=== PATIENT | male | born 1960 | race Caucasian/White ===

== ENCOUNTER 2021-12-28 12:35 | Day surgery (SDC) | payer OTHER ==
[2021-12-26 16:19] VITALS: BMI 25.0
[~2021-12-28 12:35] MED LIST: ALBUTEROL NEB (CONC) 2.5 MG/0.5 ML INHALATION ONE; LACTATED RINGERS 1,000 ML IV SCH; LIDOCAINE 2% (PF) 20 MG/ML 5 ML VIAL INHALATION ONE; LIDOCAINE VISCOUS 300 MG/15 ML CUP MUCOUS MEM ONE; SODIUM CHLORIDE 0.9% 1,000 ML IV SCH
[2021-12-28 13:14] LABS: Glucose,Whole Blood 103 mg/dL (75-99)
[2021-12-28] MEDS ORDERED: NEOSTIGMINE 1 MG/ML 10 ML VIAL ONE (13:36)
[2021-12-28] MEDS ORDERED: ROCURONIUM 10 MG/ML (5 ML VIAL) IV ONE (13:36)
[2021-12-28] MEDS ORDERED: LIDOCAINE 1% INJ 10MG/ML (20 ML MDV) ONE (13:36)
[2021-12-28] MEDS ORDERED: GLYCOPYRROLATE 0.2 MG/ML 2 ML VIAL ONE (13:36)
[2021-12-28] MEDS ORDERED: SUCCINYLCHOLINE CHLORIDE VIAL 200 MG/10 ML VIAL IV ONE (13:36)
[2021-12-28] MEDS ORDERED: fentaNYL (PF) 50 MCG/ML 2 ML AMP ONE (13:36)
[2021-12-28] MEDS ORDERED: PROPOFOL 10 MG/ML 20 ML VIAL IV ONE (13:36)
[2021-12-28] MEDS ORDERED: MIDAZOLAM 2 MG/2 ML VIAL ONE (13:36)
--- NOTE | 2021-12-28 14:04 | CT ---
EXAMINATION TYPE: CT Chest jennifer Domínguez Protocol DATE OF EXAM: 12/28/2021 COMPARISON: X-ray dated 12/14/2021 HISTORY: pre bronchial navigation, lung mass CT DLP: 569 mGycm Automated exposure control for dose reduction was used. TECHNIQUE: Multiplanar CT scan of the chest in the inspiration and expiration phases without IV contr ast administration. FINDINGS: Large right hilar mass extending along the posterior aspect of the right upper lobe to the costal ple ura and along the oblique fissure with suspected extension into the right lower lobe superior segment . This is likely representing a lung cancer. Multiple variable sized nodules are seen in the right up per lobe, right lower lobe and middle lobe measuring up to 8mm. Filling defect is seen within the lateral superior aspect of the trachea measuring 12 mm, underlying polyp or other lesion cannot be excluded. Minimal left basal linear pulmonary atelectasis. No definit e left lung lesion identified. Minimal right-sided pleural fluid. No gross cardiomegaly. Minimal lay nary arterial calcifications. No pericardial effusion. 17 mm subcarinal lymph node with 17 mm precarinal lymph node and 15 mm right paratracheal retrocaval lymph node. Other multiple enlarged mediastinal and right hilar lymph nodes. No pathologically enlarg ed left hilar or axillary lymph nodes. Tiny hypodensities are seen in the liver, too small to characterize, for further enhanced CT or ultra sound assessment. The left adrenal gland is not completely included in the scan. Previous left basilia l fixation. Multiple lucencies are seen within the thoracic spine and the ribs as well as the sternum and right scapula, suspicious for metastasis, please correlate with bone scan results. IMPRESSION: Peribronchial navigation CT scan. Large right lung mass likely representing a lung cancer with multip le suspicious lymph nodes in the chest as detailed above. Multiple bone lesions likely metastatic, for further correlation with bone scan results. Indeterminat e hepatic hypodensities, for further CT or ultrasound assessment. PET/CT scan assessment can be also considered. Other findings as described above.
[2021-12-28] MEDS ORDERED: LACTATED RINGERS 1,000 ML IV ONE (14:42)
--- NOTE | 2021-12-28 14:44 | P.PCN ---
Date of Procedure: 12/28/21 Operative Findings: Operative Findings: 1 right upper lobe mass 2 Right hilar subcarinal lymphadenopathy Postoperative Diagnosis: 1 right upper lobe mass 2 Right hilar subcarinal lymphadenopathy Procedure(s) Performed: 1 flexible bronchoscopy, airway inspection 2 navigation bronchoscopy, transbronchial biopsy of a right upper lobe mass, bronchial alveolar lavage of the right upper lobe 2 endoscopic ultrasound (EBUS) 3 transbronchial needle aspirate of station station 7, station 4R, 11 R (S) lymph nodes Surgeon: Tang Topete Offset Press Operator Helper #1: Zoe Mendoza Estimated Blood Loss (ml): 10-15 cc Pathology: TBBX of the right upper lobe, transbronchial needle aspirate of station 7, forearm, and 11 R (S) Condition: stable Disposition: same day Operative Findings: The patient had a preoperative computed tomography scan of the chest using the Veran protocol. The CAT scan images were reviewed. The right upper lobe opacity was identified it was mapped appropriately. The CAT scan images are uploaded into a USB and then into the [employer] Navigation tower. After obtaining the consent the patient was taken to the OR suite he was intubated and put on mechanical ventilation by anesthesia then the scope was advanced to the ET tube until the Trachea was seen and it was normal and then the malissa appears normal then the scope advanced to the left main and REGLA LB1- LB3 were seen and no endobronchial lesions were seen then the scope advanced to the lingula and the LB4 and LB5 were seen and no endobronchial lesions were seen the scope retracted and advanced to the left lower lobes LB6 to LB12 were seen one by one and no endobronchial lesions, then the scope was retracted back to the malissa and advanced to the Right main and RUL RB1 and RB2 and RB3 were seen one by one and no endobronchial lesions were seen the scope, however, the segment of the posterior right upper lobe bronchus were atelectatic and narrowed and extrinsically compressed. The bronchoscope was then retracted and advanced to the BI and RML RB4 and RB5 were seen and no endobronchial lesions were seen then it was retracted and advanced to the RLL RB6 to RB12 were seen one by one and no endobronchial lesions. Navigation bronchoscopy was performed. The main malissa and the secondary malissa on the left were used as the reference points and appropriate calibration was done. Following that, using a navigation guidance , the bronchoscope was advanced to the right upper lobe posterior segment and various transbronchial biopsies of the right upper lobe opacity was done without any complications. Minimal endobronchial bleeding was encountered. A bronchial lavage (BAL) of the right upper lobe O2 sat was done. A total of 80 mL of fluid was infused and 20 mL was suctioned back and this will be sent for cytology and microbial cultures. Then EBUS was used and the lymph nodes were examined. Direct measurement of the mediastinal lymph nodes revealed station 4R lymph node measuring 21 x 18 mm in size, station 10 R lymph node measuring 16 x 17 mm in size, station 11 R superior measuring 19 x 19 mm in size, station 11 R inferior measuring 15 x 15 mm in size, and a subcarinal lymph node station 7 measuring 17 x 19 mm in size. On the EBUS guidance, transbronchial needle aspirate of the subcarinal lymph node station 7 was done with a total of 4 passes, station 4R lymph node was done with a total of 3 passes and station 11 R superior was done with a total of 3 passes. No major bleeding and the scope was removed and taken out in total the patient was send to the floor in stable condition. The adequacy of the temporal confirmed by pathology at the bedside and the rest of the samples were sent and the cell block. The bronchoscope was removed, the patient will be extubated and then transferred to recovery. A follow-up chest x-ray will be done in recovery.
[2021-12-28 14:53] VITALS: TEMP 98
[2021-12-28 15:45] VITALS: BP 121/68; PULSE 91; RESP 20
--- NOTE | 2021-12-28 15:46 | XR ---
EXAMINATION TYPE: XR chest 1V DATE OF EXAM: 12/28/2021 COMPARISON: X-ray dated 12/14/[address] performed earlier same day HISTORY: Postbiopsy TECHNIQUE: Single frontal view of the chest is obtained. FINDINGS: Known large right lung mass with right lung nodules, osseous lesions and mediastinal/right hilar lymp hadenopathy. No sizable pleural effusion or definite pneumothorax. No cardiomegaly. IMPRESSION: No postbiopsy pneumothorax or pleural effusion.
[2021-12-29 01:42] LABS: Appearance,BF Bloody
== END 2021-12-28 16:00 | disposition home or self-care (01) ==
LOC: ORWHC2ENDO 12:35
PROVIDERS: ATTEND Internal Medicine Critical Care Medicine
DX: R91.8 Other nonspecific abnormal finding of lung field (principal); R59.0 Localized enlarged lymph nodes; J44.9 Chronic obstructive pulmonary disease, unspecified; R05.3 Chronic cough; M10.9 Gout, unspecified; F41.9 Anxiety disorder, unspecified; Z87.891 Personal history of nicotine dependence; Z79.899 Other long term (current) drug therapy; Z80.1 Family history of malignant neoplasm of trachea, bronchus and lung; Z82.0 Family history of epilepsy and other diseases of the nervous system; N50.89 Other specified disorders of the male genital organs; Z97.2 Presence of dental prosthetic device (complete) (partial)
CPT/HCPCS: 87798 ×3; 87496; 87498; 87529; 88108; 88305; 88173; 89050; 88342; 87252; 87502; 87634; 88341; 87070; 87205; 87116; 87102; 87206; 71045; 71250; 31628; 31629; 31624; 31627; 31653; J2250; J0330; J2710; J2001; J3010; J2704; 31625

== ENCOUNTER → 2022-01-12 | Outpatient (CLI) | payer OTHER ==
--- NOTE | 2022-01-16 06:43 | PE ---
EXAMINATION TYPE: PET CT fusion skull to thigh DATE OF EXAM: 01/12/2022 COMPARISON: Chest CT December 28, 2021 HISTORY: Newly diagnosed non-small cell lung cancer on bronchoscopy December 28. TECHNIQUE: Following the intravenous administration of 11.75 mCi of F-18 FDG, whole body images are performed from the skull base to the midthigh. Images are reviewed on the computer in the coronal, a xial, and sagittal planes. Reconstructed rotating images are created on independent workstation and reviewed on the computer. A localization and attenuation correction CT is performed in conjunction with the PET scan. Blood glucose level equals 90. SCAN: Initial Scan FINDINGS: SKULL BASE AND NECK: Abnormal hypermetabolic mass or adenopathy posterior lateral to right submandib ular gland measuring 1.7 x 1.5 cm axial image 43 above the hyoid bone, max SUV is 8.14. There is vianca tional borderline enlarged hypermetabolic lymph node at this level in the posterior cervical triangle on the right. CHEST, MEDIASTINUM, AND HILAR REGION: Corresponding to most recent CT there is mild underlying emphys ematous change with large mass in the posterior right upper lobe measuring 7.6 x 5.7 cm axial image 9 1, max SUV is 10.76 on axial image 86. Abnormal right hilar adenopathy versus continuation of mass to hilar level is felt present. There are abnormal thoracic lymph nodes for reference approximately 2.3 x 1.6 cm subcarinal lymph node axial i mage 100, max SUV is 7.27. There are abnormal hypermetabolic paratracheal and AP window lymph nodes n ear axial image 91. Additional abnormal paratracheal lymph nodes extend superiorly. There are abnorma l hypermetabolic supraclavicular lymph nodes bilaterally on axial image 70. 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 Normal excretion o f right kidney and bladder. No hypermetabolic adrenal masses. Left adrenal gland shows small ametabol ic 1.4 cm mass axial image 158 favor benign adenoma. OSSEOUS STRUCTURES: Innumerable hypermetabolic osseous metastatic lesions correspond to lytic lesions on CT. There is involvement of the bilateral ribs along with sternal and entire spine. There is invo lvement of the pelvic sacrum and bilateral iliac bones. There is involvement in the bilateral shoulde rs. Growth into the anterior aspect of the spinal canal involving T11 vertebra axial image [address]: Enlarged prostate consistent with BPH. IMPRESSION: Known right lung neoplasm with abnormal thoracic adenopathy along with diffuse osseous me tastatic disease and metastatic lesions to the right neck. Early spinal canal invasion lower thoracic spine level is noted. TNM STAGING T4, N3, M1c STAGE IVb 232
== END | disposition home or self-care (01) ==
LOC: RADXRMAIN 14:36
PROVIDERS: ATTEND Internal Medicine Critical Care Medicine
DX: C34.90 Malignant neoplasm of unspecified part of unspecified bronchus or lung (principal); C79.51 Secondary malignant neoplasm of bone
CPT/HCPCS: 78815; A9552

== ENCOUNTER 2022-01-24 17:58 | Inpatient (IN) | payer OTHER ==
[2022-01-24] MEDS ORDERED: ACETAMINOPHEN TAB 500 MG TAB PO STA (18:23)
[2022-01-24] MEDS ORDERED: SODIUM CHLORIDE 0.9% 2,500 ML IV STA (18:26)
[2022-01-24 19:03] LABS: HCT 42.1 % (39.0-53.0); HGB 13.2 gm/dL (13.0-17.5); Hypochromasia Slight; MCH 26.6 pg (25.0-35.0); MCHC 31.3 g/dL (31.0-37.0); MCV 85.1 fL (80.0-100.0); Mean Platelet Volume 8.1; Platelet Count 390 k/uL (150-450); RBC 4.95 m/uL (4.30-5.90); RDW 13.9 % (11.5-15.5)
[2022-01-24 19:08] LABS: ALT 9 U/L (4-49); AST 18 U/L (17-59); African American GFR (CKD) >90 (>60 ml/min/1.73 sqM); Albumin 3.2 g/dL (3.5-5.0); Alkaline Phosphatase 88 U/L (38-126); Anion Gap 10 mmol/L; Blood Urea Nitrogen 14 mg/dL (9-20); Calcium 9.4 mg/dL (8.4-10.2); Carbon Dioxide 30 mmol/L (22-30); Chloride 91 mmol/L (98-107); Glucose 115 mg/dL (74-99); Non-African American GFR(CKD) >90 (>60 ml/min/1.73 sqM); Potassium 3.8 mmol/L (3.5-5.1); Sodium 131 mmol/L (137-145); Total Bilirubin 0.9 mg/dL (0.2-1.3); Total Protein 5.9 g/dL (6.3-8.2)
--- NOTE | 2022-01-24 19:11 | XR ---
EXAMINATION TYPE: XR chest 1V portable DATE OF EXAM: 01/24/2022 COMPARISON: 12/28/2021 HISTORY: Bronchoscopy TECHNIQUE: Single view FINDINGS: There is 11 cm masslike area of consolidation in the right upper lung field. Left lung is f airly clear. No heart failure. Heart size is normal. IMPRESSION: Right upper lobe consolidation significantly increased compared to last exam. No pneumoth orax. No heart failure.
[2022-01-24 19:14] LABS: INR 1.2 (<1.2); Prothrombin Time 12.7 sec (9.0-12.0)
[2022-01-24 19:16] LABS: WBC 56.8 k/uL (3.8-10.6)
--- NOTE | 2022-01-24 19:19 | ED ---
General Adult HPI - General Chief complaint: Weakness Stated complaint: Weakness Time Seen by Provider: 01/24/22 18:12 Source: patient, EMS, RN notes reviewed Mode of arrival: EMS Limitations: no limitations - History of Present Illness Initial comments: 61-year-old male presents to the emergency department via EMS for evaluation of profound weakness, onset two days prior to arrival. Patient states he is so tired that he has been unable to get out of bed today. He was recently diagnosed with lung cancer and has had multiple tests and scans done in the past 2 months. He was unaware that he had a fever. Complains of lateral chest pain with deep breathing. Also complains decreased urine output, onset yesterday. Also has had diminished appetite. Denies confusion, speech changes, facial drooping, extremity weakness, abdominal pain, nausea, vomiting, diarrhea, and constipation. - Related Data Home Medications Medication Instructions Recorded Confirmed hydrOXYzine HCL 25 mg PO TID PRN 12/26/21 01/24/22 HYDROcodone/APAP 7.5-325MG [[place] 2 tab PO Q4H PRN 01/24/22 01/24/22 7.5-325] Allergies Allergy/AdvReac Type Severity Reaction Status Date / Time No Known Allergies Allergy Verified 01/24/22 20:42 Review of Systems ROS Statement: Those systems with pertinent positive or pertinent negative responses have been documented in the HPI. ROS Other: All systems not noted in ROS Statement are negative. Past Medical History Past Medical History: Cancer, COPD Additional Past Medical History / Comment(s): recent gout in knee with steroids in the last week., SOB, states productive cough. Stage 4 lung and bone cancer History of Any Multi-Drug Resistant Organisms: None Reported Past Surgical History: Back Surgery, Hernia Repair Additional Past Surgical History / Comment(s): 2015 fx arm with hardware. Past Anesthesia/Blood Transfusion Reactions: No Reported Reaction Past Psychological History: Anxiety Smoking Status: Former smoker Past Alcohol Use History: Daily Past Drug Use History: Marijuana - Past Family History Father Family Medical History: Cancer Additional Family Medical History / Comment(s): lung cancer General Exam Limitations: no limitations General appearance: alert, in no apparent distress, other (This is a pleasant, well-developed, well-nourished male in no acute distress. Initial temperature 100.3, pulse 120, respirations 20, blood pressure 135/83, pulse ox 88% on room air, 98% on 4 L.) Head exam: Present: atraumatic, normocephalic, normal inspection Eye exam: Present: normal appearance. Absent: scleral icterus, conjunctival injection, periorbital swelling, periorbital tenderness ENT exam: Present: normal oropharynx, mucous membranes moist Neck exam: Present: normal inspection, full ROM. Absent: tenderness, lymphadenopathy Respiratory exam: Present: normal lung sounds bilaterally. Absent: respiratory distress, wheezes, rales, rhonchi, stridor, chest wall tenderness Cardiovascular Exam: Present: normal rhythm, tachycardia, normal heart sounds GI/Abdominal exam: Present: soft, tenderness (mild suprapubic tenderness upon palpation; reports improvement with placement of lr catheter), normal bowel sounds. Absent: distended, guarding, rebound, rigid Extremities exam: Present: normal inspection, normal capillary refill, other (+2 pedal and posttibial pulses; unable to raise legs off bed). Absent: pedal edema Back exam: Absent: CVA tenderness (R), CVA tenderness (L) Neurological exam: Present: alert, oriented X3 Expanded Patient oriented to: Present: person, place, time Speech: Present: fluid speech Cranial nerves: EOM's Intact: Normal, Tongue Deviation: Normal, Nystagmus: Normal Cerebellar function: Finger to Nose: Normal Sensory exam: Upper Extremity Light Touch: Normal, Lower Extremity Light Touch: Normal Motor strength exam: RUE: 5, LUE: 5, RLE: 2/1, LLE: 2/1 Eye Response: (4) open spontaneously Motor Response: (6) obeys commands Verbal Response: (5) oriented Marlon Total: 15 Psychiatric exam: Present: flat affect Skin exam: Present: warm, dry, intact, normal color. Absent: rash Course Vital Signs 01/24/22 01/24/22 01/24/22 18:02 18:12 20:26 Temperature 100.3 F H 101.8 F H Pulse Rate 120 H 115 H Respiratory 20 18 Rate Blood Pressure 135/83 115/74 O2 Sat by Pulse 88 L 98 97 Oximetry 01/24/22 22:26 Temperature 98.7 F Pulse Rate 99 Respiratory 18 Rate Blood Pressure 103/66 O2 Sat by Pulse 97 Oximetry - Reevaluation(s) Reevaluation #1: 01/24/22 19:30 This patient's care was discussed at length with my attending, Dr. Love. CT spine will be ordered. Significant urine output in lr catheter. Updated patient and spouse on findings and discussed plan of care. Upon reassessment, patient remains awake, alert, and oriented 4. He is on 3 L oxygen with an SpO2 95%. He continues to be mildly tachycardic, though this is improved with IV fluids. He denies shortness of breath or difficulty breathing at rest. States lower abdominal discomfort is improved with urine output via Lr catheter. Patient does remain febrile. Fluids and antibiotics per sepsis protocol. Will continue to monitor. 01/24/22 21:[address] Sanders regarding this patient's care. He is agreeable to accept this admission. Orders will be placed accordingly. Patient and spouse updated on plan of care and they are agreeable. Medical Decision Making - Medical Decision Making 61-year-old male with recent diagnosis of 1 OR with metastatic disease presents to the emergency department via EMS for evaluation of lower extremity weakness and urinary retention. Upon exam, patient's initial room air sat was 88% therefore was placed on oxygen via nasal cannula at 4 L significant improvement. He was febrile and tachycardic. Chest x-ray shows right upper lobe consolidati on significantly increased compared to last exam. CT of the spine shows extensive osteolytic lesions. Lr catheter was placed with substantial urine output. Physical exam findings are significant for the inability to elevate lower extremities off the bed. Antipyretics given for fever control. IV fluids administered according to sepsis protocol. Patient was given IV antibiotics though source of fever is unknown at this time. Patient has marked leukocytosis. Covid his influenza are negative. Patient will be admitted to the hospital for further evaluation and treatment. Plan of care discussed with patient and spouse. Dr. Sanders is agreeable to accept this admission. Pulmonology, oncology, and radiation/oncology were consulted as well. Attending: Ivan. - Lab Data Result diagrams: 01/24/22 18:57 01/24/22 18:57 Lab Results 01/24/22 01/24/22 01/24/22 Range/Units 18:57 18:57 18:57 WBC 56.8 H* (3.8-10.6) k/uL RBC 4.95 (4.30-5.90) m/uL Hgb 13.2 (13.0-17.5) gm/dL Hct 42.1 (39.0-53.0) % MCV 85.1 (80.0-100.0) fL MCH 26.6 (25.0-35.0) pg MCHC 31.3 (31.0-37.0) g/dL RDW 13.9 (11.5-15.5) % Plt Count 390 (150-450) k/uL MPV 8.1 Neutrophils % [employer] Neutrophils % (Manual) 66 % Band Neuts % (Manual) 3 % Lymphocytes % [employer] Lymphocytes % (Manual) 3 % Monocytes % [employer] Monocytes % (Manual) 4 % Eosinophils % [employer] Eosinophils % (Manual) 24 % Basophils % [employer] Neutrophils # [employer] Neutrophils # (Manual) 39.10 H (1.3-7.7) k/uL Lymphocytes # [employer] Lymphocytes # (Manual) 1.70 (1.0-4.8) k/uL Monocytes # [employer] Monocytes # (Manual) 2.27 H (0-1.0) k/uL Eosinophils # [employer] Eosinophils # (Manual) 13.63 H (0-0.7) k/uL Basophils # [employer] Nucleated RBCs 0 (0-0) /100 WBC Manual Slide Review Performed Hypochromasia Slight PT (9.0-12.0) sec INR (<1.2) APTT (22.0-30.0) sec Sodium 131 L (137-145) mmol/L Potassium 3.8 (3.5-5.1) mmol/L Chloride 91 L (98-107) mmol/L Carbon Dioxide 30 (22-30) mmol/L Anion Gap 10 mmol/L BUN 14 (9-20) mg/dL Creatinine 0.84 (0.66-1.25) mg/dL Est GFR (CKD-EPI)AfAm >90 (>60 ml/min/1.73 sqM) Est GFR (CKD-EPI)NonAf >90 (>60 ml/min/1.73 sqM) Glucose 115 H (74-99) mg/dL Plasma Lactic Acid Elmer 1.4 (0.7-2.0) mmol/L Calcium 9.4 (8.4-10.2) mg/dL Total Bilirubin 0.9 (0.2-1.3) mg/dL AST 18 (17-59) U/L ALT 9 (4-49) U/L Alkaline Phosphatase 88 (38-126) U/L Troponin I (0.000-0.034) ng/mL Total Protein 5.9 L (6.3-8.2) g/dL Albumin 3.2 L (3.5-5.0) g/dL Urine Color Urine Appearance (Clear) Urine pH (5.0-8.0) Ur Specific [place] (1.001-1.035) Urine Protein (Negative) Urine Glucose (UA) (Negative) Urine Ketones (Negative) Urine Blood (Negative) Urine Nitrite (Negative) Urine Bilirubin (Negative) Urine Urobilinogen (<2.0) mg/dL Ur Leukocyte Esterase (Negative) Urine RBC (0-5) /hpf Urine WBC (0-5) /hpf Urine Mucus (None) /hpf Coronavirus (PCR) (Not Detectd) Influenza Type A RNA (Not Detectd) Influenza Type B (PCR) (Not Detectd) 01/24/22 01/24/22 01/24/22 Range/Units 18:57 18:57 18:57 WBC (3.8-10.6) k/uL RBC (4.30-5.90) m/uL Hgb (13.0-17.5) gm/dL Hct (39.0-53.0) % MCV (80.0-100.0) fL MCH (25.0-35.0) pg MCHC (31.0-37.0) g/dL RDW (11.5-15.5) % Plt Count (150-450) k/uL MPV Neutrophils % Neutrophils % (Manual) % Band Neuts % (Manual) % Lymphocytes % Lymphocytes % (Manual) % Monocytes % Monocytes % (Manual) % Eosinophils % Eosinophils % (Manual) % Basophils % Neutrophils # Neutrophils # (Manual) (1.3-7.7) k/uL Lymphocytes # Lymphocytes # (Manual) (1.0-4.8) k/uL Monocytes # Monocytes # (Manual) (0-1.0) k/uL Eosinophils # Eosinophils # (Manual) (0-0.7) k/uL Basophils # Nucleated RBCs (0-0) /100 WBC Manual Slide Review Hypochromasia PT 12.7 H (9.0-12.0) sec INR 1.2 H (<1.2) APTT 27.0 (22.0-30.0) sec Sodium (137-145) mmol/L Potassium (3.5-5.1) mmol/L Chloride (98-107) mmol/L Carbon Dioxide (22-30) mmol/L Anion Gap mmol/L BUN (9-20) mg/dL Creatinine (0.66-1.25) mg/dL Est GFR (CKD-EPI)AfAm (>60 ml/min/1.73 sqM) Est GFR (CKD-EPI)NonAf (>60 ml/min/1.73 sqM) Glucose (74-99) mg/dL Plasma Lactic Acid Elmer (0.7-2.0) mmol/L Calcium (8.4-10.2) mg/dL Total Bilirubin (0.2-1.3) mg/dL AST (17-59) U/L ALT (4-49) U/L Alkaline Phosphatase (38-126) U/L Troponin I <0.012 (0.000-0.034) ng/mL Total Protein (6.3-8.2) g/dL Albumin (3.5-5.0) g/dL Urine Color Yellow Urine Appearance Clear (Clear) Urine pH 5.0 (5.0-8.0) Ur Specific [place] 1.025 (1.001-1.035) Urine Protein Negative (Negative) Urine Glucose (UA) Negative (Negative) Urine Ketones Negative (Negative) Urine Blood Small H (Negative) Urine Nitrite Negative (Negative) Urine Bilirubin Negative (Negative) Urine Urobilinogen <2.0 (<2.0) mg/dL Ur Leukocyte Esterase Negative (Negative) Urine RBC 13 H (0-5) /hpf Urine WBC 1 (0-5) /hpf Urine Mucus Rare H (None) /hpf Coronavirus (PCR) (Not Detectd) Influenza Type A RNA (Not Detectd) Influenza Type B (PCR) (Not Detectd) 01/24/22 01/24/22 Range/Units 19:05 19:05 WBC (3.8-10.6) k/uL RBC (4.30-5.90) m/uL Hgb (13.0-17.5) gm/dL Hct (39.0-53.0) % MCV (80.0-100.0) fL MCH (25.0-35.0) pg MCHC (31.0-37.0) g/dL RDW (11.5-15.5) % Plt Count (150-450) k/uL MPV Neutrophils % Neutrophils % (Manual) % Band Neuts % (Manual) % Lymphocytes % Lymphocytes % (Manual) % Monocytes % Monocytes % (Manual) % Eosinophils % Eosinophils % (Manual) % Basophils % Neutrophils # Neutrophils # (Manual) (1.3-7.7) k/uL Lymphocytes # Lymphocytes # (Manual) (1.0-4.8) k/uL Monocytes # Monocytes # (Manual) (0-1.0) k/uL Eosinophils # Eosinophils # (Manual) (0-0.7) k/uL Basophils # Nucleated RBCs (0-0) /100 WBC Manual Slide Review Hypochromasia PT (9.0-12.0) sec INR (<1.2) APTT (22.0-30.0) sec Sodium (137-145) mmol/L Potassium (3.5-5.1) mmol/L Chloride (98-107) mmol/L Carbon Dioxide (22-30) mmol/L Anion Gap mmol/L BUN (9-20) mg/dL Creatinine (0.66-1.25) mg/dL Est GFR (CKD-EPI)AfAm (>60 ml/min/1.73 sqM) Est GFR (CKD-EPI)NonAf (>60 ml/min/1.73 sqM) Glucose (74-99) mg/dL Plasma Lactic Acid Elmer (0.7-2.0) mmol/L Calcium (8.4-10.2) mg/dL Total Bilirubin (0.2-1.3) mg/dL AST (17-59) U/L ALT (4-49) U/L Alkaline Phosphatase (38-126) U/L Troponin I (0.000-0.034) ng/mL Total Protein (6.3-8.2) g/dL Albumin (3.5-5.0) g/dL Urine Color Urine Appearance (Clear) Urine pH (5.0-8.0) Ur Specific [place] (1.001-1.035) Urine Protein (Negative) Urine Glucose (UA) (Negative) Urine Ketones (Negative) Urine Blood (Negative) Urine Nitrite (Negative) Urine Bilirubin (Negative) Urine Urobilinogen (<2.0) mg/dL Ur Leukocyte Esterase (Negative) Urine RBC (0-5) /hpf Urine WBC (0-5) /hpf Urine Mucus (None) /hpf Coronavirus (PCR) Not Detected (Not Detectd) Influenza Type A RNA Not Detected (Not Detectd) Influenza Type B (PCR) Not Detected (Not Detectd) - EKG Data EKG shows normal: sinus rhythm Rate: tachycardia EKG Comments: EKG was obtained at 1823 showing sinus tachycardia with occasional supraventricular premature complexes and nonspecific T-wave abnormality. Ventricular rate 117, IN interval 136, QRS duration 86, QT/QTC 394/463. Interpretation abnormal rhythm ECG. - Radiology Data Radiology results: report reviewed, image reviewed Chest x-ray is obtained. Report was reviewed in its entirety. Impression per Dr. Mccrary is right upper lobe consolidation significantly increased compared to last exam. No pneumothorax. No heart failure. CT of the spine with contrast was obtained. Report was reviewed in its entirety. Impression per Dr. Mccrary is extensive osteolytic changes in the cervical, thoracic, and lumbar spine consistent with extensive metastatic disease. If there is indication to detect a spinal block, then MR scan is recommended. Disposition Clinical Impression: Urinary retention, Fever, Bilateral leg weakness, Spine metastasis, Lung mass, Leukocytosis Disposition: ADMITTED IP TO THIS HOSP Condition: Serious Decision Date: 01/24/22 Decision Time: 22:01
[2022-01-24 19:22] LABS: Appearance,Urine Clear (Clear); Bilirubin,Urine Negative (Negative); Blood,Urine Small (Negative); Color,Urine Yellow; Glucose,Urine (UA) Negative (Negative); Ketones,Urine Negative (Negative); Leukocyte Esterase,Urine Negative (Negative); Mucus,Urine Rare /hpf; Nitrite,Urine Negative (Negative); Protein,Urine Negative (Negative); RBC,Urine 13 /hpf (0-5); Specific Gravity,Urine 1.025 (1.001-1.035); Urobilinogen,Urine <2.0 mg/dL (<2.0); WBC,Urine 1 /hpf (0-5)
[2022-01-24 19:27] LABS: Band Neutrophils % 3 %; Eosinophils # (M) 13.63 k/uL (0-0.7); Monocytes # (M) 2.27 k/uL (0-1.0); Neutrophils % (M) 66 %; Nucleated Red Blood Cells 0 /100 WBC (0-0); Total Cells Counted 100
[2022-01-24] MEDS ORDERED: cefTRIAXone IN SWFI 1,000 MG/10 ML SYRINGE IVP STA (19:37)
[2022-01-24] MEDS: SODIUM CHLORIDE 0.9% 1,000 ML IV SCH ×2 (20:28→22:19)
--- NOTE | 2022-01-24 20:42 | CT ---
EXAMINATION TYPE: CT CervThorLumbar spine w con DATE OF EXAM: 01/24/2022 COMPARISON: None HISTORY: lower back pain and leg weakness CT DLP: 2234.3 mGycm Automated exposure control for dose reduction was used. CONTRAST: Performed with IV Contrast, patient injected with 100 mL of Isovue 300. Images obtained from the level of the temporal bones to the S2 level without contrast. Thoracic and lumbar vertebra have normal alignment. There are numerous osteolytic foci throughout the thoracic and lumbar spine. There is 20% pathologic compression fracture of T3 vertebra. There is 20% loss of height. T1 also shows 10% compression with extensive destructive changes in the vertebral evans dy. There is destructive changes in virtually all of the thoracic and lumbar vertebra. Images through the cervical spine show large destructive lesion of the C2 vertebral body. No significant compressio n fracture. The skull base appears intact. IMPRESSION: Extensive osteolytic changes in the cervical thoracic and lumbar spine consistent with extensive meta static disease. If there is indication to detect spinal block then MR scan is recommended.
[2022-01-24] MEDS ORDERED: ONDANSETRON 4 MG/2 ML VIAL IVP PRN (21:32)
[2022-01-24] MEDS ORDERED: NALOXONE 0.4 MG/ML 1 ML VIAL IV PRN (21:32)
[2022-01-24] MEDS ORDERED: IBUPROFEN 400 MG TAB PO PRN (21:32)
[2022-01-24] MEDS ORDERED: HYDROmorphone 1 MG/ML 1 ML SYRINGE IVP STA (21:57)
[2022-01-24] MEDS: HYDROmorphone 0.5 MG/0.5 ML SYRINGE IVP PRN (22:27)
[2022-01-25] MEDS: SODIUM CHLORIDE 0.9% 1,000 ML IV SCH ×7 (02:09→22:58)
[2022-01-25] MEDS: HYDROmorphone 0.5 MG/0.5 ML SYRINGE IVP PRN (08:14)
[2022-01-25 09:11] LABS: African American GFR (CKD) >90 (>60 ml/min/1.73 sqM); Anion Gap 7 mmol/L; Blood Urea Nitrogen 11 mg/dL (9-20); Calcium 8.6 mg/dL (8.4-10.2); Carbon Dioxide 30 mmol/L (22-30); Chloride 98 mmol/L (98-107); Glucose 115 mg/dL (74-99); Non-African American GFR(CKD) >90 (>60 ml/min/1.73 sqM); Potassium 3.7 mmol/L (3.5-5.1); Sodium 135 mmol/L (137-145)
[2022-01-25 09:23] LABS: Basophils # (A) 0.3 k/uL (0-0.2); Basophils % (A) 1 %; Eosinophils # (A) 13.8 k/uL (0-0.7); Eosinophils % (A) 27 %; HCT 38.5 % (39.0-53.0); HGB 12.1 gm/dL (13.0-17.5); Hypochromasia Moderate; Lymphocytes # (A) 1.4 k/uL (1.0-4.8); Lymphocytes % (A) 3 %; MCH 26.7 pg (25.0-35.0); MCHC 31.4 g/dL (31.0-37.0); Mean Platelet Volume 7.9; Monocytes # (A) 2.2 k/uL (0-1.0); Monocytes % (A) 4 %; Neutrophils # (A) 32.6 k/uL (1.3-7.7); Neutrophils % (A) 64 %; Platelet Count 376 k/uL (150-450); RBC 4.52 m/uL (4.30-5.90); RDW 13.8 % (11.5-15.5)
[2022-01-25] MEDS ORDERED: HYDROcodone/APAP 7.5-325MG 1 EACH TAB PO PRN (10:00)
[2022-01-25] MEDS ORDERED: MAGNESIUM HYDROXIDE 2,400 MG/10 ML CUP PO PRN (10:53)
[2022-01-25] MEDS: HYDROcodone/APAP 10-325MG 1 EACH TAB PO PRN ×3 (11:21→22:02)
[2022-01-25] MEDS: hydrOXYzine HCL 25 MG TAB PO PRN ×2 (11:22→22:11)
[2022-01-25] MEDS: DEXAMETHASONE SOD PHOSPHATE 10 MG/ML 1 ML VIAL IVP SCH ×5 (11:22→22:26)
[2022-01-25] MEDS: PANTOPRAZOLE 40 MG/10 ML VIAL IVP SCH ×2 (11:22→22:02)
[2022-01-25] MEDS: ENOXAPARIN 40 MG/0.4 ML SYRINGE SQ SCH (11:23)
--- NOTE | 2022-01-25 12:12 | P.CNPUL ---
History of Present Illness Consult date: 01/25/22 Requesting physician: Archie Sanders Reason for consult: lung mass, abnormal CXR/CT, other Chief complaint: Spinal cord compression. History of present illness: Pulmonary consult dated 01/25/2022. 61-year-old male with a history of recent diagnosis of lung cancer, adenocarcinoma, with multiple skeletal metastasis, the cervical, thoracic, and lumbar spine. The patient presents to the emergency department on January 24, complaining of inability to urinate, and not able to move his lower extremities. This all started yesterday. It's clear the patient has acute spinal cord compression, and for that reason, he was admitted to the hospital. The patient recently had a procedure done last month, by my partner, whereby lymph nodes were sampled in the hilum and mediastinum. The diagnosis was that of adenocarcinoma, stage IV, with multiple skeletal metastasis. The lung was the primary. Currently, she is on 4 L nasal cannula. He is getting saline at 20 mL an hour. The patient was given Rocephin for suspected urinary tract infection. I did call the radiation oncologist, and recommended that he get to see the patient as soon as possible, for radiation therapy. In addition, I started the patient on Decadron, 6 mg, IV push, every 6 hours. Sodium was 135, potassium 3.7, chlorides 98, CO2 30, BUN 11, and creatinine 0.77. White count 51,000, hemoglobin 12.1, hematocrit 38.5, and platelet count 376,000. Chest x-ray showed a large mass in the right chest. Review of Systems REVIEW OF SYSTEMS: CONSTITUTIONAL: Weakness and fatigue. NEUROLOGIC: Unable to move his lower extremities. HEENT: [ Negative.] CARDIAC: [Negative.] PULMONARY: Chronic shortness of breath. GI: Decreased appetite and weight loss. : Urinary retention. RHEUMATOLOGIC: [ Negative.] IMMUNOLOGIC: [ Negative.] ENDOCRINE: [Negative. ] DERMATOLOGIC: [Negative.] Past Medical History Past Medical History: Cancer, COPD Additional Past Medical History / Comment(s): recent gout in knee with steroids in the last week., SOB, states productive cough. Stage 4 lung and bone cancer History of Any Multi-Drug Resistant Organisms: None Reported Past Surgical History: Back Surgery, Hernia Repair Additional Past Surgical History / Comment(s): 2015 fx arm with hardware. Past Anesthesia/Blood Transfusion Reactions: No Reported Reaction Past Psychological History: Anxiety Smoking Status: Former smoker Past Alcohol Use History: Daily Past Drug Use History: Marijuana - Past Family History Father Family Medical History: Cancer Additional Family Medical History / Comment(s): lung cancer Medications and Allergies Home Medications Medication Instructions Recorded Confirmed Type hydrOXYzine HCL 25 mg PO TID PRN 12/26/21 01/24/22 History HYDROcodone/APAP 7.5-325MG [[place] 2 tab PO Q4H PRN 01/24/22 01/24/22 History 7.5-325] Allergies Allergy/AdvReac Type Severity Reaction Status Date / Time No Known Allergies Allergy Verified 01/24/22 20:42 Physical Exam Osteopathic Statement: *. No significant issues noted on an osteopathic structural exam other than those noted in the History and Physical/Consult. Vitals: Vital Signs Temp Pulse Pulse Resp BP BP Pulse Ox 01/25/22 08:00 99.1 F 103 H 18 114/70 91 L 01/25/22 04:00 98.8 F 100 18 118/57 94 L 01/25/22 02:00 94 18 01/25/22 00:00 98.2 F 94 18 102/60 96 01/24/22 23:50 18 01/24/22 22:26 98.7 F 99 18 103/66 97 01/24/22 20:26 101.8 F H 115 H 18 115/74 97 01/24/22 18:12 98 01/24/22 18:02 100.3 F H 120 H 20 135/83 88 L Intake and Output 01/24/22 01/25/22 01/25/22 22:59 06:59 14:59 Intake Total 420 Output Total 1600 625 Balance -1600 -625 420 Intake: Oral 420 Output: Urine 1600 625 Other: Weight 81.647 kg 85.7 kg No acute distress, oriented 3. Currently on 4 L nasal cannula. HEENT examination is grossly unremarkable. Neck supple. Full range of motion. No adenopathy thyromegaly or neck vein distention. Cardiovascular examination reveals regular rhythm rate. S1-S2 normal. No S3 or S4. No discernible murmur noted. Heart rate 103 bpm. Lungs reveal mostly clear breath sounds. Scattered rhonchi are noted. No wheezes. Breath sounds equal bilaterally. Saturations 94%. Abdomen soft bowel sounds are heard. No masses or tenderness. Extremities revealed paralysis of lower extremities. No cyanosis clubbing or ed rey. Skin is without rash or lesion. Neurologic examination reveals paralysis of lower extremities. Results - Laboratory Findings CBC and BMP: 01/25/22 08:24 01/25/22 08:24 PT/INR, D-dimer PT 12.7 sec (9.0-12.0) H 01/24/22 18:57 INR 1.2 (<1.2) H 01/24/22 18:57 Abnormal lab findings: Abnormal Labs 01/24/22 01/24/22 01/24/22 18:57 18:57 18:57 WBC 56.8 H* Hgb Hct Neutrophils # (Manual) 39.10 H Monocytes # (Manual) 2.27 H Eosinophils # (Manual) 13.63 H PT 12.7 H INR 1.2 H Sodium 131 L Chloride 91 L Glucose 115 H Total Protein 5.9 L Albumin 3.2 L Urine Blood Urine RBC Urine Mucus 01/24/22 01/25/22 01/25/22 18:57 08:24 08:24 WBC 51.0 H* Hgb 12.1 L Hct 38.5 L Neutrophils # (Manual) Monocytes # (Manual) Eosinophils # (Manual) PT INR Sodium 135 L Chloride Glucose 115 H Total Protein Albumin Urine Blood Small H Urine RBC 13 H Urine Mucus Rare H - Diagnostic Findings Chest x-ray: image reviewed Assessment and Plan Assessment: Stage IV adenocarcinoma of the lung, with multiple skeletal metastasis, including cervical, thoracic, and lumbar spine, with acute spinal cord compression. Recent lung biopsy, December 2021, showing adenocarcinoma the lung. Bilateral lower extremity paralysis, secondary to spinal cord compression. Acute urinary retention, secondary to spinal cord compression. COPD. Previous history of tobacco use. History of anxiety. Plan: Plan dated 01/25/2022. I called the radiation oncologist on the phone. I gave him a heads up about this patient. The patient will need to be started on radiation therapy as soon as possible for acute spinal cord compression. A Salmon catheter has been placed. The patient's on Rocephin for possible urinary tract infection. Overall prognosis remains extremely guarded. Medical oncology has also been consulted. Labs, x-ray, medications are all reviewed. I explained this to the patient, the patient's , and the nurse. Time with Patient: Greater than 30
[2022-01-25 13:34] LABS: T4, Free (Free Thyroxine) 0.95 ng/dL (0.78-2.19)
[2022-01-25 14:35] LABS: Toxic Granulation Present
--- NOTE | 2022-01-25 14:48 | P.HPIM ---
History of Present Illness H&P Date: 01/25/22 Chief Complaint: Leg weakness This is a 61-year-old patient who follows with Dr. Elias Huizar. Patient 2 weeks ago was diagnosed with metastatic lung cancer with metastatic disease to the bones. Under care of Dr. Mercedes. Patient was supposed to follow for radiation treatment and further workup. For 6 weeks patient is having some trouble getting up because of back pain. Also prescription pain in the chest and back. Appetite is okay. Has lost about 35 pounds the last few weeks. Yesterday patient not able to walk at all not make urine. Presented to the ER. Salmon catheter was placed. In addition oncologist was consulted. On January 15 patient underwent a PET scan that showed abnormal thoracic adenopathy with diffuse osseous metastatic disease and spinal canal invasion lower thoracic spine level noted. Also involvement of bilateral ribs. Started him and entire spine. Lung biopsy has previously shown malignant non-small cell carcinoma cells having features of metastatic pulmonary adenocarcinoma. Per bronchoscopy by Dr. Topete on December 28. Patient denies any fever and chills. A bit tired and rundown. Review of systems: GEN.: Weight loss, tired EYES: None HEENT: None NECK: None RESPIRATORY: Some shortness of breath CARDIOVASCULAR: None GASTROINTESTINAL: None GENITOURINARY: Urinary retention, has a Salmon catheter MUSCULOSKELETAL: Multiple joint pains. LYMPHATICS: None HEMATOLOGICAL: None PSYCHIATRY: Slightly anxious NEUROLOGICAL: Weak in the lower extremity Past medical history to include: Recently diagnosed metastatic lung cancer with metastases to several bones. Possibly adenocarcinoma non-small cell type. COPD. Recent guarded and uses steroid injections. Anxiety. Social history: Patient smoked for about 16 years stopped about 23 years ago. 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 . Was drinking about 6-10 beers a night for many years up to 4 months ago. Family history: Lung cancer Physical examination: VITAL SIGNS: 99.1, 103, 18, 140/70, 91% on 3 L GENERAL: BMI 24.3, sitting up in bed, awake a bit tired. EYES: Pupils equal. Conjunctiva normal. HEENT: External appearance of nose and ears normal, oral cavity grossly normal. NECK: JVD not raised; masses not palpable. HEART: First and second heart sounds are normal; no edema. LUNGS:[ Respiratory rate increased; decreased breath sounds. ABDOMEN: Soft, nontender, liver spleen not palpable, no masses palpable. Salmon catheter PSYCH: Alert and oriented x3; mood and affect anxiousl. MUSCULOSKELETAL:No Clubbing/cyanosis;muscles-grossly intact NEUROLOGICAL: [Cranial nerves grossly intact; no facial asymmetry, power 1/5 in both lower extremity. Decreased reflexes. Sensation preserved LYMPHATICS: No lymph nodes palpable in the axilla and neck INVESTIGATIONS, reviewed in the clinical context: White count 51 hemoglobin 12.1 platelets 376 potassium 3.7 creatinine 0.77 TSH 3.2 Admission labs: White count [age]-year-old woman 13.2 platelets 390 sodium 131 potassium 3.8 creatinine 0.8 Albumin 3.2 UA negative for nitrite and leukoesterase COVID 19/influenza type A/influenza type B: Not detected UA noted Computed tomography scan; thoracic lumbar spine with contrast: Extensive osteomyelitis changes in the spine. EKG tracing personally reviewed by me-no sinus rhythm. Nonspecific T-wave changes Chest x-ray film personally reviewed by me-large tumor involvement of the lung space especially in the right Assessment and plan: -Acute paraparesis from metastatic disease to the thoracolumbar spine. Radiation oncology consulted for radiation treatment. PTOT. -Acute urinary retention from metastatic disease to the spine. Radiation treatment might benefit. PTOT. -Recently diagnosis metastatic adenocarcinoma of the lung/non-small cell. Oncologist: Dr. Mercedes. -COPD in a previous smoker DuoNeb 3 times a day -Hyponatremia, likely hypoosmolar Increase water intake -Bone pain. From metastatic disease Steroids. Naproxen. -Severe leukocytosis likely leukemoid reaction from underlying malignancy Salmon catheter. Fall precautions. Consultation to oncology and radiation oncology. Pain management. IV fluids. Add naproxen for bone pain control. Steroids. No evidence of UTI or pneumonia. DC ceftriaxone. Past Medical History Past Medical History: Cancer, COPD Additional Past Medical History / Comment(s): recent gout in knee with steroids in the last week., SOB, states productive cough. Stage 4 lung and bone cancer History of Any Multi-Drug Resistant Organisms: None Reported Past Surgical History: Back Surgery, Hernia Repair Additional Past Surgical History / Comment(s): 2015 fx arm with hardware. Past Anesthesia/Blood Transfusion Reactions: No Reported Reaction Past Psychological History: Anxiety Smoking Status: Former smoker Past Alcohol Use History: Daily Past Drug Use History: Marijuana - Past Family History Father Family Medical History: Cancer Additional Family Medical History / Comment(s): lung cancer Medications and Allergies Home Medications Medication Instructions Recorded Confirmed Type hydrOXYzine HCL 25 mg PO TID PRN 12/26/21 01/24/22 History HYDROcodone/APAP 7.5-325MG [[place] 2 tab PO Q4H PRN 01/24/22 01/24/22 History 7.5-325] Allergies Allergy/AdvReac Type Severity Reaction Status Date / Time No Known Allergies Allergy Verified 01/24/22 20:42 Physical Exam Vitals: Vital Signs Temp Pulse Pulse Resp BP BP Pulse Ox 01/25/22 08:00 99.1 F 103 H 18 114/70 91 L 01/25/22 04:00 98.8 F 100 18 118/57 94 L 01/25/22 02:00 94 18 01/25/22 00:00 98.2 F 94 18 102/60 96 01/24/22 23:50 18 01/24/22 22:26 98.7 F 99 18 103/66 97 01/24/22 20:26 101.8 F H 115 H 18 115/74 97 01/24/22 18:12 98 01/24/22 18:02 100.3 F H 120 H 20 135/83 88 L Intake and Output 01/24/22 01/25/22 01/25/22 22:59 06:59 14:59 Intake Total 420 Output Total 1600 625 Balance -1600 -625 420 Intake: Oral 420 Output: Urine 1600 625 Other: Weight 81.647 kg 85.7 kg Results CBC & Chem 7: 01/25/22 08:24 01/25/22 08:24 Labs: Abnormal Lab Results - Last 24 Hours (Table) 01/24/22 01/24/22 01/24/22 Range/Units 18:57 18:57 18:57 WBC 56.8 H* (3.8-10.6) k/uL Hgb (13.0-17.5) gm/dL Hct (39.0-53.0) % Neutrophils # (Manual) 39.10 H (1.3-7.7) k/uL Monocytes # (Manual) 2.27 H (0-1.0) k/uL Eosinophils # (Manual) 13.63 H (0-0.7) k/uL PT 12.7 H (9.0-12.0) sec INR 1.2 H (<1.2) Sodium 131 L (137-145) mmol/L Chloride 91 L (98-107) mmol/L Glucose 115 H (74-99) mg/dL Total Protein 5.9 L (6.3-8.2) g/dL Albumin 3.2 L (3.5-5.0) g/dL Urine Blood (Negative) Urine RBC (0-5) /hpf Urine Mucus (None) /hpf 01/24/22 01/25/22 01/25/22 Range/Units 18:57 08:24 08:24 WBC 51.0 H* (3.8-10.6) k/uL Hgb 12.1 L (13.0-17.5) gm/dL Hct 38.5 L (39.0-53.0) % Neutrophils # (Manual) (1.3-7.7) k/uL Monocytes # (Manual) (0-1.0) k/uL Eosinophils # (Manual) (0-0.7) k/uL PT (9.0-12.0) sec INR (<1.2) Sodium 135 L (137-145) mmol/L Chloride (98-107) mmol/L Glucose 115 H (74-99) mg/dL Total Protein (6.3-8.2) g/dL Albumin (3.5-5.0) g/dL Urine Blood Small H (Negative) Urine RBC 13 H (0-5) /hpf Urine Mucus Rare H (None) /hpf Thrombosis Risk Factor Assmnt - Choose All That Apply Each Factor Represents 1 point: Abnormal pulmonary function (COPD) Other Risk Factors: Yes Each Risk Factor Represents 2 Points: Age 61-74 years, Malignancy Other congenital or acquired thrombophilia - If yes, enter type in comment: No Thrombosis Risk Factor Assessment Total Risk Factor Score: 5 Thrombosis Risk Factor Assessment Level: High Risk
[2022-01-25] MEDS: IPRATROPIUM-ALBUTEROL 3 ML NEB INHALATION SCH ×2 (16:44→21:47)
[2022-01-25] MEDS: NAPROXEN 250 MG TAB PO SCH ×2 (16:47→22:04)
--- NOTE | 2022-01-25 16:51 | P.CONS ---
History of Present Illness - Reason for Consult Consult date: 01/25/22 spinal cord compression Requesting physician: Jose Cole - Chief Complaint legs weak, can't walk - History of Present Illness The patient is a 61-year-old male with a history of stage IV metastatic adenocarcinoma of the right upper lung, diagnosed in December 2021. He was found to have widespread bony metastasis at the time of diagnosis. He now presents to the hospital with acute onset lower extremity weakness and inability to ambulate. He also is having urinary retention. As noted above, the patient underwent bronchoscopy and biopsy on December 28, 2021 secondary to findings of a new right upper lung mass with suspicious adenopathy. These biopsies were consistent with adenocarcinoma of lung primary. He underwent an outpatient PET CT on January 12, 2022. This revealed a 7 cm mass in the right upper lobe with an SUV of 11. There was also abnormal uptake invol ving several lymph nodes in the mediastinum. However, there was significant uptake throughout the bony ribs and vertebral bodies. In particular, there was soft tissue extension into the spinal canal noted at T11. The patient reports that he became acutely very weak over the past 2 days. He states that in the days prior to this, he was having more difficulty with standing and ambulating. However, in the past couple of days, he has not been able to get out of bed. He had not been urinating much at home. He underwent placement of a Salmon catheter and had significant urinary output. He presented to the ER with these symptoms on January 24. A CT scan of the cervical, thoracic and lumbar spine revealed numerous foci of lytic disease. An MRI was recommended to rule out spinal cord compression. At this time, the patient is awaiting the MRI. Surprisingly, he is not having any significant back pain. He was evaluated earlier today and initiated on dexamethasone as his symptoms were highly suspicious for spinal cord compression. Review of Systems Constitutional: Reports fever, Reports sweats Eyes: denies blurred vision Ears: deny: decreased hearing Ears, nose, mouth and throat: Denies headache Cardiovascular: Denies chest pain Respiratory: Reports cough, Reports dyspnea Gastrointestinal: Denies abdominal pain Genitourinary: Reports urinary retention Integumentary: Denies acne, Denies rash Neurological: Denies aphasia, Denies ataxia, Denies confusion, Denies convulsions Psychiatric: Reports anxiety Past Medical History Past Medical History: Cancer, COPD Additional Past Medical History / Comment(s): recent gout in knee with steroids in the last week., SOB, states productive cough. Stage 4 lung and bone cancer History of Any Multi-Drug Resistant Organisms: None Reported Past Surgical History: Back Surgery, Hernia Repair Additional Past Surgical History / Comment(s): 2015 fx arm with hardware. Past Anesthesia/Blood Transfusion Reactions: No Reported Reaction Past Psychological History: Anxiety Smoking Status: Former smoker Past Alcohol Use History: Daily Past Drug Use History: Marijuana - Past Family History Father Family Medical History: Cancer Additional Family Medical History / Comment(s): lung cancer Medications and Allergies Home Medications Medication Instructions Recorded Confirmed Type hydrOXYzine HCL 25 mg PO TID PRN 12/26/21 01/24/22 History HYDROcodone/APAP 7.5-325MG [[place] 2 tab PO Q4H PRN 01/24/22 01/24/22 History 7.5-325] Allergies Allergy/AdvReac Type Severity Reaction Status Date / Time No Known Allergies Allergy Verified 01/24/22 20:42 Physical Exam Vitals: Vital Signs Temp Pulse Pulse Resp BP BP Pulse Ox 01/25/22 12:00 98.2 F 71 20 116/66 95 01/25/22 08:00 99.1 F 71 20 114/70 91 L 01/25/22 04:00 98.8 F 100 18 118/57 94 L 01/25/22 02:00 94 18 01/25/22 00:00 98.2 F 94 18 102/60 96 01/24/22 23:50 18 01/24/22 22:26 98.7 F 99 18 103/66 97 01/24/22 20:26 101.8 F H 115 H 18 115/74 97 01/24/22 18:12 98 01/24/22 18:02 100.3 F H 120 H 20 135/83 88 L Intake and Output 01/25/22 01/25/22 01/25/22 06:59 14:59 22:59 Intake Total 420 Output Total 625 Balance -625 420 Intake: Oral 420 Output: Urine 625 Other: Voiding Method Indwelling Catheter Weight 85.7 kg - Constitutional General appearance: no acute distress - EENT Eyes: EOMI, PERRLA ENT: hard of hearing - Neck Neck: no lymphadenopathy - Respiratory Respiratory: bilateral: diminished - Cardiovascular Rhythm: regular - Gastrointestinal General gastrointestinal: no distended, no tenderness - Integumentary Integumentary: no cellulitis - Neurologic Neurologic: CNII-XII intact - Musculoskeletal Musculoskeletal: right sided weakness, left sided weakness (Bilateral LE - 0/5 strength, UE - 5/5) - Psychiatric Psychiatric: A&O x's 3, appropriate affect Results CBC & Chem 7: 01/25/22 08:24 01/25/22 08:24 Labs: Abnormal Lab Results - Last 24 Hours (Table) 01/24/22 01/24/22 01/24/22 Range/Units 18:57 18:57 18:57 WBC 56.8 H* (3.8-10.6) k/uL Hgb (13.0-17.5) gm/dL Hct (39.0-53.0) % Neutrophils # (1.3-7.7) k/uL Neutrophils # (Manual) 39.10 H (1.3-7.7) k/uL Monocytes # (0-1.0) k/uL Monocytes # (Manual) 2.27 H (0-1.0) k/uL Eosinophils # (0-0.7) k/uL Eosinophils # (Manual) 13.63 H (0-0.7) k/uL Basophils # (0-0.2) k/uL PT 12.7 H (9.0-12.0) sec INR 1.2 H (<1.2) Sodium 131 L (137-145) mmol/L Chloride 91 L (98-107) mmol/L Glucose 115 H (74-99) mg/dL Total Protein 5.9 L (6.3-8.2) g/dL Albumin 3.2 L (3.5-5.0) g/dL Urine Blood (Negative) Urine RBC (0-5) /hpf Urine Mucus (None) /hpf 01/24/22 01/25/22 01/25/22 Range/Units 18:57 08:24 08:24 WBC 51.0 H* (3.8-10.6) k/uL Hgb 12.1 L (13.0-17.5) gm/dL Hct 38.5 L (39.0-53.0) % Neutrophils # 32.6 H (1.3-7.7) k/uL Neutrophils # (Manual) (1.3-7.7) k/uL Monocytes # 2.2 H (0-1.0) k/uL Monocytes # (Manual) (0-1.0) k/uL Eosinophils # 13.8 H (0-0.7) k/uL Eosinophils # (Manual) (0-0.7) k/uL Basophils # 0.3 H (0-0.2) k/uL PT (9.0-12.0) sec INR (<1.2) Sodium 135 L (137-145) mmol/L Chloride (98-107) mmol/L Glucose 115 H (74-99) mg/dL Total Protein (6.3-8.2) g/dL Albumin (3.5-5.0) g/dL Urine Blood Small H (Negative) Urine RBC 13 H (0-5) /hpf Urine Mucus Rare H (None) /hpf Assessment and Plan Assessment: The patient is a 61-year-old male with a history of stage IV metastatic adenocarcinoma of the right upper lung, diagnosed in December 2021. He was found to have widespread bony metastasis at the time of diagnosis. He now presents to the hospital with acute onset lower extremity weakness and inability to ambulate. He also is having urinary retention. Based on his imaging, I am concerned that he has developed a spinal cord compression at T11. Plan: 1. Spinal cord compression: Agree with decadron; Full MRI pending, however recent PET and CT are most concerning at the level of T11 for spinal canal invasion. This is the most likely site of cord compression. The patient is quite symptomatic with inability to move either lower extremity and urinary retention requiring catheterization. Surprisingly, he is not in that much pain. I have recommended the patient have evaluation with orthopedic spine surgery. I am unsure if the patient will be a good candidate however as he has a fairly large burden of disease within the bones. If the patient is able to undergo surgery, I explained this has the best chance of functional recovery. However, considering the urgency of the situation, I discussed with the patient undergoing palliative radiotherapy. If the patient is able to do surgery, we would certainly hold our treatments. I recommended the patient initiate treatments today. He is agreeable to undergo CT simulation for treatment planning. I discussed that I would recommend 6 radiation treatments. I explained the potential toxicity includes, but is not limited to; fatigue, skin irritation, alteration of bowel habits, nausea, dyspepsia and low risk of long-term toxicity considering palliative dosing. The patient was agreeable, and he was given his first radiation treatment this afternoon. 2. Metastatic adenocarcinoma of lung: As noted above, the patient has been seen as an outpatient with medical oncology, but has not started any therapy to this point. NGS testing is likely being performed. Time with Patient: Greater than 30
--- NOTE | 2022-01-25 17:28 | P.PN ---
Progress Note - Text Progress Note Date: 01/25/22 Reviewed chart and images. Widespread metastatic disease to the cervical thoracic and lumbar spine. There are multiple lytic lesions within the vertebral bodies of the cervical thoracic and lumbar spines as well. There may be compressive lesion at T11 although difficult to tell with the computed tomography scan MRI is a better visualization of this. No acute fractures noted no acute malalignments noted. Went to evaluate the patient however he was down in radiation receiving radiation dosages at this time. He also has MRI pending of the brain cervical thoracic and lumbar spine with and without contrast. We will evaluate once MRIs are completed.
--- NOTE | 2022-01-25 18:26 | P.CONS ---
History of Present Illness - Reason for Consult Consult date: 01/25/22 recently diagnosed lung cancer Requesting physician: Yoselyn Paredes - Chief Complaint weakness - History of Present Illness Mr. Villafuerte is a very pleasant 61-year-old male patient of Dr. Sharath Magallon who presented with progressive skeletal pain initially noted in the left shoulder area times about 6 months. Breast to involve the ribs bilaterally as well as the lower back. Patient had about a 30 pound weight loss in 4 months, there was also a right cervical mass that was enlarging. CT chest revealed a right upper lobe mass, mediastinal lymphadenopathy, metastatic disease to the right cervical mass and diffuse bony involvement. Patient had a staging PET scan confirming above. Patient had a navigational bronchoscopy and biopsy of R7 lymph node 12/31/21, pathology positive for non-small cell lung adenocarcinoma. Patient met with Dr. Sharath Magallon about 6 days ago, reviewed the pathology, diagnosis, prognosis. MRI of the brain for staging was ordered. Also liquid biopsy was obtained. NGS and PDL 1 studies were requested on the tissue biopsy. He was started on Norman for pain control. Appt next week scheduled to discuss biomarker testing, MRI and review options for treatment. Unfortunately, pt presents to ER with c/o persistent weakness in the lower extremities x 2 days, this has persisted and progressed to the point that he is unable to stand. He also notes that he has not been able to urinate, his last bowel movement was [address] CTL-spine highly suspicious area around T11. Review of Systems 10 point ROS is as stated in HPI Past Medical History Past Medical History: Cancer, COPD Additional Past Medical History / Comment(s): recent gout in knee with steroids in the last week., SOB, states productive cough. Stage 4 lung and bone cancer History of Any Multi-Drug Resistant Organisms: None Reported Past Surgical History: Back Surgery, Hernia Repair Additional Past Surgical History / Comment(s): 2015 fx arm with hardware. Past Anesthesia/Blood Transfusion Reactions: No Reported Reaction Past Psychological History: Anxiety Smoking Status: Former smoker Past Alcohol Use History: Daily Past Drug Use History: Marijuana - Past Family History Father Family Medical History: Cancer Additional Family Medical History / Comment(s): lung cancer Medications and Allergies Home Medications Medication Instructions Recorded Confirmed Type hydrOXYzine HCL 25 mg PO TID PRN 12/26/21 01/24/22 History HYDROcodone/APAP 7.5-325MG [[place] 2 tab PO Q4H PRN 01/24/22 01/24/22 History 7.5-325] Allergies Allergy/AdvReac Type Severity Reaction Status Date / Time No Known Allergies Allergy Verified 01/24/22 20:42 Physical Exam Vitals: Vital Signs Temp Pulse Pulse Resp BP BP Pulse Ox 01/25/22 04:00 98.8 F 100 18 118/57 94 L 01/25/22 02:00 94 18 01/25/22 00:00 98.2 F 94 18 102/60 96 01/24/22 23:50 18 01/24/22 22:26 98.7 F 99 18 103/66 97 01/24/22 20:26 101.8 F H 115 H 18 115/74 97 01/24/22 18:12 98 01/24/22 18:02 100.3 F H 120 H 20 135/83 88 L Intake and Output 01/24/22 01/25/22 01/25/22 22:59 06:59 14:59 Output Total 1600 625 Balance -1600 -625 Output: Urine 1600 625 Other: Weight 81.647 kg 85.7 kg - Constitutional General appearance: cooperative, mild distress, thin - EENT Eyes: anicteric sclerae, EOMI ENT: hearing grossly normal, normal oropharynx - Neck Neck: lymphadenopathy (rt neck 2.5cm hard, fixed anterior cervical LN, surrounding edema) - Respiratory Respiratory: bilateral: CTA, diminished - Cardiovascular Rhythm: regular Heart sounds: normal: S1, S2 Abnormal Heart Sounds: no systolic murmur, no diastolic murmur, no rub, no S3 Gallop, no S4 Gallop, no click, no other leg Peripheral Edema: bilateral: None - Gastrointestinal General gastrointestinal: no absent bowel sounds, no decreased bowel sounds, no distended, no hepatomegaly, no hyperactive bowel sounds, normal bowel sounds, no organomegaly, no rigid, no scaphoid, soft, no splenomegaly, no tenderness, no umbilical hernia, no ventral hernia - Genitourinary lr draining clear yellow urine - Integumentary Integumentary: normal - Neurologic BLE no motor movement. Great toe proprioception intact, pt able to discriminate soft touch of the skin. Neurologic: CNII-XII intact (grossly) - Musculoskeletal Gen. musculoskeletal aches. Patient needed 2 person assist to lean forward to listen to his lungs - Psychiatric Psychiatric: A&O x's 3, appropriate affect, intact judgment & insight Results CBC & Chem 7: 01/25/22 08:24 01/25/22 08:24 Labs: Abnormal Lab Results - Last 24 Hours (Table) 01/24/22 01/24/22 01/24/22 Range/Units 18:57 18:57 18:57 WBC 56.8 H* (3.8-10.6) k/uL Neutrophils # (Manual) 39.10 H (1.3-7.7) k/uL Monocytes # (Manual) 2.27 H (0-1.0) k/uL Eosinophils # (Manual) 13.63 H (0-0.7) k/uL PT 12.7 H (9.0-12.0) sec INR 1.2 H (<1.2) Sodium 131 L (137-145) mmol/L Chloride 91 L (98-107) mmol/L Glucose 115 H (74-99) mg/dL Total Protein 5.9 L (6.3-8.2) g/dL Albumin 3.2 L (3.5-5.0) g/dL Urine Blood (Negative) Urine RBC (0-5) /hpf Urine Mucus (None) /hpf 01/24/22 Range/Units 18:57 WBC (3.8-10.6) k/uL Neutrophils # (Manual) (1.3-7.7) k/uL Monocytes # (Manual) (0-1.0) k/uL Eosinophils # (Manual) (0-0.7) k/uL PT (9.0-12.0) sec INR (<1.2) Sodium (137-145) mmol/L Chloride (98-107) mmol/L Glucose (74-99) mg/dL Total Protein (6.3-8.2) g/dL Albumin (3.5-5.0) g/dL Urine Blood Small H (Negative) Urine RBC 13 H (0-5) /hpf Urine Mucus Rare H (None) /hpf Comments: CT CTL spine report reviewed Chest x-ray: report reviewed Assessment and Plan (1) Bilateral leg weakness Current Visit: Yes Status: Acute Priority: High Code(s): R29.898 - [facility] SYMPTOMS AND SIGNS INVOLVING THE MUSCULOSKELETAL SYSTEM SNOMED Code(s): 1709100 (2) NSCLC metastatic to bone Current Visit: Yes Status: Acute Priority: High Code(s): C34.90 - MALIGNANT NEOPLASM OF UNSP PART OF UNSP BRONCHUS OR LUNG; C79.51 - SECONDARY MALIGNANT NEOPLASM OF BONE SNOMED Code(s): 002205191 (3) Leukocytosis Current Visit: Yes Status: Acute Priority: Medium Code(s): D72.829 - E LEVATED WHITE BLOOD CELL COUNT, UNSPECIFIED SNOMED Code(s): 407741693 Plan: Mr. Hdez is a very pleasant 61-year-old man recently diagnosed with metastatic non-small cell lung adenocarcinoma. He had met with Dr. Caba last week, NGS results pending. Plan was for an MRI of the brain to complete staging and an office visit was scheduled for 02/01 to review the results and biomarker testing and detail the treatment recommendations. Unfortunately, patient is presenting with inability to control bladder and no bilateral lower extremity motor function. CT of the [facility]-spine report reviewed. MRI has been ordered of the [facility] spine-attention to T11. Discussed with the patient and his depending on the results of the MRI and the urgency of the findings, referral to Orthopedic Spine Surgeon (impending cord compression) versus Radiation Oncology. Dexamethasone 6 mg every 6 hours IV has been ordered for neurological symptoms. PPI prophylaxis of steroid-induced gastritis ordered. Ordered the MRI of the brain. Patient's pain medications were just recently adjusted in the office. Patient is still experiencing pretty significant pain, likely related to bone metastases. Increased Norman to a 10/325 mg dose. Pt is opioid naive, just starting narcotics last week so, will not consider long acting opioids at this time. Have added a PRN muscle relaxer for patient reports of muscle spasms across the chest and ribs. Patient has NSAID ordered for inflammation. Also, hoping the dexamethasone may help with some pain as well. Medications for prevention of narcotic-induced constipation have been ordered. Leukocytosis with elevation noted in neutrophils and eosinophils-unclear underlying cause at this time. Pancultures have been ordered. Patient is on empiric antibiotics at this time. Some additional labs ordered. Continue to monitor CBC daily. Case discussed with Radiation Oncologist. Did contact Orthopedic Spine Surgeon for evaluation and recommendations.
[2022-01-25] MEDS ORDERED: DEXAMETHASONE SOD PHOSPHATE 10 MG/ML 1 ML VIAL IM STA (21:39)
--- NOTE | 2022-01-25 21:52 | P.CNOR ---
History of Present Illness - [facility] Consult date: 01/25/22 Consult reason: other (LE weakness) History of present illness: 61 yo male presented to the ED with c/o dizziness and weakness in his LE. He was diagnosed 2 weeks prior with metastatic lung adenocarcinoma. He states that over the last 2 days his lower extremities had been getting weaker however night before last and yesterday he was unable to get out of bed due to weakness in his lower extremities and unable to ambulate. He also was not making urine at home and was found to have significant retention in the emergency department and a Salmon catheter was placed. The patient does not complain of any low back mid back or neck pain at this time. She states no falls or traumatic injuries at this time. He denies any fevers chills shortness of breath or chest pain at this time although he is on 4 L nasal cannula in the room. He denies numbness or tingling in his genitals or perineal region but he does state some decreased sensation. He states decreased sensation in lower extremities although he is still able to feel but states significant weakness in the lower extremities. He states he has been able to move his toes today but this is been on and off. He is unable to ambulate at this time. He denies any headache nausea vomiting change in vision blurred vision. Review of Systems 16 points review of systems completed and as stated in HPI, all other systems reviewed are negative. Constitutional: Reports as per HPI Past Medical History Past Medical History: Cancer, COPD Additional Past Medical History / Comment(s): recent gout in knee with steroids in the last week., SOB, states productive cough. Stage 4 lung and bone cancer History of Any Multi-Drug Resistant Organisms: None Reported Past Surgical History: Back Surgery, Hernia Repair Additional Past Surgical History / Comment(s): 2015 fx arm with hardware. Past Anesthesia/Blood Transfusion Reactions: No Reported Reaction Past Psychological History: Anxiety Smoking Status: Former smoker Past Alcohol Use History: Daily Past Drug Use History: Marijuana - Past Family History Father Family Medical History: Cancer Additional Family Medical History / Comment(s): lung cancer Medications and Allergies Home Medications Medication Instructions Recorded Confirmed Type hydrOXYzine HCL 25 mg PO TID PRN 12/26/21 01/24/22 History HYDROcodone/APAP 7.5-325MG [[place] 2 tab PO Q4H PRN 01/24/22 01/24/22 History 7.5325] Allergies Allergy/AdvReac Type Severity Reaction Status Date / Time No Known Allergies Allergy Verified 01/24/22 20:42 Physical Examination Osteopathic Statement: *. No significant issues noted on an osteopathic structural exam other than those noted in the History and Physical/Consult. PHYSICAL EXAMINATION: Vitals: Stable at this time on 4 L nasal cannula General: Awake, alert, appropriate for age, in no acute distress. HEENT: No unusual neck masses around region of lateral neck triangle, thyroid, supraclavicular groove. Extremities: Skin warm and dry without no acute lesions, coloration, temperature, skin intact, no tenderness or erythema. Integument: Hairy patches: Absent Dorsal skin dimples: Absent Cafe au lait spots: Absent Surgical incisions: None Palpation: Please see Pain drawing on Intake sheet for further detail. (Tenderness = T, Nontender = NT, Swelling = S, Ecchymosis = E) Findings on Midline and paraspinal palpation and percussion: Cervical: NT Thoracic: NT Lumbar: NT Sacral: NT Special findings: No pain with range of motion POSTURAL and MUSCULO-SKELETAL EVALUATION: Neck ROM: Unrestricted in six directions Lumbar ROM: Unrestricted in six directions Shoulder ROM: Symmetric in abduction, ER/IR Hip ROM: Symmetric in abduction, adduction, ER/IR Knee ROM: Symmetric and intact in Flexion / extension Hands: Normal appearing structure L and R Feet: Normal appearing structure L and R VASCULAR STATUS : Wrist Pulses: 2/4 bilateral radial and ulnar Pedal Pulses: 2/4 bilateral DP and PT Color: Normal Edema: None NEUROLOGIC EXAMINATION: Mental Status: Awake and alert, fully oriented, with normal attention, concentration and memory, and fluent, appropriate speech. Cranial Nerves: I: Olfactory not tested. II: Visual acuity normal, no visual field deficit noted with confrontation. III,IV: Normal pupillary reflexes & intact extraocular movements without nystagmus. V,: Intact symmetrical facial sensation. VII: Intact symmetrical facial motor movement VIII: Hearing intact. IX,X: Intact gag, swallow, & normal voice. XI: Sternocleidomastoid, trapezius function intact. XII: Tongue midline with normal movements. Special Tests: L'hermitte's Sign: Absent Spurling'Sign: Absent Bilateral Cubital percussion test: Absent Bilateral Luba-Tinel sign - Carpal region: Absent Bilateral Straight Leg Raising: Absent Bilateral Motor Exam (0-5/5, N/T) STRENGTH UPPER EXTREMITY Shoulder Abd (Not part of KVNG Motor score): RIGHT 5 LEFT 5 Elbow Flexors: RIGHT 5 LEFT 5 Elbow Extensor: RIGHT 5 LEFT 5 Wrrist Dorsiflexors: RIGHT 5 LEFT 5 Finger Abductor: RIGHT 5 LEFT 5 Senior Manufacturing Technician: RIGHT 5 LEFT 5 He is essentially full strength in bilateral upper extremities however he does have some deconditioning LOWER EXTREMITY Hip Flexor (Not part of KVNG Motor Score): RIGHT 1 LEFT 1 Knee Flexor: RIGHT 2 LEFT 2 Knee Extensor: RIGHT 2 LEFT 2 Ankle Dorsiflexion: RIGHT 1 LEFT 1 Ankle Plantarflexion: RIGHT 1 LEFT 1 EHL: RIGHT 3 LEFT 3 FHL: RIGHT 3 LEFT 3 Significant 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 paraparesis he however in the room was able to wiggle his toes although inconsistently REFLEXES Biecp: RIGHT 2 LEFT 2 Tricep: RIGHT 2 LEFT 2 Brachioradialis: RIGHT 2 LEFT 2 Patellar: RIGHT 1 LEFT 1 Achilles: RIGHT 1 LEFT 1 Pathological Reflexes [place]'s: RIGHT Absent LEFT Absent Babinski: RIGHT Absent LEFT Absent Clonus: RIGHT None LEFT None Surprisingly he has no clonus bilaterally his Babinskis is downgoing and he does retract to the sensation SENSORY Joint Position: Intact bilaterally Vibration Intact bilaterally Pain and LT sense Intact C5-T1 and L2-S1 Dermatomal deficit: Decreased sensation in the lower extremities however still present vibration pain and touch all present in the lower extremities bilaterally but somewhat dulled Gait and Functional Evaluation: Ambulatory aids: Unable to ambulate Hand and finger dexterity intact bilaterally. Disdiadochokinesis examination negative bilaterally. Results CT exam of the cervical thoracic and lumbar spine is reviewed this demonstrates multiple lytic lesions within the cervical thoracic and lumbar vertebrae. Significantly at C2 body and there is a large lytic lesion or no fractures noted and no instability noted at this time there are large lytic lesions in the subaxial cervical spine as well. In the thoracic spine there are multiple different lytic lesions. At T11 there is a large lytic lesion posteriorly within the body and this is somewhat subject and suspected of causing some st enosis in this area although is difficult to quantify on CT exam and MRI is warranted. In the lumbar spine there are multiple lytic lesions noted within the vertebral bodies all spinous processes. Again no fractures are noted throughout the thoracic or lumbar spine overall alignment is fairly well maintained in the sagittal and coronal planes still no instability noted or listhesis. Facet arthropathy noted posteriorly in the lumbar spine. - Labs Labs: Abnormal Lab Results - Last 24 Hours (Table) 01/25/22 01/25/22 01/25/22 Range/Units 08:24 08:24 08:24 WBC 51.0 H* (3.8-10.6) k/uL Hgb 12.1 L (13.0-17.5) gm/dL Hct 38.5 L (39.0-53.0) % Neutrophils # 32.6 H (1.3-7.7) k/uL Monocytes # 2.2 H (0-1.0) k/uL Eosinophils # 13.8 H (0-0.7) k/uL Basophils # 0.3 H (0-0.2) k/uL Sodium 135 L (137-145) mmol/L Glucose 115 H (74-99) mg/dL Creatine Kinase 16 L (35-257) U/L H & H 01/24/22 01/25/22 Range/Units 18:57 08:24 Hgb 13.2 12.1 L (13.0-17.5) gm/dL Hct 42.1 38.5 L (39.0-53.0) % Coagulation 01/24/22 Range/Units 18:57 INR 1.2 H (<1.2) Result Diagrams: 01/25/22 08:24 01/25/22 08:24 Assessment and Plan Assessment: 61-year-old male with stage IV metastatic lung adenocarcinoma Acute lower extremity weakness with urinary retention, likely thoracic myelopathy Complex medical patient Plan: -Stat MRI brain cervical thoracic and lumbar spine recommended these are pending currently -Recommend Decadron 20 mg IV push 1 followed by 6 mg every 4 hours Decadron IV -Serial neuro exams -Cardiology, pulmonology, oncology, read radiation oncology recommendations -I discussed with the patient at length his signs and symptoms as well as his likely diagnosis and treatment options. Due to the patient's acute weakness and changes in bowel and bladder habits he would likely need a surgical decompression of the areas that are compressed within the spinal cord. At this time I suspect around T11 however MRI is still pending. The patient did receive radiation doses today and our planned for the next few days. I discussed surgical options with the patient and pending the MRI he would likely need a decompression at least in this area to remove pressure off of his nerves to allow them to potentially recover. The patient however needs to be safe for surgical intervention and needs to be advantageous to his current situation. This will depend on things like life expectancy recovery and the surgical intervention needed. I discussed with this with the patient and he understood. I told him in order to give him the best potential for recovery of his neurologic function that we would need to do surgery sooner than later. He understood this and would like to talk with his family. Once MRIs are available we will make surgical recommendations. Thank you very much for this consultation we will continue to follow the patient during his stay
[2022-01-25] MEDS ORDERED: DEXAMETHASONE SOD PHOSPHATE 10 MG/ML 1 ML VIAL IVP SCH (22:00)
[2022-01-25] MEDS: SENNOSIDES-DOCUSATE SODIUM 1 EACH TAB PO SCH (22:05)
[2022-01-26] MEDS: DEXAMETHASONE SOD PHOSPHATE 10 MG/ML 1 ML VIAL IVP SCH ×5 (05:00→20:55)
[2022-01-26] MEDS: HYDROcodone/APAP 10-325MG 1 EACH TAB PO PRN ×3 (06:10→20:55)
[2022-01-26] MEDS: SODIUM CHLORIDE 0.9% 1,000 ML IV SCH ×5 (07:05→20:56)
[2022-01-26] MEDS: IPRATROPIUM-ALBUTEROL 3 ML NEB INHALATION SCH ×3 (08:52→19:43)
[2022-01-26] MEDS: PANTOPRAZOLE 40 MG/10 ML VIAL IVP SCH ×2 (08:52→20:55)
[2022-01-26] MEDS: ENOXAPARIN 40 MG/0.4 ML SYRINGE SQ SCH (08:53)
[2022-01-26] MEDS: NAPROXEN 250 MG TAB PO SCH ×3 (08:53→20:54)
[2022-01-26] MEDS: SENNOSIDES-DOCUSATE SODIUM 1 EACH TAB PO SCH ×2 (08:53→20:54)
[2022-01-26] MEDS: hydrOXYzine HCL 25 MG TAB PO PRN ×2 (08:59→12:41)
[2022-01-26 09:26] LABS: HCT 39.1 % (39.0-53.0); HGB 11.7 gm/dL (13.0-17.5); Hypochromasia Marked; MCH 26.1 pg (25.0-35.0); MCHC 29.8 g/dL (31.0-37.0); MCV 87.4 fL (80.0-100.0); Mean Platelet Volume 8.4; Platelet Count 367 k/uL (150-450); RBC 4.48 m/uL (4.30-5.90); RDW 13.8 % (11.5-15.5); WBC 35.1 k/uL (3.8-10.6)
--- NOTE | 2022-01-26 10:38 | P.PN ---
Progress Note - Text Progress Note Date: 01/26/22 Went to see pt this AM. Was not in room. Hopefully down for MRIs. Will reeval.
[2022-01-26 11:02] LABS: Band Neutrophils % 1 %; Eosinophils # (M) 1.05 k/uL (0-0.7); Lymphocytes # (M) 1.05 k/uL (1.0-4.8); Metamyelocytes # (M) 0.35 k/uL (0); Metamyelocytes % 1 %; Monocytes # (M) 2.11 k/uL (0-1.0); Neutrophils % (M) 88 %; Nucleated Red Blood Cells 0 /100 WBC (0-0); Total Cells Counted 200; Toxic Granulation Present
[2022-01-26] MEDS: HYDROmorphone 0.5 MG/0.5 ML SYRINGE IVP PRN ×3 (11:29→23:39)
--- NOTE | 2022-01-26 11:51 | P.PN ---
Subjective Progress Note Date: 01/26/22 Principal diagnosis: Spinal cord compression. Pulmonary consult dated 01/25/2022. 61-year-old male with a history of recent diagnosis of lung cancer, adenocarcinoma, with multiple skeletal metastasis, the cervical, thoracic, and lumbar spine. The patient presents to the emergency department on January 24, complaining of inability to urinate, and not able to move his lower extremities. This all started yesterday. It's clear the patient has acute spinal cord compression, and for that reason, he was admitted to the hospital. The patient recently had a procedure done last month, by my partner, whereby lymph nodes were sampled in the hilum and mediastinum. The diagnosis was that of adenocarcinoma, stage IV, with multiple skeletal metastasis. The lung was the primary. Currently, she is on 4 L nasal cannula. He is getting saline at 20 mL an hour. The patient was given Rocephin for suspected urinary tract infection. I did call the radiation oncologist, and recommended that he get to see the patient as soon as possible, for radiation therapy. In addition, I started the patient on Decadron, 6 mg, IV push, every 6 hours. Sodium was 135, potassium 3.7, chlorides 98, CO2 30, BUN 11, and creatinine 0.77. White count 51,000, hemoglobin 12.1, hematocrit 38.5, and platelet count 376,000. Chest x-ray showed a large mass in the right chest. Progress note dated 01/26/2022. This is a patient with a recent diagnosis of adenocarcinoma of the lung. He has multiple skeletal metastasis to the cervical spine, resting spine, and lumbar spine. He presented to the emergency department on January 24, with inability to urinate, and paralysis of the lower extremities. It was clear when I saw him yesterday, that he had acute spinal cord compression. I called Dr. Fisher for radiation oncology, to start the patient on radiation treatments as soon as possible. I also started the patient on Decadron yesterday. He's had 2 radiation treatment. He can now move his left leg. He has more difficult time with his right leg. Currently, he's on 3 L nasal cannula. He is getting saline at 100 mL an hour. White count is 35.1, hemoglobin 11.7, hematocrit 39.1, and platelet count 367,000. He has been seen by the spine surgeon. Objective - Vital Signs Vital signs: Vital Signs Temp 97.1 F L 01/26/22 08:43 Pulse 78 01/26/22 10:29 Resp 18 01/26/22 10:29 BP 121/73 01/26/22 08:43 Pulse Ox 96 01/26/22 08:55 Intake & Output 01/25/22 01/26/22 01/26/22 18:59 06:59 18:59 Intake Total 900 Output Total 600 300 Balance 900 -600 -300 Weight 85.3 kg Intake: Oral 900 Output: Urine 600 300 Other: Voiding Method Indwelling Catheter Indwelling Catheter Indwelling Catheter - Exam No acute distress, oriented 3. Currently on 3 L nasal cannula. HEENT examination is grossly unremarkable. Neck supple. Full range of motion. No adenopathy thyromegaly or neck vein distention. Cardiovascular examination reveals regular rhythm rate. S1-S2 normal. No S3 or S4. No discernible murmur noted. Heart rate 78 bpm. Lungs reveal mostly clear breath sounds. Scattered rhonchi are noted. No wheezes. Breath sounds equal bilaterally. Saturations 96 %. Abdomen soft bowel sounds are heard. No masses or tenderness. Extremities reveal some movement in the left lower extremity, better than the right lower extremity. Skin is without rash or lesion. Neurologic examination improved movement of the lower extremities, left greater than right. - Labs CBC & Chem 7: 01/26/22 08:18 01/25/22 08:24 Labs: Abnormal Lab Results - Last 24 Hours (Table) 01/25/22 01/25/22 01/25/22 Range/Units 08:24 08:24 08:24 WBC (3.8-10.6) k/uL Hgb (13.0-17.5) gm/dL MCHC (31.0-37.0) g/dL Neutrophils # 32.6 H (1.3-7.7) k/uL Neutrophils # (Manual) (1.3-7.7) k/uL Monocytes # 2.2 H (0-1.0) k/uL Monocytes # (Manual) (0-1.0) k/uL Eosinophils # 13.8 H (0-0.7) k/uL Eosinophils # (Manual) (0-0.7) k/uL Basophils # 0.3 H (0-0.2) k/uL Metamyelocytes # (Man) (0) k/uL Creatine Kinase 16 L (35-257) U/L Aldolase 23.9 H (1.2-7.6) U/L Procalcitonin (0.02-0.09) ng/mL 01/26/22 01/26/22 Range/Units 08:18 08:18 WBC 35.1 H (3.8-10.6) k/uL Hgb 11.7 L (13.0-17.5) gm/dL MCHC 29.8 L (31.0-37.0) g/dL Neutrophils # (1.3-7.7) k/uL Neutrophils # (Manual) 31.20 H (1.3-7.7) k/uL Monocytes # (0-1.0) k/uL Monocytes # (Manual) 2.11 H (0-1.0) k/uL Eosinophils # (0-0.7) k/uL Eosinophils # (Manual) 1.05 H (0-0.7) k/uL Basophils # (0-0.2) k/uL Metamyelocytes # (Man) 0.35 H (0) k/uL Creatine Kinase (35-257) U/L Aldolase (1.2-7.6) U/L Procalcitonin 0.29 H (0.02-0.09) ng/mL Microbiology - Last 24 Hours (Table) 01/24/22 20:10 Blood Culture - Preliminary Blood No Growth after 24 hours 01/24/22 20:25 Blood Culture - Preliminary Blood No Growth after 24 hours Assessment and Plan Assessment: Stage IV adenocarcinoma of the lung, with multiple skeletal metastasis, including cervical, thoracic, and lumbar spine, with acute spinal cord compression. Recent lung biopsy, December 2021, showing adenocarcinoma the lung. Bilateral lower extremity paralysis, secondary to spinal cord compression. Acute urinary retention, secondary to spinal cord compression. COPD. Previous history of tobacco use. History of anxiety. Plan: Plan dated 01/25/2022. I called the radiation oncologist on the phone. I gave him a heads up about this patient. The patient will need to be started on radiation therapy as soon as possible for acute spinal cord compression. A Salmon catheter has been placed. The patient's on Rocephin for possible urinary tract infection. Overall prognosis remains extremely guarded. Medical oncology has also been consulted. Labs, x-ray, medications are all reviewed. I explained this to the patient, the patient's , and the nurse. Plan dated 01/26/2022. The patient was seen by the spine surgeon. In addition, he's had 2 radiation treatments as far. The movement in his lower extremities is much improved, more so on the left side than on his right side. He continues on Decadron. He is also getting Rocephin for possible urinary tract infection. He has been seen by medical oncology as well. Additional recommendations and suggestions are forthcoming. Clinically, he is improved. Time with Patient: Less than 30
--- NOTE | 2022-01-26 15:28 | P.PN ---
Subjective Progress Note Date: 01/26/22 Principal diagnosis: Cord compression Returning from MRI of spine, still await MRI of brain. Dr. Courtney to further evaluate after MRI Spine. at bedside, patient is feeling better on dexamethasone, pain improved. No BM in a few days but states he has feeling and urgency when he has to go. can move left lower extremity a bit Objective - Vital Signs Vital signs: Vital Signs Temp 97.1 F L 01/26/22 08:43 Pulse 84 01/26/22 14:01 Resp 18 01/26/22 14:01 BP 132/73 01/26/22 12:52 Pulse Ox 95 01/26/22 12:52 Intake & Output 01/25/22 01/26/22 01/26/22 18:59 06:59 18:59 Intake Total 900 Output Total 600 300 Balance 900 -600 -300 Weight 85.3 kg Intake: Oral 900 Output: Urine 600 300 Other: Voiding Method Indwelling Catheter Indwelling Catheter Indwelling Catheter - Exam - Constitutional General appearance: cooperative, mild distress, thin - EENT Eyes: anicteric sclerae, EOMI ENT: hearing grossly normal, normal oropharynx - Neck Neck: lymphadenopathy (rt neck 2.5cm hard, fixed anterior cervical LN, surrounding edema) - Respiratory Respiratory: bilateral: CTA, diminished - Cardiovascular Rhythm: regular Heart sounds: normal: S1, S2 Abnormal Heart Sounds: no systolic murmur, no diastolic murmur, no rub, no S3 Gallop, no S4 Gallop, no click, no other leg Peripheral Edema: bilateral: None - Gastrointestinal General gastrointestinal: bowel sounds, - Genitourinary lr draining clear yellow urine - Integumentary Integumentary: normal - Neurologic BLE no motor movement. Great toe proprioception intact, pt able to discriminate soft touch of the skin. Neurologic: CNII-XII intact (grossly) - Musculoskeletal Gen. musculoskeletal aches. Patient needed 2 person assist to lean forward to listen to his lungs - Psychiatric Psychiatric: A&O x's 3, appropriate affect, intact judgment & insight - Labs CBC & Chem 7: 01/26/22 08:18 01/25/22 08:24 Labs: Abnormal Lab Results - Last 24 Hours (Table) 01/25/22 01/25/22 01/26/22 Range/Units 08:24 08:24 08:18 WBC (3.8-10.6) k/uL Hgb (13.0-17.5) gm/dL MCHC (31.0-37.0) g/dL Neutrophils # (Manual) (1.3-7.7) k/uL Monocytes # (Manual) (0-1.0) k/uL Eosinophils # (Manual) (0-0.7) k/uL Metamyelocytes # (Man) (0) k/uL Creatine Kinase 16 L (35-257) U/L Aldolase 23.9 H (1.2-7.6) U/L Procalcitonin 0.29 H (0.02-0.09) ng/mL 01/26/22 Range/Units 08:18 WBC 35.1 H (3.8-10.6) k/uL Hgb 11.7 L (13.0-17.5) gm/dL MCHC 29.8 L (31.0-37.0) g/dL Neutrophils # (Manual) 31.20 H (1.3-7.7) k/uL Monocytes # (Manual) 2.11 H (0-1.0) k/uL Eosinophils # (Manual) 1.05 H (0-0.7) k/uL Metamyelocytes # (Man) 0.35 H (0) k/uL Creatine Kinase (35-257) U/L Aldolase (1.2-7.6) U/L Procalcitonin (0.02-0.09) ng/mL Microbiology - Last 24 Hours (Table) 01/24/22 20:10 Blood Culture - Preliminary Blood No Growth after 24 hours 01/24/22 20:25 Blood Culture - Preliminary Blood No Growth after 24 hours Assessment and Plan Plan: Comments: CT CTL spine report reviewed Chest x-ray: report reviewed Assessment and Plan (1) Bilateral leg weakness Current Visit: Yes Status: Acute Priority: High Code(s): R29.898 - OTH SYMPTOMS AND SIGNS INVOLVING THE MUSCULOSKELETAL SYSTEM SNOMED Code(s): 7491330 (2) NSCLC metastatic to bone Current Visit: Yes Status: Acute Priority: High Code(s): C34.90 - MALIGNANT NEOPLASM OF UNSP PART OF UNSP BRONCHUS OR LUNG; C79.51 - SECONDARY MALIGNANT NEOPLASM OF BONE SNOMED Code(s): 237192496 (3) Leukocytosis Current Visit: Yes Status: Acute Priority: Medium Code(s): D72.829 - ELEVATED WHITE BLOOD CELL COUNT, UNSPECIFIED SNOMED Code(s): 003417284 Plan: Mr. Hdez is a very pleasant 61-year-old man recently diagnosed with metastatic non-small cell lung adenocarcinoma. He had met with Dr. Caba last week, NGS results pending. Plan was for an MRI of the brain to complete staging and an office visit was scheduled for 02/01 to review the results and biomarker testing and detail the treatment recommendations. He complained in crease pain in back without relief from norco and advised to emergently be brought to ER when called on Saturday. Await read on MRI and recommendations from Ortho spine and radiation oncology has been kept up to date Dexamethasone 6 mg every 6 hours IV has been ordered for neurological symptoms. PPI prophylaxis of steroid-induced gastritis ordered. MRI of the brain. Continue Dexamethasone, PPI, Pain control, bowel regimen Daily CBC Case discussed with Radiation Oncologist. Await Orthopedic Spine Surgeon for evaluation and recommendations. Discussed details and results of improvement due to dexamethasone with patient Dr. Barrett: I have completed the full history and physical and developed the above impression and plan, agree with dictation, dictated as a scribe
--- NOTE | 2022-01-26 16:56 | P.PN ---
Progress Note - Text Progress Note Date: 01/26/22 Spoke with patient and who was at bedside at length about surgical procedure as well as MRI results. MRI is reviewed of the thoracic and lumbar spine with and without contrast which demonstrates severe spinal cord compression from the T2 through T6 region due to multiple different metastatic processes which are epidural as well as bony. There is a lesion and T11 as well however this only causes moderate stenosis and does not cause any spinal cord compression at this time. We discussed different surgical options including nonsurgical options with the patient and his . At this point I offered him a T2 through T6 laminectomy with possible stabilization. This decompression would give the nerves the best chance for recovery as this is the most stenotic portion of his spine. He does have more global stenosis related to his disease in this area there is not necessarily one focal point of stenosis and so that makes the procedure slightly larger in the form of decompression. We would try and not place screws however if we needed to decompress the bony elements more and potentially risk destabilizing the spine we would have to stabilize it with rods and screws and they understood this. We discussed that there is no guarantee that the nerves recover fully however taking mechanical pressure off the nerves gives him the best chance to recover. I do feel that the T2 through T6 area is the most compressed. The MRI of the cervical spine is pending however the patient has no upper extremity symptoms at this time and so likely all of his symptoms are coming from the thoracic area as he is presenting more as a thoracic myelopathic than cervical. We discussed risks and benefits of the procedure including risk of bleeding infection damage to the surrounding tissue and risk of reoperation risk of anesthesia up to and including he understood these risks he asked good questions about the procedure recovery time and postoperative period. We answered all of his questions and he was comfortable. He would like to discuss with his what their wishes are. We informed him that we did place him on the schedule for tomorrow in order to hold a spot and so we will proceed forward as if we are having surgery as a disease or to cancel surgery than it is to added on and we do not want him to lose this spot and he was comfortable with this. We will make him nothing by mouth at midnight and order the appropriate antibiotics intrinsics Jennifer acid. He is on the schedule for 8 AM tomorrow. He understands this and is comfortable with it. He and his will discuss at this time and give us their final answer as soon as they make their decision.
[2022-01-26 17:00] LABS: Glucose,Whole Blood 268 mg/dL (75-99)
--- NOTE | 2022-01-26 17:22 | P.PN ---
Progress Note - Text Progress Note Date: 01/26/22 Chief Complaint: Leg weakness This is a 61-year-old patient who follows with Dr. Elias Huizar. Patient 2 weeks ago was diagnosed with metastatic lung cancer with metastatic disease to the bones. Under care of Dr. Mercedes. Patient was supposed to follow for radiation treatment and further workup. For 6 weeks patient is having some trouble getting up because of back pain. Also prescription pain in the chest and back. Appetite is okay. Has lost about 35 pounds the last few weeks. Yesterday patient not able to walk at all not make urine. Presented to the ER. Salmon catheter was placed. In addition oncologist was consulted. On January 15 patient underwent a PET scan that showed abnormal thoracic adenopathy with diffuse osseous metastatic disease and spinal canal invasion lower thoracic spine level noted. Also involvement of bilateral ribs. Started him and entire spine. Lung biopsy has previously shown malignant non-small cell carcinoma cells having features of metastatic pulmonary adenocarcinoma. Per bronchoscopy by Dr. Topete on December 28. Patient denies any fever and chills. A bit tired and rundown. January 26: Patient received radiation treatment. Getting breathing treatments. Stated this afternoon she was seen by Dr. Courtney. MRI head showed spinal cord compression. He discussed with the family and will proceed for surgery. Compression between T2-T6. On the spinal cord Active Medications Acetaminophen (Acetaminophen Tab 325 Mg Tab) 650 mg PO Q6HR PRN PRN Reason: Mild Pain or Fever > 100.5 Hydrocodone Bitart/Acetaminophen (Hydrocodone/Apap 10-325mg 1 Each Tab) 1 each PO Q4HR PRN PRN Reason: pain Last Admin: 01/26/22 12:41 Dose: 1 each Documented by: Albuterol/Ipratropium (Ipratropium-Albuterol 3 Ml Neb) 3 ml INHALATION RT-TID [facility] Last Admin: 01/26/22 12:51 Dose: 3 ml Documented by: Cyclobenzaprine HCl (Cyclobenzaprine 5 Mg Tab) 5 mg PO TID PRN PRN Reason: Muscle Spasm Dexamethasone Sodium Phosphate (Dexamethasone Sod Phosphate 10 Mg/Ml 1 Ml Vial) 6 mg IVP Q4H [facility] Last Admin: 01/26/22 16:17 Dose: 6 mg Documented by: Enoxaparin Sodium (Enoxaparin 40 Mg/0.4 Ml Syringe) 40 mg SQ DAILY [facility] Last Admin: 01/26/22 08:53 Dose: 40 mg Documented by: Hydromorphone HCl (Hydromorphone 0.5 Mg/0.5 Ml Syringe) 0.5 mg IVP Q3HR PRN PRN Reason: Moderate Pain Last Admin: 01/26/22 15:48 Dose: 0.5 mg Documented by: Hydroxyzine HCl (Hydroxyzine Hcl 25 Mg Tab) 25 mg PO TID PRN PRN Reason: Anxiety Last Admin: 01/26/22 12:41 Dose: 25 mg Documented by: Sodium Chloride (Saline 0.9%) 1,000 mls @ 130 mls/hr IV .Q7H42M [facility] Last Admin: 01/26/22 09:06 Dose: Not Given Documented by: Sodium Chloride (Saline 0.9%) 1,000 mls @ 130 mls/hr IV .Q7H42M [facility] Last Admin: 01/26/22 12:43 Dose: Not Given Documented by: Magnesium Hydroxide (Magnesium Hydroxide 2,400 Mg/10 Ml Cup) 2,400 mg PO DAILY PRN PRN Reason: Constipation Naloxone HCl (Naloxone 0.4 Mg/Ml 1 Ml Vial) 0.2 mg IV Q2M PRN PRN Reason: Opioid Reversal Naproxen (Naproxen 250 Mg Tab) 250 mg PO TID [facility] Last Admin: 01/26/22 16:17 Dose: 250 mg Documented by: Ondansetron HCl (Ondansetron 4 Mg/2 Ml Vial) 4 mg IVP Q8HR PRN PRN Reason: Nausea And Vomiting Pantoprazole Sodium (Pantoprazole 40 Mg/10 Ml Vial) 40 mg IVP BID [facility] Last Admin: 01/26/22 08:52 Dose: 40 mg Documented by: Senna/Docusate Sodium (Sennosides-Docusate Sodium 1 Each Tab) 2 each PO BID [facility] Last Admin: 01/26/22 08:53 Dose: 2 each Documented by: Past medical history to include: Recently diagnosed metastatic lung cancer with metastases to several bones. Possibly adenocarcinoma non-small cell type. COPD. Recent guarded and uses steroid injections. Anxiety. Social history: Patient smoked for about 16 years stopped about 23 years ago. 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 . Was drinking about 6-10 beers a night for many years up to 4 months ago. Family history: Lung cancer Physical examination: VITAL SIGNS: Febrile, 99, 18, 132 with 73, 95% on 3 L GENERAL:, T planning in bed, awake EYES: Pupils equal. Conjunctiva normal. HEENT: External appearance of nose and ears normal, oral cavity grossly normal. NECK: JVD not raised; masses not palpable. HEART: First and second heart sounds are normal; no edema. LUNGS:[ Respiratory rate normal; decreased breath sounds. ABDOMEN: Soft, nontender, liver spleen not palpable, no masses palpable. Salmon catheter PSYCH: Alert and oriented x3; mood and affect anxiousl. MUSCULOSKELETAL:No Clubbing/cyanosis;muscles-grossly intact NEUROLOGICAL: [Cranial nerves grossly intact; no facial asymmetry, power 1/5 in both lower extremity. Decreased reflexes. Sensation preserved INVESTIGATIONS, reviewed in the clinical context: January 26: White count 35.1 hemoglobin 11.7 pro-calcitonin 0.29 White count 51 hemoglobin 12.1 platelets 376 potassium 3.7 creatinine 0.77 TSH 3.2 Admission labs: White count [age]-year-old woman 13.2 platelets 390 sodium 131 potassium 3.8 creatinine 0.8 Albumin 3.2 UA negative for nitrite and leukoesterase COVID 19/influenza type A/influenza type B: Not detected UA noted Computed tomography scan; thoracic lumbar spine with contrast: Extensive osteomyelitis changes in the spine. EKG tracing personally reviewed by me-no sinus rhythm. Nonspecific T-wave changes Chest x-ray film personally reviewed by me-large tumor involvement of the lung space especially in the right Assessment and plan: -Acute paraparesis from metastatic disease to the thoracolumbar spine with compression of spinal cord.: Slow to respond Radiation treatment started. For decompression surgery by Dr. Courtney. -Acute urinary retention from metastatic disease to the spine. Radiation treatment might benefit. PTOT. Salmon catheter -Recently diagnosis metastatic adenocarcinoma of the lung/non-small cell. Oncologist: Dr. Mercedes. -COPD in a previous smoker DuoNeb 3 times a day -Hyponatremia, likely hypoosmolar Increase fluid intake -Bone pain. From metastatic disease Steroids. Naproxen. -Severe leukocytosis likely leukemoid reaction from underlying malignancy Patient medically stable to proceed with surgery. Given his metastatic disease patient is a moderate risk for any complications. No absolute contraindications. We'll order 2-D echocardiogram and consult cardiology for their input. Patient has limited exercise tolerance because underlying metastatic disease..
--- NOTE | 2022-01-26 17:29 | MR ---
EXAMINATION TYPE: MR tspine/lspine wo/w con DATE OF EXAM: 01/26/2022 COMPARISON: CT scan 01/24/2022 HISTORY: Weakness CONTRAST: Standard multiplanar, multisequence MRI departmental protocol images were obtained without contrast a nd with mL intravenous gadolinium contrast. FINDINGS: On the T2 images there are multiple areas of abnormal increased signal in the thoracic and lumbar abena tebral bodies with extension into the pedicles. There is T3 lesion with some expansion into the spina l canal. There is adequate spinal canal and no significant stenosis. There is involvement of the pedi jesica of T3 on the left side. There is compression of T6 vertebra 0.5% with right-sided pedicle involve ment. There are numerous other lesions in the thoracic spine also with pedicle involvement. There is T11 lesion with slight expansion into the spinal canal. No significant cord compression. The re is mild increased signal in the thoracic spinal cord at T7 level on the T2 images. No correspondin g spinal stenosis. There is some thickening along the posterior longitudinal ligament at the T5-T6 le jared with impingement on the thoracic spinal cord. This also shows enhancement. There is also mild thi ckening and enhancement posterior to T11 vertebral body. There is meningeal enhancement at T3 level. There is a 1.5 cm lesion involving the spinous process of T9. In the lumbar spine there are numerous areas of abnormal increased signal in the vertebral bodies als o with pedicle variable involvement. There is some mild thickening posterior to the L1 vertebral body without significant impingement on the spinal canal. No significant lumbar compression deformity. IMPRESSION: Extensive metastatic disease in the thoracic and lumbar spine. Multiple areas of meningeal thickening involving T3 and T11 and T6 levels with mild impingement on the spinal canal. There is a mild relati ve spinal stenosis at T11 level related to the meningeal involvement. There is mild stenosis also at T6 level due to meningeal thickening anteriorly. Multiple mild thoracic compression fractures consist ent with metastatic disease.
[2022-01-26 20:15] LABS: Glucose,Whole Blood 238 mg/dL (75-99)
[2022-01-26] MEDS: CYCLOBENZAPRINE 5 MG TAB PO PRN (20:55)
[2022-01-26] MEDS: INSULIN ASPART (NovoLOG) 100 UNIT/ML VIAL SQ SCH (20:56)
--- NOTE | 2022-01-26 22:04 | P.PN ---
Subjective Cardiology consulted for preoperative evaluation for surgery at 8am tomorrow morning. Patient presented with inability to urinate and not able to urinate consistent with spinal cord compression and was found to have lytic metastatic disease throughout the spine. He was started on Decadron, radiation and is being evaluated for surgery. Patient will be seen tomorrow morning however on chart review appears to be in sinus rhythm, normal troponins, no significant unstable angina symptoms. If patient not in acute heart failure patient is moderate to high risk given multiple medical comorbidities and advanced metastatic disease however there are no absolute contraindications to surgery and benefits would appear to outweigh the risks given significant morbidity from continued spinal compression. Further recommendations to follow however if patient is not in acute heart failure, may proceed with surgery. Vinicius Santillan, Objective - Vital Signs Vital signs: Vital Signs Temp 97.9 F 01/26/22 20:00 Pulse 103 H 01/26/22 20:00 Resp 18 01/26/22 20:00 BP 125/73 01/26/22 20:00 Pulse Ox 93 L 01/26/22 20:00 Intake & Output 01/26/22 01/26/22 01/27/22 06:59 18:59 06:59 Intake Total 1040 Output Total 600 300 Balance -600 740 Weight 85.3 kg Intake: Intake, IV Titration 800 Amount Sodium Chloride 0.9% 1, 800 000 ml @ 130 mls/hr IV . Q7H42M [facility] Rx#:[id number] Oral 240 Output: Urine 600 300 Other: Voiding Method Indwelling Catheter Indwelling Catheter Indwelling Catheter - Labs CBC & Chem 7: 01/26/22 08:18 01/25/22 08:24 Labs: Abnormal Lab Results - Last 24 Hours (Table) 01/25/22 01/26/22 01/26/22 Range/Units 08:24 08:18 08:18 WBC 35.1 H (3.8-10.6) k/uL Hgb 11.7 L (13.0-17.5) gm/dL MCHC 29.8 L (31.0-37.0) g/dL Neutrophils # (Manual) 31.20 H (1.3-7.7) k/uL Monocytes # (Manual) 2.11 H (0-1.0) k/uL Eosinophils # (Manual) 1.05 H (0-0.7) k/uL Metamyelocytes # (Man) 0.35 H (0) k/uL POC Glucose (mg/dL) (75-99) mg/dL Aldolase 23.9 H (1.2-7.6) U/L Procalcitonin 0.29 H (0.02-0.09) ng/mL 01/26/22 01/26/22 Range/Units 16:42 19:54 WBC (3.8-10.6) k/uL Hgb (13.0-17.5) gm/dL MCHC (31.0-37.0) g/dL Neutrophils # (Manual) (1.3-7.7) k/uL Monocytes # (Manual) (0-1.0) k/uL Eosinophils # (Manual) (0-0.7) k/uL Metamyelocytes # (Man) (0) k/uL POC Glucose (mg/dL) 268 H 238 H (75-99) mg/dL Aldolase (1.2-7.6) U/L Procalcitonin (0.02-0.09) ng/mL Microbiology - Last 24 Hours (Table) 01/24/22 20:10 Blood Culture - Preliminary Blood No Growth after 24 hours 01/24/22 20:25 Blood Culture - Preliminary Blood No Growth after 24 hours
[2022-01-27] MEDS: HYDROcodone/APAP 10-325MG 1 EACH TAB PO PRN (04:27)
[2022-01-27] MEDS: SODIUM CHLORIDE 0.9% 1,000 ML IV SCH ×7 (04:28→23:05)
[2022-01-27] MEDS: DEXAMETHASONE SOD PHOSPHATE 10 MG/ML 1 ML VIAL IVP SCH ×6 (04:28→23:03)
[2022-01-27] MEDS: INSULIN ASPART (NovoLOG) 100 UNIT/ML VIAL SQ SCH ×4 (06:36→23:04)
[2022-01-27] MEDS: HYDROmorphone 0.5 MG/0.5 ML SYRINGE IVP PRN ×2 (06:36→23:15)
[2022-01-27 06:54] LABS: Glucose,Whole Blood 232 mg/dL (75-99)
[2022-01-27] MEDS: IPRATROPIUM-ALBUTEROL 3 ML NEB INHALATION SCH ×3 (07:36→20:55)
--- NOTE | 2022-01-27 07:42 | P.PN ---
Progress Note - Text Progress Note Date: 01/27/22 Spine Surgery Risk Review Camilo Hdez is a 61 yo male presenting for evaluation of LE weakness and paresis, acute UR, new dx metestatic lung CA. It was my pleasure to have seen and examined Camilo. In our visit today we have had a chance to go over subjective complaints, physical examination findings and treatments including the natural course history without intervention and various interventional options. 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 On physical exam, Camilo demonstrates Profound LE weakness b/l with initial paresis minimally improved with steroids and radiation, urinary retention requiring catheter, decreased LE sensation, no perineal numbness/tin gling, good rectal tone. I have explained to the patient that as their condition progresses it will cause further neurological deficits and eventual paralysis. Based on the patients imaging, physical exam, and the rapid progression and disabling nature of their symptoms, at this time I recommend surgery in the form or a: T2 to T6 laminectomy with possible stabilization. I discussed the risk and benefits of this procedure at length with Camilo. The patient and his agreed to considered pursuing the procedure abovementioned. Prior to surgery, he will be cleared by Medicine Cardio, pulm for procedure. Questions were invited and answered, and the patient wishes to proceed as outlined below. Currently, I am recommendin. Thoracic 2 to Thoracic 6 decompressive laminectomy with possible stabilization 2. Follow up with PCP for surgical clearance 3. Review of surgical risks and benefits as well as an educational packet on the proposed surgical procedure. Risks: All surgical procedures come with inherent risks, including those related to positioning, anesthesia, intraoperative findings, and postoperative complications. It is important to understand that surgery does not come with any guarantee of a successful outcome as complications and adverse events are always possible. The patient was given a handout in office today discussing the surgical procedure and risks associated with the intervention, both of which were discussed with the patient. These risks include but are not limited to the following: * Experiencing same, different or even worse symptoms in back, neck, arms, or legs compared to before surgery. * Requiring further surgery or other forms of treatment presently or at some time in the future at same or other levels of the intended spine surgery. * On an extreme but fortunately relatively rare basis severe complication such as blindness, stroke, heart attack, temporary and/or permanent nerve injury, paralysis, coma, or may occur, sometimes without known explanation. * Surgical complications may include but are not limited to risk of infection, fluid accumulation in the surgical dissection site, including a seroma or hematoma, that requires additional surgery, wound drainage, bleeding, new numbness or weakness, vision changes/loss, spinal fluid leakage, non-healing and/or infected incision, headaches, difficulty or inability to swallow, hoarseness, hemopneumothorax, pneumothorax, impotence, retrograde ejaculation, vaginal dryness; injury to nerves, spinal cord, blood vessels, lymphatics or other vital organs (i.e., bowel injury, injury to the great vessels); heterotopic bone formation; complications related to the hardware such as screws, rods, cages including misplaced hardware, device failure, instrumentation at the wrong spine level, hardware fracture/breakage, or hardware loosening; vertebral failure of the spinal column above or below the newly placed hardware; retained surgical instrumentations or devices and the need for further surgery. * Medical risks of the planned spine surgery include but are not limited to generalized Infections to the whole body or local areas outside of the surgical site (sepsis), heart attack, bleeding, anaphylaxis, meningitis, seizure, epilepsy, hearing loss, burn [place], laceration of the head or other areas of the body, bruising, hypersensitivity of the skin, bladder over distension; allergic reaction; shoulder injury related to positioning; fat, blood and air clots to other areas of the body like heart, lungs, brain; failure of internal organs such as lungs, kidneys, liver and excessive bleeding. If blood transfusions are necessary, note that transfusions may cause intolerance reactions such as anaphylaxis or other complex reactions. * Despite best efforts, the results of spine surgery might not heal in terms of bone, soft tissues such as skin, fascia, ligaments, and joints. Additionally, in order to achieve best possible results, spine surgery may be carried out beyond the initially planned levels and involve decompression, fusion including insertion of hardware at levels other than the original intended area of surgical interest change some portions of the procedure in order to ensure the best possible outcomes. * With spine surgery and spinal fusion, there are different off label uses of instrumentation (devices, implants and hardware) as well as biological substances (bone morphogenic proteins, demineralized bone matrix) as well as using extra bone from allograft sources (i.e. cadaver bone) or autograft (iliac crest bone, ribs, or the spine itself). The patient has been given information about these practices and their inherent risks and benefits. The patient has had a chance to review all the listed information, has been given print outs detailing this information, and has had all his/her questions answered to their satisfaction. It was my pleasure to have seen and examined Camilo Hdez. In our visit today we have had a chance to go over my understanding of our patient's current condition, the natural course history without intervention and various interventional options. Questions were invited and answered, and the patient wishes to proceed as outlined above. I have seen and examined the patient for 25 minutes and we have spent more than 50% of the time in repeat and detailed counseling about the patient's condition, its natural course history with out and as much as can be predicted with surgery and re-review of various surgical treatment options. In conclusion, Camilo Hdez and his requested we proceed with the above suggested surgery and are willing to accept risks and limitations of the suggested surgery as nature of the disease process and our best attempts at treatment for the condition. Thank you again for allowing us to be part of your patient's care. Please don't hesitate to contact me if you have any further questions. Signed and authenticated by: [facility] [address] [place] [address] [address]
[2022-01-27] MEDS ORDERED: TRANEXAMIC ACID IN NACL,ISO-OS 1,000 MG in SALINE 1 100ML.BAG IVPB PRN ×2 (08:00→11:00)
[2022-01-27] MEDS: ENOXAPARIN 40 MG/0.4 ML SYRINGE SQ SCH (08:09)
[2022-01-27] MEDS: SENNOSIDES-DOCUSATE SODIUM 1 EACH TAB PO SCH ×2 (08:10→19:49)
[2022-01-27] MEDS: NAPROXEN 250 MG TAB PO SCH ×3 (08:10→23:05)
[2022-01-27] MEDS: PANTOPRAZOLE 40 MG/10 ML VIAL IVP SCH ×2 (08:10→19:50)
[2022-01-27 08:26] LABS: HCT 38.9 % (39.0-53.0); HGB 11.7 gm/dL (13.0-17.5); Hypochromasia Marked; MCH 26.3 pg (25.0-35.0); MCHC 30.2 g/dL (31.0-37.0); MCV 87.2 fL (80.0-100.0); Mean Platelet Volume 8.4; Platelet Count 406 k/uL (150-450); RBC 4.46 m/uL (4.30-5.90); RDW 14.1 % (11.5-15.5); WBC 41.1 k/uL (3.8-10.6)
[2022-01-27 08:30] LABS: INR 1.1 (<1.2); Prothrombin Time 12.1 sec (9.0-12.0)
[2022-01-27 08:33] LABS: African American GFR (CKD) >90 (>60 ml/min/1.73 sqM); Anion Gap 6 mmol/L; Blood Urea Nitrogen 23 mg/dL (9-20); Calcium 8.8 mg/dL (8.4-10.2); Carbon Dioxide 29 mmol/L (22-30); Chloride 103 mmol/L (98-107); Glucose 203 mg/dL (74-99); Non-African American GFR(CKD) >90 (>60 ml/min/1.73 sqM); Potassium 3.8 mmol/L (3.5-5.1); Sodium 138 mmol/L (137-145)
[2022-01-27] MEDS ORDERED: BUPIVACAINE (PF) 0.25% 30 ML VIAL SQ ONE (08:59)
[2022-01-27] MEDS ORDERED: THROMBIN (BOVINE) 5,000 UNIT VIAL TOPICAL ONE ×2 (09:00)
[2022-01-27] MEDS ORDERED: GELATIN SPONGE,ABSORB (SMALL) 1 EACH SPONGE TOPICAL ONE ×2 (09:00)
[2022-01-27 09:10] LABS: Band Neutrophils % 3 %; Lymphocytes # (M) 0.82 k/uL (1.0-4.8); Metamyelocytes # (M) 0.41 k/uL (0); Metamyelocytes % 1 %; Monocytes # (M) 2.88 k/uL (0-1.0); Myelocytes # (M) 0.41 k/uL (0); Myelocytes % 1 %; Neutrophils % (M) 88 %; Nucleated Red Blood Cells 0 /100 WBC (0-0); Total Cells Counted 200; Toxic Granulation Present
[2022-01-27] MEDS ORDERED: ONDANSETRON 4 MG/2 ML VIAL ONE (09:24)
[2022-01-27] MEDS ORDERED: fentaNYL (PF) 50 MCG/ML 2 ML AMP ONE (09:24)
[2022-01-27] MEDS ORDERED: KETAMINE 10 MG/ML 20 ML VIAL ONE (09:24)
[2022-01-27] MEDS ORDERED: MIDAZOLAM 2 MG/2 ML VIAL ONE (09:24)
[2022-01-27] MEDS ORDERED: SUCCINYLCHOLINE CHLORIDE 100 MG/5 ML SYR IV ONE (09:24)
[2022-01-27] MEDS ORDERED: PHENYLEPHRINE-0.9% NACL SYG 1,000 MCG/10 ML SYRINGE ONE (09:24)
[2022-01-27] MEDS ORDERED: PROPOFOL 10 MG/ML 20 ML VIAL IV ONE (09:24)
[2022-01-27] MEDS ORDERED: TRANEXAMIC ACID IN NACL,ISO-OS 1,000 MG/100 ML BAG ONE (09:24)
[2022-01-27] MEDS ORDERED: HYDROCORTISONE SUCCINATE 100 MG/2 ML VIAL IV ONE (09:34)
[2022-01-27] MEDS ORDERED: LACTATED RINGERS 1,000 ML IV ONE ×3 (09:39→13:28)
[2022-01-27] MEDS ORDERED: SODIUM CHLORIDE 0.9% 1,000 ML IV ONE (09:39)
[2022-01-27] MEDS ORDERED: SODIUM CHLORIDE 0.9% 100 ML with ceFAZolin 2,000 MG IV ONE ×2 (10:30)
--- NOTE | 2022-01-27 11:00 | P.PN ---
Subjective Progress Note Date: 01/27/22 Principal diagnosis: Spinal cord compression. Pulmonary consult dated 01/25/2022. 61-year-old male with a history of recent diagnosis of lung cancer, adenocarcinoma, with multiple skeletal metastasis, the cervical, thoracic, and lumbar spine. The patient presents to the emergency department on January 24, complaining of inability to urinate, and not able to move his lower extremities. This all started yesterday. It's clear the patient has acute spinal cord compression, and for that reason, he was admitted to the hospital. The patient recently had a procedure done last month, by my partner, whereby lymph nodes were sampled in the hilum and mediastinum. The diagnosis was that of adenocarcinoma, stage IV, with multiple skeletal metastasis. The lung was the primary. Currently, she is on 4 L nasal cannula. He is getting saline at 20 mL an hour. The patient was given Rocephin for suspected urinary tract infection. I did call the radiation oncologist, and recommended that he get to see the patient as soon as possible, for radiation therapy. In addition, I started the patient on Decadron, 6 mg, IV push, every 6 hours. Sodium was 135, potassium 3.7, chlorides 98, CO2 30, BUN 11, and creatinine 0.77. White count 51,000, hemoglobin 12.1, hematocrit 38.5, and platelet count 376,000. Chest x-ray showed a large mass in the right chest. Progress note dated 01/26/2022. This is a patient with a recent diagnosis of adenocarcinoma of the lung. He has multiple skeletal metastasis to the cervical spine, resting spine, and lumbar spine. He presented to the emergency department on January 24, with inability to urinate, and paralysis of the lower extremities. It was clear when I saw him yesterday, that he had acute spinal cord compression. I called Dr. Fisher for radiation oncology, to start the patient on radiation treatments as soon as possible. I also started the patient on Decadron yesterday. He's had 2 radiation treatment. He can now move his left leg. He has more difficult time with his right leg. Currently, he's on 3 L nasal cannula. He is getting saline at 100 mL an hour. White count is 35.1, hemoglobin 11.7, hematocrit 39.1, and platelet count 367,000. He has been seen by the spine surgeon. Progress note dated 01/27/2022. The patient has a recent diagnosis of lung cancer, adenocarcinoma type. The patient also had multiple skeletal metastasis to the cervical, thoracic, and lumbar spine. The patient presented to the emergency department on the , with lower extremity paralysis, and urinary retention. In fact, the patient had spinal cord compression. MRI of the spine was done, and the patient is scheduled to have a T2 through T6 laminectomy, and possible stabilization. The patient did receive radiation treatments as well. In addition, the patient was started on IV Decadron. White count 41.1, hemoglobin 11.7, hematocrit 38.9, platelet count 406,000. Sodium potassium chloride CO2 all normal. Anion gap is normal. BUN 23 with a creatinine 0.65. Objective - Vital Signs Vital signs: Vital Signs Temp 97.9 F 01/27/22 08:00 Pulse 83 01/27/22 08:00 Resp 18 01/27/22 08:00 BP 104/71 01/27/22 08:00 Pulse Ox 95 01/27/22 08:00 Intake & Output 01/26/22 01/27/22 01/27/22 18:59 06:59 18:59 Intake Total 1040 520 200 Output Total 300 800 Balance 740 -280 200 Weight 85.3 kg Intake: IV 100 Intake, IV Titration 800 520 100 Amount Sodium Chloride 0.9% 1, 100 000 ml @ 0 mls/hr IV .[facility] Rx#:[id number] Sodium Chloride 0.9% 1, 800 520 000 ml @ 130 mls/hr IV . Q7H42M [facility] Rx#:[id number] Oral 240 Output: Urine 300 800 Other: Voiding Method Indwelling Catheter Indwelling Catheter Indwelling Catheter - Exam No acute distress, oriented 3. Currently on 3 L nasal cannula. HEENT examination is grossly unremarkable. Neck supple. Full range of motion. No adenopathy thyromegaly or neck vein distention. Cardiovascular examination reveals regular rhythm rate. S1-S2 normal. No S3 or S4. No discernible murmur noted. Heart rate 83 bpm. Lungs reveal mostly clear breath sounds. Scattered rhonchi are noted. No wheezes. Breath sounds equal bilaterally. Saturations 95 %. Abdomen soft bowel sounds are heard. No masses or tenderness. Extremities reveal some movement in the left lower extremity, better than the right lower extremity. Skin is without rash or lesion. Neurologic examination improved movement of the lower extremities, left greater than right. - Labs CBC & Chem 7: 01/27/22 07:58 01/27/22 07:58 Labs: Abnormal Lab Results - Last 24 Hours (Table) 01/26/22 01/26/22 01/26/22 Range/Units 08:18 08:18 16:42 WBC (3.8-10.6) k/uL Hgb (13.0-17.5) gm/dL Hct (39.0-53.0) % MCHC (31.0-37.0) g/dL Neutrophils # (Manual) 31.20 H (1.3-7.7) k/uL Lymphocytes # (Manual) (1.0-4.8) k/uL Monocytes # (Manual) 2.11 H (0-1.0) k/uL Eosinophils # (Manual) 1.05 H (0-0.7) k/uL Metamyelocytes # (Man) 0.35 H (0) k/uL Myelocytes # (Manual) (0) k/uL PT (9.0-12.0) sec BUN (9-20) mg/dL Creatinine (0.66-1.25) mg/dL Glucose (74-99) mg/dL POC Glucose (mg/dL) 268 H (75-99) mg/dL Procalcitonin 0.29 H (0.02-0.09) ng/mL 01/26/22 01/27/22 01/27/22 Range/Units 19:54 06:26 07:58 WBC 41.1 H (3.8-10.6) k/uL Hgb 11.7 L (13.0-17.5) gm/dL Hct 38.9 L (39.0-53.0) % MCHC 30.2 L (31.0-37.0) g/dL Neutrophils # (Manual) 37.40 H (1.3-7.7) k/uL Lymphocytes # (Manual) 0.82 L (1.0-4.8) k/uL Monocytes # (Manual) 2.88 H (0-1.0) k/uL Eosinophils # (Manual) (0-0.7) k/uL Metamyelocytes # (Man) 0.41 H (0) k/uL Myelocytes # (Manual) 0.41 H (0) k/uL PT (9.0-12.0) sec BUN (9-20) mg/dL Creatinine (0.66-1.25) mg/dL Glucose (74-99) mg/dL POC Glucose (mg/dL) 238 H 232 H (75-99) mg/dL Procalcitonin (0.02-0.09) ng/mL 01/27/22 01/27/22 Range/Units 07:58 07:58 WBC (3.8-10.6) k/uL Hgb (13.0-17.5) gm/dL Hct (39.0-53.0) % MCHC (31.0-37.0) g/dL Neutrophils # (Manual) (1.3-7.7) k/uL Lymphocytes # (Manual) (1.0-4.8) k/uL Monocytes # (Manual) (0-1.0) k/uL Eosinophils # (Manual) (0-0.7) k/uL Metamyelocytes # (Man) (0) k/uL Myelocytes # (Manual) (0) k/uL PT 12.1 H (9.0-12.0) sec BUN 23 H (9-20) mg/dL Creatinine 0.65 L (0.66-1.25) mg/dL Glucose 203 H (74-99) mg/dL POC Glucose (mg/dL) (75-99) mg/dL Procalcitonin (0.02-0.09) ng/mL Microbiology - Last 24 Hours (Table) 01/24/22 20:10 Blood Culture - Preliminary Blood No Growth after 48 hours 01/24/22 20:25 Blood Culture - Preliminary Blood No Growth after 48 hours Assessment and Plan Assessment: Stage IV adenocarcinoma of the lung, with multiple skeletal metastasis, including cervical, thoracic, and lumbar spine, with acute spinal cord compression. T2 through T6 laminectomy with stabilization, anticipated, on 01/27/2022. Recent lung biopsy, December 2021, showing adenocarcinoma the lung. Bilateral lower extremity paralysis, secondary to spinal cord compression. Acute urinary retention, secondary to spinal cord compression. COPD. Previous history of tobacco use. History of anxiety. Plan: Plan dated 01/25/2022. I called the radiation oncologist on the phone. I gave him a heads up about this patient. The patient will need to be started on radiation therapy as soon as possible for acute spinal cord compression. A Salmon catheter has been placed. The patient's on Rocephin for possible urinary tract infection. Overall prognosis remains extremely guarded. Medical oncology has also been consulted. Labs, x-ray, medications are all reviewed. I explained this to the patient, the patient's , and the nurse. Plan dated 01/26/2022. The patient was seen by the spine surgeon. In addition, he's had 2 radiation treatments as far. The movement in his lower extremities is much improved, more so on the left side than on his right side. He continues on Decadron. He is also getting Rocephin for possible urinary tract infection. He has been seen by medical oncology as well. Additional recommendations and suggestions are forthcoming. Clinically, he is improved. Plan dated 01/27/2022. The patient is to have T2 through T6 laminectomy, with stabilization procedure today. The patient remains on 3 L. The patient's getting Decadron and radiation treatments to the spine. Continue to follow the patient make recommendations were appropriate. Prognosis is certainly guarded given his recent diagnosis of advanced stage IV lung cancer, multiple skeletal metastasis. He remains on 3 L. Labs, x-rays and medications are all reviewed. Time with Patient: Less than 30
[2022-01-27] MEDS ORDERED: ceFAZolin 3,000 MG in SODIUM CHLORIDE 0.9% IRRIGATIO 3,000 ML IRRIGATION ONE ×2 (11:37→11:38)
[2022-01-27] MEDS ORDERED: VANCOMYCIN 1,000 MG VIAL MISCELLANE ONE (12:43)
--- NOTE | 2022-01-27 13:22 | XR ---
EXAMINATION TYPE: XR thoracic spine 2V, FL guidance operating room DATE OF EXAM: 01/27/2022 COMPARISON: NONE HISTORY: 61-year-old male thoracic kyphoplasty and laminectomy FINDINGS: 10 intraoperative fluoroscopic images during thoracic surgery. FLUOROSCOPY Fluoroscopy time of 1 minute 25 seconds was used during thoracic surgery. 10 image/s document/s the procedure. IMPRESSION: Intraoperative fluoroscopy as above.
--- NOTE | 2022-01-27 14:15 | P.PN ---
Progress Note - Text Progress Note Date: 01/27/22 Brief Post Op: Pt s/e in PACU. VSS at this time. Art line 126/65, HR 70. Breathing with oral airway and NRB at 2 L. Doing well O2 sats 99%. No issues. Still sleepy, was on ketamine drip in OR for pain. Maintaining pressures well. Dressing CDI. Drain with nominal output so far, no hematoma. Not following commands yet. Nursing staff at bedside. Anesthesia staff available. Pt will transfer to his room when he is awake and stable per PACU staff and anesthesia services.
--- NOTE | 2022-01-27 16:32 | P.PN ---
Progress Note - Text Progress Note Date: 01/27/22 Chief Complaint: Leg weakness This is a 61-year-old patient who follows with Dr. Elias Huizar. Patient 2 weeks ago was diagnosed with metastatic lung cancer with metastatic disease to the bones. Under care of Dr. Mercedes. Patient was supposed to follow for radiation treatment and further workup. For 6 weeks patient is having some trouble getting up because of back pain. Also prescription pain in the chest and back. Appetite is okay. Has lost about 35 pounds the last few weeks. Yesterday patient not able to walk at all not make urine. Presented to the ER. Salmon catheter was placed. In addition oncologist was consulted. On January 15 patient underwent a PET scan that showed abnormal thoracic adenopathy with diffuse osseous metastatic disease and spinal canal invasion lower thoracic spine level noted. Also involvement of bilateral ribs. Started him and entire spine. Lung biopsy has previously shown malignant non-small cell carcinoma cells having features of metastatic pulmonary adenocarcinoma. Per bronchoscopy by Dr. Topete on December 28. Patient denies any fever and chills. A bit tired and rundown. January 26: Patient received radiation treatment. Getting breathing treatments. Stated this afternoon she was seen by Dr. Courtney. MRI head showed spinal cord compression. He discussed with the family and will proceed for surgery. Compression between T2-T6. On the spinal cord January 27: Patient underwent surgery today. Formal report not available. Has a C- spine collar. Hemovac. at the bedside. Tired. Active Medications Acetaminophen (Acetaminophen Tab 325 Mg Tab) 650 mg PO Q6HR PRN PRN Reason: Mild Pain or Fever > 100.5 Hydrocodone Bitart/Acetaminophen (Hydrocodone/Apap 10-325mg 1 Each Tab) 1 each PO Q4HR PRN PRN Reason: pain Last Admin: 01/27/22 04:27 Dose: 1 each Documented by: Albuterol/Ipratropium (Ipratropium-Albuterol 3 Ml Neb) 3 ml INHALATION RT-TID SHAWNA Last Admin: 01/27/22 12:26 Dose: Not Given Documented by: Cyclobenzaprine HCl (Cyclobenzaprine 5 Mg Tab) 5 mg PO TID PRN PRN Reason: Muscle Spasm Last Admin: 01/26/22 20:55 Dose: 5 mg Documented by: Dexamethasone Sodium Phosphate (Dexamethasone Sod Phosphate 10 Mg/Ml 1 Ml Vial) 6 mg IVP Q4H [facility] Last Admin: 01/27/22 08:07 Dose: 6 mg Documented by: Enoxaparin Sodium (Enoxaparin 40 Mg/0.4 Ml Syringe) 40 mg SQ DAILY [facility] Last Admin: 01/27/22 08:09 Dose: Not Given Documented by: Hydromorphone HCl (Hydromorphone 0.5 Mg/0.5 Ml Syringe) 0.5 mg IVP Q3HR PRN PRN Reason: Moderate Pain Last Admin: 01/27/22 06:36 Dose: 0.5 mg Documented by: Hydroxyzine HCl (Hydroxyzine Hcl 25 Mg Tab) 25 mg PO TID PRN PRN Reason: Anxiety Last Admin: 01/26/22 12:41 Dose: 25 mg Documented by: Sodium Chloride (Saline 0.9%) 1,000 mls @ 130 mls/hr IV .Q7H42M [facility] Last Admin: 01/27/22 04:29 Dose: 130 mls/hr Documented by: Sodium Chloride (Saline 0.9%) 1,000 mls @ 130 mls/hr IV .Q7H42M [facility] Last Admin: 01/27/22 06:27 Dose: Not Given Documented by: Cefazolin Sodium 2 gm/ Sodium (Chloride) 50 mls @ 100 mls/hr IVPB Q8HR [facility]; Protocol Tranexamic Acid/Sodium (Chloride 1,000 mg/ IV Solution) 100 mls @ 200 mls/hr IVPB Q2HR PRN PRN Reason: Bleeding Stop: 01/28/22 08:01 Tranexamic Acid/Sodium (Chloride 1,000 mg/ IV Solution) 100 mls @ 200 mls/hr IVPB ONCE PRN PRN Reason: Pre-Op Stop: 01/27/22 23:00 Insulin Aspart (Insulin Aspart (Novolog) 100 Unit/Ml Vial) 0 unit SQ ACHS [facility]; Protocol Last Admin: 01/27/22 06:36 Dose: 8 unit Documented by: Magnesium Hydroxide (Magnesium Hydroxide 2,400 Mg/10 Ml Cup) 2,400 mg PO DAILY PRN PRN Reason: Constipation Naloxone HCl (Naloxone 0.4 Mg/Ml 1 Ml Vial) 0.2 mg IV Q2M PRN PRN Reason: Opioid Reversal Naproxen (Naproxen 250 Mg Tab) 250 mg PO TID [facility] Last Admin: 01/27/22 08:10 Dose: Not Given Documented by: Ondansetron HCl (Ondansetron 4 Mg/2 Ml Vial) 4 mg IVP Q8HR PRN PRN Reason: Nausea And Vomiting Oxycodone HCl (Oxycodone Hcl 5 Mg Tab) 5 mg PO Q6HR PRN PRN Reason: Pain Scale 6 To 8 Oxycodone HCl (Oxycodone Hcl 5 Mg Tab) 10 mg PO Q6HR PRN PRN Reason: Pain Scale 8 to 10 Pantoprazole Sodium (Pantoprazole 40 Mg/10 Ml Vial) 40 mg IVP BID [facility] Last Admin: 01/27/22 08:10 Dose: Not Given Documented by: Senna/Docusate Sodium (Sennosides-Docusate Sodium 1 Each Tab) 2 each PO BID [facility] Last Admin: 01/27/22 08:10 Dose: Not Given Documented by: Past medical history to include: Recently diagnosed metastatic lung cancer with metastases to several bones. Possibly adenocarcinoma non-small cell type. COPD. Recent guarded and uses steroid injections. Anxiety. Social history: Patient smoked for about 16 years stopped about 23 years ago. 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 . Was drinking about 6-10 beers a night for many years up to 4 months ago. Family history: Lung cancer Physical examination: VITAL SIGNS: 117/76, 96% on 3 L GENERAL:, Laying in bed, awake, EYES: Pupils equal. Conjunctiva normal. HEENT: C-collar with Hemovac NECK: JVD not raised; masses not palpable. HEART: First and second heart sounds are normal; no edema. LUNGS:[ Respiratory rate normal; decreased breath sounds. ABDOMEN: Soft, nontender, liver spleen not palpable, no masses palpable. Salmon catheter PSYCH: Alert and oriented x3; mood and affect normal MUSCULOSKELETAL:No Clubbing/cyanosis;muscles-grossly intact NEUROLOGICAL: [Cranial nerves grossly intact; no facial asymmetry, INVESTIGATIONS, reviewed in the clinical context: January 27: White count 41.1 hemoglobin 11.7 potassium 3.8 creatinine 0.65 January 26: White count 35.1 hemoglobin 11.7 pro-calcitonin 0.29 White count 51 hemoglobin 12.1 platelets 376 potassium 3.7 creatinine 0.77 TSH 3.2 Admission labs: White count [age]-year-old woman 13.2 platelets 390 sodium 131 potassium 3.8 creatinine 0.8 Albumin 3.2 UA negative for nitrite and leukoesterase COVID 19/influenza type A/influenza type B: Not detected UA noted Computed tomography scan; thoracic lumbar spine with contrast: Extensive osteomyelitis changes in the spine. EKG tracing personally reviewed by me-no sinus rhythm. Nonspecific T-wave changes Chest x-ray film personally reviewed by me-large tumor involvement of the lung space especially in the right Assessment and plan: -Acute paraparesis from metastatic disease to the thoracolumbar spine with compression of spinal cord.: Slow to respond Radiation treatment started. Patient underwent decompression surgery by Dr. Courtney today on January 27. -Acute urinary retention from metastatic disease to the spine. Radiation treatment might benefit. PTOT. Salmon catheter -Recently diagnosis metastatic adenocarcinoma of the lung/non-small cell. Oncologist: Dr. Mercedes. -COPD in a previous smoker DuoNeb 3 times a day -Hyponatremia, likely hypoosmolar Increase fluid intake -Bone pain. From metastatic disease Steroids. Naproxen. -Severe leukocytosis likely leukemoid reaction from underlying malignancy and steroids Status post surgery. C-collar. Hemovac. Other medications to continue. Follow postoperative orders. Discussed with patient and .
[2022-01-27 17:31] LABS: Glucose,Whole Blood 221 mg/dL (75-99)
--- NOTE | 2022-01-27 17:49 | P.CRDCN ---
History of Present Illness History of present illness: HISTORY OF PRESENTING ILLNESS Patient is pleasant 61-year-old male with history of recent diagnosis of and no lung cancer with metastasis to the spine, COPD, tobacco abuse who presented with inability to urinate and inability to move his lower extremities. He was diagnosed with acute spinal cord compression and seen by orthopedic surgeons with recommendation for surgery. Patient has not been having any chest pain or pressure. His shortness breath appears stable. He was given steroids as well as radiation without any improvement and therefore recommendations for surgery. He denies any history of stenting, coronary artery disease. Denies any lightheadedness or dizziness. No history of congestive heart failure. EKG shows sinus tachycardia with normal axis and nonspecific minimal 0.[address] depressions. REVIEW OF SYSTEMS At the time of my exam: CONSTITUTIONAL: Denies fever or chills. CARDIOVASCULAR: Denies chest pain, +chronic shortness of breath, no orthopnea, PND or palpitations. RESPIRATORY: Denies cough. GASTROINTESTINAL: Denies abdominal pain, diarrhea, constipation, nausea or vomiting. MUSCULOSKELETAL: Denies myalgias. NEUROLOGIC:+numbness, tingling and LE weakness. ENDOCRINE: Denies fatigue, weight change, polydipsia or polyurina. GENITOURINARY: Denies burning, hematuria or urgency with micturation. HEMATOLOGIC: Denies history of anemia or bleeding. PHYSICAL EXAMINATION Vital signs reviewed. CONSTITUTIONAL: No apparent distress ill appearing HEENT: Head is normocephalic. Pupils are equal, round. Sclerae anicteric. Mucous membranes of the mouth are moist. No JVD. No carotid bruit. CHEST EXAMINATION: Lungs are clear to auscultation. Decreased breath sounds. HEART EXAMINATION: Regular rate and rhythm. S1, S2 heard. No murmurs, gallops or rub. ABDOMEN: Soft, nontender. Positive bowel sounds. EXTREMITIES: 2+ peripheral pulses, no lower extremity edema and no calf tenderness. NEUROLOGIC EXAMINATION: Patient is awake, alert and oriented x3. +lower extremity paralysis ASSESSMENT 1. Acute spinal cord compression 2. Preoperative cardiovascular exam 3. Sinus tachycardia, reactive 4. Lung adenocarcinoma with metastasis 5. Tobacco abuse 6. Chronic respiratory failure related to lung cancer/COPD PLAN Patient moderate risk for proposed surgery. No significant murmur on exam and no significant angina or heart failure symptoms. Patient elevated risk for surgery however given morbidity of continued spinal cord compression, cleared from a cardiology standpoint to proceed with surgery. Please call with any questions. Past Medical History Past Medical History: Cancer, COPD Additional Past Medical History / Comment(s): recent gout in knee with steroids in the last week., SOB, states productive cough. Stage 4 lung and bone cancer History of Any Multi-Drug Resistant Organisms: None Reported Past Surgical History: Back Surgery, Hernia Repair Additional Past Surgical History / Comment(s): 2015 fx arm with hardware. Past Anesthesia/Blood Transfusion Reactions: No Reported Reaction Past Psychological History: Anxiety Smoking Status: Former smoker Past Alcohol Use History: Daily Past Drug Use History: Marijuana - Past Family History Father Family Medical History: Cancer Additional Family Medical History / Comment(s): lung cancer Medications and Allergies Home Medications Medication Instructions Recorded Confirmed Type hydrOXYzine HCL 25 mg PO TID PRN 12/26/21 01/24/22 History HYDROcodone/APAP 7.5-325MG [[place] 2 tab PO Q4H PRN 01/24/22 01/24/22 History 7.5-325] Allergies Allergy/AdvReac Type Severity Reaction Status Date / Time No Known Allergies Allergy Verified 01/24/22 20:42 Physical Exam Vitals: Vital Signs Temp Pulse Pulse Resp BP BP BP 01/27/22 17:27 81 18 115/76 01/27/22 15:00 76 16 122/80 01/27/22 14:45 66 16 117/76 01/27/22 14:30 62 16 118/71 01/27/22 14:15 70 16 113/75 127/59 01/27/22 14:00 71 16 111/70 125/61 01/27/22 13:48 96.9 F L 70 14 114/69 01/27/22 08:00 97.9 F 83 18 104/71 01/27/22 07:47 94 01/27/22 07:37 94 01/27/22 04:00 97.9 F 88 18 127/78 01/27/22 02:00 99 17 01/27/22 00:00 98.0 F 99 17 124/69 01/26/22 20:00 97.9 F 102 H 18 125/73 01/26/22 19:55 92 01/26/22 19:45 90 Pulse Ox 01/27/22 17:27 96 01/27/22 15:00 94 L 01/27/22 14:45 96 01/27/22 14:30 96 01/27/22 14:15 99 01/27/22 14:00 99 01/27/22 13:48 99 01/27/22 08:00 95 01/27/22 07:47 01/27/22 07:37 01/27/22 04:00 93 L 01/27/22 02:00 01/27/22 00:00 94 L 01/26/22 20:00 93 L 01/26/22 19:55 01/26/22 19:45 Intake and Output 01/27/22 01/27/22 01/27/22 06:59 14:59 22:59 Intake Total 520 3302 Output Total 800 775 Balance -280 2527 Intake: IV 3202 Intake, IV Titration 520 100 Amount Sodium Chloride 0.9% 1, 100 000 ml @ 0 mls/hr IV .[facility] Rx#:[id number] Sodium Chloride 0.9% 1, 520 000 ml @ 130 mls/hr IV . Q7H42M [facility] Rx#:[id number] Output: Urine 800 125 Estimated Blood Loss 650 Other: Voiding Method Indwelling Catheter Indwelling Catheter Results 01/27/22 07:58 01/27/22 07:58 Coagulation 01/27/22 Range/Units 07:58 PT 12.1 H (9.0-12.0) sec CBC 01/27/22 Range/Units 07:58 WBC 41.1 H (3.8-10.6) k/uL RBC 4.46 (4.30-5.90) m/uL Hgb 11.7 L (13.0-17.5) gm/dL Hct 38.9 L (39.0-53.0) % Plt Count 406 (150-450) k/uL Comprehensive Metabolic Panel 01/27/22 Range/Units 07:58 Sodium 138 (137-145) mmol/L Potassium 3.8 (3.5-5.1) mmol/L Chloride 103 (98-107) mmol/L Carbon Dioxide 29 (22-30) mmol/L BUN 23 H (9-20) mg/dL Creatinine 0.65 L (0.66-1.25) mg/dL Glucose 203 H (74-99) mg/dL Calcium 8.8 (8.4-10.2) mg/dL Current Medications Generic Name Dose Route Start Last Admin Trade Name Freq PRN Reason Stop Dose Admin Acetaminophen 650 mg 01/24/22 21:32 Acetaminophen Tab 325 Mg Tab PO Q6HR PRN Mild Pain or Fever > 100.5 Hydrocodone Bitart/Acetaminophen 1 each 01/25/22 10:51 01/27/22 04:27 Hydrocodone/Apap 10-325mg 1 Each Tab PO 1 each Q4HR PRN Administration pain Albuterol/Ipratropium 3 ml 01/25/22 14:41 01/27/22 12:26 Ipratropium-Albuterol 3 Ml Neb INHALATION Not Given RT-TID SHAWNA Cyclobenzaprine HCl 5 mg 01/25/22 11:11 01/26/22 20:55 Cyclobenzaprine 5 Mg Tab PO 5 mg TID PRN Administration Muscle Spasm Dexamethasone Sodium Phosphate 6 mg 01/25/22 00:00 01/27/22 17:15 Dexamethasone Sod Phosphate 10 Mg/Ml 1 Ml Vial IVP 6 mg Q4H SHAWNA Administration Enoxaparin Sodium 40 mg 01/25/22 10:15 01/27/22 08:09 Enoxaparin 40 Mg/0.4 Ml Syringe SQ Not Given DAILY SHAWNA Hydromorphone HCl 0.5 mg 01/24/22 21:32 01/27/22 06:36 Hydromorphone 0.5 Mg/0.5 Ml Syringe IVP 0.5 mg Q3HR PRN Administration Moderate Pain Hydroxyzine HCl 25 mg 01/25/22 10:21 01/26/22 12:41 Hydroxyzine Hcl 25 Mg Tab PO 25 mg TID PRN Administration Anxiety Sodium Chloride 1,000 mls @ 130 mls/hr 01/24/22 18:30 01/27/22 17:14 Saline 0.9% IV 130 mls/hr .Q7H42M SHAWNA Administration Sodium Chloride 1,000 mls @ 130 mls/hr 01/24/22 21:45 01/27/22 17:15 Saline 0.9% IV Not Given .Q7H42M SH[facility]NA Cefazolin Sodium 2 gm/ Sodium 50 mls @ 100 mls/hr 01/27/22 08:00 01/27/22 17:15 Chloride IVPB 100 mls/hr Q8HR SHAWNA Administration Protocol Tranexamic Acid/Sodium 100 mls @ 200 mls/hr 01/27/22 08:00 Chloride 1,000 mg/ IV Solution IVPB 01/28/22 08:01 Q2HR PRN Bleeding Tranexamic Acid/Sodium 100 mls @ 200 mls/hr 01/27/22 11:00 Chloride 1,000 mg/ IV Solution IVPB 01/27/22 23:00 ONCE PRN Pre-Op Insulin Aspart 0 unit 01/26/22 21:00 01/27/22 16:53 Insulin Aspart (Novolog) 100 Unit/Ml Vial SQ Not Given ACHS [facility] Protocol Magnesium Hydroxide 2,400 mg 01/25/22 10:53 Magnesium Hydroxide 2,400 Mg/10 Ml Cup PO DAILY PRN Constipation Naloxone HCl 0.2 mg 01/24/22 21:32 Naloxone 0.4 Mg/Ml 1 Ml Vial IV Q2M PRN Opioid Reversal Naproxen 250 mg 01/25/22 16:00 01/27/22 17:16 Naproxen 250 Mg Tab PO 250 mg TID SHAWNA Administration Ondansetron HCl 4 mg 01/24/22 21:32 Ondansetron 4 Mg/2 Ml Vial IVP Q8HR PRN Nausea And Vomiting Oxycodone HCl 5 mg 01/27/22 13:41 Oxycodone Hcl 5 Mg Tab PO Q6HR PRN Pain Scale 6 To 8 Oxycodone HCl 10 mg 01/27/22 13:41 Oxycodone Hcl 5 Mg Tab PO Q6HR PRN Pain Scale 8 to 10 Pantoprazole Sodium 40 mg 01/25/22 11:15 01/27/22 08:10 Pantoprazole 40 Mg/10 Ml Vial IVP Not Given BID SHAWNA Senna/Docusate Sodium 2 each 01/25/22 21:00 01/27/22 08:10 Sennosides-Docusate Sodium 1 Each Tab PO Not Given BID SHAWNA Intake and Output 01/27/22 01/27/22 01/27/22 06:59 14:59 22:59 Intake Total 520 3302 Output Total 800 775 Balance -280 2527 Intake: IV 3202 Intake, IV Titration 520 100 Amount Sodium Chloride 0.9% 1, 100 000 ml @ 0 mls/hr IV [facility] Rx#:[id number] Sodium Chloride 0.9% 1, 520 000 ml @ 130 mls/hr IV . Q7H42M [facility] Rx#:[id number] Output: Urine 800 125 Estimated Blood Loss 650 Other: Voiding Method Indwelling Catheter Indwelling Catheter 01/27/22 07:58 01/27/22 07:58
[2022-01-27] MEDS: CYCLOBENZAPRINE 5 MG TAB PO PRN (19:50)
[2022-01-27 20:47] LABS: Glucose,Whole Blood 154 mg/dL (75-99)
[2022-01-27 21:34] LABS: Basophils # (A) 0.2 k/uL (0-0.2); Basophils % (A) 0 %; Eosinophils # (A) 0.2 k/uL (0-0.7); Eosinophils % (A) 0 %; HCT 36.3 % (39.0-53.0); HGB 10.7 gm/dL (13.0-17.5); Hypochromasia Marked; Lymphocytes # (A) 0.8 k/uL (1.0-4.8); Lymphocytes % (A) 2 %; MCH 25.2 pg (25.0-35.0); MCHC 29.4 g/dL (31.0-37.0); MCV 85.9 fL (80.0-100.0); Mean Platelet Volume 9.1; Monocytes # (A) 2.2 k/uL (0-1.0); Monocytes % (A) 5 %; Neutrophils # (A) 36.5 k/uL (1.3-7.7); Neutrophils % (A) 91 %; Platelet Count 366 k/uL (150-450); RBC 4.23 m/uL (4.30-5.90); RDW 14.2 % (11.5-15.5); WBC 40.2 k/uL (3.8-10.6)
[2022-01-27 23:02] LABS: Large Platelets Present; Toxic Granulation Present
[2022-01-27 23:03] LABS: Anisocytosis (M) Present
[2022-01-28] MEDS: hydrOXYzine HCL 25 MG TAB PO PRN ×3 (02:37→22:52)
[2022-01-28] MEDS: DEXAMETHASONE SOD PHOSPHATE 10 MG/ML 1 ML VIAL IVP SCH ×6 (02:55→22:51)
[2022-01-28] MEDS: SODIUM CHLORIDE 0.9% 1,000 ML IV SCH ×4 (04:48→22:52)
[2022-01-28 06:37] LABS: Glucose,Whole Blood 172 mg/dL (75-99)
[2022-01-28] MEDS: INSULIN ASPART (NovoLOG) 100 UNIT/ML VIAL SQ SCH ×4 (07:45→22:51)
[2022-01-28] MEDS: IPRATROPIUM-ALBUTEROL 3 ML NEB INHALATION SCH ×3 (08:39→20:17)
[2022-01-28] MEDS: NAPROXEN 250 MG TAB PO SCH ×3 (08:45→22:50)
[2022-01-28] MEDS: ENOXAPARIN 40 MG/0.4 ML SYRINGE SQ SCH (08:46)
[2022-01-28] MEDS: PANTOPRAZOLE 40 MG/10 ML VIAL IVP SCH ×2 (08:46→20:19)
[2022-01-28] MEDS: SENNOSIDES-DOCUSATE SODIUM 1 EACH TAB PO SCH ×2 (08:47→20:13)
--- NOTE | 2022-01-28 11:39 | P.PN ---
Subjective Progress Note Date: 01/28/22 Principal diagnosis: Spinal cord compression. Pulmonary consult dated 01/25/2022. 61-year-old male with a history of recent diagnosis of lung cancer, adenocarcinoma, with multiple skeletal metastasis, the cervical, thoracic, and lumbar spine. The patient presents to the emergency department on January 24, complaining of inability to urinate, and not able to move his lower extremities. This all started yesterday. It's clear the patient has acute spinal cord compression, and for that reason, he was admitted to the hospital. The patient recently had a procedure done last month, by my partner, whereby lymph nodes were sampled in the hilum and mediastinum. The diagnosis was that of adenocarcinoma, stage IV, with multiple skeletal metastasis. The lung was the primary. Currently, she is on 4 L nasal cannula. He is getting saline at 20 mL an hour. The patient was given Rocephin for suspected urinary tract infection. I did call the radiation oncologist, and recommended that he get to see the patient as soon as possible, for radiation therapy. In addition, I started the patient on Decadron, 6 mg, IV push, every 6 hours. Sodium was 135, potassium 3.7, chlorides 98, CO2 30, BUN 11, and creatinine 0.77. White count 51,000, hemoglobin 12.1, hematocrit 38.5, and platelet count 376,000. Chest x-ray showed a large mass in the right chest. Progress note dated 01/26/2022. This is a patient with a recent diagnosis of adenocarcinoma of the lung. He has multiple skeletal metastasis to the cervical spine, resting spine, and lumbar spine. He presented to the emergency department on January 24, with inability to urinate, and paralysis of the lower extremities. It was clear when I saw him yesterday, that he had acute spinal cord compression. I called Dr. Fisher for radiation oncology, to start the patient on radiation treatments as soon as possible. I also started the patient on Decadron yesterday. He's had 2 radiation treatment. He can now move his left leg. He has more difficult time with his right leg. Currently, he's on 3 L nasal cannula. He is getting saline at 100 mL an hour. White count is 35.1, hemoglobin 11.7, hematocrit 39.1, and platelet count 367,000. He has been seen by the spine surgeon. Progress note dated 01/27/2022. The patient has a recent diagnosis of lung cancer, adenocarcinoma type. The patient also had multiple skeletal metastasis to the cervical, thoracic, and lumbar spine. The patient presented to the emergency department on the , with lower extremity paralysis, and urinary retention. In fact, the patient had spinal cord compression. MRI of the spine was done, and the patient is scheduled to have a T2 through T6 laminectomy, and possible stabilization. The patient did receive radiation treatments as well. In addition, the patient was started on IV Decadron. White count 41.1, hemoglobin 11.7, hematocrit 38.9, platelet count 406,000. Sodium potassium chloride CO2 all normal. Anion gap is normal. BUN 23 with a creatinine 0.65. Progress note dated 01/28/2022. This is a 61-year-old male was seen in room 359. He's postop day #1, status post T2 through T6 laminectomy, for spinal cord compression. The patient has a history of recent diagnosis of adenocarcinoma of the lung, with skeletal m etastasis to the cervical, thoracic, and lumbar spine. He presented with paralysis of the lower extremities, urinary retention. He did receive corticosteroids, and radiation treatments. No new laboratory data today glucose of 172. The patient is able to move his lower extremities now. Objective - Vital Signs Vital signs: Vital Signs Temp 98.1 F 01/28/22 08:37 Pulse 85 01/28/22 10:35 Resp 18 01/28/22 10:35 BP 125/72 01/28/22 08:37 Pulse Ox 93 L 01/28/22 08:37 Intake & Output 01/27/22 01/28/22 01/28/22 18:59 06:59 18:59 Intake Total 3302 1040 Output Total 1075 575 Balance 2227 465 Intake: IV 3202 Intake, IV Titration 100 1040 Amount Sodium Chloride 0.9% 1, 100 000 ml @ 0 mls/hr IV .[facility] Rx#:[id number] Sodium Chloride 0.9% 1, 1040 000 ml @ 130 mls/hr IV . Q7H42M [facility] Rx#:[id number] Output: Drainage 300 Back 300 Urine 425 275 Estimated Blood Loss 650 Other: Voiding Method Indwelling Catheter Indwelling Catheter Indwelling Catheter # Bowel Movements 1 1 - Exam No acute distress, oriented 3. Currently on 3 L nasal cannula. Saturations are 93%. HEENT examination is grossly unremarkable. Neck supple. Full range of motion. No adenopathy thyromegaly or neck vein distention. Cervical collar in place. Cardiovascular examination reveals regular rhythm rate. S1-S2 normal. No S3 or S4. No discernible murmur noted. Heart rate 85 bpm. Lungs reveal mostly clear breath sounds. Scattered rhonchi are noted. No wheezes. Breath sounds equal bilaterally. Abdomen soft bowel sounds are heard. No masses or tenderness. Extremities reveal some movement in the left lower extremity, better than the right lower extremity. Skin is without rash or lesion. Neurologic examination is much improved, with significant movement improvement in the lower extremities. - Labs CBC & Chem 7: 01/27/22 19:55 01/27/22 07:58 Labs: Abnormal Lab Results - Last 24 Hours (Table) 01/27/22 01/27/22 01/27/22 Range/Units 17:29 19:55 20:16 WBC 40.2 H (3.8-10.6) k/uL RBC 4.23 L (4.30-5.90) m/uL Hgb 10.7 L (13.0-17.5) gm/dL Hct 36.3 L (39.0-53.0) % MCHC 29.4 L (31.0-37.0) g/dL Neutrophils # 36.5 H (1.3-7.7) k/uL Lymphocytes # 0.8 L (1.0-4.8) k/uL Monocytes # 2.2 H (0-1.0) k/uL POC Glucose (mg/dL) 221 H 154 H (75-99) mg/dL 01/28/22 Range/Units 06:22 WBC (3.8-10.6) k/uL RBC (4.30-5.90) m/uL Hgb (13.0-17.5) gm/dL Hct (39.0-53.0) % MCHC (31.0-37.0) g/dL Neutrophils # (1.3-7.7) k/uL Lymphocytes # (1.0-4.8) k/uL Monocytes # (0-1.0) k/uL POC Glucose (mg/dL) 172 H (75-99) mg/dL Microbiology - Last 24 Hours (Table) 01/24/22 20:10 Blood Culture - Preliminary Blood No Growth after 72 hours 01/24/22 20:25 Blood Culture - Preliminary Blood No Growth after 72 hours Assessment and Plan Assessment: Stage IV adenocarcinoma of the lung, with multiple skeletal metastasis, including cervical, thoracic, and lumbar spine, with acute spinal cord compression. T2 through T6 laminectomy, 01/27/2022. Recent lung biopsy, December 2021, showing adenocarcinoma the lung. Bilateral lower extremity paralysis, secondary to spinal cord compression. Acute urinary retention, secondary to spinal cord compression. COPD. Previous history of tobacco use. History of anxiety. Plan: Plan dated 01/25/2022. I called the radiation oncologist on the phone. I gave him a heads up about this patient. The patient will need to be started on radiation therapy as soon as possible for acute spinal cord compression. A Salmon catheter has been placed. The patient's on Rocephin for possible urinary tract infection. Overall prognosis remains extremely guarded. Medical oncology has also been consulted. Labs, x-ray, medications are all reviewed. I explained this to the patient, the patient's , and the nurse. Plan dated 01/26/2022. The patient was seen by the spine surgeon. In addition, he's had 2 radiation treatments as far. The movement in his lower extremities is much improved, more so on the left side than on his right side. He continues on Decadron. He is also getting Rocephin for possible urinary tract infection. He has been seen by medical oncology as well. Additional recommendations and suggestions are forthcoming. Clinically, he is improved. Plan dated 01/27/2022. The patient is to have T2 through T6 laminectomy, with stabilization procedure today. The patient remains on 3 L. The patient's getting Decadron and radiation treatments to the spine. Continue to follow the patient make recommendations were appropriate. Prognosis is certainly guarded given his recent diagnosis of advanced stage IV lung cancer, multiple skeletal metastasis. He remains on 3 L. Labs, x-rays and medications are all reviewed. Plan dated 01/28/2022. The patient underwent a laminectomy yesterday at levels T2 through T6. The patient appears reasonably well. He is much improved movement of the lower extremities. The patient's on 3 L nasal cannula. Labs, x-rays, and medications are reviewed. Prognosis is certainly guarded. Radiation oncology has seen the patient. The patient is currently on Decadron, and has received at least 2 radiation treatments. We will continue to follow and make recommendations where appropriate. Time with Patient: Less than 30
[2022-01-28 12:11] LABS: Glucose,Whole Blood 121 mg/dL (75-99)
[2022-01-28] MEDS ORDERED: ACETAMINOPHEN IV (For NPO) 1,000 MG in EMPTY BAG 1 BAG IVPB PRN (12:11)
--- NOTE | 2022-01-28 12:11 | P.PN ---
Subjective Progress Note Date: 01/28/22 Pt s/e this AM. He is doing well. He is lying in bed with C collar on. He asked to sit up more so we did and he did well with this. He states his LE are moving better and he was able to flex both knees today for me. He states he had 3 inadvertent BM however this AM, but this is the first time he has had a BM in over a week. He knew they were coming but could not get up, obviously, to go to bathroom and they came fast and he was unable to stop them. He states some decreased LE sensation compared to abdomen at this time as well as genitals but no tingling or overt numbness. He states he is able to flex his buttox better today than he has been able to. He denies any f/c/sob/cp today or since surgery. He is comfortable and pain is controlled. No change in vision, double vision, AWAD, N, V. Objective - Vital Signs Vital signs: Vital Signs Temp 98.1 F 01/28/22 08:37 Pulse 85 01/28/22 10:35 Resp 18 01/28/22 10:35 BP 125/72 01/28/22 08:37 Pulse Ox 93 L 01/28/22 08:37 Intake & Output 01/27/22 01/28/22 01/28/22 18:59 06:59 18:59 Intake Total 3302 1040 Output Total 1075 575 Balance 2227 465 Intake: IV 3202 Intake, IV Titration 100 1040 Amount Sodium Chloride 0.9% 1, 100 000 ml @ 0 mls/hr IV .[facility] Rx#:[id number] Sodium Chloride 0.9% 1, 1040 000 ml @ 130 mls/hr IV . Q7H42M [facility] Rx#:[id number] Output: Drainage 300 Back 300 Urine 425 275 Estimated Blood Loss 650 Other: Voiding Method Indwelling Catheter Indwelling Catheter Indwelling Catheter # Bowel Movements 1 1 - Exam Incision and dressing are CDI. Drain in place with about 50 cc out at this time and 200 overnight. Changes in exam noted below PHYSICAL EXAMINATION: Vitals: Stable at this time on 4 L nasal cannula General: Awake, alert, appropriate for age, in no acute distress. HEENT: No unusual neck masses around region of lateral neck triangle, thyroid, supraclavicular groove. Extremities: Skin warm and dry without no acute lesions, coloration, temperature, skin intact, no tenderness or erythema. Integument: Hairy patches: Absent Dorsal skin dimples: Absent Cafe au lait spots: Absent Surgical incisions: None Palpation: Please see Pain drawing on Intake sheet for further detail. (Tenderness = T, Nontender = NT, Swelling = S, Ecchymosis = E) Findings on Midline and paraspinal palpation and percussion: Cervical: Mild TTP due to incision Thoracic: Mild TTP due to incision Lumbar: NT Sacral: NT Special findings: No pain with range of motion POSTURAL and MUSCULO-SKELETAL EVALUATION: Neck ROM: Unrestricted in six directions Lumbar ROM: Unrestricted in six directions Shoulder ROM: Symmetric in abduction, ER/IR Hip ROM: Symmetric in abduction, adduction, ER/IR Knee ROM: Symmetric and intact in Flexion / extension Hands: Normal appearing structure L and R Feet: Normal appearing structure L and R VASCULAR STATUS : Wrist Pulses: 2/4 bilateral radial and ulnar Pedal Pulses: 2/4 bilateral DP and PT Color: Normal Edema: None NEUROLOGIC EXAMINATION: Mental Status: Awake and alert, fully oriented, with normal attention, concentration and memory, and fluent, appropriate speech. Cranial Nerves: I: Olfactory not tested. II: Visual acuity normal, no visual field deficit noted with confrontation. III,IV: Normal pupillary reflexes & intact extraocular movements without nystagmus. V,: Intact symmetrical facial sensation. VII: Intact symmetrical facial motor movement VIII: Hearing intact. IX,X: Intact gag, swallow, & normal voice. XI: Sternocleidomastoid, trapezius function intact. XII: Tongue midline with normal movements. Special Tests: L'hermitte's Sign: Absent Spurling'Sign: Absent Bilateral Cubital percussion test: Absent Bilateral Luba-Tinel sign - Carpal region: Absent Bilateral Straight Leg Raising: Absent Bilateral Motor Exam (0-5/5, N/T) STRENGTH UPPER EXTREMITY Shoulder Abd (Not part of KVNG Motor score): RIGHT 5 LEFT 5 Elbow Flexors: RIGHT 5 LEFT 5 Elbow Extensor: RIGHT 5 LEFT 5 Wrrist Dorsiflexors: RIGHT 5 LEFT 5 Finger Abductor: RIGHT 5 LEFT 5 Landscaping Crew Leader: RIGHT 5 LEFT 5 He is essentially full strength in bilateral upper extremities however he does have some deconditioning LOWER EXTREMITY Hip Flexor (Not part of KVNG Motor Score): RIGHT 3 LEFT 3 Knee Flexor: RIGHT 3 LEFT 3 Knee Extensor: RIGHT 3 LEFT 3 Ankle Dorsiflexion: RIGHT 3 LEFT 3 Ankle Plantarflexion: RIGHT 3 LEFT 3 EHL: RIGHT 3 LEFT 3 FHL: RIGHT 3 LEFT 3 Weakness in b/l LE has improved to near full antigravity but still lacking is between 2/3 at this time. REFLEXES Biecp: RIGHT 2 LEFT 2 Tricep: RIGHT 2 LEFT 2 Brachioradialis: RIGHT 2 LEFT 2 Patellar: RIGHT 3 LEFT 3 Achilles: RIGHT 3 LEFT 3 Pathological Reflexes Boston's: RIGHT Absent LEFT Absent Babinski: RIGHT Absent LEFT Absent Clonus: RIGHT 10 beats LEFT 12 beats He has gone from no reflexes to hyperreflexia with clonus in the LE at this time. No ongoing dennervation noted. Babinski is still downgoing. HX: (Surprisingly he has no clonus bilaterally his Babinskis is downgoing and he does retract to the sensation) SENSORY Joint Position: Intact bilaterally Vibration Intact bilaterally Pain and LT sense Intact C5-T1 and L2-S1 Dermatomal deficit: Decreased sensation in the lower extremities however still present vibration pain and touch all present in the lower extremities bilater ally but somewhat dulled, dulled sensation in perineal region as well still with gential dullness. no absolute changes. - Labs CBC & Chem 7: 01/27/22 19:55 01/27/22 07:58 Labs: Abnormal Lab Results - Last 24 Hours (Table) 01/27/22 01/27/22 01/27/22 Range/Units 17:29 19:55 20:16 WBC 40.2 H (3.8-10.6) k/uL RBC 4.23 L (4.30-5.90) m/uL Hgb 10.7 L (13.0-17.5) gm/dL Hct 36.3 L (39.0-53.0) % MCHC 29.4 L (31.0-37.0) g/dL Neutrophils # 36.5 H (1.3-7.7) k/uL Lymphocytes # 0.8 L (1.0-4.8) k/uL Monocytes # 2.2 H (0-1.0) k/uL POC Glucose (mg/dL) 221 H 154 H (75-99) mg/dL 01/28/22 Range/Units 06:22 WBC (3.8-10.6) k/uL RBC (4.30-5.90) m/uL Hgb (13.0-17.5) gm/dL Hct (39.0-53.0) % MCHC (31.0-37.0) g/dL Neutrophils # (1.3-7.7) k/uL Lymphocytes # (1.0-4.8) k/uL Monocytes # (0-1.0) k/uL POC Glucose (mg/dL) 172 H (75-99) mg/dL Microbiology - Last 24 Hours (Table) 01/24/22 20:10 Blood Culture - Preliminary Blood No Growth after 72 hours 01/24/22 20:25 Blood Culture - Preliminary Blood No Growth after 72 hours Assessment and Plan Assessment: 61-year-old male with stage IV metastatic lung adenocarcinoma Acute lower extremity weakness with urinary retention, likely thoracic myelopathy POD1 T1-6 decompressive laminectomy with T3 stabilizing kyphoplasty Complex medical patient Plan: -Appreciate Team and consulting services -Cont decadron -Pain control PRN -GI ppx cont with lr -DVT ppx, OK for Heparin tonight 5 pm SQ -Cont with ABX post op -TEds, SCDs -Await INTEGRATED CAMPAIGN MANAGER brace. -OK to sit up in bed with c collar in place. No out of bed until INTEGRATED CAMPAIGN MANAGER is present. -Diet REGULAR as tolerated -PT/OT when able -Hold Radiation tx for 2 weeks -Will continue to follow
--- NOTE | 2022-01-28 12:32 | P.PN ---
Progress Note - Text Progress Note Date: 01/28/22 Chief Complaint: Leg weakness This is a 61-year-old patient who follows with Dr. Elias Huizar. Patient 2 weeks ago was diagnosed with metastatic lung cancer with metastatic disease to the bones. Under care of Dr. Mercedes. Patient was supposed to follow for radiation treatment and further workup. For 6 weeks patient is having some trouble getting up because of back pain. Also prescription pain in the chest and back. Appetite is okay. Has lost about 35 pounds the last few weeks. Yesterday patient not able to walk at all not make urine. Presented to the ER. Salmon catheter was placed. In addition oncologist was consulted. On January 15 patient underwent a PET scan that showed abnormal thoracic adenopathy with diffuse osseous metastatic disease and spinal canal invasion lower thoracic spine level noted. Also involvement of bilateral ribs. Started him and entire spine. Lung biopsy has previously shown malignant non-small cell carcinoma cells having features of metastatic pulmonary adenocarcinoma. Per bronchoscopy by Dr. Topete on December 28. Patient denies any fever and chills. A bit tired and rundown. January 26: Patient received radiation treatment. Getting breathing treatments. Stated this afternoon she was seen by Dr. Courtney. MRI head showed spinal cord compression. He discussed with the family and will proceed for surgery. Compression between T2-T6. On the spinal cord January 27: Patient underwent surgery today. Formal report not available. Has a C- spine collar. Hemovac. at the bedside. Tired. January 28: Laying in bed. Cervical collar. Hemovac. Some movement of her lower extremity. Salmon catheter. Unable to control his bowel movement today. Active Medications Acetaminophen (Acetaminophen Tab 325 Mg Tab) 650 mg PO Q6HR PRN PRN Reason: Mild Pain or Fever > 100.5 Hydrocodone Bitart/Acetaminophen (Hydrocodone/Apap 10-325mg 1 Each Tab) 1 each PO Q4HR PRN PRN Reason: pain Last Admin: 01/27/22 04:27 Dose: 1 each Documented by: Albuterol/Ipratropium (Ipratropium-Albuterol 3 Ml Neb) 3 ml INHALATION RT-TID SHAWNA Last Admin: 01/28/22 12:23 Dose: 3 ml Documented by: Cyclobenzaprine HCl (Cyclobenzaprine 5 Mg Tab) 5 mg PO TID PRN PRN Reason: Muscle Spasm Last Admin: 01/27/22 19:50 Dose: 5 mg Documented by: Dexamethasone Sodium Phosphate (Dexamethasone Sod Phosphate 10 Mg/Ml 1 Ml Vial) 6 mg IVP Q4H [facility] Last Admin: 01/28/22 12:28 Dose: 6 mg Documented by: Enoxaparin Sodium (Enoxaparin 40 Mg/0.4 Ml Syringe) 40 mg SQ DAILY [facility] Last Admin: 01/28/22 08:46 Dose: 40 mg Documented by: Hydromorphone HCl (Hydromorphone 0.5 Mg/0.5 Ml Syringe) 0.5 mg IVP Q3HR PRN PRN Reason: Moderate Pain Last Admin: 01/27/22 06:36 Dose: 0.5 mg Documented by: Hydroxyzine HCl (Hydroxyzine Hcl 25 Mg Tab) 25 mg PO TID PRN PRN Reason: Anxiety Last Admin: 01/28/22 08:45 Dose: 25 mg Documented by: Sodium Chloride (Saline 0.9%) 1,000 mls @ 130 mls/hr IV .Q7H42M [facility] Last Admin: 01/28/22 08:43 Dose: 130 mls/hr Documented by: Cefazolin Sodium 2 gm/ Sodium (Chloride) 50 mls @ 100 mls/hr IVPB Q8HR [facility]; Protocol Last Admin: 01/28/22 09:02 Dose: 100 mls/hr Documented by: Acetaminophen 1,000 mg/ IV (Solution) 100 mls @ 400 mls/hr IVPB Q6H PRN PRN Reason: Pain Insulin Aspart (Insulin Aspart (Novolog) 100 Unit/Ml Vial) 0 unit SQ ACHS [facility]; Protocol Last Admin: 01/28/22 12:09 Dose: Not Given Documented by: Magnesium Hydroxide (Magnesium Hydroxide 2,400 Mg/10 Ml Cup) 2,400 mg PO DAILY PRN PRN Reason: Constipation Naloxone HCl (Naloxone 0.4 Mg/Ml 1 Ml Vial) 0.2 mg IV Q2M PRN PRN Reason: Opioid Reversal Naproxen (Naproxen 250 Mg Tab) 250 mg PO TID [facility] Last Admin: 01/28/22 08:45 Dose: 250 mg Documented by: Ondansetron HCl (Ondansetron 4 Mg/2 Ml Vial) 4 mg IVP Q8HR PRN PRN Reason: Nausea And Vomiting Oxycodone HCl (Oxycodone Hcl 5 Mg Tab) 5 mg PO Q6HR PRN PRN Reason: Pain Scale 6 To 8 Last Admin: 01/28/22 08:46 Dose: 5 mg Documented by: Oxycodone HCl (Oxycodone Hcl 5 Mg Tab) 10 mg PO Q6HR PRN PRN Reason: Pain Scale 8 to 10 Last Admin: 01/28/22 02:36 Dose: 10 mg Documented by: Pantoprazole Sodium (Pantoprazole 40 Mg/10 Ml Vial) 40 mg IVP BID [facility] Last Admin: 01/28/22 08:46 Dose: 40 mg Documented by: Senna/Docusate Sodium (Sennosides-Docusate Sodium 1 Each Tab) 2 each PO BID [facility] Last Admin: 01/28/22 08:47 Dose: Not Given Documented by: Past medical history to include: Recently diagnosed metastatic lung cancer with metastases to several bones. Possibly adenocarcinoma non-small cell type. COPD. Recent guarded and uses steroid injections. Anxiety. Social history: Patient smoked for about 16 years stopped about 23 years ago. 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 . Was drinking about 6-10 beers a night for many years up to 4 months ago. Family history: Lung cancer Physical examination: VITAL SIGNS: 98.1, 85, 18, 125/72, 93% on 3 L GENERAL:, Laying in bed, awake, EYES: Pupils equal. Conjunctiva normal. HEENT: C-collar with Hemovac NECK: JVD not raised; masses not palpable. HEART: First and second heart sounds are normal; no edema. LUNGS:[ Respiratory rate normal; decreased breath sounds. ABDOMEN: Soft, nontender, liver spleen not palpable, no masses palpable. Salmon catheter PSYCH: Alert and oriented x3; mood and affect normal MUSCULOSKELETAL:No Clubbing/cyanosis;muscles-grossly intact NEUROLOGICAL: [Cranial nerves grossly intact; no facial asymmetry, able to move some both lower extremity. 2-3/5 power INVESTIGATIONS, reviewed in the clinical context: January 27: White count 41.1 hemoglobin 11.7 potassium 3.8 creatinine 0.65 January 26: White count 35.1 hemoglobin 11.7 pro-calcitonin 0.29 White count 51 hemoglobin 12.1 platelets 376 potassium 3.7 creatinine 0.77 TSH 3.2 Admission labs: White count [age]-year-old woman 13.2 platelets 390 sodium 131 potassium 3.8 creatinine 0.8 Albumin 3.2 UA negative for nitrite and leukoesterase COVID 19/influenza type A/influenza type B: Not detected UA noted Computed tomography scan; thoracic lumbar spine with contrast: Extensive osteomyelitis changes in the spine. EKG tracing personally reviewed by me-no sinus rhythm. Nonspecific T-wave changes Chest x-ray film personally reviewed by me-large tumor involvement of the lung space especially in the right Assessment and plan: -Acute paraparesis from metastatic disease to the thoracolumbar spine with compression of spinal cord.: Slow to respond Radiation treatment started. Patient underwent decompression surgery by Dr. Courtney today on January 27. -Acute urinary retention from metastatic disease to the spine. Radiation treatment might benefit. PTOT. Salmon catheter -Recently diagnosis metastatic adenocarcinoma of the lung/non-small cell. Oncologist: Dr. Mercedes. -COPD in a previous smoker DuoNeb 3 times a day -Hyponatremia, likely hypoosmolar Increase fluid intake -Bone pain. From metastatic disease Steroids. Naproxen. -Severe leukocytosis likely leukemoid reaction from underlying malignancy and steroids Status post surgery. C-collar. Hemovac. medications to continue. Salmon catheter. Discussed with the patient.
[2022-01-28 16:45] LABS: Glucose,Whole Blood 217 mg/dL (75-99)
[2022-01-28 20:18] LABS: Glucose,Whole Blood 180 mg/dL (75-99)
[2022-01-28] MEDS: HYDROcodone/APAP 10-325MG 1 EACH TAB PO PRN (20:18)
[2022-01-29] MEDS: DEXAMETHASONE SOD PHOSPHATE 10 MG/ML 1 ML VIAL IVP SCH ×6 (03:05→22:57)
[2022-01-29 05:21] LABS: Glucose,Whole Blood 168 mg/dL (75-99)
[2022-01-29] MEDS: INSULIN ASPART (NovoLOG) 100 UNIT/ML VIAL SQ SCH ×4 (06:29→20:25)
[2022-01-29] MEDS: IPRATROPIUM-ALBUTEROL 3 ML NEB INHALATION SCH ×3 (07:22→21:22)
[2022-01-29 07:55] LABS: HGB 10.1 gm/dL (13.0-17.5); Hypochromasia Moderate; MCH 26.5 pg (25.0-35.0); MCHC 30.7 g/dL (31.0-37.0); MCV 86.3 fL (80.0-100.0); Mean Platelet Volume 8.5; Platelet Count 342 k/uL (150-450); RBC 3.82 m/uL (4.30-5.90); RDW 13.8 % (11.5-15.5); WBC 35.3 k/uL (3.8-10.6)
[2022-01-29 07:56] LABS: African American GFR (CKD) >90 (>60 ml/min/1.73 sqM); Anion Gap 3 mmol/L; Blood Urea Nitrogen 22 mg/dL (9-20); Calcium 7.9 mg/dL (8.4-10.2); Carbon Dioxide 27 mmol/L (22-30); Chloride 107 mmol/L (98-107); Glucose 170 mg/dL (74-99); Non-African American GFR(CKD) >90 (>60 ml/min/1.73 sqM); Potassium 4.6 mmol/L (3.5-5.1); Sodium 137 mmol/L (137-145)
[2022-01-29] MEDS: PANTOPRAZOLE 40 MG/10 ML VIAL IVP SCH ×2 (08:13→20:32)
[2022-01-29] MEDS: SENNOSIDES-DOCUSATE SODIUM 1 EACH TAB PO SCH ×2 (08:14→20:33)
[2022-01-29] MEDS: NAPROXEN 250 MG TAB PO SCH ×3 (08:14→20:33)
[2022-01-29] MEDS: ENOXAPARIN 40 MG/0.4 ML SYRINGE SQ SCH (08:15)
[2022-01-29 08:20] LABS: Band Neutrophils % 2 %; Eosinophils # (M) 0.35 k/uL (0-0.7); Lymphocytes # (M) 0.71 k/uL (1.0-4.8); Metamyelocytes # (M) 0.35 k/uL (0); Metamyelocytes % 1 %; Monocytes # (M) 1.06 k/uL (0-1.0); Myelocytes # (M) 0.35 k/uL (0); Myelocytes % 1 %; Neutrophils % (M) 93 %; Nucleated Red Blood Cells 0 /100 WBC (0-0); Total Cells Counted 200
--- NOTE | 2022-01-29 08:50 | P.PN ---
Subjective Progress Note Date: 01/29/22 Pt s/e this AM. He is sitting up eating breakfast and feeling quite well. he states his legs continue to improve and he is moving them even more this AM. He states no issues overnight. States no change in his sensation. He states no BM issues overnight or this AM. He states no F/C/SOB/CP at this time. No AWAD/N/D/C. Lr in place. Has not been up. Pain is controlled at this time. C collar in place. Objective - Vital Signs Vital signs: Vital Signs Temp 97.8 F 01/29/22 08:00 Pulse 113 H 01/29/22 08:00 Resp 16 01/29/22 08:00 BP 124/82 01/29/22 08:00 Pulse Ox 91 L 01/29/22 08:00 Intake & Output 01/28/22 01/29/22 01/29/22 18:59 06:59 18:59 Intake Total 1270 Output Total 875 Balance 395 Weight 86.6 kg Intake: Intake, IV Titration 1270 Amount Sodium Chloride 0.9% 1, 1170 000 ml @ 130 mls/hr IV . Q7H42M COUNTS INCLUDE 234 BEDS AT THE [facility] Rx#:[id number] ceFAZolin 2 gm In Sodium 100 Chloride 0.9% 50 ml @ 100 mls/hr IVPB Q8HR COUNTS INCLUDE 234 BEDS AT THE [facility] Rx# :[id number] Output: Drainage 100 Back 100 Urine 775 Other: Voiding Method Indwelling Catheter Indwelling Catheter Indwelling Catheter # Bowel Movements 1 - Exam Exam repeated today. Clonus has resolved in LE as noted below. Incision and dressing are CDI. Drain in place with about 10 cc out at this time and 150 overnight. Changes in exam noted below PHYSICAL EXAMINATION: Vitals: Stable at this time on 4 L nasal cannula General: Awake, alert, appropriate for age, in no acute distress. HEENT: No unusual neck masses around region of lateral neck triangle, thyroid, supraclavicular groove. Extremities: Skin warm and dry without no acute lesions, coloration, temperature, skin intact, no tenderness or erythema. Integument: Hairy patches: Absent Dorsal skin dimples: Absent Cafe au lait spots: Absent Surgical incisions: None Palpation: Please see Pain drawing on Intake sheet for further detail. (Tenderness = T, Nontender = NT, Swelling = S, Ecchymosis = E) Findings on Midline and paraspinal palpation and percussion: Cervical: Mild TTP due to incision Thoracic: Mild TTP due to incision Lumbar: NT Sacral: NT Special findings: No pain with range of motion POSTURAL and MUSCULO-SKELETAL EVALUATION: Neck ROM: Unrestricted in six directions Lumbar ROM: Unrestricted in six directions Shoulder ROM: Symmetric in abduction, ER/IR Hip ROM: Symmetric in abduction, adduction, ER/IR Knee ROM: Symmetric and intact in Flexion / extension Hands: Normal appearing structure L and R Feet: Normal appearing structure L and R VASCULAR STATUS : Wrist Pulses: 2/4 bilateral radial and ulnar Pedal Pulses: 2/4 bilateral DP and PT Color: Normal Edema: None NEUROLOGIC EXAMINATION: Mental Status: Awake and alert, fully oriented, with normal attention, concentration and memory, and fluent, appropriate speech. Cranial Nerves: I: Olfactory not tested. II: Visual acuity normal, no visual field deficit noted with confrontation. III,IV: Normal pupillary reflexes & intact extraocular movements without nystagmus. V,: Intact symmetrical facial sensation. VII: Intact symmetrical facial motor movement VIII: Hearing intact. IX,X: Intact gag, swallow, & normal voice. XI: Sternocleidomastoid, trapezius function intact. XII: Tongue midline with normal movements. Special Tests: L'hermitte's Sign: Absent Spurling'Sign: Absent Bilateral Cubital percussion test: Absent Bilateral Luba-Tinel sign - Carpal region: Absent Bilateral Straight Leg Raising: Absent Bilateral Motor Exam (0-5/5, N/T) STRENGTH UPPER EXTREMITY Shoulder Abd (Not part of KVNG Motor score): RIGHT 5 LEFT 5 Elbow Flexors: RIGHT 5 LEFT 5 Elbow Extensor: RIGHT 5 LEFT 5 Wrrist Dorsiflexors: RIGHT 5 LEFT 5 Finger Abductor: RIGHT 5 LEFT 5 Crib Tender: RIGHT 5 LEFT 5 He is essentially full strength in bilateral upper extremities however he does have some deconditioning LOWER EXTREMITY Hip Flexor (Not part of KVNG Motor Score): RIGHT 3 LEFT 3 Knee Flexor: RIGHT 3 LEFT 3 Knee Extensor: RIGHT 3 LEFT 3 Ankle Dorsiflexion: RIGHT 3 LEFT 3 Ankle Plantarflexion: RIGHT 3 LEFT 3 EHL: RIGHT 3 LEFT 3 FHL: RIGHT 3 LEFT 3 Weakness in b/l LE has improved to near full antigravity but still lacking is between 2/3 at this time. REFLEXES Biecp: RIGHT 2 LEFT 2 Tricep: RIGHT 2 LEFT 2 Brachioradialis: RIGHT 2 LEFT 2 Patellar: RIGHT 3 LEFT 3 Achilles: RIGHT 3 LEFT 3 Pathological Reflexes Boston's: RIGHT Absent LEFT Absent Babinski: RIGHT Absent LEFT Absent Clonus: RIGHT ABSENT LEFT ABSENT Babinski is still downgoing. SENSORY Joint Position: Intact bilaterally Vibration Intact bilaterally Pain and LT sense Intact C5-T1 and L2-S1 Dermatomal deficit: Decreased sensation in the lower extremities however still present vibration pain and touch all present in the lower extremities bilaterall y but somewhat dulled, dulled sensation in perineal region as well still with gential dullness. no absolute changes. - Labs CBC & Chem 7: 01/29/22 07:15 01/29/22 07:15 Labs: Abnormal Lab Results - Last 24 Hours (Table) 01/28/22 01/28/22 01/28/22 Range/Units 12:01 16:30 20:16 WBC (3.8-10.6) k/uL RBC (4.30-5.90) m/uL Hgb (13.0-17.5) gm/dL Hct (39.0-53.0) % MCHC (31.0-37.0) g/dL Neutrophils # (Manual) (1.3-7.7) k/uL Lymphocytes # (Manual) (1.0-4.8) k/uL Monocytes # (Manual) (0-1.0) k/uL Metamyelocytes # (Man) (0) k/uL Myelocytes # (Manual) (0) k/uL BUN (9-20) mg/dL Creatinine (0.66-1.25) mg/dL Glucose (74-99) mg/dL POC Glucose (mg/dL) 121 H 217 H 180 H (75-99) mg/dL Calcium (8.4-10.2) mg/dL 01/29/22 01/29/22 01/29/22 Range/Units 05:17 07:15 07:15 WBC 35.3 H (3.8-10.6) k/uL RBC 3.82 L (4.30-5.90) m/uL Hgb 10.1 L (13.0-17.5) gm/dL Hct 33.0 L (39.0-53.0) % MCHC 30.7 L (31.0-37.0) g/dL Neutrophils # (Manual) 33.50 H (1.3-7.7) k/uL Lymphocytes # (Manual) 0.71 L (1.0-4.8) k/uL Monocytes # (Manual) 1.06 H (0-1.0) k/uL Metamyelocytes # (Man) 0.35 H (0) k/uL Myelocytes # (Manual) 0.35 H (0) k/uL BUN 22 H (9-20) mg/dL Creatinine 0.62 L (0.66-1.25) mg/dL Glucose 170 H (74-99) mg/dL POC Glucose (mg/dL) 168 H (75-99) mg/dL Calcium 7.9 L (8.4-10.2) mg/dL Microbiology - Last 24 Hours (Table) 01/24/22 20:10 Blood Culture - Preliminary Blood No Growth after 96 hours 01/24/22 20:25 Blood Culture - Preliminary Blood No Growth after 96 hours Assessment and Plan Assessment: 61-year-old male with stage IV metastatic lung adenocarcinoma Acute lower extremity weakness with urinary retention, likely thoracic myelopathy POD2 T1-6 decompressive laminectomy with T3 stabilizing kyphoplasty Complex medical patient Plan: -Appreciate Team and consulting services -Cont decadron -Pain control PRN -GI ppx cont with lr -DVT ppx, OK for Heparin tonight 5 pm SQ -Cont with ABX post op -TEds, SCDs -Await HAT BLOCKER brace. -OK to sit up in bed with c collar in place. No out of bed until HAT BLOCKER is p resent. -REGULAR DIET -PT/OT when able -Hold Radiation tx for 2 weeks -TURN q2 hr. see below for emergent signs and sx. -Will continue to follow SCI Signs and Symptoms and Plan Cardiovascular: orthostasis with progressive sitting, needs monitoring for orthostatic hypotension normal BP in spinal cord patient of this level is 90/[address] binder prior to sitting up, and remove when supine thigh high TEDs also helpful - place on in day and off at night Autonomic dysreflexia: patients with T6 and above spinal cord lesions are at risk for AD this is an EMERGENCY and can lead to heart attack or stroke if not treated it is ALWAYS due to something irritating the body below the neurologic level of injury presentation is normally sudden hypertension with bradycardia symptoms include the following: sweating, redness, flushing, headache, congestion, chills above the level of injury treatment follows 1. Sit patient fully upright 2. Loosen abdominal binders, TEDs, and clothing, remove shoes 3. Make sure Lr is not kinked and draining 4. Check bed for anything poking the skin 5. Perform bowel program if constipated 6. Check blood pressure every 5 minutes - once etiology is found, BP will quickly resume to normal 7. If BP remains elevated, would treat temporarily with nitro paste 1/2 -1 inch as this can be wiped off once AD resolves most common etiologies: bladder obstruction, pain, constipation Gastrointestinal: neurogenic bowel neurogenic bowel due to spinal cord injury with impaired bowel sensory awareness, coordination, and control after spinal cord injury, the bowels tend to be slow and uncoordinated, leading to poor regulation of evacuation, constipation, and multiple daily BMs needs regulation of bowels with daily bowel program recommend to continue Senna ii po QHS and MiraLAX daily continue Dulcolax RI qPM DO NOT hold meds with multiple stools, may take time to regulate goal is scheduled program and continence throughout the rest of the day Program ? Same time daily, preferably in am or pm after a meal ? Lie patient on left side ? Insert suppository ? Wait about 30 min ? Perform digital stimulation every 15 min X3 or until good results Genitourinary: neurogenic bladder - neurogenic bladder due to spinal cord injury with impaired bladder ascending sensory awareness and impaired cortical descending bladder control - after spinal cord injury, bladder tends to have tight urinary sphincter with impaired ability to void, decreased squeeze and and emptying, and tendency to overdistention - lr in place - unclear if patient will be able to void but would only attempt voiding trial when staff and patient agreeable to the following bladder retraining program - timed void q4h, check PVR and ICP if > 500cc - please document amount voided, PVR and cath volumes in flow sheets - goal voiding volumes of 400-500cc - goal voiding more than retaining and routine PVRs < 100cc - please do NOT place condom catheterpurewick in this patient - condom catheterpurewick is only a urinary collection device and does not cross the urinary sphincter, not treating urinary retention can lead to bladder distention and overflow incontinence - flomax - recommend starting this medication 0.4 mg po qhs, monitor for am orthostatic hypotension, noting this medication can take 2-4 weeks to reach full effect Skin: - high risk for skin breakdown due to impaired sensation - specialty bed - turn q2h, pad bony areas - check skin daily Prophylaxis: high risk for DVT, recommend lovenox for at least 12 weeks
--- NOTE | 2022-01-29 10:03 | P.OP ---
Date of Procedure: 01/27/22 Preoperative Diagnosis: 1. Metestatic Lung CA 2. T2-6 tumor burden causing severe spinal cord compression 3. b/l LE paresis 4. Complex medical patient Postoperative Diagnosis: 1. Metestatic Lung CA 2. T2-6 tumor burden causing severe spinal cord compression 3. b/l LE paresis 4. Complex medical patient Procedure(s) Performed: 1. Posterior midline approach to the Thoracic spine 2. T1-6 decompressive laminectomy (38057) 3. Laminectomy for Tumor removal T1-6 epidural space (76317) 4. T3 stabilizing kyphoplasty with biopsy (80958) 5. Use of intraoperative neuromonitoring 6. Interpretation of intraoperative flouroscopy <1 hr (32569) Implants: Delma cement Anesthesia: GETA Surgeon: Jason Courtney Agency Sales Representative #1: Yoan Alexander (Was present and assisted in the entire case from positioning, to exposure, decompression, closure, dressing. ) Estimated Blood Loss (ml): 650 IV fluids (ml): 2,800 Urine output (ml): 125 Pathology: other Condition: stable Disposition: PACU Indications for Procedure: Camilo Hdez is a 61 yo male presenting for evaluation of LE weakness and paresis, acute UR, new dx metestatic lung CA. It was my pleasure to have seen and examined Camilo. In our visit today we have had a chance to go over subjective complaints, physical examination findings and treatments including the natural course history without intervention and various interventional options. 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 On physical exam, Camilo demonstrates Profound LE weakness b/l with initial paresis minimally improved with steroids and radiation, urinary retention requiring catheter, decreased LE sensation, no perineal numbness/tingling, good rectal tone. I have explained to the patient that as their condition progresses it will cause further neurological deficits and eventual paralysis. Based on the patients imaging, physical exam, and the rapid progression and disabling nature of their symptoms, at this time I recommend surgery in the form or a: T2 to T6 laminectomy with possible stabilization. I discussed the risk and benefits of this procedure at length with Camilo. The patient and his agreed to considered pursuing the procedure abovementioned. Prior to surgery, he will be cleared by Medicine Cardio, pulm for procedure. Questions were invited and answered, and the patient wishes to proceed as outlined below. Currently, I am recommendin. Thoracic 2 to Thoracic 6 decompressive laminectomy with possible stabilization, possible kyphoplasty T3 2. Follow up with PCP for surgical clearance 3. Review of surgical risks and benefits as well as an educational packet on the proposed surgical procedure. Description of Procedure: The patient was seen and examined in the preoperative area. All preoperative protocols were followed. Informed consent was obtained risks and benefits of the procedure were discussed at length. Risks including bleeding infection damage to the surrounding tissue and risk of reoperation were discussed with the patient. Risk of anesthesia up to and including was a discussed with the patient. These are outlined in the risk review. They were willing to accept these risks and all of the risks of surgery. The patient was given a weight- based dose of antibiotics in the form of 2 g Ancef. The patient was seen and evaluated by the anesthesia team who deemed them fit for surgery. The site was marked, the patient was willing to proceed with the procedure. The patient was transferred to the operative suite by the Department of anesthesia. They were then drifted off to sleep by the department anesthesia and GETA was performed. The patient tolerated this well. Salmon catheter was present from the floor. Once confirmation of lines and ventilation the patient was transferred to a prone Steven Jonathan table very carefully. All bony prominences including wrists, elbows, axilla, chest, hips, and thighs, and feet were padded very well. Special attention was paid to the genitalia and these were padded accordingly. SCDs were placed on bilateral lower extremities and were connected. Arms were well padded and placed tucked at his side thumbs down and well-padded. Once in position, again we confirmed good ventilation capabilities and that lines were running appropriately. The patient's posterior cervical thoracic and lumbar spine was then exposed. 1010s were placed outlining the incision site. Standard alcohol was used to clean the incision site and allowed to dry. C-arm was used to biomark the patient and confirm level for incision which was marked with a skin marker. Operative briefing was performed with all teams and everyone in agreement to proceed. The patient was then prepped and draped in a normal sterile fashion. Timeout was then performed and all parties were in agreement with the procedure to be performed. Midline skin incision was made over the previously bowel arteriogram posterior midline dissection taken down to the spinous processes which were identified at C7 through T7. Midline fasciotomy was made using electrocautery dissection and bipolar dissection we carefully dissected down over the lamina subperiosteally. At T1 and T2 the lamina were essentially eroded and disconnected secondary to tumor burden and there were soft tissue tumor burden which was noted here and this was resected along with the laminas in this area we then subperiosteally dissected out over the transverse processes of T1 and T2 which were identified for this process of T2 on the left-hand side was eroded as well as T1 on the left-hand side was eroded. There is tumor burden within the costovertebral joints of T1 and T2 on the left-hand side as well as T3. We then subperiosteally dissected over T3 through T6 expose transverse processes for v isualization purposes. Meticulous hemostasis was observed with electrocautery and bipolar dissection however the patient exhibited large amounts of hypervascularity around the tumor areas which showed a lot of bleeding in this area. We were able to control this bleeding however and continue. We then performed bilateral laminectomy of T1 through T6 using high-speed bur laminotomy troughs were made bilaterally a 2 up-biting curette was then used to release the ligament at each level and the spinous processes and lamina were then carefully lifted off of the thoracic cord. As we lifted it off there is a large sublaminar plexus which had grown due to large tumor burden which was present in this area tumor burden was present from T1 through T6 which was visualized. We cauterized these vessels and remove the lamina which revealed large tumor burden epidurally from T1 through T6. This was then removed using Kerrison rongeurs pituitary and electrocautery bipolar. We then dissected and did partial medial facetectomies of T2 as there is a larger tumor burden at this level allowed for better visualization decompression at this level we did not destabilize the spine however due to at this point having a larger amount of blood loss and the patient needing support. The patient did have an antibiotic and his blood which made it difficult to get the blood needed at this time. He was transfused 1 unit intraoperatively. We continued with our decompression and tumor removal removing epidurally all tumor available and visible with Kerrison rongeurs carefully dissecting the tumor off of the dura with a [place] 4. Most of the tumor burden was centered around T1 through T3. However there is extension of tumor burden down to T6. After this burden was removed and the cord was decom pressed there was good cord pulsations noted. Neuro monitoring remained stable in motors and sensory throughout this process. After decompression we thoroughly irrigated we then turned to stabilization of T3 with kyphoplasty under lateral fluoroscopy a Jamshidi was inserted into the pedicle of T3 on the left-hand side and advanced into the vertebral body was then drilled and expanded and cement was then carefully placed into the T3 vertebral body to stabilize it under lateral fluoroscopy. There were no vital sign changes anesthesia monitor the patient and there were no changes throughout the cementation process. We then discussed at this point possibly placing screws and rods for stabilization due to the location of the lesions the extent of it and the possibility of instability however due to blood loss as well as the patient's antibody status and his blood and his current condition I decided it was in the patient's best interest to limit surgical time and anesthesia time at this time as well as blood loss. We thoroughly irrigated the wound with 6 L of saline solution 3 L of antibiotic solution and 3 L of normal sterile saline. We then placed a drain deep to the fascia we placed Surgicel over the dura 2 g of vancomycin powder replaced within the wound again meticulous hemostasis was performed. We then performed a layered closure first in the muscular layer with #1 PDS in a [id number] fashion followed by a fascial layer and [id number] fashion with #1 PDS which was then bolstered with 0 PDS. We then placed 0 PDS in the deep subcu tissue 2-0 PDS in the superficial subcu tissue and radha in the skin. The wound edges approximated very well. We then clean the wound and sterilely dressed it with up to foam dressing 4 x 4 and Tegaderm. The patient was transferred back to their hospital bed atraumatically. Drain continued to hold suction and were in good position. The patient was placed in a soft cervical collar for now. A GREASE AND TALLOW PUMPER will be ordered for them to maintain stability and they will be fitted with this on the floor Patient was then awakened and extubated by the department of anesthesia having tolerated the procedure very well with no complications. They were transferred to the postoperative care unit in stable condition.
--- NOTE | 2022-01-29 10:35 | CA ---
Transthoracic Echo Report Name: Camilo Hdez Age: 61 Gender: M : 1960 Exam Date: 01/29/2022 07:34 Exam Location: [facility] Ht (in): 74 Wt (lb): 190 Ordering Physician: Vinicius Santillan DO ([id number]) Attending/Referring Phys: Elderly Caregiver Enma Willingham, AUDRA Procedure CPT: Indications: re: SOB Cardiac Hx: Technical Quality: Poor Contrast 1: Total Dose (mL): Contrast 2: Total Dose (mL): MEASUREMENTS (Male / Female) Normal Values 2D ECHO LV Diastolic Diameter PLAX 5.1 cm 4.2 - 5.9 / 3.9 - 5.3 cm LV Systolic Diameter PLAX 4.1 cm IVS Diastolic Thickness 1.4 cm 0.6 - 1.0 / 0.6 - 0.9 cm LVPW Diastolic Thickness 1.3 cm 0.6 - 1.0 / 0.6 - 0.9 cm LV Relative Wall Thickness 0.5 RV Internal Dim ED PLAX 3.2 cm LA Systolic Diameter LX 3.3 cm 3.0 - 4.0 / 2.7 - 3.8 cm M-MODE Aortic Root Diameter MM 3.7 cm MV E Point Septal Separation 0.5 cm AV Cusp Separation MM 2.4 cm DOPPLER AV Peak Velocity 124.1 cm/s AV Peak Gradient 6.2 mmHg MV Area PHT 4.7 cm??? Mitral E Point Velocity 75.5 cm/s Mitral A Point Velocity 65.4 cm/s Mitral E to A Ratio 1.2 MV Deceleration Time 161.7 ms TR Peak Velocity 219.8 cm/s TR Peak Gradient 19.3 mmHg Right Ventricular Systolic Press 24.3 mmHg FINDINGS Left Ventricle Left ventricular ejection fraction is estimated at 60-65 %. Left ventricular cavity size normal. Moderate concentric left ventricular hypertrophy. Apical septym , apical anterior , apical inferior wall hypokinesis Right Ventricle Normal right ventricular size and function. Right ventricular systolic pressure within normal limits. Right Atrium Normal right atrial size. Left Atrium Normal left atrial size. Mitral Valve Mild mitral regurgitation. Aortic Valve Aortic valve not well visualized. Tricuspid Valve Mild tricuspid regurgitation. Pulmonic Valve Trace pulmonic regurgitation. Pericardium Normal pericardium. Aorta Normal size aortic root and proximal ascending aorta. CONCLUSIONS Technically difficult study for interpretation Normal left ventricular dimension and systolic function See above for details Previewed by: Dr. Bossman Guy MD (Electronically Signed) Final Date: 29 Jan 2022 10:33
[2022-01-29] MEDS: HYDROcodone/APAP 10-325MG 1 EACH TAB PO PRN ×2 (11:25→20:33)
[2022-01-29] MEDS: hydrOXYzine HCL 25 MG TAB PO PRN ×2 (11:25→14:57)
[2022-01-29 11:28] LABS: Glucose,Whole Blood 260 mg/dL (75-99)
--- NOTE | 2022-01-29 13:02 | P.PN ---
Progress Note - Text Progress Note Date: 01/29/22 Chief Complaint: Leg weakness This is a 61-year-old patient who follows with Dr. Elias Huizra. Patient 2 weeks ago was diagnosed with metastatic lung cancer with metastatic disease to the bones. Under care of Dr. Mercedes. Patient was supposed to follow for radiation treatment and further workup. For 6 weeks patient is having some trouble getting up because of back pain. Also prescription pain in the chest and back. Appetite is okay. Has lost about 35 pounds the last few weeks. Yesterday patient not able to walk at all not make urine. Presented to the ER. Salmon catheter was placed. In addition oncologist was consulted. On January 15 patient underwent a PET scan that showed abnormal thoracic adenopathy with diffuse osseous metastatic disease and spinal canal invasion lower thoracic spine level noted. Also involvement of bilateral ribs. Started him and entire spine. Lung biopsy has previously shown malignant non-small cell carcinoma cells having features of metastatic pulmonary adenocarcinoma. Per bronchoscopy by Dr. Topete on December 28. Patient denies any fever and chills. A bit tired and rundown. January 26: Patient received radiation treatment. Getting breathing treatments. Stated this afternoon she was seen by Dr. Courtney. MRI head showed spinal cord compression. He discussed with the family and will proceed for surgery. Compression between T2-T6. On the spinal cord January 27: Patient underwent surgery today. Formal report not available. Has a C- spine collar. Hemovac. at the bedside. Tired. January 28: Laying in bed. Cervical collar. Hemovac. Some movement of her lower extremity. Salmon catheter. Unable to control his bowel movement today. January 29: Awaiting MRI today. Survive to call her with Hemovac in place. Some pain in the neck. Able to move some his lower extremity. Active Medications Acetaminophen (Acetaminophen Tab 325 Mg Tab) 650 mg PO Q6HR PRN PRN Reason: Mild Pain or Fever > 100.5 Hydrocodone Bitart/Acetaminophen (Hydrocodone/Apap 10-325mg 1 Each Tab) 1 each PO Q4HR PRN PRN Reason: pain Last Admin: 01/29/22 11:25 Dose: 1 each Documented by: Albuterol/Ipratropium (Ipratropium-Albuterol 3 Ml Neb) 3 ml INHALATION RT-TID SHAWNA Last Admin: 01/29/22 12:33 Dose: Not Given Documented by: Cyclobenzaprine HCl (Cyclobenzaprine 5 Mg Tab) 5 mg PO TID PRN PRN Reason: Muscle Spasm Last Admin: 01/27/22 19:50 Dose: 5 mg Documented by: Dexamethasone Sodium Phosphate (Dexamethasone Sod Phosphate 10 Mg/Ml 1 Ml Vial) 6 mg IVP Q4H [facility] Last Admin: 01/29/22 11:25 Dose: 6 mg Documented by: Enoxaparin Sodium (Enoxaparin 40 Mg/0.4 Ml Syringe) 40 mg SQ DAILY [facility] Last Admin: 01/29/22 08:15 Dose: 40 mg Documented by: Hydromorphone HCl (Hydromorphone 0.5 Mg/0.5 Ml Syringe) 0.5 mg IVP Q3HR PRN PRN Reason: Moderate Pain Last Admin: 01/27/22 06:36 Dose: 0.5 mg Documented by: Hydroxyzine HCl (Hydroxyzine Hcl 25 Mg Tab) 25 mg PO TID PRN PRN Reason: Anxiety Last Admin: 01/29/22 11:25 Dose: 25 mg Documented by: Sodium Chloride (Saline 0.9%) 1,000 mls @ 130 mls/hr IV .Q7H42M [facility] Last Admin: 01/28/22 22:52 Dose: 130 mls/hr Documented by: Cefazolin Sodium 2 gm/ Sodium (Chloride) 50 mls @ 100 mls/hr IVPB Q8HR [facility]; Protocol Last Admin: 01/29/22 08:52 Dose: 100 mls/hr Documented by: Acetaminophen 1,000 mg/ IV (Solution) 100 mls @ 400 mls/hr IVPB Q6H PRN PRN Reason: Pain Insulin Aspart (Insulin Aspart (Novolog) 100 Unit/Ml Vial) 0 unit SQ ACHS [facility]; Protocol Last Admin: 01/29/22 11:33 Dose: 8 unit Documented by: Magnesium Hydroxide (Magnesium Hydroxide 2,400 Mg/10 Ml Cup) 2,400 mg PO DAILY PRN PRN Reason: Constipation Naloxone HCl (Naloxone 0.4 Mg/Ml 1 Ml Vial) 0.2 mg IV Q2M PRN PRN Reason: Opioid Reversal Naproxen (Naproxen 250 Mg Tab) 250 mg PO TID [facility] Last Admin: 01/29/22 08:14 Dose: 250 mg Documented by: Ondansetron HCl (Ondansetron 4 Mg/2 Ml Vial) 4 mg IVP Q8HR PRN PRN Reason: Nausea And Vomiting Oxycodone HCl (Oxycodone Hcl 5 Mg Tab) 5 mg PO Q6HR PRN PRN Reason: Pain Scale 6 To 8 Last Admin: 01/28/22 15:26 Dose: 5 mg Documented by: Oxycodone HCl (Oxycodone Hcl 5 Mg Tab) 10 mg PO Q6HR PRN PRN Reason: Pain Scale 8 to 10 Last Admin: 01/28/22 02:36 Dose: 10 mg Documented by: Pantoprazole Sodium (Pantoprazole 40 Mg/10 Ml Vial) 40 mg IVP BID [facility] Last Admin: 01/29/22 08:13 Dose: 40 mg Documented by: Senna/Docusate Sodium (Sennosides-Docusate Sodium 1 Each Tab) 2 each PO BID [facility] Last Admin: 01/29/22 08:14 Dose: Not Given Documented by: Past medical history to include: Recently diagnosed metastatic lung cancer with metastases to several bones. Possibly adenocarcinoma non-small cell type. COPD. Recent guarded and uses steroid injections. Anxiety. Social history: Patient smoked for about 16 years stopped about 23 years ago. 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 . Was drinking about 6-10 beers a night for many years up to 4 months ago. Family history: Lung cancer Physical examination: VITAL SIGNS: 98, 81, 20, 131/84, 93% on 4 L GENERAL:, Laying in bed, awake, EYES: Pupils equal. Conjunctiva normal. HEENT: C-collar with Hemovac NECK: JVD not raised; masses not palpable. HEART: First and second heart sounds are normal; no edema. LUNGS:[ Respiratory rate normal; decreased breath sounds. ABDOMEN: Soft, nontender, liver spleen not palpable, no masses palpable. Salmon catheter PSYCH: Alert and oriented x3; mood and affect normal MUSCULOSKELETAL:No Clubbing/cyanosis;muscles-grossly intact NEUROLOGICAL: [Cranial nerves grossly intact; no facial asymmetry, able to move some both lower extremity. 2-3/5 power INVESTIGATIONS, reviewed in the clinical context: January 28: White count 35.3 hemoglobin 10.1 platelets 342 potassium 4.6 BUN 22 creatinine 0.62 January 27: White count 41.1 hemoglobin 11.7 potassium 3.8 creatinine 0.65 January 13: White count 35.1 hemoglobin 11.7 pro-calcitonin 0.29 White count 51 hemoglobin 12.1 platelets 376 potassium 3.7 creatinine 0.77 TSH 3.2 Admission labs: White count [age]-year-old woman 13.2 platelets 390 sodium 131 potassium 3.8 creatinine 0.8 Albumin 3.2 UA negative for nitrite and leukoesterase COVID 19/influenza type A/influenza type B: Not detected UA noted Computed tomography scan; thoracic lumbar spine with contrast: Extensive osteomyelitis changes in the spine. EKG tracing personally reviewed by me-no sinus rhythm. Nonspecific T-wave changes Chest x-ray film personally reviewed by me-large tumor involvement of the lung space especially in the right Assessment and plan: -Acute paraparesis from metastatic disease to the thoracolumbar spine with compression of spinal cord.: Slow to respond Radiation treatment initially given.. decompression surgery by Dr. Courtney today on January 27. Currently bedrest. Awaiting the chest support. -Acute urinary retention from metastatic disease to the spine. . PTOT. Salmon catheter -Recently diagnosis metastatic adenocarcinoma of the lung/non-small cell. Oncologist: Dr. Mercedes. -COPD in a previous smoker DuoNeb 3 times a day -Hyponatremia, likely hypoosmolar Increase fluid intake -Bone pain. From metastatic disease Steroids. Naproxen. -Severe leukocytosis likely leukemoid reaction from underlying malignancy and steroids C-collar. Hemovac. medications to continue. Salmon catheter. Pending MRI. Bedrest. Currently holding off radiation treatment.
[2022-01-29] MEDS ORDERED: LORazepam 2 MG/ML INJ IV PRN (13:11)
--- NOTE | 2022-01-29 15:26 | P.PN ---
Subjective Progress Note Date: 01/29/22 Principal diagnosis: Acute cord compression secondary to bronchogenic carcinoma/adenocarcinoma 61-year-old male with a history of recent diagnosis of lung cancer, adenocarcinoma, with multiple skeletal metastasis, the cervical, thoracic, and lumbar spine. The patient presents to the emergency department on January 24, complaining of inability to urinate, and not able to move his lower extremities. This all started yesterday. It's clear the patient has acute spinal cord compression, and for that reason, he was admitted to the hospital. The patient recently had a procedure done last month, by my partner, whereby lymph nodes were sampled in the hilum and mediastinum. The diagnosis was that of adenocarcinoma, stage IV, with multiple skeletal metastasis. The lung was the p rimary. Currently, she is on 4 L nasal cannula. He is getting saline at 20 mL an hour. The patient was given Rocephin for suspected urinary tract infection. I did call the radiation oncologist, and recommended that he get to see the patient as soon as possible, for radiation therapy. In addition, I started the patient on Decadron, 6 mg, IV push, every 6 hours. Sodium was 135, potassium 3.7, chlorides 98, CO2 30, BUN 11, and creatinine 0.77. White count 51,000, hemoglobin 12.1, hematocrit 38.5, and platelet count 376,000. Chest x-ray showed a large mass in the right chest. Progress note dated 01/26/2022. This is a patient with a recent diagnosis of adenocarcinoma of the lung. He has multiple skeletal metastasis to the cervical spine, resting spine, and lumbar spine. He presented to the emergency department on January 24, with inability to urinate, and paralysis of the lower extremities. It was clear when I saw him yesterday, that he had acute spinal cord compression. I called Dr. Fisher for radiation oncology, to start the patient on radiation treatments as soon as possible. I also started the patient on Decadron yesterday. He's had 2 radiation treatment. He can now move his left leg. He has more difficult time with his right leg. Currently, he's on 3 L nasal cannula. He is getting saline at 100 mL an hour. White count is 35.1, hemoglobin 11.7, hematocrit 39.1, and platelet count 367,000. He has been seen by the spine surgeon. Progress note dated 01/27/2022. The patient has a recent diagnosis of lung cancer, adenocarcinoma type. The patient also had multiple skeletal metastasis to the cervical, thoracic, and lumbar spine. The patient presented to the emergency department on the , with lower extremity paralysis, and urinary retention. In fact, the patient had spinal cord compression. MRI of the spine was done, and the patient is scheduled to have a T2 through T6 laminectomy, and possible stabilization. The patient did receive radiation treatments as well. In addition, the patient was started on IV Decadron. White count 41.1, hemoglobin 11.7, hematocrit 38.9, platelet count 406,000. Sodium potassium chloride CO2 all normal. Anion gap is normal. BUN 23 with a creatinine 0.65. Progress note dated 01/28/2022. This is a 61-year-old male was seen in room 359. He's postop day #1, status post T2 through T6 laminectomy, for spinal cord compression. The patient has a history of recent diagnosis of adenocarcinoma of the lung, with skeletal metastasis to the cervical, thoracic, and lumbar spine. He presented with paralysis of the lower extremities, urinary retention. He did receive corticosteroids, and radiation treatments. No new laboratory data today glucose of 172. The patient is able to move his lower extremities now. Reevaluated today on 01/29/2022, patient is postoperative day #2, he is status post T2 through T6 laminectomy, this was done for acute compression of the spinal cord patient was diagnosed with adenocarcinoma of the lung. And he had skeletal metastasis. Patient is feeling better, his initial presentation was presentation of paralysis of the lower extremities and urinary retention. No active pulmonary symptoms at present, patient does have extensive disease involving the right lung. And obviously is a stage IV adenocarcinoma. No cough no wheezing, patient seems to be comfortable, on 4 L nasal cannula, O2 sats is 93% Objective - Vital Signs Vital signs: Vital Signs Temp 98 F 01/29/22 12:00 Pulse 81 01/29/22 12:00 Resp 20 01/29/22 12:00 BP 131/84 01/29/22 12:00 Pulse Ox 93 L 01/29/22 12:00 Intake & Output 01/28/22 01/29/22 01/29/22 18:59 06:59 18:59 Intake Total 1270 Output Total 875 800 Balance 395 -800 Weight 86.6 kg Intake: Intake, IV Titration 1270 Amount Sodium Chloride 0.9% 1, 1170 000 ml @ 130 mls/hr IV . Q7H42M [facility] Rx#:[id number] ceFAZolin 2 gm In Sodium 100 Chloride 0.9% 50 ml @ 100 mls/hr IVPB Q8HR [facility] Rx# :[id number] Output: Drainage 100 Back 100 Urine 775 400 Stool 400 Other: Voiding Method Indwelling Catheter Indwelling Catheter Indwelling Catheter # Bowel Movements 1 - Exam Physical Exam: Revealed a 61-year-old white male in no distress. HEENT:[Neck is supple.] [No neck masses.] [No thyromegaly.] [No JVD.] Chest: [Diminished breath sounds at the bases, scattered rhonchi noted. No wheezing.] Cardiac Exam: [Normal S1 and S2, no S3 gallop, no murmur.] Abdomen: [Soft, nontender, no megaly, no rebound, no guarding, normal bowel sounds.] Extremities: [No clubbing, no edema, no cyanosis.] Neurological Exam: [No focal neurologic deficit.] Alert oriented 3. Psychiatric: Normal mood, affect and normal mental status. Skin: No rashes - Labs CBC & Chem 7: 01/29/22 07:15 01/29/22 07:15 Labs: Abnormal Lab Results - Last 24 Hours (Table) 01/28/22 01/28/22 01/29/22 Range/Units 16:30 20:16 05:17 WBC (3.8-10.6) k/uL RBC (4.30-5.90) m/uL Hgb (13.0-17.5) gm/dL Hct (39.0-53.0) % MCHC (31.0-37.0) g/dL Neutrophils # (Manual) (1.3-7.7) k/uL Lymphocytes # (Manual) (1.0-4.8) k/uL Monocytes # (Manual) (0-1.0) k/uL Metamyelocytes # (Man) (0) k/uL Myelocytes # (Manual) (0) k/uL BUN (9-20) mg/dL Creatinine (0.66-1.25) mg/dL Glucose (74-99) mg/dL POC Glucose (mg/dL) 217 H 180 H 168 H (75-99) mg/dL Calcium (8.4-10.2) mg/dL 01/29/22 01/29/22 01/29/22 Range/Units 07:15 07:15 11:27 WBC 35.3 H (3.8-10.6) k/uL RBC 3.82 L (4.30-5.90) m/uL Hgb 10.1 L (13.0-17.5) gm/dL Hct 33.0 L (39.0-53.0) % MCHC 30.7 L (31.0-37.0) g/dL Neutrophils # (Manual) 33.50 H (1.3-7.7) k/uL Lymphocytes # (Manual) 0.71 L (1.0-4.8) k/uL Monocytes # (Manual) 1.06 H (0-1.0) k/uL Metamyelocytes # (Man) 0.35 H (0) k/uL Myelocytes # (Manual) 0.35 H (0) k/uL BUN 22 H (9-20) mg/dL Creatinine 0.62 L (0.66-1.25) mg/dL Glucose 170 H (74-99) mg/dL POC Glucose (mg/dL) 260 H (75-99) mg/dL Calcium 7.9 L (8.4-10.2) mg/dL Microbiology - Last 24 Hours (Table) 01/24/22 20:10 Blood Culture - Preliminary Blood No Growth after 96 hours 01/24/22 20:25 Blood Culture - Preliminary Blood No Growth after 96 hours Assessment and Plan Assessment: Impression: Acute cord compression from metastatic pulmonary adenocarcinoma Status post laminectomy at level TII through T6 postoperative day #2 Acute exacerbation of COPD Ex-smoker Generalized anxiety disorder. Recommendation: Continue present supportive care measures, Not much to be added from our perspective except continue bronchodilators. We will continue to follow as needed. Time with Patient: Less than 30
[2022-01-29] MEDS ORDERED: OXYMETAZOLINE 0.05% NASL SPRAY 1 SPRAY BOTTLE NASAL PRN (15:47)
[2022-01-29] MEDS ORDERED: OXYMETAZOLINE 0.05% NASL SPRAY 1 SPRAY BOTTLE NASAL STA (15:48)
[2022-01-29 16:11] LABS: Glucose,Whole Blood 239 mg/dL (75-99)
[2022-01-29] MEDS: SODIUM CHLORIDE 0.9% 1,000 ML IV SCH (18:26)
--- NOTE | 2022-01-29 19:16 | P.OP ---
Date of Procedure: 01/29/22 Preoperative Diagnosis: Hoarseness Postoperative Diagnosis: Same plus acute laryngitis Procedure(s) Performed: Flexible nasopharyngeal laryngoscopy Anesthesia: none Surgeon: Darron Luna Estimated Blood Loss (ml): 0 Pathology: none sent Condition: stable Disposition: no change Indications for Procedure: This patient has had progressive hoarseness for the last 24-48 hours. On the the patient underwent spinal surgery and was intubated. He has a history of smoking but quit 26 years ago. Denies any significant alcohol consumption. The patient does have metastatic adenocarcinoma with spinal involvement. He denies any hemoptysis. Denies any dysphagia. Denies any other otologic symptoms. Operative Findings: Patient has false cord and true vocal cord and arytenoid abrasions noted with a large amount of inflammation and laryngitis. No signs of any tumors or masses. No signs of any vocal cord paresis or paralysis. No evidence of any nasopharyngeal, oral pharyngeal or hypopharyngeal tumors or masses. Description of Procedure: Patient patient was in a supine position he has a cervical collar in place. An EF type GP nasopharyngoscope was inserted into the patient's right nares to the nasopharynx and we continued our examination into the oropharynx and then hypopharynx and endolarynx. There is no evidence of any tumors or masses of the nasopharynx oropharynx or hypopharynx. There is a tremendous amount of glottic and supraglottic inflammation with evidence of abrasions. A large amount of arytenoid inflammation noted. No signs of any tumors or masses. No signs of any laryngeal paralysis. No signs of any vocal cord paresis. Diagnosis is one of acute laryngitis.
--- NOTE | 2022-01-29 19:27 | P.GSCN ---
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 The patient was admitted and discovered to have metastatic adenocarcinoma with metastatic spread to his spine. He underwent a laminectomy and kyphoplasty in light of the patient's paresis paralysis of the lower extremity. This was performed on the of this month. Last 24-48 hours his hoarseness has progressed and I have asked to consult to for evaluation of his hoarseness. He denies any hemoptysis or dysphagia. Denies any other otologic symptomatology other than hoarseness. He does have a sore throat. He quit smoking 24-26 years ago. Social drinker. Review of Systems - Constitutional Reports as per HPI - EENT Ears, nose, mouth and throat: Reports as per HPI - Cardiovascular Reports as per HPI - Respiratory Reports as per HPI - Gastrointestinal Reports as per HPI - Genitourinary Reports as per HPI - Musculoskeletal Reports as per HPI - Integumentary Reports as per HPI - Neurological Reports as per HPI - Psychiatric Reports as per HPI - Endocrine Reports as per HPI - Hematologic/Lymphatic Reports as per HPI - Allergic/Immunologic Reports as per HPI Past Medical History Past Medical History: Cancer, COPD Additional Past Medical History / Comment(s): recent gout in knee with steroids in the last week., SOB, states productive cough. Stage 4 lung and bone cancer History of Any Multi-Drug Resistant Organisms: None Reported Past Surgical History: Back Surgery, Hernia Repair Additional Past Surgical History / Comment(s): 2015 fx arm with hardware. Past Anesthesia/Blood Transfusion Reactions: No Reported Reaction Past Psychological History: Anxiety Smoking Status: Former smoker Past Alcohol Use History: Daily Past Drug Use History: Marijuana - Past Family History Father Family Medical History: Cancer Additional Family Medical History / Comment(s): lung cancer Medications and Allergies Home Medications Medication Instructions Recorded Confirmed Type hydrOXYzine HCL 25 mg PO TID PRN 12/26/21 01/24/22 History HYDROcodone/APAP 7.5-325MG [[place] 2 tab PO Q4H PRN 01/24/22 01/24/22 History 7.5-325] Allergies Allergy/AdvReac Type Severity Reaction Status Date / Time No Known Allergies Allergy Verified 05/11/22 20:42 Surgical - Exam Osteopathic Statement: *. No significant issues noted on an osteopathic structural exam other than those noted in the History and Physical/Consult. Vital Signs Temp Pulse Resp BP Pulse Ox 100.3 F H 120 H 20 135/83 88 L 01/24/22 18:02 01/24/22 18:02 01/24/22 18:02 01/24/22 18:02 01/24/22 18:02 - General well developed, well nourished, no distress - Eyes PERRL, normal ocular movement - ENT Hoarseness noted unable to palpate neck because of his cervical collar normal pinna, normal nares, normal mucosa, no hearing loss, no congestion - Neck Patient is wearing a cervical collar unable to palpate neck - Neurologic Lower extremity paresis normal coordination, normal sensation, no combative - Psychiatric oriented to time, oriented to person, oriented to place Results - Labs 01/29/22 07:15 01/29/22 07:15 Abnormal Lab Results - Last 24 Hours (Table) 01/28/22 01/29/22 01/29/22 Range/Units 20:16 05:17 07:15 WBC 35.3 H (3.8-10.6) k/uL RBC 3.82 L (4.30-5.90) m/uL Hgb 10.1 L (13.0-17.5) gm/dL Hct 33.0 L (39.0-53.0) % MCHC 30.7 L (31.0-37.0) g/dL Neutrophils # (Manual) 33.50 H (1.3-7.7) k/uL Lymphocytes # (Manual) 0.71 L (1.0-4.8) k/uL Monocytes # (Manual) 1.06 H (0-1.0) k/uL Metamyelocytes # (Man) 0.35 H (0) k/uL Myelocytes # (Manual) 0.35 H (0) k/uL BUN (9-20) mg/dL Creatinine (0.66-1.25) mg/dL Glucose (74-99) mg/dL POC Glucose (mg/dL) 180 H 168 H (75-99) mg/dL Calcium (8.4-10.2) mg/dL 0501/29/22 01/29/22 Range/Units 07:15 11:27 16:10 WBC (3.8-10.6) k/uL RBC (4.30-5.90) m/uL Hgb (13.0-17.5) gm/dL Hct (39.0-53.0) % MCHC (31.0-37.0) g/dL Neutrophils # (Manual) (1.3-7.7) k/uL Lymphocytes # (Manual) (1.0-4.8) k/uL Monocytes # (Manual) (0-1.0) k/uL Metamyelocytes # (Man) (0) k/uL Myelocytes # (Manual) (0) k/uL BUN 22 H (9-20) mg/dL Creatinine 0.62 L (0.66-1.25) mg/dL Glucose 170 H (74-99) mg/dL POC Glucose (mg/dL) 260 H 239 H (75-99) mg/dL Calcium 7.9 L (8.4-10.2) mg/dL Microbiology - Last 24 Hours (Table) 01/24/22 20:10 Blood Culture - Preliminary Blood No Growth after 96 hours 01/24/22 20:25 Blood Culture - Preliminary Blood No Growth after 96 hours Diabetes panel 01/29/22 Range/Units 07:15 Sodium 137 (137-145) mmol/L Potassium 4.6 (3.5-5.1) mmol/L Chloride 107 (98-107) mmol/L Carbon Dioxide 27 (22-30) mmol/L BUN 22 H (9-20) mg/dL Creatinine 0.62 L (0.66-1.25) mg/dL Glucose 170 H (74-99) mg/dL Calcium 7.9 L (8.4-10.2) mg/dL Calcium panel 01/29/22 Range/Units 07:15 Calcium 7.9 L (8.4-10.2) mg/dL Pituitary panel 01/29/22 Range/Units 07:15 Sodium 137 (137-145) mmol/L Potassium 4.6 (3.5-5.1) mmol/L Chloride 107 (98-107) mmol/L Carbon Dioxide 27 (22-30) mmol/L BUN 22 H (9-20) mg/dL Creatinine 0.62 L (0.66-1.25) mg/dL Glucose 170 H (74-99) mg/dL Calcium 7.9 L (8.4-10.2) mg/dL Adrenal panel 01/29/22 Range/Units 07:15 Sodium 137 (137-145) mmol/L Potassium 4.6 (3.5-5.1) mmol/L Chloride 107 (98-107) mmol/L Carbon Dioxide 27 (22-30) mmol/L BUN 22 H (9-20) mg/dL Creatinine 0.62 L (0.66-1.25) mg/dL Glucose 170 H (74-99) mg/dL Calcium 7.9 L (8.4-10.2) mg/dL Assessment and Plan (1) Hoarseness of voice Current Visit: Yes Status: Acute Code(s): R49.0 - DYSPHONIA SNOMED Code(s): 72885300 (2) Acute laryngitis Current Visit: Yes Status: Acute Code(s): J04.0 - ACUTE LARYNGITIS SNOMED Code(s): 2119204 Plan: This patient's hoarseness appears to be secondary to his intubation and appears to be a self-limiting issue. He is already on a proton pump inhibitor and relative voice rest is recommended. Good hydration is important. 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 Radon gas needs to be checked in his home. There is no evidence of any vocal cord paresis. 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 I'm recommending that he follow up with me on an as-needed basis. Again, I think his acute laryngitis is self-limiting and should resolve spontaneously. Please do not hesitate to reconsult me if any changes occur. Time with Patient: Greater than 30
[2022-01-29 20:25] LABS: Glucose,Whole Blood 144 mg/dL (75-99)
[2022-01-30] MEDS: SODIUM CHLORIDE 0.9% 1,000 ML IV SCH ×2 (03:09→19:18)
[2022-01-30] MEDS: DEXAMETHASONE SOD PHOSPHATE 10 MG/ML 1 ML VIAL IVP SCH ×6 (03:17→23:46)
[2022-01-30 06:07] LABS: Glucose,Whole Blood 159 mg/dL (75-99)
[2022-01-30] MEDS: INSULIN ASPART (NovoLOG) 100 UNIT/ML VIAL SQ SCH ×4 (06:10→21:15)
[2022-01-30] MEDS ORDERED: LORazepam 2 MG/ML INJ ONE (06:14)
[2022-01-30] MEDS: IPRATROPIUM-ALBUTEROL 3 ML NEB INHALATION SCH ×3 (08:15→20:04)
[2022-01-30] MEDS: PANTOPRAZOLE 40 MG/10 ML VIAL IVP SCH ×2 (08:48→19:42)
[2022-01-30] MEDS: ENOXAPARIN 40 MG/0.4 ML SYRINGE SQ SCH (08:48)
[2022-01-30] MEDS: HYDROcodone/APAP 10-325MG 1 EACH TAB PO PRN ×3 (08:48→19:43)
[2022-01-30] MEDS: NAPROXEN 250 MG TAB PO SCH ×3 (08:48→19:42)
[2022-01-30] MEDS: SENNOSIDES-DOCUSATE SODIUM 1 EACH TAB PO SCH ×2 (08:50→19:45)
--- NOTE | 2022-01-30 09:04 | MR ---
EXAMINATION TYPE: MR brain/cspine wo/w DATE OF EXAM: 01/30/2022 COMPARISON: CT cervical spine 6 days ago HISTORY: Lung cancer, bone mets, unable to move legs TECHNIQUE: Multiplanar, multisequence images of the brain and brainstem and cervical spine are all performed wit hout and with IV contrast, utilizing 8.5 mL intravenous Gadavist . FINDINGS: Brain: Exam is suboptimal secondary to patient motion. Diffusion weighted images demonstrate no evidence of a recent infarct or other diffusion abnormality. Mild ventricular and sulcal prominence. Occasional focus of T2 hyperintensity seen throughout the wh ite matter bilaterally. Midline structures demonstrate normal morphology. The craniocervical junction appears within normal limits. Post contrast images demonstrate no abnormal enhancement or enhancing masses. The dural veno us sinuses appear patent. Mild mucosal thickening involving ethmoid sinuses bilaterally. Small mucous retention cysts and/or polyps in the bilateral maxillary sinuses. The globes are intact bilaterally. IMPRESSION: Suboptimal study with motion artifact degradation. No enhancing masses to suggest metasta tic disease to the brain. No MRI evidence for recent infarct. CERVICAL SPINE: Suboptimal due to motion artifact. FINDINGS: Sagittal images of the cervical spine show the craniocervical junction to appear within nor mal limits. The cervical and upper thoracic spinal cord is grossly normal in caliber and signal. Ve rtebral alignment is anatomic. The vertebral body heights are normal. Disc space heights are fairly well maintained. Abnormal lesion with enhancement involves a portion of the left C2 vertebra without extension into the spinal canal. Additional areas of involvement noted in the upper thoracic spine. A ll findings better seen on CT versus MRI due to motion. Axial images are significantly degraded by patient motion. There are multilevel tiny posterior disc h erniations mildly effacing the anterior thecal sac greatest at C4-C5 and C6-C7 level on sagittal imag es. Involvement posterior right T1 vertebra axial image [address] IMPRESSION: Known osseous metastatic disease appreciated better on CT versus MRI confirmed on MRI. Sp inal cord shows no abnormal signal or enhancement. There is suggestion of some anterior spinal canal effacement left paracentral region at T3 lesion axial image [address] correlating with lowermo st MRI images.
[2022-01-30] MEDS: CYCLOBENZAPRINE 5 MG TAB PO PRN (11:08)
[2022-01-30 11:10] LABS: HCT 35.5 % (39.0-53.0); HGB 10.9 gm/dL (13.0-17.5); Hypochromasia Moderate; MCHC 30.7 g/dL (31.0-37.0); MCV 84.7 fL (80.0-100.0); Mean Platelet Volume 8.5; Platelet Count 364 k/uL (150-450); RBC 4.19 m/uL (4.30-5.90); RDW 14.6 % (11.5-15.5); WBC 49.1 k/uL (3.8-10.6)
[2022-01-30 11:19] LABS: ALT 18 U/L (4-49); AST 24 U/L (17-59); African American GFR (CKD) >90 (>60 ml/min/1.73 sqM); Albumin 2.3 g/dL (3.5-5.0); Alkaline Phosphatase 71 U/L (38-126); Anion Gap 4 mmol/L; Blood Urea Nitrogen 21 mg/dL (9-20); Calcium 7.7 mg/dL (8.4-10.2); Carbon Dioxide 24 mmol/L (22-30); Chloride 108 mmol/L (98-107); Glucose 158 mg/dL (74-99); Non-African American GFR(CKD) >90 (>60 ml/min/1.73 sqM); Sodium 136 mmol/L (137-145); Total Bilirubin 0.6 mg/dL (0.2-1.3); Total Protein 4.6 g/dL (6.3-8.2)
[2022-01-30 11:48] LABS: Glucose,Whole Blood 163 mg/dL (75-99)
[2022-01-30 12:13] LABS: Band Neutrophils % 1 %; Eosinophils # (M) 3.44 k/uL (0-0.7); Lymphocytes # (M) 0.98 k/uL (1.0-4.8); Metamyelocytes # (M) 0.49 k/uL (0); Metamyelocytes % 1 %; Monocytes # (M) 0.98 k/uL (0-1.0); Myelocytes # (M) 0.49 k/uL (0); Myelocytes % 1 %; Neutrophils % (M) 87 %; Nucleated Red Blood Cells 0 /100 WBC (0-0); Total Cells Counted 200
[2022-01-30 12:15] LABS: Toxic Granulation Present
--- NOTE | 2022-01-30 13:53 | P.PN ---
Subjective Progress Note Date: 01/30/22 Principal diagnosis: Spinal cord compression from metastatic NSCLC In f/u pt is post op with Ortho spine and really well, he has function in both of his lower extremities! He can move them independently, against resistance. He denies unmanaged pain. No other acute c/o on a 10 point ROS Objective - Vital Signs Vital signs: Vital Signs Temp 98 F 01/30/22 12:00 Pulse 77 01/30/22 12:00 Resp 20 01/30/22 12:00 BP 130/77 01/30/22 12:00 Pulse Ox 92 L 01/30/22 12:00 Intake & Output 01/29/22 01/30/22 01/30/22 18:59 06:59 18:59 Intake Total 940 240 Output Total 1999 800 500 Balance -1999 140 -260 Intake: Intake, IV Titration 700 Amount Sodium Chloride 0.9% 1, 600 000 ml @ 130 mls/hr IV . Q7H42M [facility] Rx#:[id number] ceFAZolin 2 gm In Sodium 100 Chloride 0.9% 50 ml @ 100 mls/hr IVPB Q8HR [facility] Rx# :[id number] Oral 240 240 Output: Drainage 50 Back 50 Urine 1600 750 500 Uretheral (Salmon) 1000 300 Stool 400 Other: Voiding Method Indwelling Catheter Indwelling Catheter Indwelling Catheter - Constitutional General appearance: Present: cooperative, no acute distress, thin - EENT Eyes: Present: anicteric sclerae, EOMI ENT: Present: hearing grossly normal - Respiratory Details: resp even and unlabored at rest - Peripheral edema foot Peripheral Edema: bilateral: Trace - Integumentary Integumentary: Present: normal - Neurologic Neurologic Comment(s): LLE slightly weaker then RLE but, pt can flex at hip against resistance, plantar and dorsiflection against resistance - Psychiatric Psychiatric: Present: A&O x's 3, appropriate affect, intact judgment & insight - Labs CBC & Chem 7: 01/30/22 10:49 01/30/22 10:49 Labs: Abnormal Lab Results - Last 24 Hours (Table) 01/29/22 01/29/22 01/30/22 Range/Units 16:10 20:23 05:52 WBC (3.8-10.6) k/uL RBC (4.30-5.90) m/uL Hgb (13.0-17.5) gm/dL Hct (39.0-53.0) % MCHC (31.0-37.0) g/dL Neutrophils # (Manual) (1.3-7.7) k/uL Lymphocytes # (Manual) (1.0-4.8) k/uL Eosinophils # (Manual) (0-0.7) k/uL Metamyelocytes # (Man) (0) k/uL Myelocytes # (Manual) (0) k/uL Sodium (137-145) mmol/L Chloride (98-107) mmol/L BUN (9-20) mg/dL Creatinine (0.66-1.25) mg/dL Glucose (74-99) mg/dL POC Glucose (mg/dL) 239 H 144 H 159 H (75-99) mg/dL Calcium (8.4-10.2) mg/dL Total Protein (6.3-8.2) g/dL Albumin (3.5-5.0) g/dL 01/30/22 01/30/22 01/30/22 Range/Units 10:49 10:49 11:46 WBC 49.1 H (3.8-10.6) k/uL RBC 4.19 L (4.30-5.90) m/uL Hgb 10.9 L (13.0-17.5) gm/dL Hct 35.5 L (39.0-53.0) % MCHC 30.7 L (31.0-37.0) g/dL Neutrophils # (Manual) 43.20 H (1.3-7.7) k/uL Lymphocytes # (Manual) 0.98 L (1.0-4.8) k/uL Eosinophils # (Manual) 3.44 H (0-0.7) k/uL Metamyelocytes # (Man) 0.49 H (0) k/uL Myelocytes # (Manual) 0.49 H (0) k/uL Sodium 136 L (137-145) mmol/L Chloride 108 H (98-107) mmol/L BUN 21 H (9-20) mg/dL Creatinine 0.49 L (0.66-1.25) mg/dL Glucose 158 H (74-99) mg/dL POC Glucose (mg/dL) 163 H (75-99) mg/dL Calcium 7.7 L (8.4-10.2) mg/dL Total Protein 4.6 L (6.3-8.2) g/dL Albumin 2.3 L (3.5-5.0) g/dL Microbiology - Last 24 Hours (Table) 01/24/22 20:25 Blood Culture - Preliminary Blood No Growth after 120 hours 01/24/22 20:10 Blood Culture - Preliminary Blood No Growth after 120 hours - Imaging and Cardiology MRI - head: report reviewed (brain and c-spine no brain mets) Assessment and Plan (1) Bilateral leg weakness Current Visit: Yes Status: Acute Priority: High Code(s): R29.898 - OTH SYMPTOMS AND SIGNS INVOLVING THE MUSCULOSKELETAL SYSTEM SNOMED Code(s): 5804542 (2) NSCLC metastatic to bone Current Visit: Yes Status: Acute Priority: High Code(s): C34.90 - MAL IGNANT NEOPLASM OF UNSP PART OF UNSP BRONCHUS OR LUNG; C79.51 - SECONDARY MALIGNANT NEOPLASM OF BONE SNOMED Code(s): 292644717 (3) Leukocytosis Current Visit: Yes Status: Acute Priority: Medium Code(s): D72.829 - ELEVATED WHITE BLOOD CELL COUNT, UNSPECIFIED SNOMED Code(s): 748873829 Plan: Mr. Hdez is a very pleasant 61-year-old man recently diagnosed with metastatic non-small cell lung adenocarcinoma. He had met with Dr. Caba last week, NGS results pending. Orthopedic Spine Surgeon has performed T2-6 decompressive laminectomy with removal of tumor and T3 kyuphoplasty and biopsy, path pending. Pt had excellent results, he can move lower extremities! Discussed case with Radiation Oncology who has plans for radiation to the spine. Dexamethasone 6 mg every 4 hours IV is currently ordered from Ortho Spine. Pending their recommendation as to when to transition to oral and consider taper post op. Will also take into consideration plans for XRT. PPI prophylaxis of steroid-induced gastritis ordered. MRI of the brain and c-spine, no parenchymal brain mets. Pain managed at this time. Pt is opioid naive, just starting narcotics last week so, will not consider long acting opioids at this time. PRN muscle relaxer for patient reports of muscle spasms across the chest and ribs. Patient has NSAID ordered for inflammation. Medications for prevention of narcotic-induced constipation ordered. Leukocytosis with elevation noted in neutrophils and eosinophils-unclear un derlying cause at this time-has come down since admit. Pancultures negative. No fever for 6 days. Abx have been stopped. Cont to monitor CBC daily. Dr. Coleman discussed with pt and significant other plan for rehab, radiation and then systemic treatment. He needs about 3 weeks to heal from surgery so no treatment until he is out of rehab and been evaluated by Dr. Coleman that he is ready for treatment. Attests: I have performed H&P, seen and examined pt, developed impression and plan of care. Discussed with dictator. Agree with dictation, documented as a scribe.
[2022-01-30 14:31] VITALS: BMI 24.5
[2022-01-30 16:29] LABS: Glucose,Whole Blood 281 mg/dL (75-99)
[2022-01-30] MEDS: hydrOXYzine HCL 25 MG TAB PO PRN (16:33)
--- NOTE | 2022-01-30 16:45 | P.PN ---
Progress Note - Text Progress Note Date: 01/30/22 Chief Complaint: Leg weakness This is a 61-year-old patient who follows with Dr. Elias Huizar. Patient 2 weeks ago was diagnosed with metastatic lung cancer with metastatic disease to the bones. Under care of Dr. Mercedes. Patient was supposed to follow for radiation treatment and further workup. For 6 weeks patient is having some trouble getting up because of back pain. Also prescription pain in the chest and back. Appetite is okay. Has lost about 35 pounds the last few weeks. Yesterday patient not able to walk at all not make urine. Presented to the ER. Salmon catheter was placed. In addition oncologist was consulted. On January 15 patient underwent a PET scan that showed abnormal thoracic adenopathy with diffuse osseous metastatic disease and spinal canal invasion lower thoracic spine level noted. Also involvement of bilateral ribs. Started him and entire spine. Lung biopsy has previously shown malignant non-small cell carcinoma cells having features of metastatic pulmonary adenocarcinoma. Per bronchoscopy by Dr. Topete on December 28. Patient denies any fever and chills. A bit tired and rundown. January 26: Patient received radiation treatment. Getting breathing treatments. Stated this afternoon she was seen by Dr. Courtney. MRI head showed spinal cord compression. He discussed with the family and will proceed for surgery. Compression between T2-T6. On the spinal cord January 27: Patient underwent surgery today. Formal report not available. Has a C- spine collar. Hemovac. at the bedside. Tired. January 28: Laying in bed. Cervical collar. Hemovac. Some movement of her lower extremity. Salmon catheter. Unable to control his bowel movement today. January 29: Awaiting MRI today. Survive to call her with Hemovac in place. Some pain in the neck. Able to move some his lower extremity. January 30: Patient had brain MRI. No obvious metastatic disease reported. Cervical spine MRI noted. Patient is awaiting his chest brace. Able to move his legs a bit. Underwent nasopharyngeal laryngoscopy by Dr. Petit yesterday evening. No vocal cord paresis or paralysis. Large amount of inflammation and laryngitis including a false vocal cord. Discussed with the patient and at the bedside. Pain control. Hemovac in place. Does not like hospital food. Daughter will be bringing in some food. Active Medications Acetaminophen (Acetaminophen Tab 325 Mg Tab) 650 mg PO Q6HR PRN PRN Reason: Mild Pain or Fever > 100.5 Hydrocodone Bitart/Acetaminophen (Hydrocodone/Apap 10-325mg 1 Each Tab) 1 each PO Q4HR PRN PRN Reason: pain Last Admin: 01/30/22 16:31 Dose: 1 each Documented by: Albuterol/Ipratropium (Ipratropium-Albuterol 3 Ml Neb) 3 ml INHALATION RT-TID [facility] Last Admin: 01/30/22 11:57 Dose: Not Given Documented by: Cyclobenzaprine HCl (Cyclobenzaprine 5 Mg Tab) 5 mg PO TID PRN PRN Reason: Muscle Spasm Last Admin: 01/30/22 11:08 Dose: 5 mg Documented by: Dexamethasone Sodium Phosphate (Dexamethasone Sod Phosphate 10 Mg/Ml 1 Ml Vial) 6 mg IVP Q4H [facility] Last Admin: 01/30/22 16:32 Dose: 6 mg Documented by: Enoxaparin Sodium (Enoxaparin 40 Mg/0.4 Ml Syringe) 40 mg SQ DAILY [facility] Last Admin: 01/30/22 08:48 Dose: 40 mg Documented by: Hydromorphone HCl (Hydromorphone 0.5 Mg/0.5 Ml Syringe) 0.5 mg IVP Q3HR PRN PRN Reason: Moderate Pain Last Admin: 01/27/22 06:36 Dose: 0.5 mg Documented by: Hydroxyzine HCl (Hydroxyzine Hcl 25 Mg Tab) 25 mg PO TID PRN PRN Reason: Anxiety Last Admin: 01/30/22 16:33 Dose: 25 mg Documented by: Sodium Chloride (Saline 0.9%) 1,000 mls @ 130 mls/hr IV .Q7H42M [facility] Last Admin: 01/30/22 03:09 Dose: Not Given Documented by: Cefazolin Sodium 2 gm/ Sodium (Chloride) 50 mls @ 100 mls/hr IVPB Q8HR [facility]; Protocol Last Admin: 01/30/22 16:32 Dose: 100 mls/hr Documented by: Acetaminophen 1,000 mg/ IV (Solution) 100 mls @ 400 mls/hr IVPB Q6H PRN PRN Reason: Pain Insulin Aspart (Insulin Aspart (Novolog) 100 Unit/Ml Vial) 0 unit SQ ACHS [facility]; Protocol Last Admin: 01/30/22 11:53 Dose: 3 unit Documented by: Lorazepam (Lorazepam 2 Mg/Ml Inj) 1 mg IV ONCE PRN PRN Reason: for MRi Last Admin: 01/30/22 06:15 Dose: 1 mg Documented by: Magnesium Hydroxide (Magnesium Hydroxide 2,400 Mg/10 Ml Cup) 2,400 mg PO DAILY PRN PRN Reason: Constipation Naloxone HCl (Naloxone 0.4 Mg/Ml 1 Ml Vial) 0.2 mg IV Q2M PRN PRN Reason: Opioid Reversal Naproxen (Naproxen 250 Mg Tab) 250 mg PO TID [facility] Last Admin: 01/30/22 16:32 Dose: 250 mg Documented by: Ondansetron HCl (Ondansetron 4 Mg/2 Ml Vial) 4 mg IVP Q8HR PRN PRN Reason: Nausea And Vomiting Oxycodone HCl (Oxycodone Hcl 5 Mg Tab) 5 mg PO Q6HR PRN PRN Reason: Pain Scale 6 To 8 Last Admin: 01/28/22 15:26 Dose: 5 mg Documented by: Oxycodone HCl (Oxycodone Hcl 5 Mg Tab) 10 mg PO Q6HR PRN PRN Reason: Pain Scale 8 to 10 Last Admin: 01/30/22 11:08 Dose: 10 mg Documented by: Oxymetazoline HCl (Oxymetazoline 0.05% Nasl Warwick 1 Warwick Bottle) 2 spray NASAL BID PRN PRN Reason: Allergy Symptoms Last Admin: 01/29/22 17:22 Dose: 2 spray Documented by: Pantoprazole Sodium (Pantoprazole 40 Mg/10 Ml Vial) 40 mg IVP BID [facility] Last Admin: 01/30/22 08:48 Dose: 40 mg Documented by: Senna/Docusate Sodium (Sennosides-Docusate Sodium 1 Each Tab) 2 each PO BID [facility] Last Admin: 01/30/22 08:50 Dose: Not Given Documented by: Past medical history to include: Recently diagnosed metastatic lung cancer with metastases to several bones. P ossibly adenocarcinoma non-small cell type. COPD. Recent guarded and uses steroid injections. Anxiety. Social history: Patient smoked for about 16 years stopped about 23 years ago. 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 . Was drinking about 6-10 beers a night for many years up to 4 months ago. Family history: Lung cancer Physical examination: VITAL SIGNS: 98, 77, 20, 130/77, 92% on 4 L GENERAL:, Laying in bed, awake, EYES: Pupils equal. Conjunctiva normal. HEENT: C-collar with Hemovac NECK: JVD not raised; masses not palpable. HEART: First and second heart sounds are normal; no edema. LUNGS:[ Respiratory rate normal; decreased breath sounds. ABDOMEN: Soft, nontender, liver spleen not palpable, no masses palpable. Salmon catheter PSYCH: Alert and oriented x3; mood and affect normal MUSCULOSKELETAL:No Clubbing/cyanosis;muscles-grossly intact NEUROLOGICAL: [Cranial nerves grossly intact; no facial asymmetry, able to move some both lower extremity. 3/5 power INVESTIGATIONS, reviewed in the clinical context: January 30: White count 49.1 hemoglobin 10.9 potassium 5 BUN 21 creatinine 0.49 Brain MRi: No metastatic disease 2-D echocardiogram: EF 60-65%. Moderate concentric LVH. January 28: White count 35.3 hemoglobin 10.1 platelets 342 potassium 4.6 BUN 22 creatinine 0.62 January 27: White count 41.1 hemoglobin 11.7 potassium 3.8 creatinine 0.65 January 26: White count 35.1 hemoglobin 11.7 pro-calcitonin 0.29 White count 51 hemoglobin 12.1 platelets 376 potassium 3.7 creatinine 0.77 TSH 3.2 Admission labs: White count [age]-year-old woman 13.2 platelets 390 sodium 131 potassium 3.8 crea tinine 0.8 Albumin 3.2 UA negative for nitrite and leukoesterase COVID 19/influenza type A/influenza type B: Not detected UA noted Computed tomography scan; thoracic lumbar spine with contrast: Extensive osteomyelitis changes in the spine. EKG tracing personally reviewed by me-no sinus rhythm. Nonspecific T-wave changes Chest x-ray film personally reviewed by me-large tumor involvement of the lung space especially in the right Assessment and plan: -Acute paraparesis from metastatic disease to the thoracolumbar spine with compression of spinal cord.: Slow to respond Radiation treatment initially given.. decompression surgery to include T2-6 decompressive laminectomy and T3 kyphoplasty. by Dr. Courtney today on January 27. Currently bedrest. Awaiting the chest support. -Acute urinary retention from metastatic disease to the spine. . PTOT. Salmon catheter -Recently diagnosis metastatic adenocarcinoma of the lung/non-small cell. Oncologist: Dr. Mercedes. -Normocytic anemia secondary to malignancy Follow H&H -COPD in a previous smoker DuoNeb 3 times a day -Hyponatremia, likely hypoosmolar Increase forward intake -Bone pain. From metastatic disease Steroids. Naproxen. -Severe leukocytosis likely leukemoid reaction from underlying malignancy and steroids -Acute medical debility from metastatic disease PTOT. Currently full assist C-collar. Hemovac. medications to continue. Salmon catheter. Patient will get radiation treatment after getting PTOT and getting stronger. Awaiting chest brace.
[2022-01-30] MEDS: HYDROmorphone 0.5 MG/0.5 ML SYRINGE IVP PRN ×2 (18:08→23:46)
--- NOTE | 2022-01-30 18:34 | P.PN ---
Subjective Progress Note Date: 01/30/22 Pt s/e this AM. He is lying down currently, feeling quite well. He states his legs continue to improve and he is moving them even more this AM. He states no issues overnight. States some mildly improved sensation bilaterally, left greater than right. Patient does note that he has been doing exercises in his bed daily with improvements to his strength. He notes considerable improvement regarding the left lower extremity with range of motion and strength, but notes only some mild improvement in sensation of the right lower extremity. He states no BM issues overnight or this AM. He states no F/C/SOB/CP at this time. No AWAD/N/D/C. Lr in place. Has not been up. Pain is controlled at this time. C collar in place. Objective - Vital Signs Vital signs: Vital Signs Temp 97.7 F 01/30/22 08:00 Pulse 78 01/30/22 08:29 Resp 16 01/30/22 08:00 BP 121/71 01/30/22 08:00 Pulse Ox 92 L 01/30/22 08:00 Intake & Output 01/29/22 01/30/22 01/30/22 18:59 06:59 18:59 Intake Total 940 240 Output Total 2000 800 500 Balance -2000 140 -260 Intake: Intake, IV Titration 700 Amount Sodium Chloride 0.9% 1, 600 000 ml @ 130 mls/hr IV . Q7H42M [facility] Rx#:[id number] ceFAZolin 2 gm In Sodium 100 Chloride 0.9% 50 ml @ 100 mls/hr IVPB Q8HR [facility] Rx# :[id number] Oral 240 240 Output: Drainage 50 Back 50 Urine 1600 750 500 Uretheral (Lr) 1000 300 Stool 400 Other: Voiding Method Indwelling Catheter Indwelling Catheter Indwelling Catheter - Exam Exam repeated today. Clonus has resolved in LE as noted below. Incision and dressing are CDI. Drain in place with about 20 cc out at this time and 50 overnight we will DC tomorrow. Changes in exam noted below Patient is alert and oriented 3 appears well-nourished well-hydrated is in no acute distress. They do not appear septic. On exam the patient has no tenderness to palpation of her thoracic or lumbar spine. There is no edema or ballottement sign. Lower extremities with 3/5 strength in all major muscle groups. Weakness in bilateral lower services continue to improve to near full antigravity but is still lacking between 23 at this time. Left lower demonstrates moderate improvements to strength and range of motion. Some mild improvements with r egard to the right lower extremity strength testing. Upper extremities show [5]/5 strength in all major muscle groups. Patient still demonstrates essentially full strength in bilateral upper extremities however he does have some deconditioning still present [] [2]/4DTR all UE and LE b/l Patient shows a negative Homans, Boston's, negative Babinski's negative clonus bilaterally. negative straight leg raise bilaterally. No tensioning signs. Cranial nerves II through XII are grossly intact. There is FROM that is painless of the b/l UE and LE in all major joints [w/o pain]. They are intact to light touch sensation in L2 to S1 nerve distribution. Patient has palpable dorsalis pedis was posterior tibial pulses. Compartments are soft and compressible. Dermatomal deficit: Patient still demonstrates some decreased sensation regarding the lower extremities however still present vibration pain and touch all present in the lower extremities bilaterally but somewhat dull, dull sensation and perineal region as well as still with some mild congenital dullness, no absolute changes. - Labs CBC & Chem 7: 01/30/22 10:49 01/30/22 10:49 Labs: Abnormal Lab Results - Last 24 Hours (Table) 01/29/22 01/29/22 01/30/22 Range/Units 16:10 20:23 05:52 WBC (3.8-10.6) k/uL RBC (4.30-5.90) m/uL Hgb (13.0-17.5) gm/dL Hct (39.0-53.0) % MCHC (31.0-37.0) g/dL POC Glucose (mg/dL) 239 H 144 H 159 H (75-99) mg/dL 01/30/22 01/30/22 Range/Units 10:49 11:46 WBC 49.1 H (3.8-10.6) k/uL RBC 4.19 L (4.30-5.90) m/uL Hgb 10.9 L (13.0-17.5) gm/dL Hct 35.5 L (39.0-53.0) % MCHC 30.7 L (31.0-37.0) g/dL POC Glucose (mg/dL) 163 H (75-99) mg/dL Microbiology - Last 24 Hours (Table) 01/24/22 20:25 Blood Culture - Preliminary Blood No Growth after 120 hours 01/24/22 20:10 Blood Culture - Preliminary Blood No Growth after 120 hours Assessment and Plan Assessment: 61-year-old male with stage IV metastatic lung adenocarcinoma Acute lower extremity weakness with urinary retention, likely thoracic myelopathy POD3 T1-6 decompressive laminectomy with T3 stabilizing kyphoplasty Complex medical patient Plan: Plan: -Appreciate Team and consulting services -Cont decadron -Pain control PRN -GI ppx cont with lr -DVT ppx, OK for Heparin tonight 5 pm SQ -Cont with ABX post op -TEds, SCDs -Await RETORT OPERATOR brace. -OK to sit up in bed with c collar in place. No out of bed until RETORT OPERATOR is present. -Advised patient to continue with light bilateral lower extremity exercises daily -Diet REGULAR -PT/OT when able -Hold Radiation tx for 2 weeks -Will continue to follow
[2022-01-30 21:13] LABS: Glucose,Whole Blood 207 mg/dL (75-99)
[2022-01-31] MEDS: SODIUM CHLORIDE 0.9% 1,000 ML IV SCH ×3 (01:04→18:55)
[2022-01-31] MEDS: DEXAMETHASONE SOD PHOSPHATE 10 MG/ML 1 ML VIAL IVP SCH ×3 (04:13→11:56)
[2022-01-31 06:11] LABS: Glucose,Whole Blood 254 mg/dL (75-99)
[2022-01-31] MEDS: HYDROmorphone 0.5 MG/0.5 ML SYRINGE IVP PRN ×3 (06:30→19:35)
[2022-01-31] MEDS: INSULIN ASPART (NovoLOG) 100 UNIT/ML VIAL SQ SCH ×4 (06:30→21:07)
[2022-01-31] MEDS: IPRATROPIUM-ALBUTEROL 3 ML NEB INHALATION SCH ×3 (07:18→20:48)
--- NOTE | 2022-01-31 08:00 | P.PN ---
Subjective Progress Note Date: 01/31/22 Patient seen and examined this morning he continues to improve daily. FIELD SERVICE REP was finally delivered and he was able to sit up at bedside yesterday and dangle his legs. He states he felt good with the FIELD SERVICE REP on as it helped him to feel stable and upright. He states that the feeling is returning to his lower extremities in his peroneal region as well. He denies any fevers chills shortness of breath or chest pain at this time he denies any other symptoms currently. Lr is still in place. He has yet to stand up or get up but we will be doing more physical therapy now that he has the brace available. Objective - Vital Signs Vital signs: Vital Signs Temp 98.4 F 01/31/22 04:00 Pulse 99 01/31/22 07:31 Resp 18 01/31/22 04:00 BP 118/71 01/31/22 04:00 Pulse Ox 92 L 01/31/22 07:18 Intake & Output 01/30/22 01/31/22 01/31/22 18:59 06:59 18:59 Intake Total 240 700 Output Total 1160 320 Balance -920 380 Weight 86.6 kg Intake: Intake, IV Titration 460 Amount Sodium Chloride 0.9% 1, 360 000 ml @ 130 mls/hr IV . Q7H42M [facility] Rx#:[id number] ceFAZolin 2 gm In Sodium 100 Chloride 0.9% 50 ml @ 100 mls/hr IVPB Q8HR [facility] Rx# :[id number] Oral 240 240 Output: Drainage 60 20 Back 60 20 Urine 1100 300 Other: Voiding Method Indwelling Catheter Indwelling Catheter Indwelling Catheter - Exam Exam today his repeated shows no significant changes other than he has increased strength in his left lower extremity he has this up by his chest today knee bent and he did this under his own power and showed us that he could do it. His right lower extremity is still showing weakness but it continues to improve. His drain shows nominal output and we will likely discontinue this today. Other changes noted below Patient is alert and oriented 3 appears well-nourished well-hydrated is in no acute distress. They do not appear septic. On exam the patient has no tenderness to palpation of her thoracic or lumbar spine. There is no edema or ballottement sign. Lower extremities with 3-4-/5 strength in all major muscle groups. Weakness in bilateral lower services continue to improve to near full antigravity but is still lacking between 23 at this time. Left lower demonstrates moderate improvements to strength and range of motion. Some mild improvements with regard to the right lower extremity strength testing. Upper extremities show 5/5 strength in all major muscle groups. Patient still demonstrates essentially full strength in bilateral upper extremities however he does have some deconditioning still present 2/4DTR all UE and LE b/l Patient shows a negative Homans, Boston's, negative Babinski's negative clonus bilaterally. negative straight leg raise bilaterally. No tensioning signs. Cranial nerves II through XII are grossly intact. There is FROM that is painless of the b/l UE and LE in all major joints w/o pain. They are intact to light touch sensation in L2 to S1 nerve distribution. Patient has palpable dorsalis pedis was posterior tibial pulses. Compartments are soft and compressible. Dermatomal deficit: Patient still demonstrates some decreased sensation regarding the lower extremities however still present vibration pain and touch all present in the lower extremities bilaterally but somewhat dull, dull sensation and perineal region as well as still with some mild congenital dullness, no absolute changes. - Labs CBC & Chem 7: 01/30/22 10:49 01/30/22 10:49 Labs: Abnormal Lab Results - Last 24 Hours (Table) 01/30/22 01/30/22 01/30/22 Range/Units 10:49 10:49 11:46 WBC 49.1 H (3.8-10.6) k/uL RBC 4.19 L (4.30-5.90) m/uL Hgb 10.9 L (13.0-17.5) gm/dL Hct 35.5 L (39.0-53.0) % MCHC 30.7 L (31.0-37.0) g/dL Neutrophils # (Manual) 43.20 H (1.3-7.7) k/uL Lymphocytes # (Manual) 0.98 L (1.0-4.8) k/uL Eosinophils # (Manual) 3.44 H (0-0.7) k/uL Metamyelocytes # (Man) 0.49 H (0) k/uL Myelocytes # (Manual) 0.49 H (0) k/uL Sodium 136 L (137-145) mmol/L Chloride 108 H (98-107) mmol/L BUN 21 H (9-20) mg/dL Creatinine 0.49 L (0.66-1.25) mg/dL Glucose 158 H (74-99) mg/dL POC Glucose (mg/dL) 163 H (75-99) mg/dL Calcium 7.7 L (8.4-10.2) mg/dL Total Protein 4.6 L (6.3-8.2) g/dL Albumin 2.3 L (3.5-5.0) g/dL 01/30/22 01/30/22 01/31/22 Range/Units 16:28 21:11 05:39 WBC (3.8-10.6) k/uL RBC (4.30-5.90) m/uL Hgb (13.0-17.5) gm/dL Hct (39.0-53.0) % MCHC (31.0-37.0) g/dL Neutrophils # (Manual) (1.3-7.7) k/uL Lymphocytes # (Manual) (1.0-4.8) k/uL Eosinophils # (Manual) (0-0.7) k/uL Metamyelocytes # (Man) (0) k/uL Myelocytes # (Manual) (0) k/uL Sodium (137-145) mmol/L Chloride (98-107) mmol/L BUN (9-20) mg/dL Creatinine (0.66-1.25) mg/dL Glucose (74-99) mg/dL POC Glucose (mg/dL) 281 H 207 H 254 H (75-99) mg/dL Calcium (8.4-10.2) mg/dL Total Protein (6.3-8.2) g/dL Albumin (3.5-5.0) g/dL Microbiology - Last 24 Hours (Table) 01/24/22 20:10 Blood Culture - Final Blood No Growth after 144 hours 01/24/22 20:25 Blood Culture - Final Blood No Growth after 144 hours Assessment and Plan Assessment: 61-year-old male with stage IV metastatic lung adenocarcinoma Acute lower extremity weakness with urinary retention, likely thoracic myelopathy POD4 T1-6 decompressive laminectomy with T3 stabilizing kyphoplasty Complex medical patient Plan: -Appreciate Team and consulting services -Start to wean Decadron -Discontinue drain today with dressing change -Okay for up and about with FIELD SERVICE REP brace amputee and assist as needed -Continue to turn every 2h -Pain control PRN -GI ppx cont with lr -DVT ppx, OK for Heparin tonight 5 pm SQ -Cont with ABX post op -TEds, SCDs -Advised patient to continue with light bilateral lower extremity exercises daily -Diet REGULAR -PT/OT when able -Hold Radiation tx for 2 weeks -Will continue to follow
[2022-01-31] MEDS: NAPROXEN 250 MG TAB PO SCH ×3 (08:48→20:48)
[2022-01-31] MEDS: ENOXAPARIN 40 MG/0.4 ML SYRINGE SQ SCH (08:49)
[2022-01-31] MEDS: SENNOSIDES-DOCUSATE SODIUM 1 EACH TAB PO SCH ×2 (08:50→19:30)
[2022-01-31] MEDS: PANTOPRAZOLE 40 MG/10 ML VIAL IVP SCH ×2 (08:50→20:48)
[2022-01-31] MEDS: CYCLOBENZAPRINE 5 MG TAB PO PRN ×2 (08:50→16:28)
[2022-01-31] MEDS: hydrOXYzine HCL 25 MG TAB PO PRN (09:00)
[2022-01-31 11:43] LABS: Glucose,Whole Blood 130 mg/dL (75-99)
[2022-01-31 13:19] LABS: HCT 36.5 % (39.0-53.0); HGB 10.7 gm/dL (13.0-17.5); Hypochromasia Marked; MCHC 29.4 g/dL (31.0-37.0); MCV 88.3 fL (80.0-100.0); Mean Platelet Volume 8.2; Platelet Count 392 k/uL (150-450); RBC 4.13 m/uL (4.30-5.90); RDW 14.4 % (11.5-15.5)
[2022-01-31 13:29] LABS: ALT 17 U/L (4-49); AST 15 U/L (17-59); African American GFR (CKD) >90 (>60 ml/min/1.73 sqM); Albumin 2.5 g/dL (3.5-5.0); Alkaline Phosphatase 79 U/L (38-126); Anion Gap 3 mmol/L; Blood Urea Nitrogen 20 mg/dL (9-20); Carbon Dioxide 28 mmol/L (22-30); Chloride 105 mmol/L (98-107); Glucose 136 mg/dL (74-99); Non-African American GFR(CKD) >90 (>60 ml/min/1.73 sqM); Potassium 4.3 mmol/L (3.5-5.1); Sodium 136 mmol/L (137-145); Total Bilirubin 0.4 mg/dL (0.2-1.3)
--- NOTE | 2022-01-31 13:31 | P.PN ---
Subjective Progress Note Date: 01/31/22 Principal diagnosis: Cord compression Seen in folow-up, in good spirits. ROM and improved strength in left leg. Right leg still weak, will work with therapy once approved by surgery Objective - Vital Signs Vital signs: Vital Signs Temp 97.9 F 01/31/22 12:00 Pulse 80 01/31/22 13:14 Resp 16 01/31/22 12:00 BP 133/74 01/31/22 12:00 Pulse Ox 94 L 01/31/22 12:00 Intake & Output 01/30/22 01/31/22 01/31/22 18:59 06:59 18:59 Intake Total 240 700 240 Output Total 1160 320 Balance -920 380 240 Weight 86.6 kg Intake: Intake, IV Titration 460 Amount Sodium Chloride 0.9% 1, 360 000 ml @ 130 mls/hr IV . Q7H42M [facility] Rx#:[id number] ceFAZolin 2 gm In Sodium 100 Chloride 0.9% 50 ml @ 100 mls/hr IVPB Q8HR [facility] Rx# :[id number] Oral 240 240 240 Output: Drainage 60 20 Back 60 20 Urine 1100 300 Other: Voiding Method Indwelling Catheter Indwelling Catheter Indwelling Catheter - Exam - Constitutional General appearance: cooperative, mild distress, thin - EENT Eyes: anicteric sclerae, EOMI ENT: hearing grossly normal, normal oropharynx - Neck Neck: lymphadenopathy (rt neck 2.5cm hard, fixed anterior cervical LN, surrounding edema) - Respiratory Respiratory: bilateral: CTA, diminished - Cardiovascular Rhythm: regular Heart sounds: normal: S1, S2 Abnormal Heart Sounds: no systolic murmur, no diastolic murmur, no rub, no S3 Gallop, no S4 Gallop, no click, no other leg Peripheral Edema: bilateral: None - Gastrointestinal General gastrointestinal: bowel sounds, - Genitourinary lr draining clear yellow urine - Integumentary Integumentary: normal - Neurologic BLE no motor movement. Great toe proprioception intact, pt able to discriminate soft touch of the skin. Neurologic: CNII-XII intact (grossly) - Musculoskeletal Gen. musculoskeletal aches. Patient needed 2 person assist to lean forward to listen to his lungs - Psychiatric Psychiatric: A&O x's 3, appropriate affect, intact judgment & insight Able to move Bilateral LE and sensation improved, primarily midline less in distal lower extremities - Labs CBC & Chem 7: 01/30/22 10:49 01/30/22 10:49 Labs: Abnormal Lab Results - Last 24 Hours (Table) 01/30/22 01/30/22 01/31/22 Range/Units 16:28 21:11 05:39 POC Glucose (mg/dL) 281 H 207 H 254 H (75-99) mg/dL 01/31/22 Range/Units 11:40 POC Glucose (mg/dL) 130 H (75-99) mg/dL Microbiology - Last 24 Hours (Table) 01/24/22 20:10 Blood Culture - Final Blood No Growth after 144 hours 01/24/22 20:25 Blood Culture - Final Blood No Growth after 144 hours Assessment and Plan Plan: Comments: CT CTL spine report reviewed Chest x-ray: report reviewed Assessment and Plan (1) Bilateral leg weakness secondary to Cord Compression Current Visit: Yes Status: Acute Priority: High Code(s): R29.898 - OTH SYMPTOMS AND SIGNS INVOLVING THE MUSCULOSKELETAL SYSTEM SNOMED Code(s): 6196924 Status Post Surgical Intervention with Dr. Courtney - T1-6 decompressive laminectomy with T3 stabilizing kyphoplasty (2) NSCLC metastatic to bone Current Visit: Yes Status: Acute Priority: High Code(s): C34.90 - MALIGNANT NEOPLASM OF UNSP PART OF UNSP BRONCHUS OR LUNG; C79.51 - SECONDARY MALIGNANT NEOPLASM OF BONE SNOMED Code(s): 475143234 (3) Leukocytosis Current Visit: Yes Status: Acute Priority: Medium Code(s): D72.829 - ELEVATED WHITE BLOOD CELL COUNT, UNSPECIFIED SNOMED Code(s): 149808859 Plan: Dexamethasone decrease to 4mg every 6 hours IV has been ordered for neurological symptoms. PPI prophylaxis of steroid-induced gastritis ordered. Surgery and radiaiton onc on taper? per Surgery await 2 weeks before radiation resume MRI of the brain for initial staging today Continue Dexamethasone, PPI, Pain control, bowel regimen Daily CBC PT/OT after cleared by surgery
[2022-01-31 13:45] LABS: WBC 57.4 k/uL (3.8-10.6)
--- NOTE | 2022-01-31 15:39 | P.CONS ---
History of Present Illness - Chief Complaint Walking difficulty, spinal metastases - History of Present Illness I had the opportunity to see patient for inpatient rehab consultation with regard to walking difficulty. Patient admitted to [facility] January 24 with weakness of 2 days' duration and known non-small cell lung adenocarcinoma with metastases including thoracic and lumbar spine. Seen by oncology for this. Seen by Dr. Cole for pulmonary. Seen by Dr. Kc who notes thoracic spine involvement a nd did undergo decompression laminectomy T1 to 6 with T3 kyphoplasty. Seen by cardiology. Seen by Dr. Petit for vocal cord involvement. MRI of brain negative. MRI cervical spine demonstrates herniation C4, 6. MRI T-spine demonstrates metastatic change T3, 7, 11 and numerous and lumbar area. Chest x- ray with right upper lobe consolidation. His started therapies. PT reports two-person maximal assistance for bed mobility and transfers and able to stand for 1 minute. OT reports maximal assistance for upper dressing and bathing and total assistance for lower dressing. Two-person total assistance for toileting two-person maximal assistance functional mobility and transfer. Previous functional history as elicited from patient: 61-year-old right-handed white male who is lives in one floor home with . Patient was working full-time but anticipates disability now. Describes that share cooking and laundry and driving with . Independent with standing shower and gait without device. PCP Dr. Topete and did see Dr. Aguero. Denies tobacco or alcohol. Review of Systems Review of systems: ENT: Denies sneezes or discharge. Eyes: Denies discharge or photophobia. Cardiac: Denies chest pain or palpitation. Pulmonary: Denies cough or shortness of breath. Gastrointestinal: Denies nausea, emesis, constipation, diarrhea. Genitourinary: Denies discharge or frequency. Musculoskeletal: Some back discomfort. Neurologic: Lower extremity weakness and numbness. Endocrine: Denies shakes or sweats. Oncology: Denies cancers. Dermatologic: Denies rash, itching, pruritus. ALLERGY/immunology: Denies sneezes, rashes. Past Medical History Past Medical History: Cancer, COPD Additional Past Medical History / Comment(s): recent gout in knee with steroids in the last week., SOB, states productive cough. Stage 4 lung and bone cancer History of Any Multi-Drug Resistant Organisms: None Reported Past Surgical History: Back Surgery, Hernia Repair Additional Past Surgical History / Comment(s): 2015 fx arm with hardware. Past Anesthesia/Blood Transfusion Reactions: No Reported Reaction Past Psychological History: Anxiety Smoking Status: Former smoker Past Alcohol Use History: Daily Past Drug Use History: Marijuana - Past Family History Father Family Medical History: Cancer Additional Family Medical History / Comment(s): lung cancer Medications and Allergies Home Medications Medication Instructions Recorded Confirmed Type hydrOXYzine HCL 25 mg PO TID PRN 12/26/21 01/24/22 History HYDROcodone/APAP 7.5-325MG [[place] 2 tab PO Q4H PRN 01/24/22 01/24/22 History 7.5-325] Allergies Allergy/AdvReac Type Severity Reaction Status Date / Time No Known Allergies Allergy Verified 01/24/22 20:42 Physical Exam Vitals: Vital Signs Temp Pulse Pulse Resp BP Pulse Ox 01/31/22 13:14 80 01/31/22 12:56 92 01/31/22 12:43 90 01/31/22 12:00 97.9 F 99 16 133/74 94 L 01/31/22 08:00 97.4 F L 81 17 128/72 92 L 01/31/22 07:31 99 01/31/22 07:18 78 92 L 01/31/22 04:00 98.4 F 66 18 118/71 97 01/31/22 00:54 60 20 01/31/22 00:00 98.2 F 60 20 130/80 97 01/30/22 20:00 97.8 F 74 18 126/78 95 01/30/22 16:00 97.8 F 91 17 125/75 92 L Intake and Output 01/31/22 01/31/22 01/31/22 06:59 14:59 22:59 Intake Total 700 240 Output Total 320 Balance 380 240 Intake: Intake, IV Titration 460 Amount Sodium Chloride 0.9% 1, 360 000 ml @ 130 mls/hr IV . Q7H42M [facility] Rx#:[id number] ceFAZolin 2 gm In Sodium 100 Chloride 0.9% 50 ml @ 100 mls/hr IVPB Q8HR [facility] Rx# :[id number] Oral 240 240 Output: Drainage 20 Back 20 Urine 300 Other: Voiding Method Indwelling Catheter Indwelling Catheter Skin: Good color, texture, turgor. General: Medium build and comfortable appearance. Head: Normocephalic, atraumatic. Eyes: Symmetric. Pupils equal round. Ears: Symmetric. Hearing within normal limits. Mouth: Clear. Neck: Supple. Carotid without bruit. Cardiac: Regular rate and rhythm. Lungs: Clear anteriorly and posteriorly. Abdomen: Soft active nontender. Extremities: Normal tone. Spine: Wearing rigid brace that includes cervical and thoracic spine. Neurological: Mental status: Alert, cooperative, pleasant. Cranial nerves: Symmetric facial tone and trapezius. Motor: Normal strength and isolation arms. Legs poor. Sensation: Intact arms and depressed legs. DTRs: Symmetric and equal throughout. Mobility: Requires physical assist for bed mobility. Results CBC & Chem 7: 01/31/22 12:57 01/31/22 12:57 Labs: Abnormal Lab Results - Last 24 Hours (Table) 01/30/22 01/30/22 01/31/22 Range/Units 16:28 21:11 05:39 WBC (3.8-10.6) k/uL RBC (4.30-5.90) m/uL Hgb (13.0-17.5) gm/dL Hct (39.0-53.0) % MCHC (31.0-37.0) g/dL Sodium (137-145) mmol/L Creatinine (0.66-1.25) mg/dL Glucose (74-99) mg/dL POC Glucose (mg/dL) 281 H 207 H 254 H (75-99) mg/dL Calcium (8.4-10.2) mg/dL AST (17-59) U/L Total Protein (6.3-8.2) g/dL Albumin (3.5-5.0) g/dL 01/31/22 01/31/22 01/31/22 Range/Units 11:40 12:57 12:57 WBC 57.4 H* (3.8-10.6) k/uL RBC 4.13 L (4.30-5.90) m/uL Hgb 10.7 L (13.0-17.5) gm/dL Hct 36.5 L (39.0-53.0) % MCHC 29.4 L (31.0-37.0) g/dL Sodium 136 L (137-145) mmol/L Creatinine 0.48 L (0.66-1.25) mg/dL Glucose 136 H (74-99) mg/dL POC Glucose (mg/dL) 130 H (75-99) mg/dL Calcium 8.0 L (8.4-10.2) mg/dL AST 15 L (17-59) U/L Total Protein 5.0 L (6.3-8.2) g/dL Albumin 2.5 L (3.5-5.0) g/dL Microbiology - Last 24 Hours (Table) 01/24/22 20:10 Blood Culture - Final Blood No Growth after 144 hours 01/24/22 20:25 Blood Culture - Final Blood No Growth after 144 hours Assessment and Plan (1) Bilateral leg weakness Current Visit: Yes Status: Acute Priority: High Code(s): R29.898 - OTH SYMPTOMS AND SIGNS INVOLVING THE MUSCULOSKELETAL SYSTEM SNOMED Code(s): 1 052332 (2) Lung mass Current Visit: Yes Status: Acute Code(s): R91.8 - OTHER NONSPECIFIC ABNORMAL FINDING OF LUNG FIELD SNOMED Code(s): 519171172 (3) NSCLC metastatic to bone Current Visit: Yes Status: Acute Priority: High Code(s): C34.90 - MALIGNANT NEOPLASM OF UNSP PART OF UNSP BRONCHUS OR LUNG; C79.51 - SECONDARY MALIGNANT NEOPLASM OF BONE SNOMED Code(s): 340662293 (4) Spine metastasis Current Visit: Yes Status: Acute Code(s): C79.51 - SECONDARY MALIGNANT NEOPLASM OF BONE SNOMED Code(s): 79472466 Plan: Comments and plan: At this time patient with definite safety concerns. Endurance appears to be an issue as his weakness. Unsure that patient will be able to participate with therapy out of bed for required 3 hours of therapy per day for usual insurance criteria. We'll follow closely with yourself though.
[2022-01-31 16:21] LABS: Glucose,Whole Blood 204 mg/dL (75-99)
[2022-01-31] MEDS: DEXAMETHASONE SOD PHOSPHATE 4 MG/ML 1 ML VIAL IVP SCH ×2 (16:27→23:03)
--- NOTE | 2022-01-31 17:38 | P.PN ---
Progress Note - Text Progress Note Date: 01/31/22 Chief Complaint: Leg weakness This is a 61-year-old patient who follows with Dr. Elias Huizar. Patient 2 weeks ago was diagnosed with metastatic lung cancer with metastatic disease to the bones. Under care of Dr. Mercedes. Patient was supposed to follow for radiation treatment and further workup. For 6 weeks patient is having some trouble getting up because of back pain. Also prescription pain in the chest and back. Appetite is okay. Has lost about 35 pounds the last few weeks. Yesterday patient not able to walk at all not make urine. Presented to the ER. Salmon catheter was placed. In addition oncologist was consulted. On January 15 patient underwent a PET scan that showed abnormal thoracic adenopathy with diffuse osseous metastatic disease and spinal canal invasion lower thoracic spine level noted. Also involvement of bilateral ribs. Started him and entire spine. Lung biopsy has previously shown malignant non-small cell carcinoma cells having features of metastatic pulmonary adenocarcinoma. Per bronchoscopy by Dr. Topete on December 28. Patient denies any fever and chills. A bit tired and rundown. January 26: Patient received radiation treatment. Getting breathing treatments. Stated this afternoon she was seen by Dr. Courtney. MRI head showed spinal cord compression. He discussed with the family and will proceed for surgery. Compression between T2-T6. On the spinal cord January 27: Patient underwent surgery today. Formal report not available. Has a C- spine collar. Hemovac. at the bedside. Tired. January 15: Laying in bed. Cervical collar. Hemovac. Some movement of her lower extremity. Salmon catheter. Unable to control his bowel movement today. January 16: Awaiting MRI today. Survive to call her with Hemovac in place. Some pain in the neck. Able to move some his lower extremity. January 30: Patient had brain MRI. No obvious metastatic disease reported. Cervical spine MRI noted. Patient is awaiting his chest brace. Able to move his legs a bit. Underwent nasopharyngeal laryngoscopy by Dr. Petit yesterday evening. No vocal cord paresis or paralysis. Large amount of inflammation and laryngitis including a false vocal cord. Discussed with the patient and at the bedside. Pain control. Hemovac in place. Does not like hospital food. Daughter will be bringing in some food. January 31: Up in a chair. Has a chest brace. Oral intake fair. Salmon catheter. Patient not to get radiation treatment at least for [address] Bauman consulted. Movement of the legs better. 11/18. Active Medications Acetaminophen (Acetaminophen Tab 325 Mg Tab) 650 mg PO Q6HR PRN PRN Reason: Mild Pain or Fever > 100.5 Hydrocodone Bitart/Acetaminophen (Hydrocodone/Apap 10-325mg 1 Each Tab) 1 each PO Q4HR PRN PRN Reason: pain Last Admin: 01/30/22 19:43 Dose: 1 each Documented by: Albuterol/Ipratropium (Ipratropium-Albuterol 3 Ml Neb) 3 ml INHALATION RT-TID [facility] Last Admin: 01/31/22 12:43 Dose: 3 ml Documented by: Cyclobenzaprine HCl (Cyclobenzaprine 5 Mg Tab) 5 mg PO TID PRN PRN Reason: Muscle Spasm Last Admin: 01/31/22 16:28 Dose: 5 mg Documented by: Dexamethasone Sodium Phosphate (Dexamethasone Sod Phosphate 4 Mg/Ml 1 Ml Vial) 4 mg IVP Q6HR [facility] Last Admin: 01/31/22 16:27 Dose: 4 mg Documented by: Enoxaparin Sodium (Enoxaparin 40 Mg/0.4 Ml Syringe) 40 mg SQ DAILY [facility] Last Admin: 01/31/22 08:49 Dose: 40 mg Documented by: Hydromorphone HCl (Hydromorphone 0.5 Mg/0.5 Ml Syringe) 0.5 mg IVP Q3HR PRN PRN Reason: Moderate Pain Last Admin: 01/31/22 11:55 Dose: 0.5 mg Documented by: Hydroxyzine HCl (Hydroxyzine Hcl 25 Mg Tab) 25 mg PO TID PRN PRN Reason: Anxiety Last Admin: 01/31/22 09:00 Dose: 25 mg Documented by: Sodium Chloride (Saline 0.9%) 1,000 mls @ 130 mls/hr IV .Q7H42M [facility] Last Admin: 01/31/22 08:49 Dose: 130 mls/hr Documented by: Cefazolin Sodium 2 gm/ Sodium (Chloride) 50 mls @ 100 mls/hr IVPB Q8HR [facility]; Protocol Last Admin: 01/31/22 16:27 Dose: 100 mls/hr Documented by: Acetaminophen 1,000 mg/ IV (Solution) 100 mls @ 400 mls/hr IVPB Q6H PRN PRN Reason: Pain Insulin Aspart (Insulin Aspart (Novolog) 100 Unit/Ml Vial) 0 unit SQ ACHS [facility]; Protocol Last Admin: 01/31/22 16:27 Dose: 6 unit Documented by: Lorazepam (Lorazepam 2 Mg/Ml Inj) 1 mg IV ONCE PRN PRN Reason: for MRi Last Admin: 01/30/22 06:15 Dose: 1 mg Documented by: Magnesium Hydroxide (Magnesium Hydroxide 2,400 Mg/10 Ml Cup) 2,400 mg PO DAILY PRN PRN Reason: Constipation Naloxone HCl (Naloxone 0.4 Mg/Ml 1 Ml Vial) 0.2 mg IV Q2M PRN PRN Reason: Opioid Reversal Naproxen (Naproxen 250 Mg Tab) 250 mg PO TID [facility] Last Admin: 01/31/22 16:28 Dose: 250 mg Documented by: Ondansetron HCl (Ondansetron 4 Mg/2 Ml Vial) 4 mg IVP Q8HR PRN PRN Reason: Nausea And Vomiting Oxycodone HCl (Oxycodone Hcl 5 Mg Tab) 5 mg PO Q6HR PRN PRN Reason: Pain Scale 6 To 8 Last Admin: 01/31/22 08:49 Dose: 5 mg Documented by: Oxycodone HCl (Oxycodone Hcl 5 Mg Tab) 10 mg PO Q6HR PRN PRN Reason: Pain Scale 8 to 10 Last Admin: 01/31/22 16:28 Dose: 10 mg Documented by: Oxymetazoline HCl (Oxymetazoline 0.05% Nasl [place] 1 [place] Bottle) 2 spray NASAL BID PRN PRN Reason: Allergy Symptoms Last Admin: 01/29/22 17:22 Dose: 2 spray Documented by: Pantoprazole Sodium (Pantoprazole 40 Mg/10 Ml Vial) 40 mg IVP BID [facility] Last Admin: 01/31/22 08:50 Dose: 40 mg Documented by: Senna/Docusate Sodium (Sennosides-Docusate Sodium 1 Each Tab) 2 each PO BID [facility] Last Admin: 01/31/22 08:50 Dose: 2 each Documented by: Past medical history to include: Recently diagnosed metastatic lung cancer with metastases to several bones. Possibly adenocarcinoma non-small cell type. COPD. Recent guarded and uses steroid injections. Anxiety. Social history: Patient smoked for about 16 years stopped about 23 years ago. Did [employer]. . Was drinking about 6-10 beers a night for many years up to 4 months ago. Family history: Lung cancer Physical examination: VITAL SIGNS: 97.4, 80, 16, 1 on 5-79, 96% 2 L GENERAL:, Up in a chair EYES: Pupils equal. Conjunctiva normal. HEENT: C-collar with Hemovac NECK: JVD not raised; masses not palpable. HEART: First and second heart sounds are normal; no edema. LUNGS:[ Respiratory rate normal; decreased breath sounds. ABDOMEN: Soft, nontender, liver spleen not palpable, no masses palpable. Salmon catheter PSYCH: Alert and oriented x3; mood and affect normal MUSCULOSKELETAL:No Clubbing/cyanosis;muscles-grossly intact NEUROLOGICAL: [Cranial nerves grossly intact; no facial asymmetry, able to move some both lower extremity. 3/5 power INVESTIGATIONS, reviewed in the clinical context: January 31: White count 57.4 hemoglobin 10.7 potassium 4.3 creatinine 0.48 January 30: White count 49.1 hemoglobin 10.9 potassium 5 BUN 21 creatinine 0.49 Brain MRi: No metastatic disease 2-D echocardiogram: EF 60-65%. Moderate concentric LVH. January 28: White count 35.3 hemoglobin 10.1 platelets 342 potassium 4.6 BUN 22 creatinine 0.62 January 27: White count 41.1 hemoglobin 11.7 potassium 3.8 creatinine 0.65 January 26: White count 35.1 hemoglobin 11.7 pro-calcitonin 0.29 White count 51 hemoglobin 12.1 platelets 376 potassium 3.7 creatinine 0.77 TSH 3.2 Admission labs: White count [age]-year-old woman 13.2 platelets 390 sodium 131 potassium 3.8 creatinine 0.8 Albumin 3.2 UA negative for nitrite and leukoesterase COVID 19/influenza type A/influenza type B: Not detected UA noted Computed tomography scan; thoracic lumbar spine with contrast: Extensive osteomyelitis changes in the spine. EKG tracing personally reviewed by me-no sinus rhythm. Nonspecific T-wave changes Chest x-ray film personally reviewed by me-large tumor involvement of the lung space especially in the right Assessment and plan: -Acute paraparesis from metastatic disease to the thoracolumbar spine with compression of spinal cord.: Slow to respond Radiation treatment initially given-currently hold radiation treatment for at least 2 weeks.. decompression surgery to include T2-6 decompressive laminectomy and T3 kyphoplasty. by Dr. Courtney today on January 27. Up in chair. PTOT. -Acute urinary retention from metastatic disease to the spine. . PTOT. Salmon catheter - metastatic adenocarcinoma of the lung/non-small cell. Oncologist: Dr. Mercedes. -Normocytic anemia secondary to malignancy Follow H&H -COPD in a previous smoker DuoNeb 3 times a day -Hyponatremia, likely hypoosmolar Increase forward intake -Bone pain. From metastatic disease Steroids. Naproxen. -Severe leukocytosis likely leukemoid reaction from underlying malignancy and steroids -Acute medical debility from metastatic disease PTOT. Currently full assist C-collar. Hemovac. Salmon catheter. Patient will get radiation treatment after getting PTOT and getting stronger. Chest brace in place. IV Decadron.
[2022-01-31 21:06] LABS: Glucose,Whole Blood 190 mg/dL (75-99)
[2022-02-01] MEDS: HYDROmorphone 0.5 MG/0.5 ML SYRINGE IVP PRN ×3 (04:30→14:43)
[2022-02-01] MEDS: CYCLOBENZAPRINE 5 MG TAB PO PRN ×3 (04:44→17:19)
[2022-02-01] MEDS: hydrOXYzine HCL 25 MG TAB PO PRN ×2 (05:09→15:35)
[2022-02-01] MEDS: SODIUM CHLORIDE 0.9% 1,000 ML IV SCH ×2 (06:00→09:48)
[2022-02-01] MEDS: DEXAMETHASONE SOD PHOSPHATE 4 MG/ML 1 ML VIAL IVP SCH ×4 (06:00→23:03)
[2022-02-01 06:02] LABS: Glucose,Whole Blood 103 mg/dL (75-99)
[2022-02-01] MEDS: INSULIN ASPART (NovoLOG) 100 UNIT/ML VIAL SQ SCH ×4 (06:26→20:40)
[2022-02-01] MEDS: IPRATROPIUM-ALBUTEROL 3 ML NEB INHALATION SCH ×3 (07:58→21:11)
[2022-02-01] MEDS: PANTOPRAZOLE 40 MG/10 ML VIAL IVP SCH ×2 (09:51→20:40)
[2022-02-01] MEDS: NAPROXEN 250 MG TAB PO SCH ×3 (09:51→20:39)
[2022-02-01] MEDS: ENOXAPARIN 40 MG/0.4 ML SYRINGE SQ SCH (09:51)
[2022-02-01 12:11] LABS: Glucose,Whole Blood 120 mg/dL (75-99)
[2022-02-01] MEDS: HYDROcodone/APAP 10-325MG 1 EACH TAB PO PRN ×2 (12:31→20:39)
[2022-02-01] MEDS: SENNOSIDES-DOCUSATE SODIUM 1 EACH TAB PO SCH ×2 (12:32→20:39)
--- NOTE | 2022-02-01 13:15 | P.PN ---
Progress Note - Text Progress Note Date: 02/01/22 Chief Complaint: Leg weakness This is a 61-year-old patient who follows with Dr. Elias Huizar. Patient 2 weeks ago was diagnosed with metastatic lung cancer with metastatic disease to the bones. Under care of Dr. Mercedes. Patient was supposed to follow for radiation treatment and further workup. For 6 weeks patient is having some trouble getting up because of back pain. Also prescription pain in the chest and back. Appetite is okay. Has lost about 35 pounds the last few weeks. Yesterday patient not able to walk at all not make urine. Presented to the ER. Salmon catheter was placed. In addition oncologist was consulted. On January 15 patient underwent a PET scan that showed abnormal thoracic adenopathy with diffuse osseous metastatic disease and spinal canal invasion lower thoracic spine level noted. Also involvement of bilateral ribs. Started him and entire spine. Lung biopsy has previously shown malignant non-small cell carcinoma cells having features of metastatic pulmonary adenocarcinoma. Per bronchoscopy by Dr. Topete on December 28. Patient denies any fever and chills. A bit tired and rundown. January 26: Patient received radiation treatment. Getting breathing treatments. Stated this afternoon she was seen by Dr. Courtney. MRI head showed spinal cord compression. He discussed with the family and will proceed for surgery. Compression between T2-T6. On the spinal cord January 27: Patient underwent surgery today. Formal report not available. Has a C- spine collar. Hemovac. at the bedside. Tired. January 15: Laying in bed. Cervical collar. Hemovac. Some movement of her lower extremity. Salmon catheter. Unable to control his bowel movement today. January 16: Awaiting MRI today. Survive to call her with Hemovac in place. Some pain in the neck. Able to move some his lower extremity. January 30: Patient had brain MRI. No obvious metastatic disease reported. Cervical spine MRI noted. Patient is awaiting his chest brace. Able to move his legs a bit. Underwent nasopharyngeal laryngoscopy by Dr. Petit yesterday evening. No vocal cord paresis or paralysis. Large amount of inflammation and laryngitis including a false vocal cord. Discussed with the patient and at the bedside. Pain control. Hemovac in place. Does not like hospital food. Daughter will be bringing in some food. January 31: Up in a chair. Has a chest brace. Oral intake fair. Salmon catheter. Patient not to get radiation treatment at least for [address] Bauman consulted. Movement of the legs better. 11/18. February 01: Reclining in bed. Hemovac has been discontinued. Cervical collar. Oral intake fair. Pain at the operative site. Not felt to be candidate for [facility] rehab. Active Medications Acetaminophen (Acetaminophen Tab 325 Mg Tab) 650 mg PO Q6HR PRN PRN Reason: Mild Pain or Fever > 100.5 Hydrocodone Bitart/Acetaminophen (Hydrocodone/Apap 10-325mg 1 Each Tab) 1 each PO Q4HR PRN PRN Reason: pain Last Admin: 02/01/22 12:31 Dose: 1 each Documented by: Albuterol/Ipratropium (Ipratropium-Albuterol 3 Ml Neb) 3 ml INHALATION RT-TID [facility] Last Admin: 02/01/22 12:14 Dose: Not Given Documented by: Cyclobenzaprine HCl (Cyclobenzaprine 5 Mg Tab) 5 mg PO TID PRN PRN Reason: Muscle Spasm Last Admin: 02/01/22 09:51 Dose: 5 mg Documented by: Dexamethasone Sodium Phosphate (Dexamethasone Sod Phosphate 4 Mg/Ml 1 Ml Vial) 4 mg IVP Q6HR [facility] Last Admin: 02/01/22 12:32 Dose: 4 mg Documented by: Enoxaparin Sodium (Enoxaparin 40 Mg/0.4 Ml Syringe) 40 mg SQ DAILY [facility] Last Admin: 02/01/22 09:51 Dose: 40 mg Documented by: Hydromorphone HCl (Hydromorphone 0.5 Mg/0.5 Ml Syringe) 0.5 mg IVP Q3HR PRN PRN Reason: Moderate Pain Last Admin: 02/01/22 09:47 Dose: 0.5 mg Documented by: Hydroxyzine HCl (Hydroxyzine Hcl 25 Mg Tab) 25 mg PO TID PRN PRN Reason: Anxiety Last Admin: 02/01/22 05:09 Dose: 25 mg Documented by: Sodium Chloride (Saline 0.9%) 1,000 mls @ 20 mls/hr IV .Q24H [facility] Last Admin: 02/01/22 09:48 Dose: 20 mls/hr Documented by: Cefazolin Sodium 2 gm/ Sodium (Chloride) 50 mls @ 100 mls/hr IVPB Q8HR [facility]; Protocol Last Admin: 02/01/22 09:51 Dose: 100 mls/hr Documented by: Acetaminophen 1,000 mg/ IV (Solution) 100 mls @ 400 mls/hr IVPB Q6H PRN PRN Reason: Pain Insulin Aspart (Insulin Aspart (Novolog) 100 Unit/Ml Vial) 0 unit SQ ACHS [facility]; Protocol Last Admin: 02/01/22 12:26 Dose: Not Given Documented by: Lorazepam (Lorazepam 2 Mg/Ml Inj) 1 mg IV ONCE PRN PRN Reason: for MRi Last Admin: 01/30/22 06:15 Dose: 1 mg Documented by: Magnesium Hydroxide (Magnesium Hydroxide 2,400 Mg/10 Ml Cup) 2,400 mg PO DAILY PRN PRN Reason: Constipation Naloxone HCl (Naloxone 0.4 Mg/Ml 1 Ml Vial) 0.2 mg IV Q2M PRN PRN Reason: Opioid Reversal Naproxen (Naproxen 250 Mg Tab) 250 mg PO TID [facility] Last Admin: 02/01/22 09:51 Dose: 250 mg Documented by: Ondansetron HCl (Ondansetron 4 Mg/2 Ml Vial) 4 mg IVP Q8HR PRN PRN Reason: Nausea And Vomiting Oxycodone HCl (Oxycodone Hcl 5 Mg Tab) 5 mg PO Q6HR PRN PRN Reason: Pain Scale 6 To 8 Last Admin: 01/31/22 08:49 Dose: 5 mg Documented by: Oxycodone HCl (Oxycodone Hcl 5 Mg Tab) 10 mg PO Q6HR PRN PRN Reason: Pain Scale 8 to 10 Last Admin: 02/01/22 10:03 Dose: 10 mg Documented by: Oxymetazoline HCl (Oxymetazoline 0.05% Nasl [place] 1 [place] Bottle) 2 spray NASAL BID PRN PRN Reason: Allergy Symptoms Last Admin: 01/29/22 17:22 Dose: 2 spray Documented by: Pantoprazole Sodium (Pantoprazole 40 Mg/10 Ml Vial) 40 mg IVP BID [facility] Last Admin: 02/01/22 09:51 Dose: 40 mg Documented by: Senna/Docusate Sodium (Sennosides-Docusate Sodium 1 Each Tab) 2 each PO BID [facility] Last Admin: 02/01/22 12:32 Dose: 2 each Documented by: Past medical history to include: Recently diagnosed metastatic lung cancer with metastases to several bones. Possibly adenocarcinoma non-small cell type. COPD. Recent guarded and uses steroid injections. Anxiety. Social history: Patient smoked for about 16 years stopped about 23 years ago. 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 . Was drinking about 6-10 beers a night for many years up to 4 months ago. Family history: Lung cancer Physical examination: VITAL SIGNS: Afebrile, 89, 16, 140s/69, 95% on 2 L GENERAL:, Reclining in bed, EYES: Pupils equal. Conjunctiva normal. HEENT: C-collar with Hemovac NECK: JVD not raised; masses not palpable. HEART: First and second heart sounds are normal; no edema. LUNGS:[ Respiratory rate normal; decreased breath sounds. ABDOMEN: Soft, nontender, liver spleen not palpable, no masses palpable. Salmon catheter PSYCH: Alert and oriented x3; mood and affect normal MUSCULOSKELETAL:No Clubbing/cyanosis;muscles-grossly intact NEUROLOGICAL: [Cranial nerves grossly intact; no facial asymmetry, able to move some both lower extremity. 3/5 power INVESTIGATIONS, reviewed in the clinical context: January 31: White count 57.4 hemoglobin 10.7 potassium 4.3 creatinine 0.48 January 30: White count 49.1 hemoglobin 10.9 potassium 5 BUN 21 creatinine 0.49 Brain MRi: No metastatic disease 2-D echocardiogram: EF 60-65%. Moderate concentric LVH. January 28: White count 35.3 hemoglobin 10.1 platelets 342 potassium 4.6 BUN 22 creatinine 0.62 January 27: White count 41.1 hemoglobin 11.7 potassium 3.8 creatinine 0.65 January 26: White count 35.1 hemoglobin 11.7 pro-calcitonin 0.29 White count 51 hemoglobin 12.1 platelets 376 potassium 3.7 creatinine 0.77 TSH 3.2 Admission labs: White count [age]-year-old woman 13.2 platelets 390 sodium 131 potassium 3.8 creatinine 0.8 Albumin 3.2 UA negative for nitrite and leukoesterase COVID 19/influenza type A/influenza type B: Not detected UA noted Computed tomography scan; thoracic lumbar spine with contrast: Extensive osteomyelitis changes in the spine. EKG tracing personally reviewed by me-no sinus rhythm. Nonspecific T-wave changes Chest x-ray film personally reviewed by me-large tumor involvement of the lung space especially in the right Assessment and plan: -Acute paraparesis from metastatic disease to the thoracolumbar spine with compression of spinal cord.: Slow to respond Radiation treatment initially given-currently hold radiation treatment for at least 2 weeks.. decompression surgery to include T2-6 decompressive laminectomy and T3 kyphoplasty. by Dr. Courtney today on January 27. Up in chair. PTOT. -Acute urinary retention from metastatic disease to the spine. . PTOT. Salmon catheter - metastatic adenocarcinoma of the lung/non-small cell. Oncologist: Dr. Mercedes. -Normocytic anemia secondary to malignancy Follow H&H -COPD in a previous smoker DuoNeb 3 times a day -Hyponatremia, likely hypoosmolar Increase forward intake -Bone pain. From metastatic disease Steroids. Naproxen. -Severe leukocytosis likely leukemoid reaction from underlying malignancy and steroids -Acute medical debility from metastatic disease PTOT. Currently full assist C-collar. Hemovac. Salmon catheter. Patient will get radiation treatment after getting PTOT and getting stronger. Chest brace in place. Scale back Decadron. 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
[2022-02-01 13:28] LABS: HCT 34.5 % (39.0-53.0); HGB 10.6 gm/dL (13.0-17.5); Hypochromasia Marked; MCH 26.7 pg (25.0-35.0); MCHC 30.8 g/dL (31.0-37.0); MCV 86.9 fL (80.0-100.0); Mean Platelet Volume 7.8; Platelet Count 391 k/uL (150-450); RBC 3.98 m/uL (4.30-5.90); RDW 15.2 % (11.5-15.5)
[2022-02-01 13:32] LABS: WBC 51.6 k/uL (3.8-10.6)
[2022-02-01 13:37] LABS: ALT 13 U/L (4-49); AST 26 U/L (17-59); African American GFR (CKD) >90 (>60 ml/min/1.73 sqM); Albumin 2.3 g/dL (3.5-5.0); Alkaline Phosphatase 67 U/L (38-126); Anion Gap 1 mmol/L; Blood Urea Nitrogen 15 mg/dL (9-20); Calcium 7.7 mg/dL (8.4-10.2); Carbon Dioxide 30 mmol/L (22-30); Chloride 102 mmol/L (98-107); Glucose 124 mg/dL (74-99); Non-African American GFR(CKD) >90 (>60 ml/min/1.73 sqM); Potassium 4.6 mmol/L (3.5-5.1); Sodium 133 mmol/L (137-145); Total Bilirubin 0.5 mg/dL (0.2-1.3); Total Protein 4.5 g/dL (6.3-8.2)
--- NOTE | 2022-02-01 13:42 | P.PN ---
Subjective Progress Note Date: 02/01/22 Principal diagnosis: Metastatic lung cancer, bilateral lower extremity weakness, urinary retention, status post T1 to T6 decompression laminectomy Patient was evaluated today at bedside, he is resting in his hospital bed. He has multiple family members present. He is utilizing the soft cervical collar while in bed. He has been utilizing the BIOINFORMATICS RESEARCH TECHNICIAN brace when out of bed. Urinary catheter remains in place. the drain was removed yesterday and any bandages place, this remained stable with no acute changes. Patient states that the motion in the lower extremities is improving, he still feels very weak. Objective - Vital Signs Vital signs: Vital Signs Temp 98.8 F 02/01/22 04:00 Pulse 89 02/01/22 12:00 Resp 16 02/01/22 12:00 BP 114/69 02/01/22 12:00 Pulse Ox 95 02/01/22 12:00 Intake & Output 01/31/22 02/01/22 02/01/22 18:59 06:59 18:59 Intake Total 720 480 Output Total 1200 1200 Balance -480 -720 Intake: Oral 720 480 Output: Urine 1200 1200 Other: Voiding Method Indwelling Catheter Indwelling Catheter Indwelling Catheter - Exam Gen: AOx3, NAD VSS stable at this time Integument: Postoperative dressing is in good position and condition, there is no significant saturation noted Palpation: Mild tenderness to palpation to the midline and paraspinal region of the lower cervical and upper thoracic regionOM: Range of motion: Range of motion intact in all major muscle groups of bilateral upper extremities Range of motion is intact in all major muscle groups of bilateral lower extremities, weakness in both, worse on the right Sensory Exam: Senory exam to light touch is intact C5-T1 [place] exam to light touch is intact L2-S1 Motor: 55 strength is appreciated in the bilateral upper extremities with shoulder elevation, shoulder abduction, wrist extension, wrist flexion, case finishing machine adjuster 35 strength appreciated in the bilateral lower extremities with hip flexion, knee extension, knee flexion, plantar flexion, dorsiflexion, EHL, FHL. The left lower extremity remains stronger than the right at this time, notable improvement in both. Reflexes: 2/4 in all UE and LE Negative Geovani's bilaterally Babinski bilaterally Clonus bilaterally Calf is soft bilaterally, no tenderness with palpation Dorsalis pedis pulses 2+ bilaterally - Labs CBC & Chem 7: 02/01/22 12:37 02/01/22 12:37 Labs: Abnormal Lab Results - Last 24 Hours (Table) 01/31/22 01/31/22 01/31/22 Range/Units 12:57 16:13 20:58 WBC 57.4 H* (3.8-10.6) k/uL RBC 4.13 L (4.30-5.90) m/uL Hgb 10.7 L (13.0-17.5) gm/dL Hct 36.5 L (39.0-53.0) % MCHC 29.4 L (31.0-37.0) g/dL POC Glucose (mg/dL) 204 H 190 H (75-99) mg/dL 02/01/22 02/01/22 02/01/22 Range/Units 06:01 11:53 12:37 WBC 51.6 H* (3.8-10.6) k/uL RBC 3.98 L (4.30-5.90) m/uL Hgb 10.6 L (13.0-17.5) gm/dL Hct 34.5 L (39.0-53.0) % MCHC 30.8 L (31.0-37.0) g/dL POC Glucose (mg/dL) 103 H 120 H (75-99) mg/dL Assessment and Plan Assessment: Postoperative day #5 status post T1-T6 decompression laminectomy, stabilization at T3 with kyphoplasty Multiple medical comorbidities Plan: Pain control, continue with his current medications GI and DVT prophylaxis, continue current medications Wound care, we'll continue to monitor bandages Activity level, recommend use of BIOINFORMATICS RESEARCH TECHNICIAN brace when up working with physical therapy. Okay to use soft c-collar while stationary Recommend turning patient every 2 hours Recommend tapering down on the IV steroid Medical recommendations We'll continue to follow during inpatient stay
[2022-02-01 14:05] LABS: Band Neutrophils % 2 %; Eosinophils # (M) 10.84 k/uL (0-0.7); Lymphocytes # (M) 1.55 k/uL (1.0-4.8); Monocytes # (M) 2.06 k/uL (0-1.0); Myelocytes # (M) 0.52 k/uL (0); Myelocytes % 1 %; Neutrophils % (M) 71 %; Nucleated Red Blood Cells 0 /100 WBC (0-0); Total Cells Counted 200; Toxic Granulation Present
[2022-02-01 16:50] LABS: Glucose,Whole Blood 184 mg/dL (75-99)
[2022-02-01 20:16] LABS: Glucose,Whole Blood 205 mg/dL (75-99)
[2022-02-02 06:12] LABS: Glucose,Whole Blood 188 mg/dL (75-99)
[2022-02-02] MEDS: HYDROcodone/APAP 10-325MG 1 EACH TAB PO PRN ×4 (06:23→19:46)
[2022-02-02] MEDS: INSULIN ASPART (NovoLOG) 100 UNIT/ML VIAL SQ SCH ×4 (06:24→21:07)
[2022-02-02] MEDS: DEXAMETHASONE SOD PHOSPHATE 4 MG/ML 1 ML VIAL IVP SCH ×3 (06:25→17:07)
[2022-02-02] MEDS: IPRATROPIUM-ALBUTEROL 3 ML NEB INHALATION SCH ×3 (08:06→19:14)
[2022-02-02] MEDS: ENOXAPARIN 40 MG/0.4 ML SYRINGE SQ SCH (09:07)
[2022-02-02] MEDS: SENNOSIDES-DOCUSATE SODIUM 1 EACH TAB PO SCH ×2 (09:07→19:46)
[2022-02-02] MEDS: NAPROXEN 250 MG TAB PO SCH ×3 (09:07→21:06)
[2022-02-02] MEDS: PANTOPRAZOLE 40 MG/10 ML VIAL IVP SCH ×2 (09:08→19:47)
[2022-02-02 09:35] LABS: HGB 10.8 gm/dL (13.0-17.5); Hypochromasia Marked; MCH 26.9 pg (25.0-35.0); MCHC 30.9 g/dL (31.0-37.0); MCV 87.2 fL (80.0-100.0); Mean Platelet Volume 7.5; Platelet Count 376 k/uL (150-450); RBC 4.01 m/uL (4.30-5.90); RDW 15.3 % (11.5-15.5); WBC 48.1 k/uL (3.8-10.6)
[2022-02-02 09:38] LABS: ALT 12 U/L (4-49); AST 15 U/L (17-59); African American GFR (CKD) >90 (>60 ml/min/1.73 sqM); Albumin 2.5 g/dL (3.5-5.0); Alkaline Phosphatase 88 U/L (38-126); Anion Gap 7 mmol/L; Blood Urea Nitrogen 14 mg/dL (9-20); Calcium 7.9 mg/dL (8.4-10.2); Carbon Dioxide 29 mmol/L (22-30); Chloride 100 mmol/L (98-107); Glucose 144 mg/dL (74-99); Non-African American GFR(CKD) >90 (>60 ml/min/1.73 sqM); Potassium 4.1 mmol/L (3.5-5.1); Sodium 136 mmol/L (137-145); Total Bilirubin 0.5 mg/dL (0.2-1.3); Total Protein 4.8 g/dL (6.3-8.2)
[2022-02-02 11:13] LABS: Anisocytosis (M) Present; Band Neutrophils % 5 %; Basophils # (M) 0.48 k/uL (0-0.2); Eosinophils # (M) 2.41 k/uL (0-0.7); Lymphocytes # (M) 0.96 k/uL (1.0-4.8); Metamyelocytes # (M) 0.48 k/uL (0); Metamyelocytes % 1 %; Monocytes # (M) 0.96 k/uL (0-1.0); Myelocytes # (M) 0.96 k/uL (0); Myelocytes % 2 %; Neutrophils % (M) 83 %; Nucleated Red Blood Cells 0 /100 WBC (0-0); Poikilocytosis (M) Present; Total Cells Counted 200; Toxic Granulation Present
[2022-02-02 11:15] LABS: Glucose,Whole Blood 152 mg/dL (75-99)
--- NOTE | 2022-02-02 12:15 | P.PN ---
Subjective Progress Note Date: 02/02/22 Principal diagnosis: Metastatic lung cancer, bilateral lower extremity weakness, urinary retention, status post T1 to T6 decompression laminectomy Patient was evaluated today at bedside, he is resting in his hospital bed. Patient was actually observe working with occupational therapy. He continues to improve daily. He feels that the pain is controlled currently. He is utilizing the FLARE STITCHER brace. Objective - Vital Signs Vital signs: Vital Signs Temp 97.8 F 02/02/22 09:08 Pulse 78 02/02/22 09:08 Resp 16 02/02/22 09:08 BP 110/63 02/02/22 09:08 Pulse Ox 97 02/02/22 09:08 Intake & Output 02/01/22 02/02/22 02/02/22 18:59 06:59 18:59 Intake Total 240 1080 Output Total 900 1420 Balance -660 -1420 1080 Intake: Oral 240 1080 Output: Urine 900 1420 Other: Voiding Method Indwelling Catheter Indwelling Catheter - Exam Gen: AOx3, NAD VSS stable at this time Integument: Postoperative dressing is in good position and condition, there is no significant saturation noted Palpation: Mild tenderness to palpation to the midline and paraspinal region of the lower cervical and upper thoracic regionOM: Range of motion: Range of motion intact in all major muscle groups of bilateral upper extremities Range of motion is intact in all major muscle groups of bilateral lower extremities, weakness in both, worse on the right Sensory Exam: Senory exam to light touch is intact C5-T1 Senosry exam to light touch is intact L2-S1 Motor: 55 strength is appreciated in the bilateral upper extremities with shoulder elevation, shoulder abduction, wrist extension, wrist flexion, rewinder 45 strength appreciated in the left lower extremity with hip flexion, knee extension, knee flexion, 55 strength appreciated plantarflexion and dorsiflexion, EHL, FHL 35 strength appreciated in the right lower extremity with hip flexion, 4/5 strength appreciated with knee extension and knee flexion, plantar flexion, dorsiflexion, EHL, FHL Reflexes: 2/4 in all UE and LE Negative Geovani's bilaterally Babinski bilaterally Clonus bilaterally Calf is soft bilaterally, no tenderness with palpation Dorsalis pedis pulses 2+ bilaterally - Labs CBC & Chem 7: 02/02/22 08:52 02/02/22 08:52 Labs: Abnormal Lab Results - Last 24 Hours (Table) 02/01/22 02/01/22 02/01/22 Range/Units 12:37 12:37 16:48 WBC 51.6 H* (3.8-10.6) k/uL RBC 3.98 L (4.30-5.90) m/uL Hgb 10.6 L (13.0-17.5) gm/dL Hct 34.5 L (39.0-53.0) % MCHC 30.8 L (31.0-37.0) g/dL Neutrophils # (Manual) 37.60 H (1.3-7.7) k/uL Lymphocytes # (Manual) (1.0-4.8) k/uL Monocytes # (Manual) 2.06 H (0-1.0) k/uL Eosinophils # (Manual) 10.84 H (0-0.7) k/uL Basophils # (Manual) (0-0.2) k/uL Metamyelocytes # (Man) (0) k/uL Myelocytes # (Manual) 0.52 H (0) k/uL Sodium 133 L (137-145) mmol/L Creatinine 0.45 L (0.66-1.25) mg/dL Glucose 124 H (74-99) mg/dL POC Glucose (mg/dL) 184 H (75-99) mg/dL Calcium 7.7 L (8.4-10.2) mg/dL AST (17-59) U/L Total Protein 4.5 L (6.3-8.2) g/dL Albumin 2.3 L (3.5-5.0) g/dL 02/01/22 02/02/22 02/02/22 Range/Units 20:15 06:10 08:52 WBC 48.1 H (3.8-10.6) k/uL RBC 4.01 L (4.30-5.90) m/uL Hgb 10.8 L (13.0-17.5) gm/dL Hct 35.0 L (39.0-53.0) % MCHC 30.9 L (31.0-37.0) g/dL Neutrophils # (Manual) 42.30 H (1.3-7.7) k/uL Lymphocytes # (Manual) 0.96 L (1.0-4.8) k/uL Monocytes # (Manual) (0-1.0) k/uL Eosinophils # (Manual) 2.41 H (0-0.7) k/uL Basophils # (Manual) 0.48 H (0-0.2) k/uL Metamyelocytes # (Man) 0.48 H (0) k/uL Myelocytes # (Manual) 0.96 H (0) k/uL Sodium (137-145) mmol/L Creatinine (0.66-1.25) mg/dL Glucose (74-99) mg/dL POC Glucose (mg/dL) 205 H 188 H (75-99) mg/dL Calcium (8.4-10.2) mg/dL AST (17-59) U/L Total Protein (6.3-8.2) g/dL Albumin (3.5-5.0) g/dL 02/02/22 02/02/22 Range/Units 08:52 11:14 WBC (3.8-10.6) k/uL RBC (4.30-5.90) m/uL Hgb (13.0-17.5) gm/dL Hct (39.0-53.0) % MCHC (31.0-37.0) g/dL Neutrophils # (Manual) (1.3-7.7) k/uL Lymphocytes # (Manual) (1.0-4.8) k/uL Monocytes # (Manual) (0-1.0) k/uL Eosinophils # (Manual) (0-0.7) k/uL Basophils # (Manual) (0-0.2) k/uL Metamyelocytes # (Man) (0) k/uL Myelocytes # (Manual) (0) k/uL Sodium 136 L (137-145) mmol/L Creatinine 0.50 L (0.66-1.25) mg/dL Glucose 144 H (74-99) mg/dL POC Glucose (mg/dL) 152 H (75-99) mg/dL Calcium 7.9 L (8.4-10.2) mg/dL AST 15 L (17-59) U/L Total Protein 4.8 L (6.3-8.2) g/dL Albumin 2.5 L (3.5-5.0) g/dL Assessment and Plan Assessment: Postoperative day #6 status post T1-T6 decompression laminectomy, stabilization at T3 with kyphoplasty Multiple medical comorbidities Plan: Pain control, Oxycodone 5 mg/10 mg every 6 hours will be prescribed for outpatient GI and DVT prophylaxis, continue current medications Wound care, continue use of Opteform dressing, can be changed every 5 days Activity level, recommend use of FLARE STITCHER brace when up working with physical therapy. Okay to use soft c-collar while stationary Recommend turning patient every 2 hours IV steroids were tapered down to 2 mg every 6 hours, Medrol Dosepak at discharge Medical recommendations Plan for follow-up with Dr. Courtney in the outpatient setting in 10 days Time with Patient: Less than 30
--- NOTE | 2022-02-02 12:44 | P.PN ---
Subjective Progress Note Date: 02/01/22 Principal diagnosis: Cord compression improving daily Objective - Vital Signs Vital signs: Vital Signs Temp 98.8 F 02/01/22 04:00 Pulse 85 02/01/22 08:15 Resp 16 02/01/22 08:00 BP 103/65 02/01/22 08:00 Pulse Ox 90 L 02/01/22 08:01 Intake & Output 01/31/22 02/01/22 02/01/22 18:59 06:59 18:59 Intake Total 720 480 Output Total 1200 1200 Balance -480 -720 Intake: Oral 720 480 Output: Urine 1200 1200 Other: Voiding Method Indwelling Catheter Indwelling Catheter Indwelling Catheter - Exam - Constitutional General appearance: cooperative, mild distress, thin - EENT Eyes: anicteric sclerae, EOMI ENT: hearing grossly normal, normal oropharynx - Neck Neck: lymphadenopathy (rt neck 2.5cm hard, fixed anterior cervical LN, surrounding edema) - Respiratory Respiratory: bilateral: CTA, diminished - Cardiovascular Rhythm: regular Heart sounds: normal: S1, S2 Abnormal Heart Sounds: no systolic murmur, no diastolic murmur, no rub, no S3 Gallop, no S4 Gallop, no click, no other leg Peripheral Edema: bilateral: None - Gastrointestinal General gastrointestinal: bowel sounds, - Genitourinary lr draining clear yellow urine - Integumentary Integumentary: normal - Neurologic BLE no motor movement. Great toe proprioception intact, pt able to discriminate soft touch of the skin. Neurologic: CNII-XII intact (grossly) - Musculoskeletal Gen. musculoskeletal aches. Patient needed 2 person assist to lean forward to listen to his lungs - Psychiatric Psychiatric: A&O x's 3, appropriate affect, intact judgment & insight Able to move Bilateral LE and sensation improved, primarily midline less in distal lower extremities - Labs CBC & Chem 7: 02/02/22 08:52 02/02/22 08:52 Labs: Abnormal Lab Results - Last 24 Hours (Table) 01/31/22 01/31/22 01/31/22 Range/Units 11:40 12:57 12:57 WBC 57.4 H* (3.8-10.6) k/uL RBC 4.13 L (4.30-5.90) m/uL Hgb 10.7 L (13.0-17.5) gm/dL Hct 36.5 L (39.0-53.0) % MCHC 29.4 L (31.0-37.0) g/dL Sodium 136 L (137-145) mmol/L Creatinine 0.48 L (0.66-1.25) mg/dL Glucose 136 H (74-99) mg/dL POC Glucose (mg/dL) 130 H (75-99) mg/dL Calcium 8.0 L (8.4-10.2) mg/dL AST 15 L (17-59) U/L Total Protein 5.0 L (6.3-8.2) g/dL Albumin 2.5 L (3.5-5.0) g/dL 01/31/22 01/31/22 02/01/22 Range/Units 16:13 20:58 06:01 WBC (3.8-10.6) k/uL RBC (4.30-5.90) m/uL Hgb (13.0-17.5) gm/dL Hct (39.0-53.0) % MCHC (31.0-37.0) g/dL Sodium (137-145) mmol/L Creatinine (0.66-1.25) mg/dL Glucose (74-99) mg/dL POC Glucose (mg/dL) 204 H 190 H 103 H (75-99) mg/dL Calcium (8.4-10.2) mg/dL AST (17-59) U/L Total Protein (6.3-8.2) g/dL Albumin (3.5-5.0) g/dL Assessment and Plan Plan: Comments: CT CTL spine report reviewed Chest x-ray: report reviewed Assessment and Plan (1) Bilateral leg weakness secondary to Cord Compression Current Visit: Yes Status: Acute Priority: High Code(s): R29.898 - OTH SYMPTOMS AND SIGNS INVOLVING THE MUSCULOSKELETAL SYSTEM SNOMED Code(s): 6046540 Status Post Surgical Intervention with Dr. Courtney - T1-6 decompressive laminectomy with T3 stabilizing kyphoplasty (2) NSCLC metastatic to bone Current Visit: Yes Status: Acute Priority: High Code(s): C34.90 - MALIGNANT NEOPLASM OF UNSP PART OF UNSP BRONCHUS OR LUNG; C79.51 - SECONDARY MALIGNANT NEOPLASM OF BONE SNOMED Code(s): 666421541 (3) Leukocytosis Current Visit: Yes Status: Acute Priority: Medium Code(s): D72.829 - ELEVATED WHITE BLOOD CELL COUNT, UNSPECIFIED SNOMED Code(s): 880631016 Plan: Dexamethasone decrease to 4mg every 6 hours IV has been ordered for neurological symptoms. PPI prophylaxis of steroid-induced gastritis ordered. Surgery and radiaiton onc on taper? per Surgery await 2 weeks before radiation resume MRI of the brain for initial staging today Continue Dexamethasone, PPI, Pain control, bowel regimen Daily CBC PT/OT after cleared by surgery Poss IPR at discharge Dex to 4mg po bid at discharge then will continue tapering
--- NOTE | 2022-02-02 16:24 | P.PN ---
Progress Note - Text Progress Note Date: 02/02/22 Chief Complaint: Leg weakness This is a 61-year-old patient who follows with Dr. Elias Huizar. Patient 2 weeks ago was diagnosed with metastatic lung cancer with metastatic disease to the bones. Under care of Dr. Mercedes. Patient was supposed to follow for radiation treatment and further workup. For 6 weeks patient is having some trouble getting up because of back pain. Also prescription pain in the chest and back. Appetite is okay. Has lost about 35 pounds the last few weeks. Yesterday patient not able to walk at all not make urine. Presented to the ER. Salmon catheter was placed. In addition oncologist was consulted. On January 15 patient underwent a PET scan that showed abnormal thoracic adenopathy with diffuse osseous metastatic disease and spinal canal invasion lower thoracic spine level noted. Also involvement of bilateral ribs. Started him and entire spine. Lung biopsy has previously shown malignant non-small cell carcinoma cells having features of metastatic pulmonary adenocarcinoma. Per bronchoscopy by Dr. Topete on December 28. Patient denies any fever and chills. A bit tired and rundown. January 26: Patient received radiation treatment. Getting breathing treatments. Stated this afternoon she was seen by Dr. Courtney. MRI head showed spinal cord compression. He discussed with the family and will proceed for surgery. Compression between T2-T6. On the spinal cord January 27: Patient underwent surgery today. Formal report not available. Has a C- spine collar. Hemovac. at the bedside. Tired. January 15: Laying in bed. Cervical collar. Hemovac. Some movement of her lower extremity. Salmon catheter. Unable to control his bowel movement today. January 16: Awaiting MRI today. Survive to call her with Hemovac in place. Some pain in the neck. Able to move some his lower extremity. January 30: Patient had brain MRI. No obvious metastatic disease reported. Cervical spine MRI noted. Patient is awaiting his chest brace. Able to move his legs a bit. Underwent nasopharyngeal laryngoscopy by Dr. Petit yesterday evening. No vocal cord paresis or paralysis. Large amount of inflammation and laryngitis including a false vocal cord. Discussed with the patient and at the bedside. Pain control. Hemovac in place. Does not like hospital food. Daughter will be bringing in some food. January 31: Up in a chair. Has a chest brace. Oral intake fair. Salmon catheter. Patient not to get radiation treatment at least for [address] Bauman consulted. Movement of the legs better. 11/18. February 01: Reclining in bed. Hemovac has been discontinued. Cervical collar. Oral intake fair. Pain at the operative site. Not felt to be candidate for [facility] rehab. February 02: Reclining in bed. Able to lift his legs off the bed. 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 Currently no rehab place available. Dose of dexamethasone cutback. On IV cefazolin per orthopedic. Active Medications Acetaminophen (Acetaminophen Tab 325 Mg Tab) 650 mg PO Q6HR PRN PRN Reason: Mild Pain or Fever > 100.5 Hydrocodone Bitart/Acetaminophen (Hydrocodone/Apap 10-325mg 1 Each Tab) 1 each PO Q4HR PRN PRN Reason: pain Last Admin: 02/02/22 15:34 Dose: 1 each Documented by: Albuterol/Ipratropium (Ipratropium-Albuterol 3 Ml Neb) 3 ml INHALATION RT-TID [facility] Last Admin: 02/02/22 12:40 Dose: 3 ml Documented by: Cyclobenzaprine HCl (Cyclobenzaprine 5 Mg Tab) 5 mg PO TID PRN PRN Reason: Muscle Spasm Last Admin: 02/01/22 17:19 Dose: 5 mg Documented by: Dexamethasone Sodium Phosphate (Dexamethasone Sod Phosphate 4 Mg/Ml 1 Ml Vial) 2 mg IVP Q6HR [place] Enoxaparin Sodium (Enoxaparin 40 Mg/0.4 Ml Syringe) 40 mg SQ DAILY [facility] Last Admin: 02/02/22 09:07 Dose: 40 mg Documented by: Hydromorphone HCl (Hydromorphone 0.5 Mg/0.5 Ml Syringe) 0.5 mg IVP Q3HR PRN PRN Reason: Moderate Pain Last Admin: 02/01/22 14:43 Dose: 0.5 mg Documented by: Hydroxyzine HCl (Hydroxyzine Hcl 25 Mg Tab) 25 mg PO TID PRN PRN Reason: Anxiety Last Admin: 02/01/22 15:35 Dose: 25 mg Documented by: Sodium Chloride (Saline 0.9%) 1,000 mls @ 20 mls/hr IV .Q24H [facility] Last Admin: 02/01/22 09:48 Dose: 20 mls/hr Documented by: Cefazolin Sodium 2 gm/ Sodium (Chloride) 50 mls @ 100 mls/hr IVPB Q8HR [facility]; Protocol Last Admin: 02/02/22 15:35 Dose: 100 mls/hr Documented by: Insulin Aspart (Insulin Aspart (Novolog) 100 Unit/Ml Vial) 0 unit SQ ACHS [facility]; Protocol Last Admin: 02/02/22 11:34 Dose: 2 unit Documented by: Lorazepam (Lorazepam 2 Mg/Ml Inj) 1 mg IV ONCE PRN PRN Reason: for MRi Last Admin: 01/30/22 06:15 Dose: 1 mg Documented by: Magnesium Hydroxide (Magnesium Hydroxide 2,400 Mg/10 Ml Cup) 2,400 mg PO DAILY PRN PRN Reason: Constipation Naloxone HCl (Naloxone 0.4 Mg/Ml 1 Ml Vial) 0.2 mg IV Q2M PRN PRN Reason: Opioid Reversal Naproxen (Naproxen 250 Mg Tab) 250 mg PO TID [facility] Last Admin: 02/02/22 15:35 Dose: 250 mg Documented by: Ondansetron HCl (Ondansetron 4 Mg/2 Ml Vial) 4 mg IVP Q8HR PRN PRN Reason: Nausea And Vomiting Oxycodone HCl (Oxycodone Hcl 5 Mg Tab) 5 mg PO Q6HR PRN PRN Reason: Pain Scale 6 To 8 Last Admin: 01/31/22 08:49 Dose: 5 mg Documented by: Oxycodone HCl (Oxycodone Hcl 5 Mg Tab) 10 mg PO Q6HR PRN PRN Reason: Pain Scale 8 to 10 Last Admin: 02/02/22 09:06 Dose: 10 mg Documented by: Oxymetazoline HCl (Oxymetazoline 0.05% Nasl [place] 1 [place] Bottle) 2 spray NASAL BID PRN PRN Reason: Allergy Symptoms Last Admin: 01/29/22 17:22 Dose: 2 spray Documented by: Pantoprazole Sodium (Pantoprazole 40 Mg/10 Ml Vial) 40 mg IVP BID [facility] Last Admin: 02/02/22 09:08 Dose: 40 mg Documented by: Senna/Docusate Sodium (Sennosides-Docusate Sodium 1 Each Tab) 2 each PO BID [facility] Last Admin: 02/02/22 09:07 Dose: 2 each Documented by: Past medical history to include: Recently diagnosed metastatic lung cancer with metastases to several bones. Possibly adenocarcinoma non-small cell type. COPD. Recent guarded and uses steroid injections. Anxiety. Social history: Patient smoked for about 16 years stopped about 23 years ago. 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 . Was drinking about 6-10 beers a night for many years up to 4 months ago. Family history: Lung cancer Physical examination: VITAL SIGNS: 98, 91, 18, 124/66, 96% room air GENERAL:, Reclining in bed, comfortable EYES: Pupils equal. Conjunctiva normal. HEENT: C-collar with Hemovac NECK: JVD not raised; masses not palpable. HEART: First and second heart sounds are normal; no edema. LUNGS:[ Respiratory rate normal; decreased breath sounds. ABDOMEN: Soft, nontender, liver spleen not palpable, no masses palpable. Salmon catheter PSYCH: Alert and oriented x3; mood and affect normal MUSCULOSKELETAL:No Clubbing/cyanosis;muscles-grossly intact NEUROLOGICAL: [Cranial nerves grossly intact; no facial asymmetry, able to lift his legs off the bed. Power 4/5 INVESTIGATIONS, reviewed in the clinical context: February 02: White count 40.1 hemoglobin 10.8 potassium 4.1 creatinine 0.5 January 31: White count 57.4 hemoglobin 10.7 potassium 4.3 creatinine 0.48 January 30: White count 49.1 hemoglobin 10.9 potassium 5 BUN 21 creatinine 0.49 Brain MRi: No metastatic disease 2-D echocardiogram: EF 60-65%. Moderate concentric LVH. January 28: White count 35.3 hemoglobin 10.1 platelets 342 potassium 4.6 BUN 22 creatinine 0.62 January 27: White count 41.1 hemoglobin 11.7 potassium 3.8 creatinine 0.65 January 26: White count 35.1 hemoglobin 11.7 pro-calcitonin 0.29 White count 51 hemoglobin 12.1 platelets 376 potassium 3.7 creatinine 0.77 TSH 3.2 Admission labs: White count [age]-year-old woman 13.2 platelets 390 sodium 131 potassium 3.8 creatinine 0.8 Albumin 3.2 UA negative for nitrite and leukoesterase COVID 19/influenza type A/influenza type B: Not detected UA noted Computed tomography scan; thoracic lumbar spine with contrast: Extensive osteomyelitis changes in the spine. EKG tracing personally reviewed by me-no sinus rhythm. Nonspecific T-wave changes Chest x-ray film personally reviewed by me-large tumor involvement of the lung space especially in the right Assessment and plan: -Acute paraparesis from metastatic disease to the thoracolumbar spine with compression of spinal cord.: Slow to respond Radiation treatment initially given-currently hold radiation treatment for at least 2 weeks.. decompression surgery to include T2-6 decompressive laminectomy and T3 kyphoplasty. by Dr. Courtney - January 27. PTOT. -Acute urinary retention from metastatic disease to the spine. . PTOT. Salmon catheter - metastatic adenocarcinoma of the lung/non-small cell. Oncologist: Dr. Mercedes. -Normocytic anemia secondary to malignancy Follow H&H -COPD in a previous smoker DuoNeb 3 times a day -Hyponatremia, likely hypoosmolar Increase forward intake -Bone pain. From metastatic disease Steroids. Naproxen. -Severe leukocytosis likely leukemoid reaction from underlying malignancy and steroids -Acute medical debility from metastatic disease PTOT. Gradually improving C-collar. Salmon catheter. Scale back Decadron 2 mg every 8.. 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
[2022-02-02 16:51] LABS: Glucose,Whole Blood 252 mg/dL (75-99)
[2022-02-02] MEDS: hydrOXYzine HCL 25 MG TAB PO PRN (17:08)
[2022-02-02 20:16] LABS: Glucose,Whole Blood 214 mg/dL (75-99)
[2022-02-03] MEDS: DEXAMETHASONE SOD PHOSPHATE 4 MG/ML 1 ML VIAL IVP SCH ×4 (00:54→17:58)
[2022-02-03] MEDS: SODIUM CHLORIDE 0.9% 1,000 ML IV SCH ×2 (02:22→23:45)
[2022-02-03] MEDS: HYDROcodone/APAP 10-325MG 1 EACH TAB PO PRN ×3 (04:35→16:56)
[2022-02-03 06:22] LABS: Glucose,Whole Blood 154 mg/dL (75-99)
[2022-02-03] MEDS: INSULIN ASPART (NovoLOG) 100 UNIT/ML VIAL SQ SCH ×4 (06:41→21:13)
[2022-02-03] MEDS: IPRATROPIUM-ALBUTEROL 3 ML NEB INHALATION SCH ×3 (08:17→19:48)
[2022-02-03] MEDS: ENOXAPARIN 40 MG/0.4 ML SYRINGE SQ SCH (09:33)
[2022-02-03] MEDS: SENNOSIDES-DOCUSATE SODIUM 1 EACH TAB PO SCH ×2 (09:33→20:36)
[2022-02-03] MEDS: NAPROXEN 250 MG TAB PO SCH ×3 (09:33→20:37)
[2022-02-03] MEDS: PANTOPRAZOLE 40 MG/10 ML VIAL IVP SCH ×2 (09:34→20:37)
--- NOTE | 2022-02-03 11:47 | P.PN ---
Subjective Progress Note Date: 02/02/22 Principal diagnosis: Cord compression Plan for discharge today and tapering dose dexamethasone with PPI ordered Objective - Vital Signs Vital signs: Vital Signs Temp 98.0 F 02/02/22 12:42 Pulse 90 02/02/22 12:53 Resp 18 02/02/22 12:42 BP 124/66 02/02/22 12:42 Pulse Ox 96 02/02/22 12:42 Intake & Output 02/01/22 02/02/22 02/02/22 18:59 06:59 18:59 Intake Total 240 1080 Output Total 900 1420 1525 Balance -660 -1420 -735 Intake: Oral 240 1080 Output: Urine 900 1420 1525 Other: Voiding Method Indwelling Catheter Indwelling Catheter Indwelling Catheter - Exam - Constitutional General appearance: cooperative, mild distress, thin - EENT Eyes: anicteric sclerae, EOMI ENT: hearing grossly normal, normal oropharynx - Neck Neck: lymphadenopathy (rt neck 2.5cm hard, fixed anterior cervical LN, surrounding edema) - Respiratory Respiratory: bilateral: CTA, diminished - Cardiovascular Rhythm: regular Heart sounds: normal: S1, S2 Abnormal Heart Sounds: no systolic murmur, no diastolic murmur, no rub, no S3 Gallop, no S4 Gallop, no click, no other leg Peripheral Edema: bilateral: None - Gastrointestinal General gastrointestinal: bowel sounds, - Genitourinary lr draining clear yellow urine - Integumentary Integumentary: normal - Neurologic BLE no motor movement. Great toe proprioception intact, pt able to discriminate soft touch of the skin. Neurologic: CNII-XII intact (grossly) - Musculoskeletal Gen. musculoskeletal aches. Patient needed 2 person assist to lean forward to listen to his lungs - Psychiatric Psychiatric: A&O x's 3, appropriate affect, intact judgment & insight Able to move Bilateral LE and sensation improved, primarily midline less in distal lower extremities - Labs CBC & Chem 7: 02/02/22 08:52 02/02/22 08:52 Labs: Abnormal Lab Results - Last 24 Hours (Table) 02/01/22 02/01/22 02/01/22 Range/Units 12:37 16:48 20:15 WBC (3.8-10.6) k/uL RBC (4.30-5.90) m/uL Hgb (13.0-17.5) gm/dL Hct (39.0-53.0) % MCHC (31.0-37.0) g/dL Neutrophils # (Manual) 37.60 H (1.3-7.7) k/uL Lymphocytes # (Manual) (1.0-4.8) k/uL Monocytes # (Manual) 2.06 H (0-1.0) k/uL Eosinophils # (Manual) 10.84 H (0-0.7) k/uL Basophils # (Manual) (0-0.2) k/uL Metamyelocytes # (Man) (0) k/uL Myelocytes # (Manual) 0.52 H (0) k/uL Sodium (137-145) mmol/L Creatinine (0.66-1.25) mg/dL Glucose (74-99) mg/dL POC Glucose (mg/dL) 184 H 205 H (75-99) mg/dL Calcium (8.4-10.2) mg/dL AST (17-59) U/L Total Protein (6.3-8.2) g/dL Albumin (3.5-5.0) g/dL 02/02/22 02/02/22 02/02/22 Range/Units 06:10 08:52 08:52 WBC 48.1 H (3.8-10.6) k/uL RBC 4.01 L (4.30-5.90) m/uL Hgb 10.8 L (13.0-17.5) gm/dL Hct 35.0 L (39.0-53.0) % MCHC 30.9 L (31.0-37.0) g/dL Neutrophils # (Manual) 42.30 H (1.3-7.7) k/uL Lymphocytes # (Manual) 0.96 L (1.0-4.8) k/uL Monocytes # (Manual) (0-1.0) k/uL Eosinophils # (Manual) 2.41 H (0-0.7) k/uL Basophils # (Manual) 0.48 H (0-0.2) k/uL Metamyelocytes # (Man) 0.48 H (0) k/uL Myelocytes # (Manual) 0.96 H (0) k/uL Sodium 136 L (137-145) mmol/L Creatinine 0.50 L (0.66-1.25) mg/dL Glucose 144 H (74-99) mg/dL POC Glucose (mg/dL) 188 H (75-99) mg/dL Calcium 7.9 L (8.4-10.2) mg/dL AST 15 L (17-59) U/L Total Protein 4.8 L (6.3-8.2) g/dL Albumin 2.5 L (3.5-5.0) g/dL 02/02/22 Range/Units 11:14 WBC (3.8-10.6) k/uL RBC (4.30-5.90) m/uL Hgb (13.0-17.5) gm/dL Hct (39.0-53.0) % MCHC (31.0-37.0) g/dL Neutrophils # (Manual) (1.3-7.7) k/uL Lymphocytes # (Manual) (1.0-4.8) k/uL Monocytes # (Manual) (0-1.0) k/uL Eosinophils # (Manual) (0-0.7) k/uL Basophils # (Manual) (0-0.2) k/uL Metamyelocytes # (Man) (0) k/uL Myelocytes # (Manual) (0) k/uL Sodium (137-145) mmol/L Creatinine (0.66-1.25) mg/dL Glucose (74-99) mg/dL POC Glucose (mg/dL) 152 H (75-99) mg/dL Calcium (8.4-10.2) mg/dL AST (17-59) U/L Total Protein (6.3-8.2) g/dL Albumin (3.5-5.0) g/dL Assessment and Plan Plan: Comments: CT CTL spine report reviewed Chest x-ray: report reviewed Assessment and Plan (1) Bilateral leg weakness secondary to Cord Compression Current Visit: Yes Status: Acute Priority: High Code(s): R29.898 - [facility] SYMPTOMS AND SIGNS INVOLVING THE MUSCULOSKELETAL SYSTEM SNOMED Code(s): 2859012 Status Post Surgical Intervention with Dr. Courtney - T1-6 decompressive laminectomy with T3 stabilizing kyphoplasty (2) NSCLC metastatic to bone Current Visit: Yes Status: Acute Priority: High Code(s): C34.90 - MALIGNANT NEOPLASM OF UNSP PART OF UNSP BRONCHUS OR LUNG; C79.51 - SECONDARY MALIGNANT NEOPLASM OF BONE SNOMED Code(s): 919020381 (3) Leukocytosis Current Visit: Yes Status: Acute Priority: Medium Code(s): D72.829 - ELEVATED WHITE BLOOD CELL COUNT, UNSPECIFIED SNOMED Code(s): 773040946 Plan: Dexamethasone decrease to 4mg every 6 hours IV has been ordered for neurological symptoms. PPI prophylaxis of steroid-induced gastritis ordered. Surgery and radiaiton onc on taper? per Surgery await 2 weeks before radiation resume MRI of the brain for initial staging today Continue Dexamethasone, PPI, Pain control, bowel regimen Daily CBC PT/OT after cleared by surgery Poss IPR at discharge Dex to 4mg po bid at discharge then will continue tapering
[2022-02-03 11:58] LABS: Glucose,Whole Blood 227 mg/dL (75-99)
[2022-02-03] MEDS ORDERED: LACTULOSE 20 GM/30 ML CUP PO ONE (15:00)
--- NOTE | 2022-02-03 15:01 | P.PN ---
Progress Note - Text Progress Note Date: 02/03/22 Chief Complaint: Leg weakness This is a 61-year-old patient who follows with Dr. Elias Huizar. Patient 2 weeks ago was diagnosed with metastatic lung cancer with metastatic disease to the bones. Under care of Dr. Mercedes. Patient was supposed to follow for radiation treatment and further workup. For 6 weeks patient is having some trouble getting up because of back pain. Also prescription pain in the chest and back. Appetite is okay. Has lost about 35 pounds the last few weeks. Yesterday patient not able to walk at all not make urine. Presented to the ER. Salmon catheter was placed. In addition oncologist was consulted. On January 15 patient underwent a PET scan that showed abnormal thoracic adenopathy with diffuse osseous metastatic disease and spinal canal invasion lower thoracic spine level noted. Also involvement of bilateral ribs. Started him and entire spine. Lung biopsy has previously shown malignant non-small cell carcinoma cells having features of metastatic pulmonary adenocarcinoma. Per bronchoscopy by Dr. Topete on December 28. Patient denies any fever and chills. A bit tired and rundown. January 26: Patient received radiation treatment. Getting breathing treatments. Stated this afternoon she was seen by Dr. Courtney. MRI head showed spinal cord compression. He discussed with the family and will proceed for surgery. Compression between T2-T6. On the spinal cord January 27: Patient underwent surgery today. Formal report not available. Has a C- spine collar. Hemovac. at the bedside. Tired. January 15: Laying in bed. Cervical collar. Hemovac. Some movement of her lower extremity. Salmon catheter. Unable to control his bowel movement today. January 16: Awaiting MRI today. Survive to call her with Hemovac in place. Some pain in the neck. Able to move some his lower extremity. January 30: Patient had brain MRI. No obvious metastatic disease reported. Cervical spine MRI noted. Patient is awaiting his chest brace. Able to move his legs a bit. Underwent nasopharyngeal laryngoscopy by Dr. Petit yesterday evening. No vocal cord paresis or paralysis. Large amount of inflammation and laryngitis including a false vocal cord. Discussed with the patient and at the bedside. Pain control. Hemovac in place. Does not like hospital food. Daughter will be bringing in some food. January 31: Up in a chair. Has a chest brace. Oral intake fair. Salmon catheter. Patient not to get radiation treatment at least for [address] Bauman consulted. Movement of the legs better. 11/18. February 01: Reclining in bed. Hemovac has been discontinued. Cervical collar. Oral intake fair. Pain at the operative site. Not felt to be candidate for [facility] rehab. February 02: Reclining in bed. Able to lift his legs off the bed. 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 Currently no rehab place available. Dose of dexamethasone cutback. On IV cefazolin per orthopedic. February 03: Admitting his brace. Sitting on edge of the bed. Oral intake good. No BM for 3 days. We'll give a laxative. Other medications to continue. Active Medications Acetaminophen (Acetaminophen Tab 325 Mg Tab) 650 mg PO Q6HR PRN PRN Reason: Mild Pain or Fever > 100.5 Hydrocodone Bitart/Acetaminophen (Hydrocodone/Apap 10-325mg 1 Each Tab) 1 each PO Q4HR PRN PRN Reason: pain Last Admin: 02/03/22 09:33 Dose: 1 each Documented by: Albuterol/Ipratropium (Ipratropium-Albuterol 3 Ml Neb) 3 ml INHALATION RT-TID [facility] Last Admin: 02/03/22 11:58 Dose: 3 ml Documented by: Cyclobenzaprine HCl (Cyclobenzaprine 5 Mg Tab) 5 mg PO TID PRN PRN Reason: Muscle Spasm Last Admin: 02/01/22 17:19 Dose: 5 mg Documented by: Dexamethasone Sodium Phosphate (Dexamethasone Sod Phosphate 4 Mg/Ml 1 Ml Vial) 2 mg IVP Q6HR [facility] Last Admin: 02/03/22 12:29 Dose: 2 mg Documented by: Enoxaparin Sodium (Enoxaparin 40 Mg/0.4 Ml Syringe) 40 mg SQ DAILY [facility] Last Admin: 02/03/22 09:33 Dose: 40 mg Documented by: Hydromorphone HCl (Hydromorphone 0.5 Mg/0.5 Ml Syringe) 0.5 mg IVP Q3HR PRN PRN Reason: Moderate Pain Last Admin: 02/01/22 14:43 Dose: 0.5 mg Documented by: Hydroxyzine HCl (Hydroxyzine Hcl 25 Mg Tab) 25 mg PO TID PRN PRN Reason: Anxiety Last Admin: 02/02/22 17:08 Dose: 25 mg Documented by: Sodium Chloride (Saline 0.9%) 1,000 mls @ 20 mls/hr IV .Q24H [facility] Last Admin: 02/03/22 02:22 Dose: Not Given Documented by: Cefazolin Sodium 2 gm/ Sodium (Chloride) 50 mls @ 100 mls/hr IVPB Q8HR [facility]; Protocol Last Admin: 02/03/22 09:33 Dose: 100 mls/hr Documented by: Insulin Aspart (Insulin Aspart (Novolog) 100 Unit/Ml Vial) 0 unit SQ [facility]; Protocol Last Admin: 02/03/22 12:30 Dose: 7 unit Documented by: Lorazepam (Lorazepam 2 Mg/Ml Inj) 1 mg IV ONCE PRN PRN Reason: for MRi Last Admin: 01/30/22 06:15 Dose: 1 mg Documented by: Magnesium Hydroxide (Magnesium Hydroxide 2,400 Mg/10 Ml Cup) 2,400 mg PO DAILY PRN PRN Reason: Constipation Naloxone HCl (Naloxone 0.4 Mg/Ml 1 Ml Vial) 0.2 mg IV Q2M PRN PRN Reason: Opioid Reversal Naproxen (Naproxen 250 Mg Tab) 250 mg PO TID [facility] Last Admin: 02/03/22 09:33 Dose: 250 mg Documented by: Ondansetron HCl (Ondansetron 4 Mg/2 Ml Vial) 4 mg IVP Q8HR PRN PRN Reason: Nausea And Vomiting Oxycodone HCl (Oxycodone Hcl 5 Mg Tab) 5 mg PO Q6HR PRN PRN Reason: Pain Scale 6 To 8 Last Admin: 01/31/22 08:49 Dose: 5 mg Documented by: Oxycodone HCl (Oxycodone Hcl 5 Mg Tab) 10 mg PO Q6HR PRN PRN Reason: Pain Scale 8 to 10 Last Admin: 02/03/22 12:29 Dose: 10 mg Documented by: Oxymetazoline HCl (Oxymetazoline 0.05% Nasl [place] 1 [place] Bottle) 2 spray NASAL BID PRN PRN Reason: Allergy Symptoms Last Admin: 01/29/22 17:22 Dose: 2 spray Documented by: Pantoprazole Sodium (Pantoprazole 40 Mg/10 Ml Vial) 40 mg IVP BID [facility] Last Admin: 02/03/22 09:34 Dose: 40 mg Documented by: Senna/Docusate Sodium (Sennosides-Docusate Sodium 1 Each Tab) 2 each PO BID [facility] Last Admin: 02/03/22 09:33 Dose: 2 each Documented by: Past medical history to include: Recently diagnosed metastatic lung cancer with metastases to several bones. Possibly adenocarcinoma non-small cell type. COPD. Recent guarded and uses steroid injections. Anxiety. Social history: Patient smoked for about 16 years stopped about 23 years ago. 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 . Was drinking about 6-10 beers a night for many years up to 4 months ago. Family history: Lung cancer Physical examination: VITAL SIGNS: 97.8, 74, 18, 124/77, 97% room air GENERAL:, Sitting at the edge of the bed, comfortable EYES: Pupils equal. Conjunctiva normal. HEENT: C-collar with Hemovac NECK: JVD not raised; masses not palpable. HEART: First and second heart sounds are normal; no edema. LUNGS:[ Respiratory rate normal; decreased breath sounds. ABDOMEN: Soft, nontender, liver spleen not palpable, no masses palpable. Salmon catheter PSYCH: Alert and oriented x3; mood and affect normal MUSCULOSKELETAL:No Clubbing/cyanosis;muscles-grossly intact NEUROLOGICAL: [Cranial nerves grossly intact; no facial asymmetry, able to lift his legs off the bed. Power 4/5 INVESTIGATIONS, reviewed in the clinical context: February 02: White count 40.1 hemoglobin 10.8 potassium 4.1 creatinine 0.5 January 31: White count 57.4 hemoglobin 10.7 potassium 4.3 creatinine 0.48 January 30: White count 49.1 hemoglobin 10.9 potassium 5 BUN 21 creatinine 0.49 Brain MRi: No metastatic disease 2-D echocardiogram: EF 60-65%. Moderate concentric LVH. January 28: White count 35.3 hemoglobin 10.1 platelets 342 potassium 4.6 BUN 22 creatinine 0.62 January 14: White count 41.1 hemoglobin 11.7 potassium 3.8 creatinine 0.65 January 26: White count 35.1 hemoglobin 11.7 pro-calcitonin 0.29 White count 51 hemoglobin 12.1 platelets 376 potassium 3.7 creatinine 0.77 TSH 3.2 Admission labs: White count [age]-year-old woman 13.2 platelets 390 sodium 131 potassium 3.8 creatinine 0.8 Albumin 3.2 UA negative for nitrite and leukoesterase COVID 19/influenza type A/influenza type B: Not detected UA noted Computed tomography scan; thoracic lumbar spine with contrast: Extensive osteomyelitis changes in the spine. EKG tracing personally reviewed by me-no sinus rhythm. Nonspecific T-wave changes Chest x-ray film personally reviewed by me-large tumor involvement of the lung space especially in the right Assessment and plan: -Acute paraparesis from metastatic disease to the thoracolumbar spine with compression of spinal cord.: Slow to respond Radiation treatment initially given-currently hold radiation treatment for at least 2 weeks.. decompression surgery to include T2-6 decompressive laminectomy and T3 kyphoplasty. by Dr. Courtney - January 27. PTOT. -Acute urinary retention from metastatic disease to the spine. . PTOT. Salmon catheter - metastatic adenocarcinoma of the lung/non-small cell. Oncologist: Dr. Mercedes. -Normocytic anemia secondary to malignancy Follow H&H -COPD in a previous smoker DuoNeb 3 times a day -Hyponatremia, likely hypoosmolar Increase forward intake -Bone pain. From metastatic disease Steroids. Naproxen. -Severe leukocytosis likely leukemoid reaction from underlying malignancy and steroids -Acute medical debility from metastatic disease PTOT. Gradually improving C-collar. Salmon catheter. Decadron 2 mg every 8.. Lactulose 20 g. Pending placement to rehab
[2022-02-03 16:47] LABS: Glucose,Whole Blood 169 mg/dL (75-99)
[2022-02-03 21:08] LABS: Glucose,Whole Blood 156 mg/dL (75-99)
[2022-02-04] MEDS: DEXAMETHASONE SOD PHOSPHATE 4 MG/ML 1 ML VIAL IVP SCH ×5 (00:49→22:59)
[2022-02-04 07:02] LABS: Glucose,Whole Blood 158 mg/dL (75-99)
[2022-02-04] MEDS: INSULIN ASPART (NovoLOG) 100 UNIT/ML VIAL SQ SCH ×4 (07:03→20:27)
[2022-02-04] MEDS: HYDROcodone/APAP 10-325MG 1 EACH TAB PO PRN ×2 (07:07→13:40)
[2022-02-04] MEDS: IPRATROPIUM-ALBUTEROL 3 ML NEB INHALATION SCH ×3 (08:33→20:32)
[2022-02-04] MEDS: NAPROXEN 250 MG TAB PO SCH ×3 (08:59→20:26)
[2022-02-04] MEDS: SENNOSIDES-DOCUSATE SODIUM 1 EACH TAB PO SCH ×2 (08:59→20:27)
[2022-02-04] MEDS: PANTOPRAZOLE 40 MG/10 ML VIAL IVP SCH ×2 (09:00→20:27)
[2022-02-04] MEDS: ENOXAPARIN 40 MG/0.4 ML SYRINGE SQ SCH (09:01)
[2022-02-04 11:55] LABS: Glucose,Whole Blood 126 mg/dL (75-99)
--- NOTE | 2022-02-04 13:12 | P.PN ---
Progress Note - Text Progress Note Date: 02/04/22 Chief Complaint: Leg weakness This is a 61-year-old patient who follows with Dr. Elias Huizar. Patient 2 weeks ago was diagnosed with metastatic lung cancer with metastatic disease to the bones. Under care of Dr. Mercedes. Patient was supposed to follow for radiation treatment and further workup. For 6 weeks patient is having some trouble getting up because of back pain. Also prescription pain in the chest and back. Appetite is okay. Has lost about 35 pounds the last few weeks. Yesterday patient not able to walk at all not make urine. Presented to the ER. Salmon catheter was placed. In addition oncologist was consulted. On January 15 patient underwent a PET scan that showed abnormal thoracic adenopathy with diffuse osseous metastatic disease and spinal canal invasion lower thoracic spine level noted. Also involvement of bilateral ribs. Started him and entire spine. Lung biopsy has previously shown malignant non-small cell carcinoma cells having features of metastatic pulmonary adenocarcinoma. Per bronchoscopy by Dr. Topete on December 28. Patient denies any fever and chills. A bit tired and rundown. January 26: Patient received radiation treatment. Getting breathing treatments. Stated this afternoon she was seen by Dr. Courtney. MRI head showed spinal cord compression. He discussed with the family and will proceed for surgery. Compression between T2-T6. On the spinal cord January 27: Patient underwent surgery today. Formal report not available. Has a C- spine collar. Hemovac. at the bedside. Tired. January 15: Laying in bed. Cervical collar. Hemovac. Some movement of her lower extremity. Salmon catheter. Unable to control his bowel movement today. January 16: Awaiting MRI today. Survive to call her with Hemovac in place. Some pain in the neck. Able to move some his lower extremity. January 30: Patient had brain MRI. No obvious metastatic disease reported. Cervical spine MRI noted. Patient is awaiting his chest brace. Able to move his legs a bit. Underwent nasopharyngeal laryngoscopy by Dr. Petit yesterday evening. No vocal cord paresis or paralysis. Large amount of inflammation and laryngitis including a false vocal cord. Discussed with the patient and at the bedside. Pain control. Hemovac in place. Does not like hospital food. Daughter will be bringing in some food. January 31: Up in a chair. Has a chest brace. Oral intake fair. Salmon catheter. Patient not to get radiation treatment at least for [address] Bauman consulted. Movement of the legs better. 11/18. February 01: Reclining in bed. Hemovac has been discontinued. Cervical collar. Oral intake fair. Pain at the operative site. Not felt to be candidate for [facility] rehab. February 02: Reclining in bed. Able to lift his legs off the bed. 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 Currently no rehab place available. Dose of dexamethasone cutback. On IV cefazolin per orthopedic. February 03: Admitting his brace. Sitting on edge of the bed. Oral intake good. No BM for 3 days. We'll give a laxative. Other medications to continue. February 04: No BM today again. Given a soapsuds enema. No response. Abdominal x- rays ordered. No nausea or vomiting. No abdominal pain. Active Medications Acetaminophen (Acetaminophen Tab 325 Mg Tab) 650 mg PO Q6HR PRN PRN Reason: Mild Pain or Fever > 100.5 Hydrocodone Bitart/Acetaminophen (Hydrocodone/Apap 10-325mg 1 Each Tab) 1 each PO Q4HR PRN PRN Reason: pain Last Admin: 02/04/22 07:07 Dose: 1 each Documented by: Albuterol/Ipratropium (Ipratropium-Albuterol 3 Ml Neb) 3 ml INHALATION RT-TID [facility] Last Admin: 02/04/22 11:57 Dose: Not Given Documented by: Cyclobenzaprine HCl (Cyclobenzaprine 5 Mg Tab) 5 mg PO TID PRN PRN Reason: Muscle Spasm Last Admin: 02/01/22 17:19 Dose: 5 mg Documented by: Dexamethasone Sodium Phosphate (Dexamethasone Sod Phosphate 4 Mg/Ml 1 Ml Vial) 2 mg IVP Q6HR [facility] Last Admin: 02/04/22 12:25 Dose: 2 mg Documented by: Enoxaparin Sodium (Enoxaparin 40 Mg/0.4 Ml Syringe) 40 mg SQ DAILY [facility] Last Admin: 02/04/22 09:01 Dose: 40 mg Documented by: Hydromorphone HCl (Hydromorphone 0.5 Mg/0.5 Ml Syringe) 0.5 mg IVP Q3HR PRN PRN Reason: Moderate Pain Last Admin: 02/01/22 14:43 Dose: 0.5 mg Documented by: Hydroxyzine HCl (Hydroxyzine Hcl 25 Mg Tab) 25 mg PO TID PRN PRN Reason: Anxiety Last Admin: 02/02/22 17:08 Dose: 25 mg Documented by: Sodium Chloride (Saline 0.9%) 1,000 mls @ 20 mls/hr IV .Q24H [facility] Last Admin: 02/03/22 23:45 Dose: Not Given Documented by: Cefazolin Sodium 2 gm/ Sodium (Chloride) 50 mls @ 100 mls/hr IVPB Q8HR [facility]; Protocol Last Admin: 02/04/22 09:00 Dose: 100 mls/hr Documented by: Insulin Aspart (Insulin Aspart (Novolog) 100 Unit/Ml Vial) 0 unit SQ ACHS [facility]; Protocol Last Admin: 02/04/22 13:02 Dose: Not Given Documented by: Lorazepam (Lorazepam 2 Mg/Ml Inj) 1 mg IV ONCE PRN PRN Reason: for MRi Last Admin: 01/30/22 06:15 Dose: 1 mg Documented by: Magnesium Hydroxide (Magnesium Hydroxide 2,400 Mg/10 Ml Cup) 2,400 mg PO DAILY PRN PRN Reason: Constipation Last Admin: 02/04/22 08:59 Dose: 2,400 mg Documented by: Naloxone HCl (Naloxone 0.4 Mg/Ml 1 Ml Vial) 0.2 mg IV Q2M PRN PRN Reason: Opioid Reversal Naproxen (Naproxen 250 Mg Tab) 250 mg PO TID [facility] Last Admin: 02/04/22 08:59 Dose: 250 mg Documented by: Ondansetron HCl (Ondansetron 4 Mg/2 Ml Vial) 4 mg IVP Q8HR PRN PRN Reason: Nausea And Vomiting Oxycodone HCl (Oxycodone Hcl 5 Mg Tab) 5 mg PO Q6HR PRN PRN Reason: Pain Scale 6 To 8 Last Admin: 02/04/22 08:59 Dose: 5 mg Documented by: Oxycodone HCl (Oxycodone Hcl 5 Mg Tab) 10 mg PO Q6HR PRN PRN Reason: Pain Scale 8 to 10 Last Admin: 02/03/22 22:33 Dose: 10 mg Documented by: Oxymetazoline HCl (Oxymetazoline 0.05% Nasl [place] 1 [place] Bottle) 2 spray NASAL BID PRN PRN Reason: Allergy Symptoms Last Admin: 01/29/22 17:22 Dose: 2 spray Documented by: Pantoprazole Sodium (Pantoprazole 40 Mg/10 Ml Vial) 40 mg IVP BID [facility] Last Admin: 02/04/22 09:00 Dose: 40 mg Documented by: Senna/Docusate Sodium (Sennosides-Docusate Sodium 1 Each Tab) 2 each PO BID [facility] Last Admin: 02/04/22 08:59 Dose: 2 each Documented by: Past medical history to include: Recently diagnosed metastatic lung cancer with metastases to several bones. Possibly adenocarcinoma non-small cell type. COPD. Recent guarded and uses steroid injections. Anxiety. Social history: Patient smoked for about 16 years stopped about 23 years ago. 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 . Was drinking about 6-10 beers a night for many years up to 4 months ago. Family history: Lung cancer Physical examination: VITAL SIGNS: 98.1, 77, 18, 1 37 x 74, 96% room air GENERAL:, Reclining and bed, comfortable EYES: Pupils equal. Conjunctiva normal. HEENT: C-collar with Hemovac NECK: JVD not raised; masses not palpable. HEART: First and second heart sounds are normal; no edema. LUNGS:[ Respiratory rate normal; decreased breath sounds. ABDOMEN: Soft, nontender, liver spleen not palpable, no masses palpable. Salmon catheter PSYCH: Alert and oriented x3; mood and affect normal MUSCULOSKELETAL:No Clubbing/cyanosis;muscles-grossly intact NEUROLOGICAL: [Cranial nerves grossly intact; no facial asymmetry, able to lift his legs off the bed. Power 4/5 INVESTIGATIONS, reviewed in the clinical context: February 02: White count 40.1 hemoglobin 10.8 potassium 4.1 creatinine 0.5 Brain MRi: No metastatic disease 2-D echocardiogram: EF 60-65%. Moderate concentric LVH. White count 51 hemoglobin 12.1 platelets 376 potassium 3.7 creatinine 0.77 TSH 3.2 Admission labs: White count [age]-year-old woman 13.2 platelets 390 sodium 131 potassium 3.8 creatinine 0.8 Albumin 3.2 UA negative for nitrite and leukoesterase COVID 19/influenza type A/influenza type B: Not detected UA noted Computed tomography scan; thoracic lumbar spine with contrast: Extensive osteomyelitis changes in the spine. EKG tracing personally reviewed by me-no sinus rhythm. Nonspecific T-wave changes Chest x-ray film personally reviewed by me-large tumor involvement of the lung space especially in the right Assessment and plan: -Acute paraparesis from metastatic disease to the thoracolumbar spine with compression of spinal cord.: Slow to respond Radiation treatment initially given-currently hold radiation treatment for at least 2 weeks.. decompression surgery to include T2-6 decompressive laminectomy and T3 kyphoplasty. by Dr. Courtney - January 27. PTOT. -Acute urinary retention from metastatic disease to the spine. . PTOT. Salmon catheter - metastatic adenocarcinoma of the lung/non-small cell. Oncologist: Dr. Mercedes. -Normocytic anemia secondary to malignancy Follow H&H -COPD in a previous smoker DuoNeb 3 times a day -Hyponatremia, likely hypoosmolar Increase forward intake -Bone pain. From metastatic disease Steroids. Naproxen. -Severe leukocytosis likely leukemoid reaction from underlying malignancy and steroids -Acute medical debility from metastatic disease PTOT. Gradually improving -Acute severe constipation secondary to decreased mobility and narcotics: Not responding Failed to respond to lactulose and soapsuds enema. Acute abdominal series. C-collar. Salmon catheter. Decadron 2 mg every 8.. Did not respond to soapsuds enema. Will get acute abdominal series.
--- NOTE | 2022-02-04 14:19 | XR ---
EXAMINATION TYPE: XR abdomen 2V DATE OF EXAM: 02/04/2022 2:07 PM INDICATION: Patient age:Male; 61 years old; Reason for study: constipation; COMPARISON: None. TECHNIQUE: One radiographic view of the abdomen was obtained. FINDINGS: Gaseous distention of the colon is seen predominantly in the right measuring up to 10 cm. T here is stool seen within the rectum. No evidence of free air. IMPRESSION: Nonspecific gaseous distention of the large bowel with stool identified within the rectum.
[2022-02-04 16:36] LABS: Glucose,Whole Blood 129 mg/dL (75-99)
[2022-02-04 19:39] LABS: Glucose,Whole Blood 144 mg/dL (75-99)
[2022-02-04] MEDS: SODIUM CHLORIDE 0.9% 1,000 ML IV SCH (22:59)
[2022-02-05] MEDS: INSULIN ASPART (NovoLOG) 100 UNIT/ML VIAL SQ SCH ×4 (06:18→21:09)
[2022-02-05] MEDS: DEXAMETHASONE SOD PHOSPHATE 4 MG/ML 1 ML VIAL IVP SCH ×4 (06:39→23:21)
[2022-02-05 06:45] LABS: Glucose,Whole Blood 126 mg/dL (75-99)
--- NOTE | 2022-02-05 07:11 | P.PN ---
Subjective Progress Note Date: 02/05/22 patient seen and examined this morning is doing fairly well. He states he is moving his legs better. He has not been up today. He is having difficulty getting help to get up and he is not spending more time out of bed then in bed at this time is complaining of some soreness in his buttock region and in his back. His neck is doing fine his upper back is doing okay. He states increased strength in his lower extremities. He is having difficulty with bowel movements and today he will receive an enema. He still has a Lr in place but when tugged on he can feel it hurts. He denies any fevers chills shortness breath or chest pain overnight he denies any headache nausea vomiting change in vision. Objective - Vital Signs Vital signs: Vital Signs Temp 98.1 F 02/05/22 04:00 Pulse 98 02/05/22 04:00 Resp 16 02/05/22 04:00 BP 127/80 02/05/22 04:00 Pulse Ox 94 L 02/05/22 04:00 FiO2 Intake & Output 02/04/22 02/05/22 02/05/22 18:59 06:59 18:59 Intake Total 1620 540 Output Total 2200 1900 Balance -580 -1360 Intake: Oral 1620 540 Output: Urine 1800 1900 Stool 400 Other: Voiding Method Indwelling Catheter Indwelling Catheter # Bowel Movements 1 - Exam exam repeated today. The patient shows increased strength in his bilateral lower extremities with 4+ out of 5 in dorsiflexion plantar flexion bilaterally he still has 3+ strength in hip flexion bilaterally but this is improving and is true against gravity. Knee flexion extension is 3+ bilaterally but improving as well. Sensation has increased L2 to S1 from L2 1 more fine sensation and 2 point discrimination is increased. His vibratory sensation is also improved. Incision is clean and dry dressing is clean and dry soft collar in place as the patient is laying in bed he wears his ROLLING MACHINE TENDER when he is up. Patient is alert and oriented 3 appears well-nourished well-hydrated is in no acute distress. They do not appear septic. On exam the patient has no tenderness to palpation of her thoracic or lumbar spine. There is no edema or ballottement sign. Lower extremities with 3-4-/5 strength in all major muscle groups. Weakness in bilateral lower services continue to improve to near full antigravity but is still lacking between 23 at this time. Left lower demonstrates moderate improvements to strength and range of motion. Some mild improvements with regard to the right lower extremity strength testing. Upper extremities show 5/5 strength in all major muscle groups. Patient still demonstrates essentially full strength in bilateral upper extremities however he does have some deconditioning still present 2/4DTR all UE and LE b/l Patient shows a negative Homans, Boston's, negative Babinski's negative clonus bilaterally. negative straight leg raise bilaterally. No tensioning signs. Cranial nerves II through XII are grossly intact. There is FROM that is painless of the b/l UE and LE in all major joints w/o pain. They are intact to light touch sensation in L2 to S1 nerve distribution. Patient has palpable dorsalis pedis was posterior tibial pulses. Compartments are soft and compressible. Dermatomal deficit: Patient still demonstrates some decreased sensation regar ding the lower extremities however still present vibration pain and touch all present in the lower extremities bilaterally but somewhat dull, dull sensation and perineal region as well as still with some mild congenital dullness, no absolute changes. - Labs CBC & Chem 7: 02/02/22 08:52 02/02/22 08:52 Labs: Abnormal Lab Results - Last 24 Hours (Table) 02/04/22 02/04/22 02/04/22 Range/Units 11:52 16:34 19:36 POC Glucose (mg/dL) 126 H 129 H 144 H (75-99) mg/dL 02/05/22 Range/Units 06:10 POC Glucose (mg/dL) 126 H (75-99) mg/dL Assessment and Plan Assessment: 61-year-old male with stage IV metastatic lung adenocarcinoma Acute lower extrem ity weakness with urinary retention, likely thoracic myelopathy POD9 T1-6 decompressive laminectomy with T3 stabilizing kyphoplasty Complex medical patient Plan: -Appreciate Team and consulting services -Cont decadron wean -Okay for up and about with ROLLING MACHINE TENDER brace amputee and assist as needed -Continue to turn every 2h -Pain control PRN, ORALS, no more IV meds. -GI ppx cont with lr -DVT ppx, Cont with heparin vs lovenox to go to rehab -Cont with ABX post op -TEds, SCDs -Advised pt to continue with in bed exercises as much as possible since PT/OT not as aggressive as needed. -Diet REGULAR -Cont PT/OT. OOB 4-5x/day. OOB all meals. ROLLING MACHINE TENDER when out of bed. -HOld radiation 2-3 weeks post op -SHOWER TODAY -Stable for rehab per spine service
[2022-02-05 08:00] LABS: HCT 32.6 % (39.0-53.0); HGB 10.1 gm/dL (13.0-17.5); Hypochromasia Marked; MCH 26.9 pg (25.0-35.0); MCHC 30.8 g/dL (31.0-37.0); MCV 87.4 fL (80.0-100.0); Mean Platelet Volume 8.2; Platelet Count 282 k/uL (150-450); RBC 3.73 m/uL (4.30-5.90); RDW 15.9 % (11.5-15.5); WBC 49.4 k/uL (3.8-10.6)
[2022-02-05] MEDS: ENOXAPARIN 40 MG/0.4 ML SYRINGE SQ SCH (08:02)
[2022-02-05] MEDS: NAPROXEN 250 MG TAB PO SCH ×3 (08:03→21:07)
[2022-02-05] MEDS: PANTOPRAZOLE 40 MG/10 ML VIAL IVP SCH ×2 (08:03→21:07)
[2022-02-05] MEDS: SENNOSIDES-DOCUSATE SODIUM 1 EACH TAB PO SCH ×2 (08:03→21:07)
[2022-02-05 08:15] LABS: ALT 12 U/L (4-49); AST 16 U/L (17-59); African American GFR (CKD) >90 (>60 ml/min/1.73 sqM); Albumin 2.4 g/dL (3.5-5.0); Alkaline Phosphatase 69 U/L (38-126); Anion Gap 4 mmol/L; Blood Urea Nitrogen 13 mg/dL (9-20); Carbon Dioxide 31 mmol/L (22-30); Chloride 101 mmol/L (98-107); Glucose 118 mg/dL (74-99); Magnesium 2.2 mg/dL (1.6-2.3); Non-African American GFR(CKD) >90 (>60 ml/min/1.73 sqM); Potassium 4.5 mmol/L (3.5-5.1); Sodium 136 mmol/L (137-145); Total Bilirubin 0.6 mg/dL (0.2-1.3); Total Protein 4.6 g/dL (6.3-8.2)
[2022-02-05] MEDS: IPRATROPIUM-ALBUTEROL 3 ML NEB INHALATION SCH ×3 (09:03→20:08)
[2022-02-05 09:40] LABS: Band Neutrophils % 3 %; Lymphocytes # (M) 0.99 k/uL (1.0-4.8); Monocytes # (M) 0.99 k/uL (0-1.0); Myelocytes # (M) 0.49 k/uL (0); Myelocytes % 1 %; Neutrophils % (M) 78 %; Nucleated Red Blood Cells 0 /100 WBC (0-0); Total Cells Counted 200
[2022-02-05 09:43] LABS: Poikilocytosis (M) Present
[2022-02-05 11:43] LABS: Glucose,Whole Blood 160 mg/dL (75-99)
[2022-02-05] MEDS: IOPAMIDOL CONTRAST (ORAL USE) VIAL PO PRN ×2 (11:45→12:57)
[2022-02-05] MEDS: hydrOXYzine HCL 25 MG TAB PO PRN (12:09)
--- NOTE | 2022-02-05 14:07 | CT ---
EXAMINATION TYPE: CT abdomen pelvis w con DATE OF EXAM: 02/05/2022 COMPARISON: PET scan dated 01/12/2022 HISTORY: abdominal pain CT DLP: 1434 mGycm Automated exposure control for dose reduction was used. TECHNIQUE: Helical acquisition of images was performed from the lung bases through the pelvis. CONTRAST: Performed with Oral Contrast and with IV Contrast, patient injected with 100 mL of Isovue 300. FINDINGS: Artifactual images caused by the patient's arms. LUNG BASES: Bilateral pleural effusions larger on the right side with adjacent pulmonary atelectasis, associated infection can't be excluded, please correlate clinically. Enlarged right hilar and subcar inal lymph nodes, possibly metastatic. Scattered right basal pulmonary nodules measuring up to 15 mm. LIVER/GB: Scattered millimetric hepatic hypodensities, incompletely characterized and could represent hepatic cysts however tiny hepatic lesions cannot be excluded. Unremarkable gallbladder. PANCREAS: No significant abnormality is seen. SPLEEN: No significant abnormality is seen. ADRENALS: Grossly stable left adrenal nodule measuring 15 mm. Unremarkable right adrenal. KIDNEYS: Nonvisualized left kidney, please correlate with previous left nephrectomy. FREE AIR: No free air is visualized. RETROPERITONEAL ADENOPATHY: None visualized REPRODUCTIVE ORGANS: Slightly enlarged prostate. URINARY BLADDER: Collapsed over a Salmon catheter. PELVIC ADENOPATHY: No pathologically enlarged pelvic lymph nodes. OSSEOUS STRUCTURES: Extensive osseous lytic lesions, likely metastatic, please correlate with bone s can results. BOWEL: Unremarkable stomach, duodenum and small bowel with no evidence of bowel obstruction. Fecal l oading of the rectum and segments of the colon. No evidence of acute appendicitis. OTHER: Scattered arterial atherosclerotic calcifications. Small amount of pelvic fluid. Anterior abdo cory wall subcutaneous air bubbles, please correlate clinically for recent subcutaneous injections. Body wall subcutaneous edema and fluid most evident inferiorly and extending into the upper thighs. L arge left-sided the scrotal hydrocele. IMPRESSION: Fecal loading of the rectum and colon. No definite acute small or large bowel abnormality identified otherwise. Other findings as detailed above.
--- NOTE | 2022-02-05 15:54 | P.GSCN ---
History of Present Illness Consult date: 02/05/22 History of present illness: CHIEF COMPLAINT: Weakness HISTORY OF PRESENT ILLNESS: This is a 61-year-old male who presented to the hospital because of weakness. He was diagnosed with metastatic lung cancer with metastatic disease to the bone about 2 weeks ago. Patient had been complaining of back pain, lower extremity weakness and urinary retention. Patient was found to have evidence of metastatic disease to the thoracolumbar spine with compression of spinal cord and underwent decompressive laminectomy and kyphoplasty with Dr. Courtney. Patient has a decreased activity level and has been requiring narcotic pain medication. He has been having constipation. His last bowel movement was on 01/28/2022. Patient reports that he is feeling of fullness. He is having some gas. He reports decreased appetite. Surgical consult was placed for constipation. He denies any nausea or vomiting. Patient has already received stool softener, lactulose, subset enema and milk of magnesia with no results. PAST MEDICAL HISTORY: See list. PAST SURGICAL HISTORY: See list. MEDICATIONS: See list. ALLERGIES: See list. SOCIAL HISTORY: No illicit drug use. REVIEW OF SYSTEMS: CONSTITUTIONAL: Denies fever or chills. HEENT: Denies blurred vision, vision changes, or eye pain. Denies hemoptysis ENDOCRINE: Denies heat or cold intolerance. CARDIOVASCULAR: Denies chest pain or pressure. RESPIRATORY: No shortness of breath. GASTROINTESTINAL: Please refer to HPI NEURO: Denies history of seizures. PSYCH: No depression or suicidal ideation HEMATOLOGIC: Denies bleeding disorders. LYMPHATIC: The patient denies any lumps and bumps around the neck. GENITOURINARY: Denies any blood in urine or increased urinary frequency. MUSCULOSKELETAL: Denies myalgias. Denies joint swelling. Denies decreased range of motion beyond patients baseline. SKIN: Denies pruitis. Denies rash. PHYSICAL EXAM: VITAL SIGNS: Reviewed GENERAL: Well-developed in no acute distress. HEENT: No sclera icterus. Extraocular movements grossly intact. Moist buccal mucosa. Head is atraumatic, normocephalic. Hears conversational speech. No nasal drainage. NECK: Supple without lymphadenopathy. CHEST: Non-labored respirations and equal bilateral excursions. CARDIOVASCULAR: Palpable 2+ radial pulses. ABDOMEN: Soft. Nondistended. Mild discomfort with palpation of the lower abdomen MUSCULOSKELETAL: No clubbing or cyanosis. NEUROLOGIC: No focal or lateralizing signs. Cranial nerves II through XII grossly intact. PSYCH: Appropriate affect. Alert and oriented to person, place and time. SKIN: Well perfused. Good skin turgor. LABORATORY DATA: WBC of 49.4 hemoglobin 10.1 platelets 282 Sodium 136 potassium 4.5 creatinine 0.56 IMAGING: Abdominal x-ray nonspecific gaseous distention of the large bowel with stool identified within the rectum Computed tomography scan abdomen and pelvis fecal loading of the rectum and colon. No definite acute small or large bowel abnormality identified otherwise. ASSESSMENT: 1. Constipation likely due to narcotic use and decreased activity level 2. 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 Leukocytosis 4. Anemia PLAN: -Milk of molasses enemas 2 ordered to help with constipation -Continue supportive care Thank you for this consultation Physician Senior Linux Systems Engineer note has been reviewed by physician. Signing provider agrees with the documented findings, assessment, and plan of care. REASON FOR CONSULTATION: Constipation HISTORY OF PRESENT ILLNESS: The patient is a 61 year old male recently diagnosed metastatic lung cancer who has chronic constipation during this admission. Denies any moderate abdominal pain. He is passing flatus. He is on diet. He reports of blood in stools. Oral cathartics given without results. Patient had recent surgery for decompressive laminectomy and kyphoplasty 01/27/2022. General surgery is consulted for chronic constipation. PAST MEDICAL HISTORY: See list and reviewed PAST SURGICAL HISTORY: See list and reviewed MEDICATIONS: See list and reviewed ALLERGIES: See list and reviewed SOCIAL HISTORY: See list and reviewed FAMILY HISTORY: See list and reviewed REVIEW OF ORGAN SYSTEMS: CONSTITUTIONAL: No fevers or chills. Has weight loss. EYES: Denies any trouble with vision. No glasses. HEENT: No difficulties with hearing. No nosebleeds. No difficulty swallowing. RESPIRATORY: Metastatic lung cancer to bone. Chronic obstructive pulmonary disease. CARDIOVASCULAR: Denies any chest pain, palpitations, or recent heart attacks. GASTROINTESTINAL: Has constipation since admission. GENITOURINARY: Denies any blood in urine or increased urinary frequency. NEUROLOGICAL: No seizure disorders or headaches. MUSCULOSKELETAL: Has back pain, stiffness or joint arthritis. SKIN: No current skin cancer. No rash. PSYCHIATRIC: Denies current depression or suicidal thoughts. Anxiety disorder. ENDOCRINE: Denies current thyroid disorders. Denies any blood sugar glucose intolerance. HEME/LYMPHATIC: Denies any lumps and bumps around the neck. No recent deep venous thrombosis. ALLERGY/IMMUNOLOGY: No immunoglobulin therapy. No immune deficiencies. BREAST: Denies current breast lumps, pain or nipple discharge. PHYSICAL EXAM: VITALS: Reviewed CONSTITUTIONAL: Well developed and in no acute distress. EYES: Conjuctivae without sclera icterus. Extraocular movements grossly intact. HEAD, EARS, NOSE, THROAT: Moist buccal mucosa. Head is atraumatic, normocephalic. Hears conversational speech. No nasal drainage. NECK: Supple. No JV distention. No thyroidomegaly. RESPIRATORY: Non-labored respirations and equal bilateral excursions. No gross wheezes. CARDIOVASCULAR: Palpable 2+ radial pulses. ABDOMEN: No peritonitis. Nontender. LYMPH: No gross neck lymphadenopathy. MUSCULOSKELETAL: No clubbing cyanosis. SKIN: Warm and well perfused with good skin turgor. NEUROLOGIC: Cranial nerves II through XII grossly intact. No focal or lateralizing signs. PSYCH: Appropriate affect. Alert and oriented to person, place and time. Displays appropriate insight. CLINCAL LABS: Reviewed. WBC 56.8 on admission down to 49.4, leukocytosis IMAGING: CT of the abdomen and pelvis ordered and reviewed by me demonstrating fecal bolus within the rectum and distal sigmoid colon. No small bowel obstruction. No free air. Bilateral pleural effusion, small. This is my independent interpretation. RADIOLOGY: Report reviewed with stool within the rectum and sigmoid colon. ASSESSMENT: 1. Chronic constipation. 2. Metastatic lung cancer 3. Leukocytosis PLAN: 1. Recommend milk and molasses enemas which is beneficial in cases of fecal impaction unresponsive to traditional enemas. 2. Recommend bowel regimen including lactulose with combination milk of magnesia. 3. Diet as tolerated ADVANCE DIRECTIVE: Thank you for this kind consultation. Past Medical History Past Medical History: Cancer, COPD Additional Past Medical History / Comment(s): recent gout in knee with steroids in the last week., SOB, states productive cough. Stage 4 lung and bone cancer History of Any Multi-Drug Resistant Organisms: None Reported Past Surgical History: Back Surgery, Hernia Repair Additional Past Surgical History / Comment(s): 2015 fx arm with hardware. Past Anesthesia/Blood Transfusion Reactions: No Reported Reaction Past Psychological History: Anxiety Smoking Status: Former smoker Past Alcohol Use History: Daily Past Drug Use History: Marijuana - Past Family History Father Family Medical History: Cancer Additional Family Medical History / Comment(s): lung cancer Medications and Allergies Home Medications Medication Instructions Recorded Confirmed Type hydrOXYzine HCL 25 mg PO TID PRN 12/26/21 01/24/22 History HYDROcodone/APAP 7.5-325MG [Mobile 2 tab PO Q4H PRN 01/24/22 01/24/22 History 7.5-325] Cyclobenzaprine [Flexeril] 5 mg PO TID PRN tab 02/02/22 Rx Dexamethasone [Decadron] 4 mg PO BID #60 tablet 02/02/22 Rx Ipratropium-Albuterol Nebulize 3 ml INHALATION RT-TID ml 02/02/22 Rx [Duoneb 0.5 mg-3 mg/3 ml Soln] Naproxen [Naprosyn] 250 mg PO TID tab 02/02/22 Rx Omeprazole [PriLOSEC] 40 mg PO DAILY 30 Days cap 02/02/22 Rx Sennosides-Docusate Sodium 2 each PO BID tab 02/02/22 Rx [Senokot-S] cefaDROXiL [Duricef] 500 mg PO Q12HR #20 cap 02/02/22 Rx methylPREDNISolone [Medrol Dose 4 mg PO DIRECTED #1 packet 02/02/22 Rx Pack] oxyCODONE HCL [OxyIR] 5 - 10 mg PO Q6HR PRN #42 tab 02/02/22 Rx Allergies Allergy/AdvReac Type Severity Reaction Status Date / Time No Known Allergies Allergy Verified 01/24/22 20:42 Surgical - Exam Vital Signs Temp Pulse Resp BP Pulse Ox 100.3 F H 120 H 20 135/83 88 L 01/24/22 18:02 01/24/22 18:02 01/24/22 18:02 01/24/22 18:02 01/24/22 18:02 Results - Labs 02/05/22 07:28 02/05/22 07:28 Abnormal Lab Results - Last 24 Hours (Table) 02/04/22 02/04/22 02/05/22 Range/Units 16:34 19:36 06:10 WBC (3.8-10.6) k/uL RBC (4.30-5.90) m/uL Hgb (13.0-17.5) gm/dL Hct (39.0-53.0) % MCHC (31.0-37.0) g/dL RDW (11.5-15.5) % Neutrophils # (Manual) (1.3-7.7) k/uL Lymphocytes # (Manual) (1.0-4.8) k/uL Eosinophils # (Manual) (0-0.7) k/uL Myelocytes # (Manual) (0) k/uL Sodium (137-145) mmol/L Carbon Dioxide (22-30) mmol/L Creatinine (0.66-1.25) mg/dL Glucose (74-99) mg/dL POC Glucose (mg/dL) 129 H 144 H 126 H (75-99) mg/dL Calcium (8.4-10.2) mg/dL AST (17-59) U/L Total Protein (6.3-8.2) g/dL Albumin (3.5-5.0) g/dL 02/05/22 02/05/22 02/05/22 Range/Units 07:28 07:28 11:42 WBC 49.4 H (3.8-10.6) k/uL RBC 3.73 L (4.30-5.90) m/uL Hgb 10.1 L (13.0-17.5) gm/dL Hct 32.6 L (39.0-53.0) % MCHC 30.8 L (31.0-37.0) g/dL RDW 15.9 H (11.5-15.5) % Neutrophils # (Manual) 40.00 H (1.3-7.7) k/uL Lymphocytes # (Manual) 0.99 L (1.0-4.8) k/uL Eosinophils # (Manual) 7.90 H (0-0.7) k/uL Myelocytes # (Manual) 0.49 H (0) k/uL Sodium 136 L (137-145) mmol/L Carbon Dioxide 31 H (22-30) mmol/L Creatinine 0.56 L (0.66-1.25) mg/dL Glucose 118 H (74-99) mg/dL POC Glucose (mg/dL) 160 H (75-99) mg/dL Calcium 8.0 L (8.4-10.2) mg/dL AST 16 L (17-59) U/L Total Protein 4.6 L (6.3-8.2) g/dL Albumin 2.4 L (3.5-5.0) g/dL Diabetes panel 02/05/22 Range/Units 07:28 Sodium 136 L (137-145) mmol/L Potassium 4.5 (3.5-5.1) mmol/L Chloride 101 (98-107) mmol/L Carbon Dioxide 31 H (22-30) mmol/L BUN 13 (9-20) mg/dL Creatinine 0.56 L (0.66-1.25) mg/dL Glucose 118 H (74-99) mg/dL Calcium 8.0 L (8.4-10.2) mg/dL AST 16 L (17-59) U/L ALT 12 (4-49) U/L Alkaline Phosphatase 69 (38-126) U/L Total Protein 4.6 L (6.3-8.2) g/dL Albumin 2.4 L (3.5-5.0) g/dL Calcium panel 02/05/22 Range/Units 07:28 Calcium 8.0 L (8.4-10.2) mg/dL Albumin 2.4 L (3.5-5.0) g/dL Pituitary panel 02/05/22 Range/Units 07:28 Sodium 136 L (137-145) mmol/L Potassium 4.5 (3.5-5.1) mmol/L Chloride 101 (98-107) mmol/L Carbon Dioxide 31 H (22-30) mmol/L BUN 13 (9-20) mg/dL Creatinine 0.56 L (0.66-1.25) mg/dL Glucose 118 H (74-99) mg/dL Calcium 8.0 L (8.4-10.2) mg/dL Adrenal panel 02/05/22 Range/Units 07:28 Sodium 136 L (137-145) mmol/L Potassium 4.5 (3.5-5.1) mmol/L Chloride 101 (98-107) mmol/L Carbon Dioxide 31 H (22-30) mmol/L BUN 13 (9-20) mg/dL Creatinine 0.56 L (0.66-1.25) mg/dL Glucose 118 H (74-99) mg/dL Calcium 8.0 L (8.4-10.2) mg/dL Total Bilirubin 0.6 (0.2-1.3) mg/dL AST 16 L (17-59) U/L ALT 12 (4-49) U/L Alkaline Phosphatase 69 (38-126) U/L Total Protein 4.6 L (6.3-8.2) g/dL Albumin 2.4 L (3.5-5.0) g/dL
[2022-02-05 16:39] LABS: Glucose,Whole Blood 118 mg/dL (75-99)
[2022-02-05 20:14] LABS: Glucose,Whole Blood 146 mg/dL (75-99)
[2022-02-05] MEDS: MAGNESIUM HYDROXIDE 2,400 MG/10 ML CUP PO SCH ×2 (21:08→21:14)
[2022-02-05] MEDS: LACTULOSE 20 GM/30 ML CUP PO SCH (21:08)
[2022-02-05] MEDS: SODIUM CHLORIDE 0.9% 1,000 ML IV SCH (23:23)
--- NOTE | 2022-02-06 00:47 | P.PN ---
Subjective Progress Note Date: 02/05/22 Chief Complaint: Leg weakness This is a 61-year-old patient who follows with Dr. Elias Huizar. Patient 2 weeks ago was diagnosed with metastatic lung cancer with metastatic disease to the bones. Under care of Dr. Mercedes. Patient was supposed to follow for radiation treatment and further workup. For 6 weeks patient is having some trouble getting up because of back pain. Also prescription pain in the chest and back. Appetite is okay. Has lost about 35 pounds the last few weeks. Yesterday patient not able to walk at all not make urine. Presented to the ER. Lr catheter was placed. In addition oncologist was consulted. On January 15 patient underwent a PET scan that showed abnormal thoracic adenopathy with diffuse osseous metastatic disease and spinal canal invasion lower thoracic spine level noted. Also involvement of bilateral ribs. Started him and entire spine. Lung biopsy has previously shown malignant non-small cell carcinoma cells having features of metastatic pulmonary adenocarcinoma. Per bronchoscopy by Dr. Topete on December 28. Patient denies any fever and chills. A bit tired and rundown. January 26: Patient received radiation treatment. Getting breathing treatments. Stated this afternoon she was seen by Dr. Courtney. MRI head showed spinal cord compression. He discussed with the family and will proceed for surgery. Compression between T2-T6. On the spinal cord January 27: Patient underwent surgery today. Formal report not available. Has a C- spine collar. Hemovac. at the bedside. Tired. January 15: Laying in bed. Cervical collar. Hemovac. Some movement of her lower extremity. Lr catheter. Unable to control his bowel movement today. January 16: Awaiting MRI today. Survive to call her with Hemovac in place. Some pain in the neck. Able to move some his lower extremity. January 30: Patient had brain MRI. No obvious metastatic disease reported. Cervical spine MRI noted. Patient is awaiting his chest brace. Able to move his legs a bit. Underwent nasopharyngeal laryngoscopy by Dr. Petit yesterday evening. No vocal cord paresis or paralysis. Large amount of inflammation and laryngitis including a false vocal cord. Discussed with the patient and at the bedside. Pain control. Hemovac in place. Does not like hospital food. Daughter will be bringing in some food. January 31: Up in a chair. Has a chest brace. Oral intake fair. Lr catheter. Patient not to get radiation treatment at least for [address] Bauman consulted. Movement of the legs better. 11/18. February 01: Reclining in bed. Hemovac has been discontinued. Cervical collar. Oral intake fair. Pain at the operative site. Not felt to be candidate for [facility] rehab. February 02: Reclining in bed. Able to lift his legs off the bed. Prior rehabilitation caseworker. Currently no rehab place available. Dose of dexamethasone cutback. On IV cefazolin per orthopedic. February 03: Admitting his brace. Sitting on edge of the bed. Oral intake good. No BM for 3 days. We'll give a laxative. Other medications to continue. February 04: No BM today again. Given a soapsuds enema. No response. Abdominal x- rays ordered. No nausea or vomiting. No abdominal pain. 02/05/2022 Patient is seen in follow-up this morning with multiple medical consultations following. Patient continues with elevated WBC and hematology/onc following. Patient also continues with abdominal distention and feeling of fullness and general surgery consulted for constipation. CT abdomen ordered and pending. Patient is continued on laxatives and bowel regimen and has attempted soapsud enema x 2 with no relief. Social work and case management following and patient is awaiting accepting facility for continued weakness. Patient denies chest pain or shortness of breath. Patient is afebrile. Reports abdominal discomfort. Patient is continued on IV steroids decadron and tapering per ortho as patient is status post decompression laminectomy with soft collar noted. Active Medications Acetaminophen (Acetaminophen Tab 325 Mg Tab) 650 mg PO Q6HR PRN PRN Reason: Mild Pain or Fever > 100.5 Hydrocodone Bitart/Acetaminophen (Hydrocodone/Apap 10-325mg 1 Each Tab) 1 each PO Q4HR PRN PRN Reason: pain Last Admin: 02/04/22 13:40 Dose: 1 each Albuterol/Ipratropium (Ipratropium-Albuterol 3 Ml Neb) 3 ml INHALATION RT-TID SHAWNA Last Admin: 02/05/22 11:45 Dose: 3 ml Cyclobenzaprine HCl (Cyclobenzaprine 5 Mg Tab) 5 mg PO TID PRN PRN Reason: Muscle Spasm Last Admin: 02/01/22 17:19 Dose: 5 mg Dexamethasone Sodium Phosphate (Dexamethasone Sod Phosphate 4 Mg/Ml 1 Ml Vial) 2 mg IVP Q6HR [facility] Last Admin: 02/05/22 13:06 Dose: 2 mg Enoxaparin Sodium (Enoxaparin 40 Mg/0.4 Ml Syringe) 40 mg SQ DAILY [facility] Last Admin: 02/05/22 08:02 Dose: 40 mg Hydromorphone HCl (Hydromorphone 0.5 Mg/0.5 Ml Syringe) 0.5 mg IVP Q3HR PRN PRN Reason: Moderate Pain Last Admin: 02/01/22 14:43 Dose: 0.5 mg Hydroxyzine HCl (Hydroxyzine Hcl 25 Mg Tab) 25 mg PO TID PRN PRN Reason: Anxiety Last Admin: 02/05/22 12:09 Dose: 25 mg Sodium Chloride (Saline 0.9%) 1,000 mls @ 20 mls/hr IV .Q24H [facility] Last Admin: 02/04/22 22:59 Dose: Not Given Cefazolin Sodium 2 gm/ Sodium (Chloride) 50 mls @ 100 mls/hr IVPB Q8HR [facility]; P rotocol Last Admin: 02/05/22 08:03 Dose: 100 mls/hr Insulin Aspart (Insulin Aspart (Novolog) 100 Unit/Ml Vial) 0 unit SQ ACHS [facility]; Protocol Last Admin: 02/05/22 13:06 Dose: 3 unit Lorazepam (Lorazepam 2 Mg/Ml Inj) 1 mg IV ONCE PRN PRN Reason: for MRi Last Admin: 01/30/22 06:15 Dose: 1 mg Magnesium Hydroxide (Magnesium Hydroxide 2,400 Mg/10 Ml Cup) 2,400 mg PO DAILY PRN PRN Reason: Constipation Last Admin: 02/04/22 08:59 Dose: 2,400 mg Naloxone HCl (Naloxone 0.4 Mg/Ml 1 Ml Vial) 0.2 mg IV Q2M PRN PRN Reason: Opioid Reversal Naproxen (Naproxen 250 Mg Tab) 250 mg PO TID [facility] Last Admin: 02/05/22 08:03 Dose: 250 mg Ondansetron HCl (Ondansetron 4 Mg/2 Ml Vial) 4 mg IVP Q8HR PRN PRN Reason: Nausea And Vomiting Oxycodone HCl (Oxycodone Hcl 5 Mg Tab) 5 mg PO Q6HR PRN PRN Reason: Pain Scale 6 To 8 Last Admin: 02/04/22 08:59 Dose: 5 mg Oxycodone HCl (Oxycodone Hcl 5 Mg Tab) 10 mg PO Q6HR PRN PRN Reason: Pain Scale 8 to 10 Last Admin: 02/04/22 17:01 Dose: 10 mg Oxymetazoline HCl (Oxymetazoline 0.05% Nasl Grethel 1 Grethel Bottle) 2 spray NASAL BID PRN PRN Reason: Allergy Symptoms Last Admin: 01/29/22 17:22 Dose: 2 spray Pantoprazole Sodium (Pantoprazole 40 Mg/10 Ml Vial) 40 mg IVP BID SHAWNA Last Admin: 02/05/22 08:03 Dose: 40 mg Senna/Docusate Sodium (Sennosides-Docusate Sodium 1 Each Tab) 2 each PO BID [facility] Last Admin: 02/05/22 08:03 Dose: 2 each Physical examination: GENERAL:, 61 year old male, sitting up in bed, comfortable, well developed, well nourished EYES: Pupils equal. Conjunctiva normal. HEENT: soft collar noted NECK: JVD not raised; masses not palpable. HEART: First and second heart sounds are normal; no edema. LUNGS: Respiratory rate normal; decreased breath sounds. ABDOMEN: Soft, nontender, sluggish bowel sounds, no masses palpable. Lr catheter PSYCH: Alert and oriented x3; mood and affect normal MUSCULOSKELETAL:No Clubbing/cyanosis;muscles-grossly intact NEUROLOGICAL: Cranial nerves grossly intact; no facial asymmetry, able to lift his legs off the bed. Power 4/5 Assessment: -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 by Dr. Courtney - January 27. -Acute urinary retention from metastatic disease to the spine. continue lr catheter - metastatic adenocarcinoma of the lung/non-small cell. -Normocytic anemia secondary to malignancy -COPD in a previous smoker -Hyponatremia, likely hypoosmolar -Bone pain. From metastatic disease -Severe leukocytosis likely leukemoid reaction from underlying malignancy and steroids -Acute medical debility from metastatic disease -Acute severe constipation secondary to decreased mobility and narcotics: surgery consulted -full code Plan: Recommend to continue with current regimen and follow with multiple medical consultation. Wean steroids per oncology and orthopedics. General surgery consulted for constipation and ordered CT abdomen and pending. Patient to continue with bowel regimen. PT/OT daily and case management following and working on an accepting ecf for continued rehab. Will repeat am labs and continue to monitor closely. Due to multiple complex medical issues, prognosis is guarded. The impression and plan of care has been dictated by Drea Ruiz, Nurse Practitioner as directed. Dr. aMndi MD I have performed a history and examination and MDM of this patient, discussed the same with the dictator, and agree with the dictator's assessment and plan as written ,documented as a scribe. Based on total visit time, I have performed more than 50% of the visit. Objective - Vital Signs Vital signs: Vital Signs Temp 98.1 F 02/05/22 04:00 Pulse 98 02/05/22 04:00 Resp 16 02/05/22 04:00 BP 127/80 02/05/22 04:00 Pulse Ox 94 L 02/05/22 04:00 FiO2 Intake & Output 02/04/22 02/05/22 02/05/22 18:59 06:59 18:59 Intake Total 1620 540 120 Output Total 2200 1900 2300 Balance -580 -1360 -2180 Intake: Oral 1620 540 120 Output: Urine 1800 1900 2300 Stool 400 Other: Voiding Method Indwelling Catheter Indwelling Catheter # Bowel Movements 1 - Labs CBC & Chem 7: 02/05/22 07:28 02/05/22 07:28 Labs: Abnormal Lab Results - Last 24 Hours (Table) 02/04/22 02/04/22 02/04/22 Range/Units 11:52 16:34 19:36 WBC (3.8-10.6) k/uL RBC (4.30-5.90) m/uL Hgb (13.0-17.5) gm/dL Hct (39.0-53.0) % MCHC (31.0-37.0) g/dL RDW (11.5-15.5) % Sodium (137-145) mmol/L Carbon Dioxide (22-30) mmol/L Creatinine (0.66-1.25) mg/dL Glucose (74-99) mg/dL POC Glucose (mg/dL) 126 H 129 H 144 H (75-99) mg/dL Calcium (8.4-10.2) mg/dL AST (17-59) U/L Total Protein (6.3-8.2) g/dL Albumin (3.5-5.0) g/dL 02/05/22 02/05/22 02/05/22 Range/Units 06:10 07:28 07:28 WBC 49.4 H (3.8-10.6) k/uL RBC 3.73 L (4.30-5.90) m/uL Hgb 10.1 L (13.0-17.5) gm/dL Hct 32.6 L (39.0-53.0) % MCHC 30.8 L (31.0-37.0) g/dL RDW 15.9 H (11.5-15.5) % Sodium 136 L (137-145) mmol/L Carbon Dioxide 31 H (22-30) mmol/L Creatinine 0.56 L (0.66-1.25) mg/dL Glucose 118 H (74-99) mg/dL POC Glucose (mg/dL) 126 H (75-99) mg/dL Calcium 8.0 L (8.4-10.2) mg/dL AST 16 L (17-59) U/L Total Protein 4.6 L (6.3-8.2) g/dL Albumin 2.4 L (3.5-5.0) g/dL
[2022-02-06] MEDS: ACETAMINOPHEN TAB 325 MG TAB PO PRN ×3 (03:55→16:39)
[2022-02-06 06:22] LABS: Glucose,Whole Blood 136 mg/dL (75-99)
[2022-02-06] MEDS: INSULIN ASPART (NovoLOG) 100 UNIT/ML VIAL SQ SCH ×4 (06:46→20:45)
[2022-02-06] MEDS: DEXAMETHASONE SOD PHOSPHATE 4 MG/ML 1 ML VIAL IVP SCH ×4 (06:47→23:49)
--- NOTE | 2022-02-06 07:48 | P.PN ---
Subjective Progress Note Date: 02/06/22 Principal diagnosis: Metastatic lung cancer, bilateral lower extremity weakness, urinary retention, status post T1 to T6 decompression laminectomy Patient seen and examined at bedside. Patient is doing well states his pain is controlled. He is able to move bilateral lower extremities off of bed. Patient states she is unable to stand on his own and is looking forward to going to rehab. He is improving daily with activity. Cervical collar in place. Denies any need at this time. Objective - Vital Signs Vital signs: Vital Signs Temp 97.8 F 02/06/22 04:00 Pulse 76 02/06/22 04:00 Resp 14 02/06/22 04:00 BP 114/67 02/06/22 04:00 Pulse Ox 94 L 02/06/22 04:00 FiO2 Intake & Output 02/05/22 02/06/22 02/06/22 18:59 06:59 18:59 Intake Total 760 480 Output Total 3100 1600 Balance -2340 -1120 Intake: Oral 760 480 Output: Urine 3100 1600 Other: Voiding Method Indwelling Catheter Indwelling Catheter # Bowel Movements 1 - Exam Physical Examination General: The patient is awake and alert, in no acute distress Skin: Skin is warm and dry with no obvious rashes or lesions. Hairy patches absent, no dorsal skin dimples, no cafe au lait spots, surgical incision to posterior cervical. Eye: Pupils are equal, round and reactive to light, extra-ocular movements are intact; there is normal conjunctiva bilaterally. Neck: The neck is supple, there is no tenderness and ROM intact. Cardiovascular: There is a regular rate and rhythm. No murmur, rub or gallop is appreciated. Respiratory: Lungs are clear to auscultation, respirations are non-labored, breath sounds are equal. Gastrointestinal: Soft, non-distended, non-tender abdomen . Back: There is no tenderness to palpation in the midline, paralumbar, parathoracic or buttocks region. There is no obvious deformity . Musculoskeletal: ROM limited secondary to pain and stiffness from surgical procedure. Shoulder abduction 5/5, elbow flexors 5/5, wrist dorsiflexors 5/5. finger abductor 5/5, electrician aircraft 5/5, hip flexor 4/5, knee flexor 4/5, ankle dorsiflexor 4/5, ankle plantarflexion 4/5 and extensor hallucis 4/5. Patient is unable to stand without assistance. Neurological: CN 2-12 intact. There are no obvious motor or sensory deficits. Movement and coordination equal and intact. Sensory exam to light touch intact C5-T1 and intact from L2-S1. Reflexes 2/4 in bilateral upper and lower extremities. Negative Hoffmans, babinski, and clonus signs. Psychiatric: Cooperative, appropriate mood & affect, normal judgment. - Labs CBC & Chem 7: 02/05/22 07:28 02/05/22 07:28 Labs: Abnormal Lab Results - Last 24 Hours (Table) 02/05/22 02/05/22 02/05/22 Range/Units 07:28 07:28 11:42 WBC 49.4 H (3.8-10.6) k/uL RBC 3.73 L (4.30-5.90) m/uL Hgb 10.1 L (13.0-17.5) gm/dL Hct 32.6 L (39.0-53.0) % MCHC 30.8 L (31.0-37.0) g/dL RDW 15.9 H (11.5-15.5) % Neutrophils # (Manual) 40.00 H (1.3-7.7) k/uL Lymphocytes # (Manual) 0.99 L (1.0-4.8) k/uL Eosinophils # (Manual) 7.90 H (0-0.7) k/uL Myelocytes # (Manual) 0.49 H (0) k/uL Sodium 136 L (137-145) mmol/L Carbon Dioxide 31 H (22-30) mmol/L Creatinine 0.56 L (0.66-1.25) mg/dL Glucose 118 H (74-99) mg/dL POC Glucose (mg/dL) 160 H (75-99) mg/dL Calcium 8.0 L (8.4-10.2) mg/dL AST 16 L (17-59) U/L Total Protein 4.6 L (6.3-8.2) g/dL Albumin 2.4 L (3.5-5.0) g/dL Vitamin D 25-Hydroxy 13.2 L (30.0-100.0) ng/mL 02/05/22 02/05/22 02/06/22 Range/Units 16:34 20:12 06:05 WBC (3.8-10.6) k/uL RBC (4.30-5.90) m/uL Hgb (13.0-17.5) gm/dL Hct (39.0-53.0) % MCHC (31.0-37.0) g/dL RDW (11.5-15.5) % Neutrophils # (Manual) (1.3-7.7) k/uL Lymphocytes # (Manual) (1.0-4.8) k/uL Eosinophils # (Manual) (0-0.7) k/uL Myelocytes # (Manual) (0) k/uL Sodium (137-145) mmol/L Carbon Dioxide (22-30) mmol/L Creatinine (0.66-1.25) mg/dL Glucose (74-99) mg/dL POC Glucose (mg/dL) 118 H 146 H 136 H (75-99) mg/dL Calcium (8.4-10.2) mg/dL AST (17-59) U/L Total Protein (6.3-8.2) g/dL Albumin (3.5-5.0) g/dL Vitamin D 25-Hydroxy (30.0-100.0) ng/mL Assessment and Plan Assessment: Post Op Day 10: T1-6 decompressive laminectomy with T3 stabilizing kyphoplasty Complex medical patient Plan: Plan: -Appreciate web development consultant and team management. -Activity: Ambulate QID, OOB all meals, up and about, limit lifting bending twisting to less than 5 lbs. Use walker or cane if needed for stability. -Daily PT/OT, increase ambulation strength and balance. -Brace when up and about, not needed in bed or chair -Pain control: Adequate at this time -Meds: reviewed -GI ppx: senna, Miralax -Maintain Salmon Catheter -DVT PPX: Heparin -Encourage IS 10x/hr -Dispo: Anticipate discharge [facility] within next 24-48hrs pending auth. -Hold radiation 2-3 weeks post op *I reviewed and discussed this case with my attending Dr. Courtney, whom has reviewed this chart and films and is in agreement with assessment and plan of care as outlined above. I have personally seen and examined the patient, performed the documentation and the assessment and plan as written. Number of minutes spent on the visit: 20m. Time with Patient: Less than 30
[2022-02-06] MEDS: IPRATROPIUM-ALBUTEROL 3 ML NEB INHALATION SCH ×4 (08:24→19:54)
[2022-02-06 09:19] LABS: Anisocytosis Slight; Basophils # (A) 0.1 k/uL (0-0.2); Basophils % (A) 0 %; Eosinophils # (A) 4.9 k/uL (0-0.7); Eosinophils % (A) 10 %; HCT 31.4 % (39.0-53.0); HGB 9.6 gm/dL (13.0-17.5); Hypochromasia Moderate; Lymphocytes # (A) 0.6 k/uL (1.0-4.8); Lymphocytes % (A) 1 %; MCH 26.7 pg (25.0-35.0); MCHC 30.6 g/dL (31.0-37.0); MCV 87.2 fL (80.0-100.0); Monocytes # (A) 1.3 k/uL (0-1.0); Monocytes % (A) 3 %; Neutrophils # (A) 41.3 k/uL (1.3-7.7); Neutrophils % (A) 86 %; Platelet Count 264 k/uL (150-450); RDW 16.2 % (11.5-15.5); WBC 48.3 k/uL (3.8-10.6)
--- NOTE | 2022-02-06 09:23 | P.PN ---
Subjective Progress Note Date: 02/06/22 CHIEF COMPLAINT: Constipation HISTORY OF PRESENT ILLNESS: The patient is a 61 year old male recently diagnosed metastatic lung cancer with chronic constipation. General surgery was consulted for chronic constipation. He reports bowel movements after milk of molasses enema. He's feeling well. REVIEW OF ORGAN SYSTEMS: No fevers or chills. No chest pain. No nausea and vomiting PHYSICAL EXAM: VITALS: Reviewed CONSTITUTIONAL: Well developed and in no acute distress. EYES: Conjuctivae without sclera icterus. Extraocular movements grossly intact. HEAD, EARS, NOSE, THROAT: Moist buccal mucosa. Head is atraumatic, normocephalic. Hears conversational speech. No nasal drainage. RESPIRATORY: Non-labored respirations and equal bilateral excursions. No gross wheezes. CARDIOVASCULAR: Palpable 2+ radial pulses. ABDOMEN: Non distended. Nontender. MUSCULOSKELETAL: No clubbing cyanosis. SKIN: Warm and well perfused with good skin turgor. NEUROLOGIC: Cranial nerves II through XII grossly intact. No focal or lateralizing signs. PSYCH: Appropriate affect. Alert and oriented to person, place and time. CLINCAL LABS: Reviewed. WBC 56.8 on admission down to 49.4, leukocytosis, now 48.3. ASSESSMENT: 1. Chronic constipation. 2. Metastatic lung cancer 3. Leukocytosis PLAN: 1. Continue with lactulose 30 mg twice a day and milk of magnesia twice daily scheduled. 2. We will sign off. 3. Please reconsult if needed. Objective - Vital Signs Vital signs: Vital Signs Temp 97.8 F 02/06/22 04:00 Pulse 82 02/06/22 08:34 Resp 14 02/06/22 04:00 BP 114/67 02/06/22 04:00 Pulse Ox 94 L 02/06/22 04:00 FiO2 Intake & Output 02/05/22 02/06/22 02/06/22 18:59 06:59 18:59 Intake Total 760 480 540 Output Total 3100 1600 Balance -2340 -1120 540 Intake: Oral 760 480 540 Output: Urine 3100 1600 Other: Voiding Method Indwelling Catheter Indwelling Catheter # Bowel Movements 1 - Labs CBC & Chem 7: 02/06/22 08:34 02/06/22 08:34 Labs: Abnormal Lab Results - Last 24 Hours (Table) 02/05/22 02/05/2202/05/22 Range/Units 07:28 07:28 11:42 Neutrophils # (Manual) 40.00 H (1.3-7.7) k/uL Lymphocytes # (Manual) 0.99 L (1.0-4.8) k/uL Eosinophils # (Manual) 7.90 H (0-0.7) k/uL Myelocytes # (Manual) 0.49 H (0) k/uL POC Glucose (mg/dL) 160 H (75-99) mg/dL Vitamin D 25-Hydroxy 13.2 L (30.0-100.0) ng/mL 02/05/22 02/05/22 02/06/22 Range/Units 16:34 20:12 06:05 Neutrophils # (Manual) (1.3-7.7) k/uL Lymphocytes # (Manual) (1.0-4.8) k/uL Eosinophils # (Manual) (0-0.7) k/uL Myelocytes # (Manual) (0) k/uL POC Glucose (mg/dL) 118 H 146 H 136 H (75-99) mg/dL Vitamin D 25-Hydroxy (30.0-100.0) ng/mL
[2022-02-06 09:30] LABS: African American GFR (CKD) >90 (>60 ml/min/1.73 sqM); Anion Gap 6 mmol/L; Blood Urea Nitrogen 13 mg/dL (9-20); Calcium 8.2 mg/dL (8.4-10.2); Carbon Dioxide 32 mmol/L (22-30); Chloride 99 mmol/L (98-107); Glucose 116 mg/dL (74-99); Magnesium 2.2 mg/dL (1.6-2.3); Non-African American GFR(CKD) >90 (>60 ml/min/1.73 sqM); Potassium 4.3 mmol/L (3.5-5.1); Sodium 137 mmol/L (137-145)
[2022-02-06] MEDS: NAPROXEN 250 MG TAB PO SCH ×3 (09:31→20:43)
[2022-02-06] MEDS: LACTULOSE 20 GM/30 ML CUP PO SCH ×2 (09:32→20:45)
[2022-02-06] MEDS: ENOXAPARIN 40 MG/0.4 ML SYRINGE SQ SCH (09:33)
[2022-02-06] MEDS: PANTOPRAZOLE 40 MG/10 ML VIAL IVP SCH ×2 (09:33→20:45)
[2022-02-06] MEDS: SENNOSIDES-DOCUSATE SODIUM 1 EACH TAB PO SCH ×2 (09:34→20:44)
[2022-02-06] MEDS: MAGNESIUM HYDROXIDE 2,400 MG/10 ML CUP PO SCH ×2 (09:34→20:45)
[2022-02-06] MEDS: CYCLOBENZAPRINE 5 MG TAB PO PRN ×2 (10:08→16:38)
[2022-02-06] MEDS: hydrOXYzine HCL 25 MG TAB PO PRN ×2 (10:08→16:39)
[2022-02-06] MEDS: HYDROmorphone 0.5 MG/0.5 ML SYRINGE IVP PRN (11:33)
[2022-02-06 12:19] LABS: Glucose,Whole Blood 152 mg/dL (75-99)
[2022-02-06 16:43] LABS: Glucose,Whole Blood 126 mg/dL (75-99)
--- NOTE | 2022-02-06 17:33 | P.PN ---
Subjective Progress Note Date: 02/06/22 Principal diagnosis: Spinal cord compression from metastatic NSCLC In f/u pt is post op with Ortho spine, he is doing okay. He has been working with PT/OT. Nursing is reporting total assist. Objective - Vital Signs Vital signs: Vital Signs Temp 98 F 02/06/22 09:49 Pulse 84 02/06/22 09:49 Resp 17 02/06/22 09:49 BP 115/63 02/06/22 09:49 Pulse Ox 94 L 02/06/22 09:49 FiO2 Intake & Output 02/05/22 02/06/22 02/06/22 18:59 06:59 18:59 Intake Total 760 480 540 Output Total 3100 1600 Balance -2340 -1120 540 Weight 86.6 kg Intake: Oral 760 480 540 Output: Urine 3100 1600 Other: Voiding Method Indwelling Catheter Indwelling Catheter # Bowel Movements 1 - Constitutional General appearance: Present: cooperative, mild distress, thin - EENT Eyes: Present: anicteric sclerae, EOMI ENT: Present: hearing grossly normal - Psychiatric Psychiatric: Present: A&O x's 3, appropriate affect, intact judgment & insight - Labs CBC & Chem 7: 02/06/22 08:34 02/06/22 08:34 Labs: Abnormal Lab Results - Last 24 Hours (Table) 02/05/22 02/05/22 02/05/22 Range/Units 07:28 16:34 20:12 WBC (3.8-10.6) k/uL RBC (4.30-5.90) m/uL Hgb (13.0-17.5) gm/dL Hct (39.0-53.0) % MCHC (31.0-37.0) g/dL RDW (11.5-15.5) % Neutrophils # (1.3-7.7) k/uL Lymphocytes # (1.0-4.8) k/uL Monocytes # (0-1.0) k/uL Eosinophils # (0-0.7) k/uL Carbon Dioxide (22-30) mmol/L Glucose (74-99) mg/dL POC Glucose (mg/dL) 118 H 146 H (75-99) mg/dL Calcium (8.4-10.2) mg/dL Vitamin D 25-Hydroxy 13.2 L (30.0-100.0) ng/mL 02/06/22 02/06/22 02/06/22 Range/Units 06:05 08:34 08:34 WBC 48.3 H (3.8-10.6) k/uL RBC 3.60 L (4.30-5.90) m/uL Hgb 9.6 L (13.0-17.5) gm/dL Hct 31.4 L (39.0-53.0) % MCHC 30.6 L (31.0-37.0) g/dL RDW 16.2 H (11.5-15.5) % Neutrophils # 41.3 H (1.3-7.7) k/uL Lymphocytes # 0.6 L (1.0-4.8) k/uL Monocytes # 1.3 H (0-1.0) k/uL Eosinophils # 4.9 H (0-0.7) k/uL Carbon Dioxide 32 H (22-30) mmol/L Glucose 116 H (74-99) mg/dL POC Glucose (mg/dL) 136 H (75-99) mg/dL Calcium 8.2 L (8.4-10.2) mg/dL Vitamin D 25-Hydroxy (30.0-100.0) ng/mL 02/06/22 Range/Units 12:15 WBC (3.8-10.6) k/uL RBC (4.30-5.90) m/uL Hgb (13.0-17.5) gm/dL Hct (39.0-53.0) % MCHC (31.0-37.0) g/dL RDW (11.5-15.5) % Neutrophils # (1.3-7.7) k/uL Lymphocytes # (1.0-4.8) k/uL Monocytes # (0-1.0) k/uL Eosinophils # (0-0.7) k/uL Carbon Dioxide (22-30) mmol/L Glucose (74-99) mg/dL POC Glucose (mg/dL) 152 H (75-99) mg/dL Calcium (8.4-10.2) mg/dL Vitamin D 25-Hydroxy (30.0-100.0) ng/mL - Imaging and Cardiology CT scan - abdomen: report reviewed CT scan - pelvis: report reviewed Assessment and Plan (1) Bilateral leg weakness Current Visit: Yes Status: Acute Priority: High Code(s): R29.898 - OTH SYMPTOMS AND SIGNS INVOLVING THE MUSCULOSKELETAL SYSTEM SNOMED Code(s): 7102306 (2) NSCLC metastatic to bone Current Visit: Yes Status: Acute Priority: High Code(s): C34.90 - MALIGNANT NEOPLASM OF UNSP PART OF UNSP BRONCHUS OR LUNG; C79.51 - SECONDARY MALIGNANT NEOPLASM OF BONE SNOMED Code(s): 226732805 (3) Leukocytosis Current Visit: Yes Status: Acute Priority: Medium Code(s): D72.829 - ELEVATED WHITE BLOOD CELL COUNT, UNSPECIFIED SNOMED Code(s): 456276125 Plan: Mr. Hdez is a very pleasant 61-year-old man recently diagnosed with metastatic non-small cell lung adenocarcinoma. He had met with Dr. Caba last week. NGS results PDL 1 positivity of 20%, patient has a K-chio G12c mutation. Treatment options include immunotherapy and targeted agents. Lumikras is second line therapy but, may be able to be obtained for compassionate use. Pending surgical recovery prior to initiation of systemic treatment for cancer. Orthopedic Spine Surgeon has performed T2-6 decompressive laminectomy with remov al of tumor and T3 kyphoplasty and biopsy, path positive for non-small cell pulmonary adenocarcinoma. Discussed case with Radiation Oncology who has plans for radiation to the spine, 2 weeks postop per Orthopedic Spine Surgeon. Dexamethasone is being tapered by Ortho Spine. Pending their recommendation as to when to transition to oral and consider taper post op. PPI prophylaxis of steroid-induced gastritis ordered. MRI of the brain and c-spine, no parenchymal brain mets. Pain managed at this time adjusting when necessary Medications for prevention of narcotic-induced constipation ordered. Leukocytosis with elevation noted in neutrophils and eosinophils-unclear underlying cause at this time. Pancultures negative. No fever since admit. Patient is on post operative antibiotics. Cont to monitor CBC daily. It is documented in the patient's chart that he is refusing inpatient zeke abilitation. If patient is unable to get to and from appointments unfortunately he will not be able to receive treatment for cancer. After all patient has been through, may need to revisit goals of therapy with him and his .
[2022-02-06 19:37] LABS: Glucose,Whole Blood 236 mg/dL (75-99)
--- NOTE | 2022-02-06 19:47 | P.PN ---
Subjective Progress Note Date: 02/06/22 This is a 61-year-old patient who follows with Dr. Elias Huizar. Patient 2 weeks ago was diagnosed with metastatic lung cancer with metastatic disease to the bones. Under care of Dr. Mercedes. Patient was supposed to follow for radiation treatment and further workup. For 6 weeks patient is having some trouble getting up because of back pain. Also prescription pain in the chest and back. Appetite is okay. Has lost about 35 pounds the last few weeks. Yesterday patient not able to walk at all not make urine. Presented to the ER. Lr catheter was placed. In addition oncologist was consulted. On January 15 patient underwent a PET scan that showed abnormal thoracic adenopathy with diffuse osseous metastatic disease and spinal canal invasion lower thoracic spine level noted. Also involvement of bilateral ribs. Started him and entire spine. Lung biopsy has previously shown malignant non-small cell carcinoma cells having features of metastatic pulmonary adenocarcinoma. Per bronchoscopy by Dr. Topete on December 28. Patient denies any fever and chills. A bit tired and rundown. January 26: Patient received radiation treatment. Getting breathing treatments. Stated this afternoon she was seen by Dr. Courtney. MRI head showed spinal cord compression. He discussed with the family and will proceed for surgery. Compression between T2-T6. On the spinal cord January 27: Patient underwent surgery today. Formal report not available. Has a C- spine collar. Hemovac. at the bedside. Tired. January 28: Laying in bed. Cervical collar. Hemovac. Some movement of her lower extremity. Lr catheter. Unable to control his bowel movement today. January 29: Awaiting MRI today. Survive to call her with Hemovac in place. Some pain in the neck. Able to move some his lower extremity. January 30: Patient had brain MRI. No obvious metastatic disease reported. Cervical spine MRI noted. Patient is awaiting his chest brace. Able to move his legs a bit. Underwent nasopharyngeal laryngoscopy by Dr. Petit yesterday evening. No vocal cord paresis or paralysis. Large amount of inflammation and laryngitis including a false vocal cord. Discussed with the patient and at the bedside. Pain control. Hemovac in place. Does not like hospital food. Daughter will be bringing in some food. January 31: Up in a chair. Has a chest brace. Oral intake fair. Lr catheter. Patient not to get radiation treatment at least for [address] Bauman consulted. Movement of the legs better. 11/18. February 01: Reclining in bed. Hemovac has been discontinued. Cervical collar. O ral intake fair. Pain at the operative site. Not felt to be candidate for [facility] rehab. February 02: Reclining in bed. Able to lift his legs off the bed. 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 Currently no rehab place available. Dose of dexamethasone cutback. On IV cefazolin per orthopedic. February 03: Admitting his brace. Sitting on edge of the bed. Oral intake good. No BM for 3 days. We'll give a laxative. Other medications to continue. February 04: No BM today again. Given a soapsuds enema. No response. Abdominal x- rays ordered. No nausea or vomiting. No abdominal pain. 02/05/2022 Patient is seen in follow-up this morning with multiple medical consultations following. Patient continues with elevated WBC and hematology/onc following. Patient also continues with abdominal distention and feeling of fullness and general surgery consulted for constipation. CT abdomen ordered and pending. Patient is continued on laxatives and bowel regimen and has attempted soapsud enema x 2 with no relief. Social work and case management following and patient is awaiting accepting facility for continued weakness. Patient denies chest pain or shortness of breath. Patient is afebrile. Reports abdominal discomfort. Patient is continued on IV steroids decadron and tapering per ortho as patient is status post decompression laminectomy with soft collar noted. 02/06/2022 Patient is seen today and feeling better and able to get up and shower. Multiple medical consultations following. General surgery ordered bowel regimen and patient was able to have a bowel movement and feeling better. Patient to continue current bowel regimen and continue working with physical therapy daily. Case management following and working on accepting ec for continued strength and mobility prior to starting cancer treatment. No radiation for 2 weeks per ortho and is also continued on IV cefazolin and will continue. Patient is afebrile and denies chest pain or shortness of breath. Patient is tolerating diet. Physical examination: GENERAL:, 61 year old male, sitting up in bed, comfortable, well developed, well nourished EYES: Pupils equal. Conjunctiva normal. HEENT: soft collar noted NECK: JVD not raised; masses not palpable. HEART: First and second heart sounds are normal; no edema. LUNGS: Respiratory rate normal; decreased breath sounds. ABDOMEN: Soft, nontender, bowel sounds noted, no masses palpable. Lr catheter PSYCH: Alert and oriented x3; mood and affect normal MUSCULOSKELETAL:No Clubbing/cyanosis;muscles-grossly intact NEUROLOGICAL: Cranial nerves grossly intact; no facial asymmetry, able to lift his legs off the bed. 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 by Dr. Courtney - January 27. -Acute urinary retention from metastatic disease to the spine. continue lr catheter - metastatic adenocarcinoma of the lung/non-small cell. -Normocytic anemia secondary to malignancy -COPD in a previous smoker -Hyponatremia, likely hypoosmolar -Bone pain. From metastatic disease -Severe leukocytosis likely leukemoid reaction from underlying malignancy and steroids -Acute medical debility from metastatic disease -Acute severe constipation secondary to decreased mobility and narcotics: surgery consulted -full code Plan: Recommend to continue with current regimen and follow with multiple medical consultation. Wean steroids per oncology and orthopedics. General surgery following for constipation and patient started on enemas and bowel regimen and had a bowel movement today. Continue current regimen. PT/OT daily and case management following and working on an accepting ecf for continued rehab. [facility] and radiation oncology following as well and no plans for radiation for 2 weeks per ortho and will follow with oncology. Patient would not be able to begin any cancer treatment while in ecf. Will follow up with family as well about discharge planning as there has been some issues with insurance coverage to certain ECFs. Will repeat am labs and continue to monitor closely. Due to multiple complex medical issues, prognosis is guarded. The impression and plan of care has been dictated by Drea Ruiz, Nurse Practitioner as directed. Dr. Mandi MD I have performed a history and examination and MDM of this patient, discussed the same with the dictator, and agree with the dictator's assessment and plan as written ,documented as a scribe. Based on total visit time, I have performed more than 50% of the visit. Objective - Vital Signs Vital signs: Vital Signs Temp 97.8 F 02/06/22 04:00 Pulse 82 02/06/22 08:34 Resp 14 02/06/22 04:00 BP 114/67 02/06/22 04:00 Pulse Ox 94 L 02/06/22 04:00 FiO2 Intake & Output 02/05/22 02/06/22 02/06/22 18:59 06:59 18:59 Intake Total 760 480 540 Output Total 3100 1600 Balance -2340 -1120 540 Intake: Oral 760 480 540 Output: Urine 3100 1600 Other: Voiding Method Indwelling Catheter Indwelling Catheter # Bowel Movements 1 - Labs CBC & Chem 7: 02/06/22 08:34 02/06/22 08:34 Labs: Abnormal Lab Results - Last 24 Hours (Table) 02/05/22 02/05/22 02/05/22 Range/Units 07:28 07:28 11:42 Neutrophils # (Manual) 40.00 H (1.3-7.7) k/uL Lymphocytes # (Manual) 0.99 L (1.0-4.8) k/uL Eosinophils # (Manual) 7.90 H (0-0.7) k/uL Myelocytes # (Manual) 0.49 H (0) k/uL POC Glucose (mg/dL) 160 H (75-99) mg/dL Vitamin D 25-Hydroxy 13.2 L (30.0-100.0) ng/mL 02/05/22 02/05/22 02/06/22 Range/Units 16:34 20:12 06:05 Neutrophils # (Manual) (1.3-7.7) k/uL Lymphocytes # (Manual) (1.0-4.8) k/uL Eosinophils # (Manual) (0-0.7) k/uL Myelocytes # (Manual) (0) k/uL POC Glucose (mg/dL) 118 H 146 H 136 H (75-99) mg/dL Vitamin D 25-Hydroxy (30.0-100.0) ng/mL
[2022-02-06] MEDS: SODIUM CHLORIDE 0.9% 1,000 ML IV SCH (23:51)
[2022-02-07 06:24] LABS: Glucose,Whole Blood 181 mg/dL (75-99)
[2022-02-07] MEDS: DEXAMETHASONE SOD PHOSPHATE 4 MG/ML 1 ML VIAL IVP SCH ×4 (06:37→23:08)
[2022-02-07] MEDS: INSULIN ASPART (NovoLOG) 100 UNIT/ML VIAL SQ SCH ×4 (06:38→20:39)
[2022-02-07 07:18] LABS: Anisocytosis Slight; Basophils # (A) 0.2 k/uL (0-0.2); Basophils % (A) 1 %; Eosinophils % (A) 10 %; HCT 30.8 % (39.0-53.0); HGB 9.3 gm/dL (13.0-17.5); Hypochromasia Marked; Lymphocytes # (A) 0.8 k/uL (1.0-4.8); Lymphocytes % (A) 2 %; MCH 26.8 pg (25.0-35.0); MCHC 30.3 g/dL (31.0-37.0); MCV 88.6 fL (80.0-100.0); Mean Platelet Volume 8.1; Monocytes # (A) 1.2 k/uL (0-1.0); Monocytes % (A) 3 %; Neutrophils # (A) 34.3 k/uL (1.3-7.7); Neutrophils % (A) 84 %; Platelet Count 272 k/uL (150-450); RBC 3.48 m/uL (4.30-5.90); RDW 16.3 % (11.5-15.5); WBC 40.8 k/uL (3.8-10.6)
--- NOTE | 2022-02-07 07:50 | P.PN ---
Subjective Progress Note Date: 02/07/22 Principal diagnosis: Metastatic lung cancer, bilateral lower extremity weakness, urinary retention, status post T1 to T6 decompression laminectomy Patient seen and examined at bedside. Patient is doing well states his pain is controlled. He is able to move bilateral lower extremities off of bed. Patient states she is unable to stand on his own and is looking forward to going to rehab. He is requesting to use a wheelchair to propel himself around, encouraged this due to engaging his lower extremities. He is improving daily with activity. Cervical collar in place. Incision is CDI. Denies any need at this time. Objective - Vital Signs Vital signs: Vital Signs Temp 97.7 F 02/07/22 03:50 Pulse 86 02/07/22 03:50 Resp 14 02/07/22 03:50 BP 110/70 02/07/22 03:50 Pulse Ox 96 02/07/22 03:50 FiO2 Intake & Output 02/06/22 02/07/22 02/07/22 18:59 06:59 18:59 Intake Total 1640 Output Total 1500 800 Balance 140 -800 Weight 86.6 kg Intake: Oral 1640 Output: Urine 1500 800 Other: Voiding Method Indwelling Catheter - Exam Physical Examination General: The patient is awake and alert, in no acute distress Skin: Skin is warm and dry with no obvious rashes or lesions. Hairy patches absent, no dorsal skin dimples, no cafe au lait spots, surgical incision to posterior cervical. Eye: Pupils are equal, round and reactive to light, extra-ocular movements are intact; there is normal conjunctiva bilaterally. Neck: The neck is supple, there is no tenderness and ROM intact. Cardiovascular: There is a regular rate and rhythm. No murmur, rub or gallop is appreciated. Respiratory: Lungs are clear to auscultation, respirations are non-labored, breath sounds are equal. Gastrointestinal: Soft, non-distended, non-tender abdomen . Back: There is no tenderness to palpation in the midline, paralumbar, parathoracic or buttocks region. There is no obvious deformity . Musculoskeletal: ROM limited secondary to pain and stiffness from surgical procedure. Shoulder abduction 5/5, elbow flexors 5/5, wrist dorsiflexors 5/5. finger abductor 5/5, road oiler 5/5, hip flexor 4/5, knee flexor 4/5, ankle dorsiflexor 4/5, ankle plantarflexion 4/5 and extensor hallucis 4/5. Patient is unable to stand without assistance. Neurological: CN 2-12 intact. There are no obvious motor or sensory deficits. Movement and coordination equal and intact. Sensory exam to light touch intact C5-T1 and intact from L2-S1. Reflexes 2/4 in bilateral upper and lower extremities. Negative Hoffmans, babinski, and clonus signs. Psychiatric: Cooperative, appropriate mood & affect, normal judgment. - Labs CBC & Chem 7: 02/07/22 06:47 02/06/22 08:34 Labs: Abnormal Lab Results - Last 24 Hours (Table) 02/06/22 02/06/22 02/06/22 Range/Units 08:34 08:34 12:15 WBC 48.3 H (3.8-10.6) k/uL RBC 3.60 L (4.30-5.90) m/uL Hgb 9.6 L (13.0-17.5) gm/dL Hct 31.4 L (39.0-53.0) % MCHC 30.6 L (31.0-37.0) g/dL RDW 16.2 H (11.5-15.5) % Neutrophils # 41.3 H (1.3-7.7) k/uL Lymphocytes # 0.6 L (1.0-4.8) k/uL Monocytes # 1.3 H (0-1.0) k/uL Eosinophils # 4.9 H (0-0.7) k/uL Carbon Dioxide 32 H (22-30) mmol/L Glucose 116 H (74-99) mg/dL POC Glucose (mg/dL) 152 H (75-99) mg/dL Calcium 8.2 L (8.4-10.2) mg/dL 02/06/22 02/06/22 02/07/22 Range/Units 16:37 19:36 06:22 WBC (3.8-10.6) k/uL RBC (4.30-5.90) m/uL Hgb (13.0-17.5) gm/dL Hct (39.0-53.0) % MCHC (31.0-37.0) g/dL RDW (11.5-15.5) % Neutrophils # (1.3-7.7) k/uL Lymphocytes # (1.0-4.8) k/uL Monocytes # (0-1.0) k/uL Eosinophils # (0-0.7) k/uL Carbon Dioxide (22-30) mmol/L Glucose (74-99) mg/dL POC Glucose (mg/dL) 126 H 236 H 181 H (75-99) mg/dL Calcium (8.4-10.2) mg/dL 02/07/22 Range/Units 06:47 WBC 40.8 H (3.8-10.6) k/uL RBC 3.48 L (4.30-5.90) m/uL Hgb 9.3 L (13.0-17.5) gm/dL Hct 30.8 L (39.0-53.0) % MCHC 30.3 L (31.0-37.0) g/dL RDW 16.3 H (11.5-15.5) % Neutrophils # (1.3-7.7) k/uL Lymphocytes # (1.0-4.8) k/uL Monocytes # (0-1.0) k/uL Eosinophils # (0-0.7) k/uL Carbon Dioxide (22-30) mmol/L Glucose (74-99) mg/dL POC Glucose (mg/dL) (75-99) mg/dL Calcium (8.4-10.2) mg/dL Assessment and Plan Assessment: Post Op Day 11: T1-6 decompressive laminectomy with T3 stabilizing kyphoplasty Complex medical patient Plan: Plan: -Appreciate building performance consultant and team management. -Activity: Ambulate QID, OOB all meals, up and about, limit lifting bending twisting to less than 5 lbs. Use walker or cane if needed for stability. -Daily PT/OT, increase ambulation strength and balance. -Brace when up and about, not needed in bed or chair -Pt may utilize walker to propel himself around. -Pain control: Adequate at this time -Meds: reviewed -GI ppx: senna, Miralax -Maintain Salmon Catheter -DVT PPX: Heparin -Encourage IS 10x/hr -Dispo: Anticipate discharge [facility] within next 24-48hrs pending auth. -Hold radiation 2-3 weeks post op *I reviewed and discussed this case with my attending Dr. Courtney, whom has reviewed this chart and films and is in agreement with assessment and plan of care as outlined above. I have personally seen and examined the patient, performed the documentation and the assessment and plan as written. Number of minutes spent on the visit: 20m. Time with Patient: Less than 30
[2022-02-07] MEDS: IPRATROPIUM-ALBUTEROL 3 ML NEB INHALATION SCH ×3 (08:44→20:05)
[2022-02-07] MEDS: MAGNESIUM HYDROXIDE 2,400 MG/10 ML CUP PO SCH ×2 (09:03→20:49)
[2022-02-07] MEDS: LACTULOSE 20 GM/30 ML CUP PO SCH ×3 (09:03→20:50)
[2022-02-07] MEDS: SENNOSIDES-DOCUSATE SODIUM 1 EACH TAB PO SCH ×2 (09:04→20:50)
[2022-02-07] MEDS: NAPROXEN 250 MG TAB PO SCH ×3 (09:04→21:18)
[2022-02-07] MEDS: ENOXAPARIN 40 MG/0.4 ML SYRINGE SQ SCH (09:04)
[2022-02-07] MEDS: PANTOPRAZOLE 40 MG/10 ML VIAL IVP SCH ×2 (09:04→20:49)
[2022-02-07] MEDS: hydrOXYzine HCL 25 MG TAB PO PRN (11:09)
[2022-02-07] MEDS: ACETAMINOPHEN TAB 325 MG TAB PO PRN ×2 (11:12→16:34)
[2022-02-07 11:26] LABS: Glucose,Whole Blood 196 mg/dL (75-99)
[2022-02-07 11:51] LABS: Toxic Granulation Present
[2022-02-07] MEDS ORDERED: bisacodyL 10 MG SUPP RECTAL PRN (12:29)
--- NOTE | 2022-02-07 12:40 | P.CONS ---
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 He was recently diagnosed with metastatic lung cancer with metastatic disease to the bones. Under care of Dr. Mercedes. Patient was supposed to follow for radiation treatment and further workup. For 6 weeks patient is having some trouble getting up because of back pain. He presented to the on 01/24/22 with complaints of weakness, not being able to walk andnot able to urinate. A lr catheter was placed. In addition oncologist was consulted. On January 15 patient underwent a PET scan that showed abnormal thoracic adenopathy with diffuse osseous metastatic disease and spinal canal invasion lower thoracic spine level noted. Also involvement of bilateral ribs and entire spine. Lung biopsy has previously shown malignant non-small cell carcinoma cells having features of metastatic pulmonary adenocarcinoma. Per bronchoscopy by Dr. Topete on December 28. Patient denied any fever and chills. January 26: Patient received radiation treatment. Getting breathing treatments. Stated this afternoon she was seen by Dr. Courtney. MRI head showed spinal cord compression. He discussed with the family and will proceed for surgery. Compression between T2-T6. On the spinal cord January 27: Patient underwent surgery today. Formal report not available. Has a C- spine collar. Hemovac in place. January 28: Cervical collar and Hemovac in place. Some movement of his lower ext remity. Lr catheter. Unable to control his bowel movement today. January 29: Awaiting MRI today. Some pain in the neck. Able to move some his lower extremity. January 30: Patient had brain MRI. No obvious metastatic disease reported. Cervical spine MRI noted. Patient is awaiting his chest brace. Able to move his legs a bit. Underwent nasopharyngeal laryngoscopy by Dr. Petit yesterday evening. No vocal cord paresis or paralysis. Large amount of inflammation and laryngitis including a false vocal cord. Hemovac in place. January 31: Up in a chair. Has a chest brace. Patient not to get radiation treatment at for 2-3 weeks. PT/OT. Movement of the legs better. February 01: Hemovac has been discontinued. Cervical collar. Oral intake fair. Pain at the operative site. Not felt to be candidate for [facility] rehab. February 02: Pt able to lift his legs off the bed. No rehab place available. Dose of dexamethasone cutback. On IV cefazolin per orthopedic. February 03: No BM for 3 days. We'll give a laxative. February 04: No BM today again. Given a soapsuds enema. No response. Abdominal x- rays ordered. No nausea or vomiting. No abdominal pain. February 05: Patient continues with elevated WBC and hematology/onc following. Patient also continues with abdominal distention and feeling of fullness and general surgery consulted for constipation. CT abdomen ordered and pending. Patient is continued on laxatives and bowel regimen and has attempted soapsud enema x 2 with no relief. Social work and case management following and patient is awaiting accepting facility for continued weakness. Patient is continued on IV steroids decadron and tapering per ortho as patient is status post decompression laminectomy with soft collar noted. February 06: Patient able to get up and shower. General surgery ordered bowel regimen and patient was able to have a bowel movement and feeling better. Patient to continue current bowel regimen and continue working with PT/OT daily. Case management following and working on accepting [facility] for rehab prior to starting cancer treatment. No radiation for 2-3 weeks per ortho and is also continued on IV cefazolin and will continue. Review of Systems Review Of Systems: Constitutional: No fever, no chills, no night sweats. +weakness and fatigue HEENT: No headache. No blurred vision or double vision, no loss of vision. No loss of Hearing, no ringing in the ears, no dizziness. No nasal drainage or congestion. No epistaxis. No sore throat. Lungs: + shortness of breath, No cough, no sputum production. No wheezing. Cardiovascular: + chest pain, no lower extremity edema. No palpitations. No paroxysmal nocturnal dyspnea. No orthopnea. No lightheadedness or dizziness. No syncopal episodes. Abdominal: + mild abdominal pain. No nausea, vomiting. No diarrhea. + constipation. No bloody or tarry stools. + loss of appetite. Genitourinary: + urinary retention. Musculoskeletal: No myalgias. + muscle weakness to lower extremities. + No back pain. Integumentary: No wounds, no lesions. No rash or pruritus. No unusual bruising. No change in hair or nails. Neurologic: No aphasia. No facial droop. No change in mentation. No head injury. No headache. Psychiatric: No depression. + anxiety. Past Medical History Past Medical History: Cancer, COPD Additional Past Medical History / Comment(s): recent gout in knee with steroids in the last week., SOB, states productive cough. Stage 4 lung and bone cancer History of Any Multi-Drug Resistant Organisms: None Reported Past Surgical History: Back Surgery, Hernia Repair Additional Past Surgical History / Comment(s): 2015 fx arm with hardware. Past Anesthesia/Blood Transfusion Reactions: No Reported Reaction Past Psychological History: Anxiety Smoking Status: Former smoker Past Alcohol Use History: Daily Past Drug Use History: Marijuana - Past Family History Father Family Medical History: Cancer Additional Family Medical History / Comment(s): lung cancer Medications and Allergies Home Medications Medication Instructions Recorded Confirmed Type hydrOXYzine HCL 25 mg PO TID PRN 12/26/21 01/24/22 History HYDROcodone/APAP 7.5-325MG [Monroe 2 tab PO Q4H PRN 01/24/22 01/24/22 History 7.5-325] Cyclobenzaprine [Flexeril] 5 mg PO TID PRN tab 02/02/22 Rx Dexamethasone [Decadron] 4 mg PO BID #60 tablet 02/02/22 Rx Ipratropium-Albuterol Nebulize 3 ml INHALATION RT-TID ml 02/02/22 Rx [Duoneb 0.5 mg-3 mg/3 ml Soln] Naproxen [Naprosyn] 250 mg PO TID tab 02/02/22 Rx Omeprazole [PriLOSEC] 40 mg PO DAILY 30 Days cap 02/02/22 Rx Sennosides-Docusate Sodium 2 each PO BID tab 02/02/22 Rx [Senokot-S] cefaDROXiL [Duricef] 500 mg PO Q12HR #20 cap 02/02/22 Rx methylPREDNISolone [Medrol Dose 4 mg PO DIRECTED #1 packet 02/02/22 Rx Pack] oxyCODONE HCL [OxyIR] 5 - 10 mg PO Q6HR PRN #42 tab 02/02/22 Rx Allergies Allergy/AdvReac Type Severity Reaction Status Date / Time No Known Allergies Allergy Verified 01/24/22 20:42 Physical Exam Vitals: Vital Signs Temp Pulse Pulse Resp BP BP Pulse Ox 02/07/22 08:59 87 02/07/22 08:47 88 94 L 02/07/22 08:00 97.4 F L 74 17 106/62 94 L 02/07/22 03:50 97.7 F 86 14 110/70 96 02/07/22 00:00 97.7 F 89 14 107/69 96 02/06/22 20:13 85 02/06/22 20:00 98.4 F 89 16 109/69 93 L 02/06/22 19:54 85 02/06/22 16:00 98.1 F 81 17 106/64 99 02/06/22 12:00 97.8 F 74 16 101/69 95 Intake and Output 02/06/22 02/07/22 02/07/22 22:59 06:59 14:59 Intake Total 550 120 Output Total 500 300 Balance 50 -300 120 Intake: Oral 550 120 Output: Urine 500 300 Other: Voiding Method Indwelling Catheter Indwelling Catheter General: Patient awake alert and oriented x 3. No acute distress. HEENT: Head is atraumatic, normocephalic Neck is supple. Sclerae are clear. Pupils equal, round and reactive to light bilaterally. CV: Heart regular in rate and rhythm positive S1 and S2. No S3. No S4. No clicks, rubs or murmurs. No JVD. Peripheral pulses equal. 2/4 Lungs: Clear to auscultation bilaterally. No wheezes rales or rhonchi. Respirations even and nonlabored. No intercostal retractions.2L NC Abdomen/GI: Soft. Bowel sounds present in all 4 quadrants. Bowel sounds normoactive. + mild abdominal tenderness. : Lr catheter discontinues, pt DTV Musculoskeletal/ Extremities: + weakness to b/l lower extremities R>L. Able to lift LE off bed. No tenderness on muscular exam. No ecchymosis. Vascular: Radial pulses equal. 2/4. Skin: No rash. Neurologic: Awake, alert and oriented times 3. Psychiatric: Appropriate mood and affect. Results CBC & Chem 7: 02/07/22 06:47 02/06/22 08:34 Labs: Abnormal Lab Results - Last 24 Hours (Table) 02/06/22 02/06/22 02/06/22 Range/Units 12:15 16:37 19:36 WBC (3.8-10.6) k/uL RBC (4.30-5.90) m/uL Hgb (13.0-17.5) gm/dL Hct (39.0-53.0) % MCHC (31.0-37.0) g/dL RDW (11.5-15.5) % POC Glucose (mg/dL) 152 H 126 H 236 H (75-99) mg/dL 02/07/22 02/07/22 02/07/22 Range/Units 06:22 06:47 11:26 WBC 40.8 H (3.8-10.6) k/uL RBC 3.48 L (4.30-5.90) m/uL Hgb 9.3 L (13.0-17.5) gm/dL Hct 30.8 L (39.0-53.0) % MCHC 30.3 L (31.0-37.0) g/dL RDW 16.3 H (11.5-15.5) % POC Glucose (mg/dL) 181 H 196 H (75-99) mg/dL Chest x-ray: report reviewed CT scan - abdomen: report reviewed CT scan - chest: report reviewed MRI - head: report reviewed Assessment and Plan Assessment: Social * Occupation - [employer] * Marital status - for 23 years * Children/grandchildren - 7 children, 4 are his 's and 2 are his from previous relationships. They have 1 daughter together * Residence - House * Who do you reside with - , [place] * ETOH - Drank 6/10 beers/night, Quit 4 months ago * Tobacco - Former smoker, smoked for approx 16 years, quit 23 years ago * Illicit drugs - Former marijuana Spiritual/Cultural * A spiritual person - "kind of" * Hoahaoism - Judaism * Belong to a particular voodoo - No * Beliefs a source of comfort and strength - No * Synagogue or cultural practices restrictions - No * EOL considerations/rituals? 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 Now is unable to stand on his own. 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 OPERATOR * Transportation - Drives * Able to shop - Yes, CHANGEOVER OPERATOR * Who manages medications - was not on any CHANGEOVER OPERATOR * Who manages finances - patient Psychological/Emotional * Dementia present - No * Insight and judgment - Yes * Depression - No * Suicidal thoughts - No * Good support system - Yes, his family * Patients goals - prolonged survival and to regain function and independence * Frequent hospitalizations - No * Desire to keep coming back to the hospital for treatment - Yes Plan: Symptoms * Pain - 3/10 to right shoulder and back, Continue Tylenol, Naproxen, Monroe, steroids, and Flexeril. Change Oxycodone to 5mg Q 4hrs for breakthrough pain, D/C Oxycodone 10mg, D/C Dilaudid. * Fatigue - Good energy level, motivated to get up and moving * SOB - Yes, mild, while at rest and with activity, continue Duoneb * Insomnia - No * N/V - No, continue Zofran prn * Anxiety - Yes, continue Atarax * Depression - No * Confusion - No * Agitation - No * Hallucinations - No * Appetite/weight loss - Decreased appetite, 30 lb weight loss in past 4 months * Dysphagia - No * Constipation - Yes, LBM 02/05, Continue MOM, Senokot-S, and Lactulose, Add Dulcolax supp prn * Incontinence - Yes * Itch - No Summary/Goals - The patient was resting in bed and appeared comfortable. He states his pain is 3/10 to his right shoulder and back. He states he is getting adequate pain relief from current regimen. IV pain medications discontinued in anticipation of patient going to rehab. Encourage patient to take PO pain medications. The patient states he is shocked at how quickly the paralysis came on from his time of diagnosis. He states his goals are prolonged survival, to maximize his mobility and function to regain his independence. He is motivated and would like to get up and move more. He does not qualify for IP rehab, as he is not yet able to tolerate therapy at least 3 hours a day. However, he is willing to go to an [facility] for rehab. He would also like to continue with treatmen t for his cancer. Advanced Directives - none, information provided Code Status - The patient would like to remain a full code Thank you for this consult Sandi Banuelos [facility]- Palliative Care [facility] [place] [id number] Email: [email or web address] Time with Patient: Greater than 30
--- NOTE | 2022-02-07 13:08 | P.PN ---
Subjective Progress Note Date: 02/07/22 CHIEF COMPLAINT: Constipation HISTORY OF PRESENT ILLNESS: The patient is a 61 year old male recently diagnosed metastatic lung cancer with chronic constipation. General surgery was consulted for chronic constipation. Patient has not had any further bowel movements since the bowel movement with milk of molasses enema. He reports that he started to feel more abdominal fullness. He is having flatus. Denies any nausea or vomiting. Afebrile WBC is 40.8 hemoglobin 9.3 plt 272 PHYSICAL EXAM: VITAL SIGNS: Reviewed GENERAL: Well-developed in no acute distress. HEENT: No sclera icterus. Extraocular movements grossly intact. Moist buccal mucosa. Head is atraumatic, normocephalic. Hears conversational speech. No nasal drainage. NECK: Supple without lymphadenopathy. CHEST: Non-labored respirations and equal bilateral excursions. CARDIOVASCULAR: Palpable 2+ radial pulses. ABDOMEN: Soft. Nondistended. Nontender. MUSCULOSKELETAL: No clubbing or cyanosis. NEUROLOGIC: No focal or lateralizing signs. Cranial nerves II through XII grossly intact. PSYCH: Appropriate affect. Alert and oriented to person, place and time. SKIN: Well perfused. Good skin turgor. ASSESSMENT: 1. Constipation due to decreased mobility and narcotics 2. Metastatic lung cancer 3. Leukocytosis PLAN: -Abdominal x-ray ordered for follow-up on constipation -Continue with lactulose 30 mg twice a day and milk of magnesia twice daily scheduled Physician Car Icer note has been reviewed by physician. Signing provider agrees with the documented findings, assessment, and plan of care. CHIEF COMPLAINT: Constipation HISTORY OF PRESENT ILLNESS: The patient is a 61 year old male diagnosed metastat ic lung cancer with chronic constipation and leukocytosis. He has chronic constipation. Last bowel movement 2 days ago. He is on bowel regimen. Reports abdominal bloating. REVIEW OF ORGAN SYSTEMS: No fevers or chills. No chest pain. No nausea and vomiting PHYSICAL EXAM: VITALS: Reviewed CONSTITUTIONAL: Well developed and in no acute distress. EYES: Conjuctivae without sclera icterus. Extraocular movements grossly intact. HEAD, EARS, NOSE, THROAT: Moist buccal mucosa. Head is atraumatic, normocephalic. Hears conversational speech. No nasal drainage. RESPIRATORY: Non-labored respirations and equal bilateral excursions. No gross wheezes. CARDIOVASCULAR: Palpable 2+ radial pulses. ABDOMEN: Mildly distended. Nontender. MUSCULOSKELETAL: No clubbing cyanosis. SKIN: Warm and well perfused with good skin turgor. NEUROLOGIC: Cranial nerves II through XII grossly intact. No focal or lateralizing signs. PSYCH: Appropriate affect. Alert and oriented to person, place and time. CLINCAL LABS: Reviewed. WBC 56.8 on admission down to 49.4, leukocytosis, now 40.8 ASSESSMENT: 1. Chronic constipation. 2. Metastatic lung cancer 3. Leukocytosis PLAN: 1. We'll obtain abdominal x-ray due to distention. 2. Continue bowel regimen Objective - Vital Signs Vital signs: Vital Signs Temp 97.4 F L 02/07/22 08:00 Pulse 85 02/07/22 12:15 Resp 17 02/07/22 08:00 BP 106/62 02/07/22 08:00 Pulse Ox 94 L 02/07/22 08:47 FiO2 Intake & Output 02/06/22 02/07/22 02/07/22 18:59 06:59 18:59 Intake Total 1640 120 Output Total 1500 800 Balance 140 -800 120 Weight 86.6 kg Intake: Oral 1640 120 Output: Urine 1500 800 Other: Voiding Method Indwelling Catheter - Labs CBC & Chem 7: 02/07/22 06:47 02/06/22 08:34 Labs: Abnormal Lab Results - Last 24 Hours (Table) 02/06/22 02/06/22 02/07/22 Range/Units 16:37 19:36 06:22 WBC (3.8-10.6) k/uL RBC (4.30-5.90) m/uL Hgb (13.0-17.5) gm/dL Hct (39.0-53.0) % MCHC (31.0-37.0) g/dL RDW (11.5-15.5) % Neutrophils # (1.3-7.7) k/uL Lymphocytes # (1.0-4.8) k/uL Monocytes # (0-1.0) k/uL Eosinophils # (0-0.7) k/uL POC Glucose (mg/dL) 126 H 236 H 181 H (75-99) mg/dL 02/07/22 02/07/22 Range/Units 06:47 11:26 WBC 40.8 H (3.8-10.6) k/uL RBC 3.48 L (4.30-5.90) m/uL Hgb 9.3 L (13.0-17.5) gm/dL Hct 30.8 L (39.0-53.0) % MCHC 30.3 L (31.0-37.0) g/dL RDW 16.3 H (11.5-15.5) % Neutrophils # 34.3 H (1.3-7.7) k/uL Lymphocytes # 0.8 L (1.0-4.8) k/uL Monocytes # 1.2 H (0-1.0) k/uL Eosinophils # 4.0 H (0-0.7) k/uL POC Glucose (mg/dL) 196 H (75-99) mg/dL
--- NOTE | 2022-02-07 14:36 | P.PN ---
Subjective Progress Note Date: 02/07/22 This is a 61-year-old patient who follows with Dr. Elias Huizar. Patient 2 weeks ago was diagnosed with metastatic lung cancer with metastatic disease to the bones. Under care of Dr. Mercedes. Patient was supposed to follow for radiation treatment and further workup. For 6 weeks patient is having some trouble getting up because of back pain. Also prescription pain in the chest and back. Appetite is okay. Has lost about 35 pounds the last few weeks. Yesterday patient not able to walk at all not make urine. Presented to the ER. Lr catheter was placed. In addition oncologist was consulted. On January 15 patient underwent a PET scan that showed abnormal thoracic adenopathy with diffuse osseous metastatic disease and spinal canal invasion lower thoracic spine level noted. Also involvement of bilateral ribs. Started him and entire spine. Lung biopsy has previously shown malignant non-small cell carcinoma cells having features of metastatic pulmonary adenocarcinoma. Per bronchoscopy by Dr. Topete on December 28. Patient denies any fever and chills. A bit tired and rundown. January 26: Patient received radiation treatment. Getting breathing treatments. Stated this afternoon she was seen by Dr. Courtney. MRI head showed spinal cord compression. He discussed with the family and will proceed for surgery. Compression between T2-T6. On the spinal cord January 27: Patient underwent surgery today. Formal report not available. Has a C- spine collar. Hemovac. at the bedside. Tired. January 28: Laying in bed. Cervical collar. Hemovac. Some movement of her lower extremity. Lr catheter. Unable to control his bowel movement today. January 29: Awaiting MRI today. Survive to call her with Hemovac in place. Some pain in the neck. Able to move some his lower extremity. January 30: Patient had brain MRI. No obvious metastatic disease reported. Cervical spine MRI noted. Patient is awaiting his chest brace. Able to move his legs a bit. Underwent nasopharyngeal laryngoscopy by Dr. Petit yesterday evening. No vocal cord paresis or paralysis. Large amount of inflammation and laryngitis including a false vocal cord. Discussed with the patient and at the bedside. Pain control. Hemovac in place. Does not like hospital food. Daughter will be bringing in some food. January 31: Up in a chair. Has a chest brace. Oral intake fair. Lr catheter. Patient not to get radiation treatment at least for [address] Bauman consulted. Movement of the legs better. 11/18. February 01: Reclining in bed. Hemovac has been discontinued. Cervical collar. O ral intake fair. Pain at the operative site. Not felt to be candidate for [facility] rehab. February 02: Reclining in bed. Able to lift his legs off the bed. 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 Currently no rehab place available. Dose of dexamethasone cutback. On IV cefazolin per orthopedic. February 03: Admitting his brace. Sitting on edge of the bed. Oral intake good. No BM for 3 days. We'll give a laxative. Other medications to continue. February 04: No BM today again. Given a soapsuds enema. No response. Abdominal x- rays ordered. No nausea or vomiting. No abdominal pain. 02/05/2022 Patient is seen in follow-up this morning with multiple medical consultations following. Patient continues with elevated WBC and hematology/onc following. Patient also continues with abdominal distention and feeling of fullness and general surgery consulted for constipation. CT abdomen ordered and pending. Patient is continued on laxatives and bowel regimen and has attempted soapsud enema x 2 with no relief. Social work and case management following and patient is awaiting accepting facility for continued weakness. Patient denies chest pain or shortness of breath. Patient is afebrile. Reports abdominal discomfort. Patient is continued on IV steroids decadron and tapering per ortho as patient is status post decompression laminectomy with soft collar noted. 02/06/2022 Patient is seen today and feeling better and able to get up and shower. Multiple medical consultations following. General surgery ordered bowel regimen and patient was able to have a bowel movement and feeling better. Patient to continue current bowel regimen and continue working with physical therapy daily. Case management following and working on accepting ec for continued strength and mobility prior to starting cancer treatment. No radiation for 2 weeks per ortho and is also continued on IV cefazolin and will continue. Patient is afebrile and denies chest pain or shortness of breath. Patient is tolerating diet. 02/07/2022 Patient is seen in follow-up this morning with multiple medical consultations following including oncology and orthopedics. Patient is status post T1 to T6 decompression laminectomy with orthopedics following and continued on pain management. Patient also with metastatic lung cancer and being followed by oncology and arranging for outpatient follow-up. Radiation oncology also evaluated the patient and will continue to hold radiation therapy 2-3 weeks postop per orthopedics. Case management also following and arranging for ECF and family along with patient are willing to proceed with ECF to build up strength and mobility with continued PT/OT therapy services. Patient and family are agreeable and aware about being unable to initiate oncology therapy while in rehab. Patient also evaluated by general surgery for constipation and is maintained on lactulose twice a day and will increase to lactulose 3 times a day as patient is reporting feeling of constipation and has not had a bowel movement now in 2 days. Patient also continues with indwelling Lr catheter for urinary retention and recommended continue. Patient denies chest pain or shortness of breath. Patient is afebrile. WBC trending down. Physical examination: GENERAL:, 61 year old male, sitting up in bed, comfortable, well developed, well nourished EYES: Pupils equal. Conjunctiva normal. HEENT: soft collar noted NECK: JVD not raised; masses not palpable. HEART: First and second heart sounds are normal; no edema. LUNGS: Respiratory rate normal; decreased breath sounds. ABDOMEN: Soft, nontender, bowel sounds noted, no masses palpable. Lr catheter PSYCH: Alert and oriented x3; mood and affect normal MUSCULOSKELETAL:No Clubbing/cyanosis;muscles-grossly intact NEUROLOGICAL: Cranial nerves grossly intact; no facial asymmetry, able to lift his legs off the bed. Power 4/5, diffuse weakness Assessment: -Acute paraparesis from metastatic disease to the thoracolumbar spine with compr ession of spinal cord, status post T2-6 decompressive laminectomy and T3 kyphoplasty. by Dr. Courtney - January 27. -Acute urinary retention from metastatic disease to the spine. continue lr catheter -metastatic adenocarcinoma of the lung/non-small cell. -Normocytic anemia secondary to malignancy -COPD in a previous smoker -Hyponatremia, likely hypoosmolar -Bone pain. From metastatic disease -Severe leukocytosis likely leukemoid reaction from underlying malignancy and steroids -Acute medical debility from metastatic disease -Acute severe constipation secondary to decreased mobility and narcotics -full code Plan: Recommend to continue with current regimen and follow with multiple medical consultations. Wean steroids per oncology and orthopedics. Patient is maintained on IV Decadron and will be weaned per orthopedics. Patient is continued on enemas and bowel regimen and reports to having no bowel movement today. Will increase lactulose to 3 times a day and monitor closely. Continue current regimen. PT/OT daily and case management following and working on an accepting ecf for continued rehab. Some facilities have been located and family is agreeable to proceed and are aware that oncology treatments will be held while in ECF and will follow-up with them in the outpatient setting. Will repeat am labs and continue to monitor closely. Due to multiple complex medical issues, prognosis is guarded. Possible discharge in 24 hours. The impression and plan of care has been dictated by Drea Riuz, Nurse Practitioner as directed. Dr. Josesito MD I have performed a history and examination and MDM of this patient, discussed the same with the dictator, and agree with the dictator's assessment and plan as written ,documented as a scribe. Based on total visit time, I have performed more than 50% of the visit. Objective - Vital Signs Vital signs: Vital Signs Temp 97.7 F 02/07/22 03:50 Pulse 87 02/07/22 08:59 Resp 14 02/07/22 03:50 BP 110/70 02/07/22 03:50 Pulse Ox 94 L 02/07/22 08:47 FiO2 Intake & Output 02/06/22 02/07/22 02/07/22 18:59 06:59 18:59 Intake Total 1640 Output Total 1500 800 Balance 140 -800 Weight 86.6 kg Intake: Oral 1640 Output: Urine 1500 800 Other: Voiding Method Indwelling Catheter - Labs CBC & Chem 7: 02/07/22 06:47 02/06/22 08:34 Labs: Abnormal Lab Results - Last 24 Hours (Table) 02/06/22 02/06/22 02/06/22 Range/Units 08:34 08:34 12:15 WBC 48.3 H (3.8-10.6) k/uL RBC 3.60 L (4.30-5.90) m/uL Hgb 9.6 L (13.0-17.5) gm/dL Hct 31.4 L (39.0-53.0) % MCHC 30.6 L (31.0-37.0) g/dL RDW 16.2 H (11.5-15.5) % Neutrophils # 41.3 H (1.3-7.7) k/uL Lymphocytes # 0.6 L (1.0-4.8) k/uL Monocytes # 1.3 H (0-1.0) k/uL Eosinophils # 4.9 H (0-0.7) k/uL Carbon Dioxide 32 H (22-30) mmol/L Glucose 116 H (74-99) mg/dL POC Glucose (mg/dL) 152 H (75-99) mg/dL Calcium 8.2 L (8.4-10.2) mg/dL 02/06/22 02/06/22 02/07/22 Range/Units 16:37 19:36 06:22 WBC (3.8-10.6) k/uL RBC (4.30-5.90) m/uL Hgb (13.0-17.5) gm/dL Hct (39.0-53.0) % MCHC (31.0-37.0) g/dL RDW (11.5-15.5) % Neutrophils # (1.3-7.7) k/uL Lymphocytes # (1.0-4.8) k/uL Monocytes # (0-1.0) k/uL Eosinophils # (0-0.7) k/uL Carbon Dioxide (22-30) mmol/L Glucose (74-99) mg/dL POC Glucose (mg/dL) 126 H 236 H 181 H (75-99) mg/dL Calcium (8.4-10.2) mg/dL 02/07/22 Range/Units 06:47 WBC 40.8 H (3.8-10.6) k/uL RBC 3.48 L (4.30-5.90) m/uL Hgb 9.3 L (13.0-17.5) gm/dL Hct 30.8 L (39.0-53.0) % MCHC 30.3 L (31.0-37.0) g/dL RDW 16.3 H (11.5-15.5) % Neutrophils # (1.3-7.7) k/uL Lymphocytes # (1.0-4.8) k/uL Monocytes # (0-1.0) k/uL Eosinophils # (0-0.7) k/uL Carbon Dioxide (22-30) mmol/L Glucose (74-99) mg/dL POC Glucose (mg/dL) (75-99) mg/dL Calcium (8.4-10.2) mg/dL
--- NOTE | 2022-02-07 15:54 | P.PN ---
Subjective Progress Note Date: 02/07/22 Principal diagnosis: Cord compression planning IPR Objective - Vital Signs Vital signs: Vital Signs Temp 97.4 F L 02/07/22 08:00 Pulse 85 02/07/22 12:15 Resp 17 02/07/22 08:00 BP 106/62 02/07/22 08:00 Pulse Ox 94 L 02/07/22 08:47 FiO2 Intake & Output 02/06/22 02/07/22 02/07/22 18:59 06:59 18:59 Intake Total 1640 120 Output Total 1500 800 Balance 140 -800 120 Weight 86.6 kg Intake: Oral 1640 120 Output: Urine 1500 800 Other: Voiding Method Indwelling Catheter - Exam - Constitutional General appearance: cooperative, mild distress, thin - EENT Eyes: anicteric sclerae, EOMI ENT: hearing grossly normal, normal oropharynx - Neck Neck: lymphadenopathy (rt neck 2.5cm hard, fixed anterior cervical LN, surrounding edema) - Respiratory Respiratory: bilateral: CTA, diminished - Cardiovascular Rhythm: regular Heart sounds: normal: S1, S2 Abnormal Heart Sounds: no systolic murmur, no diastolic murmur, no rub, no S3 Gallop, no S4 Gallop, no click, no other leg Peripheral Edema: bilateral: None - Gastrointestinal General gastrointestinal: bowel sounds, - Genitourinary lr draining clear yellow urine - Integumentary Integumentary: normal - Neurologic BLE no motor movement. Great toe proprioception intact, pt able to discriminate soft touch of the skin. Neurologic: CNII-XII intact (grossly) - Musculoskeletal Gen. musculoskeletal aches. Patient needed 2 person assist to lean forward to listen to his lungs - Psychiatric Psychiatric: A&O x's 3, appropriate affect, intact judgment & insight Able to move Bilateral LE and sensation improved, primarily midline less in distal lower extremities - Labs CBC & Chem 7: 02/07/22 06:47 02/06/22 08:34 Labs: Abnormal Lab Results - Last 24 Hours (Table) 02/06/22 02/06/22 02/07/22 Range/Units 16:37 19:36 06:22 WBC (3.8-10.6) k/uL RBC (4.30-5.90) m/uL Hgb (13.0-17.5) gm/dL Hct (39.0-53.0) % MCHC (31.0-37.0) g/dL RDW (11.5-15.5) % Neutrophils # (1.3-7.7) k/uL Lymphocytes # (1.0-4.8) k/uL Monocytes # (0-1.0) k/uL Eosinophils # (0-0.7) k/uL POC Glucose (mg/dL) 126 H 236 H 181 H (75-99) mg/dL 02/07/22 02/07/22 Range/Units 06:47 11:26 WBC 40.8 H (3.8-10.6) k/uL RBC 3.48 L (4.30-5.90) m/uL Hgb 9.3 L (13.0-17.5) gm/dL Hct 30.8 L (39.0-53.0) % MCHC 30.3 L (31.0-37.0) g/dL RDW 16.3 H (11.5-15.5) % Neutrophils # 34.3 H (1.3-7.7) k/uL Lymphocytes # 0.8 L (1.0-4.8) k/uL Monocytes # 1.2 H (0-1.0) k/uL Eosinophils # 4.0 H (0-0.7) k/uL POC Glucose (mg/dL) 196 H (75-99) mg/dL Assessment and Plan Plan: Comments: CT CTL spine report reviewed Chest x-ray: report reviewed Assessment and Plan (1) Bilateral leg weakness secondary to Cord Compression Current Visit: Yes Status: Acute Priority: High Code(s): R29.898 - H SYMPTOMS AND SIGNS INVOLVING THE MUSCULOSKELETAL SYSTEM SNOMED Code(s): 8447361 Status Post Surgical Intervention with Dr. Courtney - T1-6 decompressive laminectomy with T3 stabilizing kyphoplasty (2) NSCLC metastatic to bone Current Visit: Yes Status: Acute Priority: High Code(s): C34.90 - MALIGNANT NEOPLASM OF UNSP PART OF UNSP BRONCHUS OR LUNG; C79.51 - SECONDARY MALIGNANT NEOPLASM OF BONE SNOMED Code(s): 244919362 (3) Leukocytosis Current Visit: Yes Status: Acute Priority: Medium Code(s): D72.829 - ELEVATED WHITE BLOOD CELL COUNT, UNSPECIFIED SNOMED Code(s): 783996388 Plan: per Surgery await 2 weeks before radiation resume MRI of the brain for initial staging today Continue Dexamethasone, PPI, Pain control, bowel regimen Daily CBC PT/OT after cleared by surgery Orthopedic Spine Surgeon has performed T2-6 decompressive laminectomy with removal of tumor and T3 kyphoplasty and biopsy, path positive for non-small cell pulmonary adenocarcinoma. Discussed case with Radiation Oncology who has plans for radiation to the spine, 2 weeks postop per Orthopedic Spine Surgeon. Dexamethasone is being tapered by Ortho Spine. Pending their recommendation as to when to transition to oral and consider taper post op. PPI prophylaxis of steroid-induced gastritis ordered. MRI of the brain and c-spine, no parenchymal brain mets. Pain managed at this time adjusting when necessary Medications for prevention of narcotic-induced constipation ordered. Leukocytosis: Likely reactive in addition steroids infectious work-up neg, Monitoe Plan is Rehab for patient as he must increast strength in order to be able to continue on treatment for cancer, he understands this and is willing to go IPR. The patient and discussed with case management and have picked facilities and he will follow-up after completion of rehab for resumption of treatment for cancer, until then it will remain on hold.
[2022-02-07] MEDS: CYCLOBENZAPRINE 5 MG TAB PO PRN (16:36)
[2022-02-07 16:47] LABS: Glucose,Whole Blood 184 mg/dL (75-99)
--- NOTE | 2022-02-07 17:02 | XR ---
EXAMINATION TYPE: XR abdomen 2V DATE OF EXAM: 02/07/2022 COMPARISON: 02/04/2022 HISTORY: Bowel obstruction TECHNIQUE: 3 views supine and upright FINDINGS: There are some dilated fluid and air-filled small bowel loops in the mid abdomen. There is some retained fecal material throughout the large bowel. No sign of free air. Lung bases are clear of consolidation. IMPRESSION: Dilated small bowel suggestive of mechanical small bowel obstruction. Constipation. Small bowel increased compared to old exam. Constipation increased.
[2022-02-07 20:17] LABS: Glucose,Whole Blood 106 mg/dL (75-99)
[2022-02-07] MEDS: CALCIUM CARBONATE 500 MG CHEWABLE PO PRN (22:04)
[2022-02-07] MEDS: SODIUM CHLORIDE 0.9% 1,000 ML IV SCH (23:10)
[2022-02-08 06:07] LABS: Glucose,Whole Blood 118 mg/dL (75-99)
[2022-02-08] MEDS: DEXAMETHASONE SOD PHOSPHATE 4 MG/ML 1 ML VIAL IVP SCH ×3 (06:27→17:30)
[2022-02-08] MEDS: INSULIN ASPART (NovoLOG) 100 UNIT/ML VIAL SQ SCH ×4 (06:28→21:50)
[2022-02-08] MEDS: IPRATROPIUM-ALBUTEROL 3 ML NEB INHALATION SCH ×3 (08:57→21:11)
[2022-02-08] MEDS ORDERED: LACTULOSE 20 GM/30 ML CUP ONE (09:00)
[2022-02-08] MEDS ORDERED: SENNOSIDES-DOCUSATE SODIUM 1 EACH TAB PO ONE (09:00)
[2022-02-08] MEDS ORDERED: MAGNESIUM HYDROXIDE 2,400 MG/10 ML CUP ONE (09:00)
[2022-02-08] MEDS ORDERED: HYDROcodone/APAP 10-325MG 1 EACH TAB ONE (09:00)
[2022-02-08] MEDS ORDERED: IPRATROPIUM-ALBUTEROL 3 ML NEB ONE (09:00)
[2022-02-08] MEDS ORDERED: ENOXAPARIN 40 MG/0.4 ML SYRINGE SQ ONE (09:00)
[2022-02-08] MEDS ORDERED: NAPROXEN 250 MG TAB ONE (09:00)
[2022-02-08] MEDS ORDERED: PANTOPRAZOLE 40 MG/10 ML VIAL ONE (09:00)
[2022-02-08] MEDS: HYDROcodone/APAP 10-325MG 1 EACH TAB PO PRN (11:20)
[2022-02-08] MEDS ORDERED: INSULIN ASPART (NovoLOG) 100 UNIT/ML VIAL SQ ONE (12:30)
--- NOTE | 2022-02-08 14:42 | P.PN ---
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 He was recently diagnosed with metastatic lung cancer with metastatic disease to the bones. Under care of Dr. Mercedes. Patient was supposed to follow for radiation treatment and further workup. For 6 weeks patient is having some trouble getting up because of back pain. He presented to the on 01/24/22 with complaints of weakness, not being able to walk andnot able to urinate. A lr catheter was placed. In addition oncologist was consulted. On January 15 patient underwent a PET scan that showed abnormal thoracic adenopathy with diffuse osseous metastatic disease and spinal canal invasion lower thoracic spine level noted. Also involvement of bilateral ribs and entire spine. Lung biopsy has previously shown malignant non-small cell carcinoma cells having features of metastatic pulmonary adenocarcinoma. Per bronchoscopy by Dr. Topete on December 28. Patient denied any fever and chills. January 26: Patient received radiation treatment. Getting breathing treatments. Stated this afternoon she was seen by Dr. Courtney. MRI head showed spinal cord compression. He discussed with the family and will proceed for surgery. Compression between T2-T6. On the spinal cord January 27: Patient underwent surgery today. Formal report not available. Has a C- spine collar. Hemovac in place. January 28: Cervical collar and Hemovac in place. Some movement of his lower extremity. Lr catheter. Unable to control his bowel movement today. January 29: Awaiting MRI today. Some pain in the neck. Able to move some his lower extremity. January 30: Patient had brain MRI. No obvious metastatic disease reported. Cervical spine MRI noted. Patient is awaiting his chest brace. Able to move his legs a bit. Underwent nasopharyngeal laryngoscopy by Dr. Petit y evening. No vocal cord paresis or paralysis. Large amount of inflammation and laryngitis including a false vocal cord. Hemovac in place. January 31: Up in a chair. Has a chest brace. Patient not to get radiation treatment at for 2-3 weeks. PT/OT. Movement of the legs better. February 01: Hemovac has been discontinued. Cervical collar. Oral intake fair. Pain at the operative site. Not felt to be candidate for [facility] rehab. February 02: Pt able to lift his legs off the bed. No rehab place available. Dose of dexamethasone cutback. On IV cefazolin per orthopedic. February 03: No BM for 3 days. We'll give a laxative. February 04: No BM today again. Given a soapsuds enema. No response. Abdominal x- rays ordered. No nausea or vomiting. No abdominal pain. February 05: Patient continues with elevated WBC and hematology/onc following. Patient also continues with abdominal distention and feeling of fullness and general surgery consulted for constipation. CT abdomen ordered and pending. Patient is continued on laxatives and bowel regimen and has attempted soapsud enema x 2 with no relief. Social work and case management following and patient is awaiting accepting facility for continued weakness. Patient is continued on IV steroids decadron and tapering per ortho as patient is status post decompression laminectomy with soft collar noted. February 06: Patient able to get up and shower. General surgery ordered bowel regimen and patient was able to have a bowel movement and feeling better. Patient to continue current bowel regimen and continue working with PT/OT daily. Case management following and working on accepting ECF for rehab prior to starting cancer treatment. No radiation for 2-3 weeks per ortho and is also continued on IV cefazolin and will continue. February 07: The patient was resting in bed and appeared comfortable. He states his pain is 3/10 to his right shoulder and back. He states he is getting adequate pain relief from current regimen. IV pain medications discontinued in anticipation of patient going to rehab. Encourage patient to take PO pain medications. The patient states he is shocked at how quickly the paralysis came on from his time of diagnosis. He states his goals are prolonged survival, to maximize his mobility and function to regain his independence. He is motivated and would like to get up and move more. He does not qualify for IP rehab, as he is not yet able to tolerate therapy at least 3 hours a day. However, he is willing to go to an ECF for rehab. He would also like to continue with treatment for his cancer. Objective - Vital Signs Vital signs: Vital Signs Temp 98.1 F 02/08/22 03:44 Pulse 79 02/08/22 09:08 Resp 18 02/08/22 03:44 BP 113/68 02/08/22 03:44 Pulse Ox 95 02/08/22 08:59 FiO2 Intake & Output 02/07/22 02/08/22 02/08/22 18:59 06:59 18:59 Intake Total 1320 540 Output Total 1400 700 700 Balance -80 -700 -160 Intake: Oral 1320 540 Output: Urine 1400 700 700 Other: Voiding Method Indwelling Catheter - Exam General: Patient awake alert and oriented x 3. No acute distress. HEENT: Head is atraumatic, normocephalic Neck is supple. Sclerae are clear. Pupils equal, round and reactive to light bilaterally. CV: Heart regular in rate and rhythm positive S1 and S2. No S3. No S4. No clicks, rubs or murmurs. No JVD. Peripheral pulses equal. 2/4 Lungs: Diminished bilateral bases. No wheezes rales or rhonchi. Respirations even and nonlabored. No intercostal retractions. 2L NC Abdomen/GI: Soft. Bowel sounds present in all 4 quadrants. Bowel sounds normoactive. LBM today : Lr catheter draining clear yellow urine Musculoskeletal/ Extremities: + weakness to b/l lower extremities R>L. Able to lift LE off bed. No tenderness on muscular exam. No ecchymosis. Vascular: Radial pulses equal. 2/4. Skin: No rash. Neurologic: Awake, alert and oriented times 3. Psychiatric: Appropriate mood and affect. - Labs CBC & Chem 7: 02/07/22 06:47 02/06/22 08:34 Labs: Abnormal Lab Results - Last 24 Hours (Table) 02/07/22 02/07/22 02/07/22 Range/Units 06:47 11:26 16:46 Neutrophils # 34.3 H (1.3-7.7) k/uL Lymphocytes # 0.8 L (1.0-4.8) k/uL Monocytes # 1.2 H (0-1.0) k/uL Eosinophils # 4.0 H (0-0.7) k/uL POC Glucose (mg/dL) 196 H 184 H (75-99) mg/dL 02/07/22 02/07/22 02/08/22 Range/Units 20:15 20:15 06:06 Neutrophils # (1.3-7.7) k/uL Lymphocytes # (1.0-4.8) k/uL Monocytes # (0-1.0) k/uL Eosinophils # (0-0.7) k/uL POC Glucose (mg/dL) 106 H 106 H 118 H (75-99) mg/dL Assessment and Plan Assessment: Symptoms * Pain - 2/10 right shoulder pain. Continue Tylenol, Naproxen, Coleridge, steroids, and Flexeril. * Fatigue - Good energy level, motivated to get up and moving * SOB - Yes, mild, while at rest and with activity, continue Duoneb, 2L NC * Insomnia - No * N/V - No, continue Zofran prn * Anxiety - Yes, continue Atarax * Depression - No * Confusion - No * Agitation - No * Hallucinations - No * Appetite/weight loss - Decreased appetite, 30 lb weight loss in past 4 months * Dysphagia - No * Constipation - Yes, LBM today Continue MOM, Senokot-S, and Lactulose, Add Dulcolax supp prn * Incontinence - Pt was unable to void, lr re-inserted * Itch - No Plan: Summary/Goals - The patient states he did not sleep well last night. He was constipated and his abdomen was very uncomfortable. He was able to have a large BM this morning and feels better. Patient states his pain is well controlled with his current regimen. He is afraid to take narcotics because of the constipation. He was up walking using a walker with PT yesterday and stated he thinks he is moving better. He is motivated to get to rehab and regain his strength. His is coming into the hospital today to discuss rehab faci lities with the case aide. Patient is agreeable to outpatient Palliative Care. Advanced Directives - none, information provided Code Status - The patient would like to remain a full code Thank you for this consult Sandi Banuelos [facility] Palliative Care Spectralink [phone] Email: [email or web address] Time with Patient: Less than 30
[2022-02-08 14:51] LABS: Glucose,Whole Blood 122 mg/dL (75-99)
--- NOTE | 2022-02-08 14:56 | P.PN ---
Subjective Progress Note Date: 02/08/22 CHIEF COMPLAINT: Constipation HISTORY OF PRESENT ILLNESS: The patient is a 61 year old male recently diagnosed metastatic lung cancer with chronic constipation. General surgery was consulted for chronic constipation. Patient reports having a large bowel movement this morning. He reports improvement in his abdominal discomfort. Denies any nausea or vomiting. Molasses enema was not given due to the large bowel movement. Afebrile. WBC 40.8 hemoglobin 9.3 PHYSICAL EXAM: VITAL SIGNS: Reviewed GENERAL: Well-developed in no acute distress. HEENT: No sclera icterus. Extraocular movements grossly intact. Moist buccal mucosa. Head is atraumatic, normocephalic. Hears conversational speech. No nasal drainage. NECK: Supple without lymphadenopathy. CHEST: Non-labored respirations and equal bilateral excursions. CARDIOVASCULAR: Palpable 2+ radial pulses. ABDOMEN: Soft. Nondistended. Nontender. MUSCULOSKELETAL: No clubbing or cyanosis. NEUROLOGIC: No focal or lateralizing signs. Cranial nerves II through XII grossly intact. PSYCH: Appropriate affect. Alert and oriented to person, place and time. SKIN: Well perfused. Good skin turgor. ASSESSMENT: 1. Constipation due to decreased mobility and narcotics 2. Metastatic lung cancer 3. Leukocytosis PLAN: -Repeat abdominal x-ray -Continue with lactulose 30 mg TID and milk of magnesia twice daily scheduled Physician Back Office Medical Assistant note has been reviewed by physician. Signing provider agrees with the documented findings, assessment, and plan of care. CHIEF COMPLAINT: Constipation HISTORY OF PRESENT ILLNESS: The patient is a 61 year old male diagnosed metastatic lung cancer with chronic constipation and leukocytosis. He has chronic constipation. Last bowel movement 2 days ago. Today, patient reports large bowel movement and having bowel movement at the time of assessment. Milk of molasses enema was held due to moderate bowel movements. REVIEW OF ORGAN SYSTEMS: No fevers or chills. No chest pain. No nausea and vomiting PHYSICAL EXAM: VITALS: Reviewed CONSTITUTIONAL: Well developed and in no acute distress. EYES: Conjuctivae without sclera icterus. Extraocular movements grossly intact. HEAD, EARS, NOSE, THROAT: Moist buccal mucosa. Head is atraumatic, normocephalic. Hears conversational speech. No nasal drainage. RESPIRATORY: Non-labored respirations and equal bilateral excursions. No gross wheezes. CARDIOVASCULAR: Palpable 2+ radial pulses. ABDOMEN: No peritonitis. Resolved distention MUSCULOSKELETAL: No clubbing cyanosis. SKIN: Warm and well perfused with good skin turgor. NEUROLOGIC: Cranial nerves II through XII grossly intact. No focal or lateralizing signs. PSYCH: Appropriate affect. Alert and oriented to person, place and time. CLINCAL LABS: Reviewed. Blood sugar glucose over 200s. STUDIES: Abdominal x-ray independent review demonstrated fecal impaction with s mall bowel dilation. This is my independent interpretation. RADIOLOGY: Abdominal x-ray report demonstrates mechanical bowel obstruction with constipation. ASSESSMENT: 1. Chronic constipation. 2. Metastatic lung cancer 3. Leukocytosis PLAN: 1. Continue bowel regimen of lactulose and MiraLAX daily 2. Will obtain abdominal x-rays for resolution of fecal impaction Objective - Vital Signs Vital signs: Vital Signs Temp 97.7 F 02/08/22 11:13 Pulse 76 02/08/22 11:13 Resp 18 02/08/22 11:13 BP 120/74 02/08/22 11:13 Pulse Ox 92 L 02/08/22 11:13 FiO2 Intake & Output 02/07/22 02/08/22 02/08/22 18:59 06:59 18:59 Intake Total 1320 550 Output Total 1400 700 700 Balance -80 -700 -150 Intake: IV 10 Invasive Line 5 10 Oral 1320 540 Output: Urine 1400 700 700 Other: Voiding Method Indwelling Catheter Indwelling Catheter - Labs CBC & Chem 7: 02/07/22 06:47 02/06/22 08:34 Labs: Abnormal Lab Results - Last 24 Hours (Table) 02/07/22 02/07/22 02/07/22 Range/Units 16:46 20:15 20:15 POC Glucose (mg/dL) 184 H 106 H 106 H (75-99) mg/dL 02/08/22 Range/Units 06:06 POC Glucose (mg/dL) 118 H (75-99) mg/dL
--- NOTE | 2022-02-08 14:56 | P.PN ---
Subjective Progress Note Date: 02/08/22 This is a 61-year-old patient who follows with Dr. Elias Huizar. Patient 2 weeks ago was diagnosed with metastatic lung cancer with metastatic disease to the bones. Under care of Dr. Mercedes. Patient was supposed to follow for radiation treatment and further workup. For 6 weeks patient is having some trouble getting up because of back pain. Also prescription pain in the chest and back. Appetite is okay. Has lost about 35 pounds the last few weeks. Yesterday patient not able to walk at all not make urine. Presented to the ER. Lr catheter was placed. In addition oncologist was consulted. On January 15 patient underwent a PET scan that showed abnormal thoracic adenopathy with diffuse osseous metastatic disease and spinal canal invasion lower thoracic spine level noted. Also involvement of bilateral ribs. Started him and entire spine. Lung biopsy has previously shown malignant non-small cell carcinoma cells having features of metastatic pulmonary adenocarcinoma. Per bronchoscopy by Dr. Topete on December 28. Patient denies any fever and chills. A bit tired and rundown. January 26: Patient received radiation treatment. Getting breathing treatments. Stated this afternoon she was seen by Dr. Courtney. MRI head showed spinal cord compression. He discussed with the family and will proceed for surgery. Compression between T2-T6. On the spinal cord January 27: Patient underwent surgery today. Formal report not available. Has a C- spine collar. Hemovac. at the bedside. Tired. January 28: Laying in bed. Cervical collar. Hemovac. Some movement of her lower extremity. Lr catheter. Unable to control his bowel movement today. January 29: Awaiting MRI today. Survive to call her with Hemovac in place. Some pain in the neck. Able to move some his lower extremity. January 30: Patient had brain MRI. No obvious metastatic disease reported. Cervical spine MRI noted. Patient is awaiting his chest brace. Able to move his legs a bit. Underwent nasopharyngeal laryngoscopy by Dr. Petit yesterday evening. No vocal cord paresis or paralysis. Large amount of inflammation and laryngitis including a false vocal cord. Discussed with the patient and at the bedside. Pain control. Hemovac in place. Does not like hospital food. Daughter will be bringing in some food. January 31: Up in a chair. Has a chest brace. Oral intake fair. Lr catheter. Patient not to get radiation treatment at least for [address] Bauman consulted. Movement of the legs better. 11/18. February 01: Reclining in bed. Hemovac has been discontinued. Cervical collar. O ral intake fair. Pain at the operative site. Not felt to be candidate for [facility] rehab. February 02: Reclining in bed. Able to lift his legs off the bed. Prior outpatient case manager. Currently no rehab place available. Dose of dexamethasone cutback. On IV cefazolin per orthopedic. February 03: Admitting his brace. Sitting on edge of the bed. Oral intake good. No BM for 3 days. We'll give a laxative. Other medications to continue. February 04: No BM today again. Given a soapsuds enema. No response. Abdominal x- rays ordered. No nausea or vomiting. No abdominal pain. 02/05/2022 Patient is seen in follow-up this morning with multiple medical consultations following. Patient continues with elevated WBC and hematology/onc following. Patient also continues with abdominal distention and feeling of fullness and general surgery consulted for constipation. CT abdomen ordered and pending. Patient is continued on laxatives and bowel regimen and has attempted soapsud enema x 2 with no relief. Social work and case management following and patient is awaiting accepting facility for continued weakness. Patient denies chest pain or shortness of breath. Patient is afebrile. Reports abdominal discomfort. Patient is continued on IV steroids decadron and tapering per ortho as patient is status post decompression laminectomy with soft collar noted. 02/06/2022 Patient is seen today and feeling better and able to get up and shower. Multiple medical consultations following. General surgery ordered bowel regimen and patient was able to have a bowel movement and feeling better. Patient to continue current bowel regimen and continue working with physical therapy daily. Case management following and working on accepting ec for continued strength and mobility prior to starting cancer treatment. No radiation for 2 weeks per ortho and is also continued on IV cefazolin and will continue. Patient is afebrile and denies chest pain or shortness of breath. Patient is tolerating diet. 02/07/2022 Patient is seen in follow-up this morning with multiple medical consultations following including oncology and orthopedics. Patient is status post T1 to T6 decompression laminectomy with orthopedics following and continued on pain management. Patient also with metastatic lung cancer and being followed by oncology and arranging for outpatient follow-up. Radiation oncology also evaluated the patient and will continue to hold radiation therapy 2-3 weeks postop per orthopedics. Case management also following and arranging for ECF and family along with patient are willing to proceed with ECF to build up strength and mobility with continued PT/OT therapy services. Patient and family are agreeable and aware about being unable to initiate oncology therapy while in rehab. Patient also evaluated by general surgery for constipation and is maintained on lactulose twice a day and will increase to lactulose 3 times a day as patient is reporting feeling of constipation and has not had a bowel movement now in 2 days. Patient also continues with indwelling Lr catheter for urinary retention and recommended continue. Patient denies chest pain or shortness of breath. Patient is afebrile. WBC trending down. 02/08/2022 Patient is seen this morning currently having a bowel movement and will continue with lactulose 3 times a day as needed. Multiple medical consultations follo wing the patient also continues with indwelling Lr catheter for retention and will initiate Flomax and continue to monitor. Possible component of metastatic disease or chronic constipation from narcotic use. Case management following along with orthopedics and oncology and plan is for patient to go to ECF once insurance authorization is obtained. Patient is afebrile denies any chest pain or shortness of breath. Physical examination: GENERAL:, 61 year old male, sitting up in bed, comfortable, well developed, well nourished EYES: Pupils equal. Conjunctiva normal. HEENT: soft collar noted NECK: JVD not raised; masses not palpable. HEART: First and second heart sounds are normal; no edema. LUNGS: Respiratory rate normal; decreased breath sounds. ABDOMEN: Soft, nontender, bowel sounds noted, no masses palpable. Lr catheter PSYCH: Alert and oriented x3; mood and affect normal MUSCULOSKELETAL:No Clubbing/cyanosis;muscles-grossly intact NEUROLOGICAL: Cranial nerves grossly intact; no facial asymmetry, able to lift his legs off the bed. 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 by Dr. Courtney - January 27. -Acute urinary retention from metastatic disease to the spine. continue lr catheter -metastatic adenocarcinoma of the lung/non-small cell. -Normocytic anemia secondary to malignancy -COPD in a previous smoker -Hyponatremia, likely hypoosmolar -Bone pain. From metastatic disease -Severe leukocytosis likely leukemoid reaction from underlying malignancy and steroids -Acute medical debility from metastatic disease -Acute severe constipation secondary to decreased mobility and narcotics -full code Plan: Recommend to continue with current regimen and follow with multiple medical consultations. Wean steroids per oncology and orthopedics. Patient is maintained on IV Decadron and will be weaned per orthopedics. Patient is continued on enemas and bowel regimen and reports to having no bowel movement today. Will increase lactulose to 3 times a day and monitor closely. Continue current regimen. PT/OT daily and case management following and working on an accepting ecf for continued rehab. Some facilities have been located and family is agreeable to proceed and are aware that oncology treatments will be held while in ECF and will follow-up with them in the outpatient setting. Will repeat am labs and continue to monitor closely. Due to multiple complex medical issues, prognosis is guarded. Possible discharge in 24 hours. The impression and plan of care has been dictated by Drea Ruiz, Nurse Practitioner as directed. Dr. Josesito MD I have performed a history and examination and MDM of this patient, discussed the same with the dictator, and agree with the dictator's assessment and plan as written ,documented as a scribe. Based on total visit time, I have performed more than 50% of the visit. Objective - Vital Signs Vital signs: Vital Signs Temp 97.7 F 02/08/22 11:13 Pulse 76 02/08/22 11:13 Resp 18 02/08/22 11:13 BP 120/74 02/08/22 11:13 Pulse Ox 92 L 02/08/22 11:13 FiO2 Intake & Output 02/07/22 02/08/22 02/08/22 18:59 06:59 18:59 Intake Total 1320 550 Output Total 1400 700 700 Balance -80 -700 -150 Intake: IV 10 Invasive Line 5 10 Oral 1320 540 Output: Urine 1400 700 700 Other: Voiding Method Indwelling Catheter Indwelling Catheter - Labs CBC & Chem 7: 02/07/22 06:47 02/06/22 08:34 Labs: Abnormal Lab Results - Last 24 Hours (Table) 02/07/22 02/07/22 02/07/22 Range/Units 16:46 20:15 20:15 POC Glucose (mg/dL) 184 H 106 H 106 H (75-99) mg/dL 02/08/22 Range/Units 06:06 POC Glucose (mg/dL) 118 H (75-99) mg/dL
[2022-02-08] MEDS: NAPROXEN 250 MG TAB PO SCH ×3 (16:00→21:50)
[2022-02-08 16:14] LABS: Glucose,Whole Blood 209 mg/dL (75-99)
[2022-02-08] MEDS: ENOXAPARIN 40 MG/0.4 ML SYRINGE SQ SCH (16:19)
[2022-02-08] MEDS: LACTULOSE 20 GM/30 ML CUP PO SCH (16:19)
[2022-02-08] MEDS: PANTOPRAZOLE 40 MG/10 ML VIAL IVP SCH ×2 (16:19→21:50)
[2022-02-08] MEDS: MAGNESIUM HYDROXIDE 2,400 MG/10 ML CUP PO SCH ×2 (16:19→23:52)
[2022-02-08] MEDS: SENNOSIDES-DOCUSATE SODIUM 1 EACH TAB PO SCH ×2 (16:20→21:51)
--- NOTE | 2022-02-08 17:12 | P.PN ---
Subjective Progress Note Date: 02/08/22 patient seen and examined he is doing well and is sitting up with his using dinner. He states his pain is controlled nursing is at bedside we removed his dressing and visualized his incision. We discussed removing his radha as he is postop day 12. He states he is moving his legs much better he has had bowel movements with help although he is not able to control them very well. He continues to have a Lr catheter. He is moving his legs much better however. He denies any fevers chills shortness of breath or chest pain at this time. He denies any new symptoms at this time. Objective - Vital Signs Vital signs: Vital Signs Temp 97.7 F 02/08/22 11:13 Pulse 76 02/08/22 11:13 Resp 18 02/08/22 11:13 BP 120/74 02/08/22 11:13 Pulse Ox 92 L 02/08/22 11:13 FiO2 Intake & Output 02/07/22 02/08/22 02/08/22 18:59 06:59 18:59 Intake Total 1320 550 Output Total 1247 089 6483 Balance -80 -700 -700 Intake: IV 10 Invasive Line 5 10 Oral 1320 540 Output: Urine 5970 588 2897 Other: Voiding Method Indwelling Catheter Indwelling Catheter - Exam on exam his incision is clean and dry and healing well the radha will be removed today. He is wearing his CLINICAL SOCIAL WORK AIDE which is well fitting. He is able to move his lower extremities with much better strength and much better control at this time. Reflexes are better no clonus and no pathologic reflexes at this time neurovascular intact distally increased sensation bilateral lower extremities as well as perineal region. Other changes noted below Patient is alert and oriented 3 appears well-nourished well-hydrated is in no acute distress. They do not appear septic. On exam the patient has no tenderness to palpation of her thoracic or lumbar spine. There is no edema or ballottement sign. Lower extremities with 4/5 strength in all major muscle groups. Weakness in bilateral lower services continue to improve with greater strides Upper extremities show 5/5 strength in all major muscle groups. Patient still demonstrates essentially full strength in bilateral upper extremities however he does have some deconditioning still present 2/4DTR all UE and LE b/l Patient shows a negative Homans, Boston's, negative Babinski's negative clonus bilaterally. negative straight leg raise bilaterally. No tensioning signs. Cranial nerves II through XII are grossly intact. There is FROM that is painless of the b/l UE and LE in all major joints w/o pain. They are intact to light touch sensation in L2 to S1 nerve distribution. Patient has palpable dorsalis pedis was posterior tibial pulses. Compartments are soft and compressible. showing better sensation in lower extremities to light touch as well as pain. - Labs CBC & Chem 7: 02/07/22 06:47 02/06/22 08:34 Labs: Abnormal Lab Results - Last 24 Hours (Table) 02/07/22 02/07/22 02/08/22 Range/Units 20:15 20:15 06:06 POC Glucose (mg/dL) 106 H 106 H 118 H (75-99) mg/dL 02/08/22 02/08/22 Range/Units 11:46 16:11 POC Glucose (mg/dL) 122 H 209 H (75-99) mg/dL Assessment and Plan Assessment: 61-year-old male with stage IV metastatic lung adenocarcinoma Acute lower extremity weakness with urinary retention, likely thoracic myelopathy POD12 T1-6 decompressive laminectomy with T3 stabilizing kyphoplasty Complex medical patient Plan: -Appreciate Team and consulting services -Okay for up and about with CLINICAL SOCIAL WORK AIDE brace amputee and assist as needed -incentive spirometer 10 times per hour -[place] removed today at bedside -Pain control PRN, ORALS, no more IV meds. -GI ppx cont with lr -DVT ppx, Cont with heparin vs lovenox to go to rehab -Cont with ABX post op -TEds, SCDs -Advised pt to continue with in bed exercises as much as possible since PT/OT not as aggressive as needed. -continue regular diet -Cont PT/OT. OOB 4-5x/day. OOB all meals. CLINICAL SOCIAL WORK AIDE when out of bed. -SHOWER daily -Stable for rehab per spine service -follow-up in office in 3-4 weeks.
[2022-02-08 20:56] LABS: Glucose,Whole Blood 236 mg/dL (75-99)
[2022-02-08] MEDS ORDERED: LACTULOSE 20 GM/30 ML CUP PO PRN (21:20)
[2022-02-08] MEDS ORDERED: MAGNESIUM HYDROXIDE 2,400 MG/10 ML CUP PO PRN (21:20)
--- NOTE | 2022-02-08 21:45 | XR ---
EXAMINATION TYPE: XR abdomen 2V DATE OF EXAM: 02/08/2022 7:13 PM INDICATION: Patient age:Male; 61 years old; Reason for study: Follow-up on constipation; COMPARISON: None. TECHNIQUE: One radiographic view of the abdomen was obtained. FINDINGS: Gaseous distention of the ascending colon and cecum and a few loops of small bowel. Finding s are not significantly changed from prior. Multiple surgical clips are seen in the pelvis. Multileve l disc degeneration changes seen throughout the spine. There is stool seen throughout the colon. IMPRESSION: Persistent gaseous distention of the bowel not significantly changed from 02/07/2022.
[2022-02-09] MEDS: DEXAMETHASONE SOD PHOSPHATE 4 MG/ML 1 ML VIAL IVP SCH ×5 (00:58→23:55)
[2022-02-09] MEDS: SODIUM CHLORIDE 0.9% 1,000 ML IV SCH (00:58)
[2022-02-09 05:58] LABS: Glucose,Whole Blood 211 mg/dL (75-99)
[2022-02-09] MEDS: INSULIN ASPART (NovoLOG) 100 UNIT/ML VIAL SQ SCH ×4 (07:06→20:45)
--- NOTE | 2022-02-09 08:06 | P.PN ---
Subjective Progress Note Date: 02/09/22 Principal diagnosis: Metastatic lung cancer, bilateral lower extremity weakness, urinary retention, status post T1 to T6 decompression laminectomy Patient seen and examined at bedside. Patient is doing well states his pain is controlled. He is able to move bilateral lower extremities off of bed. Patient states he is able to stand and ambulate approx 4 steps on his own and is looking forward to going to rehab. He is improving daily with activity. Cervical collar in place. Incision is well approximated. [place] have been removed. He is anticipating discharge today. Denies any need at this time. Objective - Vital Signs Vital signs: Vital Signs Temp 98.1 F 02/09/22 04:00 Pulse 79 02/09/22 04:00 Resp 16 02/09/22 04:00 BP 105/62 02/09/22 04:00 Pulse Ox 92 L 02/09/22 04:00 FiO2 Intake & Output 02/08/22 02/09/22 02/09/22 18:59 06:59 18:59 Intake Total 560 Output Total 1250 900 Balance -690 -900 Intake: IV 20 Invasive Line 5 20 Oral 540 Output: Urine 1250 900 Other: Voiding Method Indwelling Catheter Indwelling Catheter - Exam Physical Examination General: The patient is awake and alert, in no acute distress Skin: Skin is warm and dry with no obvious rashes or lesions. Hairy patches absent, no dorsal skin dimples, no cafe au lait spots, surgical incision to posterior cervical, radha removed 02/08/27. Eye: Pupils are equal, round and reactive to light, extra-ocular movements are intact; there is normal conjunctiva bilaterally. Neck: The neck is supple, there is no tenderness and ROM intact. Cardiovascular: There is a regular rate and rhythm. No murmur, rub or gallop is appreciated. Respiratory: Lungs are clear to auscultation, respirations are non-labored, breath sounds are equal. Gastrointestinal: Soft, non-distended, non-tender abdomen . Back: There is no tenderness to palpation in the midline, paralumbar, parathoracic or buttocks region. There is no obvious deformity . Musculoskeletal: ROM limited secondary to pain and stiffness from surgical procedure. Shoulder abduction 5/5, elbow flexors 5/5, wrist dorsiflexors 5/5. finger abductor 5/5, senior director finance 5/5, hip flexor 4/5, knee flexor 4/5, ankle dorsiflexor 4/5, ankle plantarflexion 4/5 and extensor hallucis 4/5. Patient is unable to stand without assistance. Neurological: CN 2-12 intact. There are no obvious motor or sensory deficits. Movement and coordination equal and intact. Sensory exam to light touch intact C5-T1 and intact from L2-S1. Reflexes 2/4 in bilateral upper and lower extremities. Negative Hoffmans, babinski, and clonus signs. Psychiatric: Cooperative, appropriate mood & affect, normal judgment. - Labs CBC & Chem 7: 02/07/22 06:47 02/06/22 08:34 Labs: Abnormal Lab Results - Last 24 Hours (Table) 02/08/22 02/08/22 02/08/22 Range/Units 11:46 16:11 20:48 POC Glucose (mg/dL) 122 H 209 H 236 H (75-99) mg/dL 02/09/22 Range/Units 05:42 POC Glucose (mg/dL) 211 H (75-99) mg/dL Assessment and Plan Assessment: Post Op Day 13: T1-6 decompressive laminectomy with T3 stabilizing kyphoplasty Complex medical patient Plan: Plan: -Appreciate nursing consultant and team management. -Activity: Ambulate QID, OOB all meals, up and about, limit lifting bending twisting to less than 5 lbs. Use walker or cane if needed for stability. -Daily PT/OT, increase ambulation strength and balance. -Brace when up and about, not needed in bed or chair -Pt may utilize walker to propel himself around. -Pain control: Adequate at this time -Meds: reviewed -GI ppx: senna, Miralax -Maintain [place] Catheter -DVT PPX: Heparin -Encourage IS 10x/hr -Dispo: Anticipate discharge [facility] within next 24-48hrs pending auth. -Hold radiation 2-3 weeks post op *I reviewed and discussed this case with my attending Dr. Courtney, whom has reviewed this chart and films and is in agreement with assessment and plan of care as outlined above. I have personally seen and examined the patient, performed the documentation and the assessment and plan as written. Number of minutes spent on the visit: 20m. Time with Patient: Less than 30
[2022-02-09] MEDS: IPRATROPIUM-ALBUTEROL 3 ML NEB INHALATION SCH ×3 (08:07→21:02)
[2022-02-09] MEDS: NAPROXEN 250 MG TAB PO SCH ×3 (09:00→20:46)
[2022-02-09] MEDS: SENNOSIDES-DOCUSATE SODIUM 1 EACH TAB PO SCH ×2 (09:00→20:46)
[2022-02-09] MEDS: ENOXAPARIN 40 MG/0.4 ML SYRINGE SQ SCH (09:01)
[2022-02-09] MEDS: TAMSULOSIN 0.4 MG CAP.ER.24H PO SCH (09:01)
[2022-02-09] MEDS: PANTOPRAZOLE 40 MG/10 ML VIAL IVP SCH ×2 (09:01→20:45)
--- NOTE | 2022-02-09 10:46 | P.PN ---
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 He was recently diagnosed with metastatic lung cancer with metastatic disease to the bones. Under care of Dr. Mercedes. Patient was supposed to follow for radiation treatment and further workup. For 6 weeks patient is having some trouble getting up because of back pain. He presented to the on 01/24/22 with complaints of weakness, not being able to walk andnot able to urinate. A lr catheter was placed. In addition oncologist was consulted. On January 15 patient underwent a PET scan that showed abnormal thoracic adenopathy with diffuse osseous metastatic disease and spinal canal invasion lower thoracic spine level noted. Also involvement of bilateral ribs and entire spine. Lung biopsy has previously shown malignant non-small cell carcinoma cells having features of metastatic pulmonary adenocarcinoma. Per bronchoscopy by Dr. Topete on December 28. Patient denied any fever and chills. January 26: Patient received radiation treatment. Getting breathing treatments. Stated this afternoon she was seen by Dr. Courtney. MRI head showed spinal cord compression. He discussed with the family and will proceed for surgery. Compression between T2-T6. On the spinal cord January 27: Patient underwent surgery today. Formal report not available. Has a C- spine collar. Hemovac in place. January 28: Cervical collar and Hemovac in place. Some movement of his lower extremity. Lr catheter. Unable to control his bowel movement today. January 29: Awaiting MRI today. Some pain in the neck. Able to move some his lower extremity. January 30: Patient had brain MRI. No obvious metastatic disease reported. Cervical spine MRI noted. Patient is awaiting his chest brace. Able to move his legs a bit. Underwent nasopharyngeal laryngoscopy by Dr. Petit y evening. No vocal cord paresis or paralysis. Large amount of inflammation and laryngitis including a false vocal cord. Hemovac in place. January 31: Up in a chair. Has a chest brace. Patient not to get radiation treatment at for 2-3 weeks. PT/OT. Movement of the legs better. February 01: Hemovac has been discontinued. Cervical collar. Oral intake fair. Pain at the operative site. Not felt to be candidate for [facility] rehab. February 02: Pt able to lift his legs off the bed. No rehab place available. Dose of dexamethasone cutback. On IV cefazolin per orthopedic. February 03: No BM for 3 days. We'll give a laxative. February 04: No BM today again. Given a soapsuds enema. No response. Abdominal x- rays ordered. No nausea or vomiting. No abdominal pain. February 05: Patient continues with elevated WBC and hematology/onc following. Patient also continues with abdominal distention and feeling of fullness and general surgery consulted for constipation. CT abdomen ordered and pending. Patient is continued on laxatives and bowel regimen and has attempted soapsud enema x 2 with no relief. Social work and case management following and patient is awaiting accepting facility for continued weakness. Patient is continued on IV steroids decadron and tapering per ortho as patient is status post decompression laminectomy with soft collar noted. February 06: Patient able to get up and shower. General surgery ordered bowel regimen and patient was able to have a bowel movement and feeling better. Patient to continue current bowel regimen and continue working with PT/OT daily. Case management following and working on accepting ECF for rehab prior to starting cancer treatment. No radiation for 2-3 weeks per ortho and is also continued on IV cefazolin and will continue. February 07: The patient was resting in bed and appeared comfortable. He states his pain is 3/10 to his right shoulder and back. He states he is getting adequate pain relief from current regimen. IV pain medications discontinued in anticipation of patient going to rehab. Encourage patient to take PO pain medications. The patient states he is shocked at how quickly the paralysis came on from his time of diagnosis. He states his goals are prolonged survival, to maximize his mobility and function to regain his independence. He is motivated and would like to get up and move more. He does not qualify for IP rehab, as he is not yet able to tolerate therapy at least 3 hours a day. However, he is willing to go to an ECF for rehab. He would also like to continue with treatment for his cancer. February 08: The patient states he did not sleep well last night. He was constipated and his abdomen was very uncomfortable. He was able to have a large BM this morning and feels better. Patient states his pain is well controlled with his current regimen. He is afraid to take narcotics because of the constipation. He was up walking using a walker with PT yesterday and stated he thinks he is moving better. He is motivated to get to rehab and regain his strength. His is coming into the hospital today to discuss rehab facilities with the complex case manager. Patient is agreeable to outpatient Palliative Care. Objective - Vital Signs Vital signs: Vital Signs Temp 97.6 F 02/09/22 07:50 Pulse 96 02/09/22 08:18 Resp 16 02/09/22 07:50 BP 116/69 02/09/22 07:50 Pulse Ox 96 02/09/22 08:07 FiO2 Intake & Output 02/08/22 02/09/22 02/09/22 18:59 06:59 18:59 Intake Total 560 270 Output Total 1250 900 Balance -690 -900 270 Intake: IV 20 10 Invasive Line 5 20 Invasive Line 6 10 Oral 540 260 Output: Urine 1250 900 Other: Voiding Method Indwelling Catheter Indwelling Catheter Indwelling Catheter - Exam General: Patient awake alert and oriented x 3. No acute distress. HEENT: Head is atraumatic, normocephalic Neck is supple. Sclerae are clear. Pupils equal, round and reactive to light bilaterally. c-collar in place CV: Heart regular in rate and rhythm positive S1 and S2. No S3. No S4. No clicks, rubs or murmurs. No JVD. Peripheral pulses equal. 2/4 Lungs: Diminished bilateral bases. No wheezes rales or rhonchi. Respirations even and nonlabored. No intercostal retractions. 2L NC Abdomen/GI: Soft. Bowel sounds present in all 4 quadrants. Bowel sounds normoactive. LBM today : Lr catheter draining clear yellow urine Musculoskeletal/ Extremities: + weakness to b/l lower extremities R>L. Able to lift LE off bed. No tenderness on muscular exam. No ecchymosis. Vascular: Radial pulses equal. 2/4. Skin: No rash. Neurologic: Awake, alert and oriented times 3. Psychiatric: Appropriate mood and affect. - Labs CBC & Chem 7: 02/07/22 06:47 02/06/22 08:34 Labs: Abnormal Lab Results - Last 24 Hours (Table) 02/08/22 02/08/22 02/08/22 Range/Units 11:46 16:11 20:48 POC Glucose (mg/dL) 122 H 209 H 236 H (75-99) mg/dL 02/09/22 Range/Units 05:42 POC Glucose (mg/dL) 211 H (75-99) mg/dL Assessment and Plan Assessment: Symptoms * Pain - 2/10 right shoulder pain. Continue Tylenol, Naproxen, [place], steroids, and Flexeril. * Fatigue - Good energy level, motivated to get up and moving * SOB - Yes, mild, with activity, continue Duoneb, 2L NC * Insomnia - No * N/V - No, continue Zofran prn * Anxiety - Yes, continue Atarax * Depression - No * Confusion - No * Agitation - No * Hallucinations - No * Appetite/weight loss - Decreased appetite, 30 lb weight loss in past 4 months * Dysphagia - No * Constipation - Yes, LBM 02/08 Continue MOM, Senokot-S, and Lactulose, Add Dulcolax supp prn * Incontinence - Pt was unable to void, lr re-inserted, Flomax started * Itch - No Plan: Summary/Goals - The patient is resting in bed and appears comfortable. He states he sat in the chair for most of the day yesterday. It is hard for him to sit still, he is normally very active. He is looking forward to rehab Awaiting insurance authorization and available bed for rehab. He plans to continue with radiation once he is done with rehab. He would like to have outpatient palliative care. Advanced Directives - none, information provided Code Status - The patient would like to remain a full code Thank you for this consult Sandi Banuelos [facility]- Palliative Care [facility] [id number] Email: [email or web address] Time with Patient: Less than 30
[2022-02-09 11:41] LABS: Glucose,Whole Blood 143 mg/dL (75-99)
--- NOTE | 2022-02-09 13:11 | P.PN ---
Subjective Progress Note Date: 02/09/22 CHIEF COMPLAINT: Constipation HISTORY OF PRESENT ILLNESS: The patient is a 61 year old male recently diagnosed metastatic lung cancer with chronic constipation. General surgery was consulted for chronic constipation. Patient reports having 2 large bowel movements yesterday. He is also passing a lot of flatus. He denies any abdominal pain. Abdominal x-ray shows persistent gaseous distention of the bowel not significantly changed from 02/07/2022. Afebrile. No new labs. Patient reports possible discharge to rehab today. Patient has Lr catheter in place due to urinary retention. PHYSICAL EXAM: VITAL SIGNS: Reviewed GENERAL: Well-developed in no acute distress. HEENT: No sclera icterus. Extraocular movements grossly intact. Moist buccal mucosa. Head is atraumatic, normocephalic. Hears conversational speech. No nasal drainage. NECK: Supple without lymphadenopathy. CHEST: Non-labored respirations and equal bilateral excursions. CARDIOVASCULAR: Palpable 2+ radial pulses. ABDOMEN: Soft. Nondistended. Nontender. MUSCULOSKELETAL: No clubbing or cyanosis. NEUROLOGIC: No focal or lateralizing signs. Cranial nerves II through XII grossly intact. PSYCH: Appropriate affect. Alert and oriented to person, place and time. SKIN: Well perfused. Good skin turgor. ASSESSMENT: 1. Constipation due to decreased mobility and narcotics 2. Metastatic lung cancer 3. Leukocytosis PLAN: -Continue a good bowel regimen -Continue stool softeners -Change lactulose and milk of magnesia to as needed for constipation -Agree with Flomax for urinary retention -Patient can be discharged from surgical standpoint when medically cleared Physician Lifeguard note has been reviewed by physician. Signing provider agrees with the documented findings, assessment, and plan of care. CHIEF COMPLAINT: Constipation HISTORY OF PRESENT ILLNESS: The patient is a 61 year old male diagnosed metastatic lung cancer chronic constipation and leukocytosis. He reports his abdominal pain and distention is resolved as he is having moderate bowel movements. He is tolerating diet and sitting up in the chair. REVIEW OF ORGAN SYSTEMS: No fevers or chills. No chest pain. No nausea and vo miting. Has back brace. PHYSICAL EXAM: VITALS: Reviewed CONSTITUTIONAL: Well developed and in no acute distress. EYES: Conjuctivae without sclera icterus. Extraocular movements grossly intact. HEAD, EARS, NOSE, THROAT: Moist buccal mucosa. Head is atraumatic, normocephalic. Hears conversational speech. No nasal drainage. RESPIRATORY: Non-labored respirations and equal bilateral excursions. No gross wheezes. CARDIOVASCULAR: Palpable 2+ radial pulses. ABDOMEN: No peritonitis. Nontender MUSCULOSKELETAL: No clubbing cyanosis. SKIN: Warm and well perfused with good skin turgor. NEUROLOGIC: Cranial nerves II through XII grossly intact. No focal or lateralizing signs. PSYCH: Appropriate affect. Alert and oriented to person, place and time. : Has lr catheter, urine clear CLINCAL LABS: Reviewed. WBC trending down from 40.8 to 36.2. STUDIES: Abdominal x-ray independently reviewed with clearance of fecal impaction. This is my independent interpretation. ASSESSMENT: 1. Chronic constipation. 2. Metastatic lung cancer 3. Leukocytosis PLAN: 1. He is clinically doing well. Miralax and lactulose as needed 2. He has a lr due to urinary retention. May benefit from flomax. 3. Stable from surgical standpoint for discharge when medically stable. Objective - Vital Signs Vital signs: Vital Signs Temp 97.9 F 02/09/22 12:00 Pulse 101 H 02/09/22 12:00 Resp 16 02/09/22 12:00 BP 124/71 02/09/22 12:00 Pulse Ox 99 02/09/22 12:00 FiO2 Intake & Output 02/08/22 02/09/22 02/09/22 18:59 06:59 18:59 Intake Total 560 270 Output Total 1250 900 Balance -690 -900 270 Weight 86.6 kg Intake: IV 20 10 Invasive Line 5 20 Invasive Line 6 10 Oral 540 260 Output: Urine 1250 900 Other: Voiding Method Indwelling Catheter Indwelling Catheter Indwelling Catheter - Labs CBC & Chem 7: 02/09/22 13:23 02/09/22 13:23 Labs: Abnormal Lab Results - Last 24 Hours (Table) 02/08/22 02/08/22 02/08/22 Range/Units 11:46 16:11 20:48 POC Glucose (mg/dL) 122 H 209 H 236 H (75-99) mg/dL 02/09/22 02/09/22 Range/Units 05:42 11:39 POC Glucose (mg/dL) 211 H 143 H (75-99) mg/dL
[2022-02-09 13:40] LABS: Anisocytosis Slight; HCT 30.5 % (39.0-53.0); HGB 9.1 gm/dL (13.0-17.5); Hypochromasia Marked; MCH 26.5 pg (25.0-35.0); MCHC 29.7 g/dL (31.0-37.0); MCV 89.1 fL (80.0-100.0); Mean Platelet Volume 8.3; Platelet Count 230 k/uL (150-450); RBC 3.43 m/uL (4.30-5.90); RDW 16.5 % (11.5-15.5); WBC 36.2 k/uL (3.8-10.6)
[2022-02-09 13:57] LABS: ALT 8 U/L (4-49); AST 13 U/L (17-59); African American GFR (CKD) >90 (>60 ml/min/1.73 sqM); Albumin 2.6 g/dL (3.5-5.0); Alkaline Phosphatase 80 U/L (38-126); Anion Gap 5 mmol/L; Blood Urea Nitrogen 17 mg/dL (9-20); Calcium 8.4 mg/dL (8.4-10.2); Carbon Dioxide 32 mmol/L (22-30); Chloride 100 mmol/L (98-107); Glucose 170 mg/dL (74-99); Non-African American GFR(CKD) >90 (>60 ml/min/1.73 sqM); Potassium 3.8 mmol/L (3.5-5.1); Sodium 137 mmol/L (137-145); Total Bilirubin 0.4 mg/dL (0.2-1.3); Total Protein 4.9 g/dL (6.3-8.2)
--- NOTE | 2022-02-09 15:49 | P.DS ---
Providers Date of admission: 01/24/22 21:14 Expected date of discharge: 02/09/22 Attending physician: Archie Sanders Consults: 01/24/22 21:34 Consult Physician Routine Consulting Provider: Tang Topete Consult Reason/Comments: Lumg mass with metastatic lesions to the spine Do you want consulting provider notified?: Yes, Notify in am Consult Physician Routine Consulting Provider: Bola Coleman Consult Reason/Comments: Lung mass with metastatic lesions to the spine Do you want consulting provider notified?: Yes, Notify in am 01/24/22 22:01 Consult Physician Routine Consulting Provider: Fidencio Fisher Consult Reason/Comments: Lung mass with metastases to the spine Do you want consulting provider notified?: Yes, Notify in am 01/25/22 15:07 Consult Physician Urgent Consulting Provider: Jason Courtney Consult Reason/Comments: symptomatic cord compression, eval if candidate for surgery or send out Do you want consulting provider notified?: Already Contacted 01/29/22 15:31 Consult Physician Urgent Consulting Provider: Darron Luna Consult Reason/Comments: rapsy voice, post surgery, feels like swelling Do you want consulting provider notified?: Yes 01/31/22 11:19 Consult Physician Routine Consulting Provider: Julien Bauman Consult Reason/Comments: eval for ipr Do you want consulting provider notified?: Yes 02/04/22 14:25 Consult Physician Urgent Consulting Provider: Johana Carty Consult Reason/Comments: severe constipation- no response to enema Do you want consulting provider notified?: Yes 02/07/22 08:58 Consult to Palliative Care Routine Consulting Provider: Sandi Banuelos Consult Reason/Comments: pain control, new dx of Ca Do you want consulting provider notified?: Yes Primary care physician: Elias Huizar MD Hospital Course: Final diagnosis -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 by Dr. Courtney - January 27. -Acute urinary retention from metastatic disease to the spine. continue lr catheter -metastatic adenocarcinoma of the lung/non-small cell. -Normocytic anemia secondary to malignancy -COPD in a previous smoker -Hyponatremia, likely hypoosmolar -Bone pain. From metastatic disease -Severe leukocytosis likely leukemoid reaction from underlying malignancy and steroids -Acute medical debility from metastatic disease -Acute severe constipation secondary to decreased mobility and narcotics -full code Discharge disposition Patient is being discharged in a stable condition with guarded prognosis to [facility] for continued PT/OT therapy. Patient will follow-up with Dr. Elias Huizar in the outpatient setting upon discharge. Patient is to continue with current medications as mentioned below and close outpatient follow-up with orthopedics and also follow-up with oncology once discharged from [facility]. Patient is agreeable to hold any cancer therapy treatments while in [facility] and will follow-up in the outpatient setting. Total time taken is greater than 35 minutes. Hospital course This is a 61-year-old male who was recently admitted with recently diagnosed metastatic lung cancer with metastatic disease to the bone and patient had been having increasing back pain and was seen and evaluated by orthopedic services and found abnormal thoracic adenopathy with diffuse osseous metastatic disease and spinal canal invasion with lower thoracic spine level noted and patient underwent decompression laminectomy of the T1 to T6 and is being closely monitored. Patient is on a steroid taper and will continue with dexamethasone steroid in the outpatient setting. Patient to follow-up with oncology and orthopedics outpatient and patient is agreeable and will not be having cancer treatments well in [facility] and hopes to build strength and mobility with aggressive physical therapy. Also seen by general surgery for constipation and recommend continue with bowel regimen as needed. Patient is to use his back brace while out of bed and will follow-up with orthopedics in 2-3 weeks. Patient also with some urinary retention and will continue with indwelling Lr catheter with trial voiding once more stable and ambulatory and may need urology consultation in the outpatient setting. Currently no reports of chest pain, shortness of breath, or palpitations. Patient is afebrile. No reports of nausea or vomiting and patient is tolerating diet. Patient will be going to [facility] today. Our to prognosis. Physical exam: Gen: This is a 61-year-old male awake, alert and oriented 3, well-developed, well-nourished HEENT: Head is atraumatic, normocephalic. Pupils equal, round. Sclerae is anicteric. NECK: Supple. No JVD. No lymphadenopathy. No thyromegaly. LUNGS: Clear to auscultation. No wheezes or rhonchi. No intercostal retractions. HEART: Regular rate and rhythm. No murmur. ABDOMEN: Soft. Bowel sounds are present. No masses. No tenderness. EXTREMITIES: No pedal edema. No calf tenderness. NEUROLOGICAL: Patient is awake, alert and oriented x3. Cranial nerves 2 through 12 are grossly intact. Diffuse weakness Please refer to medication reconciliation sheet for a list of medications. The impression and plan of care has been dictated by Drea Ruiz, Nurse Practitioner as directed. Dr. Cam MD I have performed a history and examination and MDM of this patient, discussed the same with the dictator, and agree with the dictator's assessment and plan as written ,documented as a scribe. Based on total visit time, I have performed more than 50% of the visit. Patient Condition at Discharge: Stable Plan - Discharge Summary Discharge Rx Participant: Yes New Discharge Prescriptions: New Ipratropium-Albuterol Nebulize [Duoneb 0.5 mg-3 mg/3 ml Soln] 3 ml INHALATION RT-TID ml Cyclobenzaprine [Flexeril] 5 mg PO TID PRN tab PRN Reason: Muscle Spasm bisacodyL [Dulcolax] 10 mg RECTAL DAILY PRN suppositor PRN Reason: Constipation Tamsulosin [Flomax] 0.4 mg PO PC-BRKFST cap Magnesium Hydroxide [Milk of Magnesia Concentrate] 2,400 mg PO BID PRN ml PRN Reason: Constipation Acetaminophen Tab [Tylenol] 650 mg PO Q6HR PRN tab PRN Reason: Mild Pain Or Fever > 100.5 Naproxen [Naprosyn] 250 mg PO TID tab Sennosides-Docusate Sodium [Senokot-S] 2 each PO BID tab cefaDROXiL [Duricef] 500 mg PO Q12HR #20 cap oxyCODONE HCL [OxyIR] 5 - 10 mg PO Q6HR PRN #42 tab PRN Reason: Pain Dexamethasone [Decadron] 4 mg PO BID #60 tablet Omeprazole [PriLOSEC] 40 mg PO DAILY 30 Days cap Lactulose [Cephulac] 30 gm PO TID PRN ml PRN Reason: Constipation INSULIN ASPART (NovoLOG) [NovoLOG (formulary)] 0 unit SQ ACHS each Calcium Carbonate [Tums] 500 mg PO QID PRN tab PRN Reason: Heartburn Continue hydrOXYzine HCL 25 mg PO TID PRN PRN Reason: Anxiety Discontinued HYDROcodone/APAP 7.5-325MG [[place] 7.5-325] 2 tab PO Q4H PRN PRN Reason: Pain Discharge Medication List hydrOXYzine HCL 25 mg PO TID PRN 12/26/21 [History] Cyclobenzaprine [Flexeril] 5 mg PO TID PRN tab 02/02/22 [Rx] Dexamethasone [Decadron] 4 mg PO BID #60 tablet 02/02/22 [Rx] Ipratropium-Albuterol Nebulize [Duoneb 0.5 mg-3 mg/3 ml Soln] 3 ml INHALATION RT-TID ml 02/02/22 [Rx] Naproxen [Naprosyn] 250 mg PO TID tab 02/02/22 [Rx] Omeprazole [PriLOSEC] 40 mg PO DAILY 30 Days cap 02/02/22 [Rx] Sennosides-Docusate Sodium [Senokot-S] 2 each PO BID tab 02/02/22 [Rx] cefaDROXiL [Duricef] 500 mg PO Q12HR #20 cap 02/02/22 [Rx] oxyCODONE HCL [OxyIR] 5 - 10 mg PO Q6HR PRN #42 tab 02/02/22 [Rx] Acetaminophen Tab [Tylenol] 650 mg PO Q6HR PRN tab 02/09/22 [Rx] Calcium Carbonate [Tums] 500 mg PO QID PRN tab 02/09/22 [Rx] INSULIN ASPART (NovoLOG) [NovoLOG (formulary)] 0 unit SQ ACHS each 02/09/22 [Rx] Lactulose [Cephulac] 30 gm PO TID PRN ml 02/09/22 [Rx] Magnesium Hydroxide [Milk of Magnesia Concentrate] 2,400 mg PO BID PRN ml 02/09/22 [Rx] Tamsulosin [Flomax] 0.4 mg PO PC-BRKFST cap 02/09/22 [Rx] bisacodyL [Dulcolax] 10 mg RECTAL DAILY PRN suppositor 02/09/22 [Rx] Follow up Appointment(s)/Referral(s): Elias Huizar MD [Primary Care Provider] - 1-2 days Jason Courtney DO [Doctor of Osteopathic Medicine] - 10 Days Arnol Caba MD [STAFF PHYSICIAN] - 03/01/22 10:45 am (This appt is at the [facility]. [address], [address], [facility] [address]. [phone]) Ambulatory/Diagnostic Orders: Complete Blood Count w/diff [LAB.AMB] Time Frame: 3 Days, Location: None Selected Activity/Diet/Wound Care/Special Instructions: Spine Discharge and Recovery Instructions MUST BE IN STRAINER CLEANER BRACE WHEN UP AND AMBULATING SOFT C COLLAR WHEN RESTING IN CHAIR OR BED All medication refills should be obtained through your primary care doctor or your clinic spine surgeon. Please discuss prescription refills at your follow up appointment. Do not call the hospital for medication refills. Dressing: Leave your dressing in place for a total of 5 days post operatively. Then you may remove your dressing and leave open to air. Keep the area clean and if not able to keep area clean, then cover with sterile gauze and tape. Showering: You may shower 3 days after your procedure allowing soap and water to run over incision. Do not scrub. Do not soak. Blot dry. 3 phase, 3-week plan POST OP WEEKS 1-3 1. Lifting/carrying/pushing/pulling limited to less than 5 pounds. 2. Do not sit for longer than 15 minutes at one time. Get up and walk around. Prolonged sitting is NOT advised. If you lay down, see if you can tolerate laying down on you front (belly side) 3. Walk for periods of 15 minutes = 1 mile but no longer; do it multiple times times each day. 4. Ice your low back after activity. POST OP WEEKS 3-6 1. Lifting limited to less than 20 pounds. 2. Do not sit for longer than 30 minutes at a time. Frequently change positions. Use a sit-to stand workstation or take frequent breaks from sitting if you have returned to work. 3. Walk for 30 minutes each day. If possible, do these three or more times a day POST OP WEEKS 6+ At your 6-week appointment we will give you a physical therapy referral to focus on a core stabilization and strengthening program. You should also work on leg & buttock strengthening, hamstring & quadriceps stretching, and continue a low impact aerobic activity program such as swimming, walking, or riding a stationary bicycle. During the initial 6 weeks after your surgery, you are at the highest risk of re-injuring your spine. You should generally avoid BLTs (bending, lifting and twisting combination motions) and follow the above guidelines to reduce the chance of reinjury. You can anticipate post op appointments in our office at approximately 3 weeks and 6 weeks after your surgery. INCISION CARE: If your incision is not draining you do NOT need to cover it with a dressing. Keep your incision clean, dry and intact. In most cases, we apply skin glue, radha or sutures to the incision at the time of surgery. This will be like a crust or have the appearance of a scab and will fall off in time on its own. The stitches or radha need to be removed at 3 weeks post op appointment. You may begin to shower 3 days after surgery (this allows the glue to hammer well). However, please avoid scrubbing the incision site or peeling off any of the skin glue. This will ensure optimal healing of your incision. Also, during this time avoid soaking the incision area in water - this includes swimming pools, hot tubs or baths. No ointments, lotions or oils on the incision until your surgeon allows. Leave radha, sutures or glue in place. Neurological dysfunction that comes on suddenly can also be a sign of a stroke. Below some common symptoms of a stroke are listed: B - balance difficulty such as sudden onset walking or leaning to one side - NEW E - eye problem such as sudden double vision or trouble seeing on one side - NEW F - Facial weakness or numbness on one side - NEW A - Arm or leg weakness or numbness on one side - NEW S - Slurred speech or difficulty with word finding - NEW T - Time is BRAIN! Call 911 as soon as you recognize these symptoms Diet: Consume a regular diet rich in vegetables and lean protein such as chicken or fish. You should consume in a ratio of approximately 20% fats|40% carbohydrates|40%protein. Vegetables, sweet potatoes, brown rice or quinoa are examples of good carbohydrates. Chips, white bread, cookies and sweets/sugar are examples of bad carbohydrates. Limit your bad carbs, go wild with good carbs. "Life's Simple 7" Guidelines as per [place] [employer] These will help you reclaim your life after surgery and chicken hatchery helper in your recovery, keeping in mind your restrictions. (1) Get Active. Physical activity can help people lose weight, control high blood pressure and cholesterol, feel emotionally better, and sleep better. (2) Control Cholesterol. Avoid a diet high in saturated fat, trans fat, & cholesterol. Limit whole milk & cream, ice cream, butter, egg yolks, processed meats (like sausage and hot dogs), and fatty meats. Choose healthy foods that are low in saturated fat, trans fat and cholesterol which include: Fruits and vegetables, fiber rich grain products (like whole grain pasta and brown rice), lean meat such as chicken, fish, nuts, seeds, and legumes. (3) Eat Better. Eat small portions. Shop at the grocery with a list and do not stray from it. Tips for a healthy diet include: Limit sodium intake to less than 1500mg daily, avoid prepackaged, processed, and fast foods, choose a diet rich in fruits, vegetables, and whole grain, high fiber foods, and limit saturated & cholesterol in your diet. (4) Manage Blood Pressure. If you have high blood pressure, you should have a cuff at home so that you can check your blood pressure regularly. Be sure you have a good cuff. An arm one is generally better than a wrist one. Bring the cuff to a doctor's appointment to validate that the measurements that your cuff are taking are accurate. Take your blood pressure twice daily when you are sitting down and relaxing. Record the numbers in a log and bring this log with you to your doctors' appointments. (5) Lose Weight if your BMI is above 25. A healthy BMI is between 19-25. To calculate Your BMI, you may use a Standard BMI Calculator on the NIH BMI website: <www.nhlbi.nih.gov/guidelines/obesity/BMI/bmicalc.htm>. Weigh oneself daily. If you are overweight, set a goal to lose weight. A pound a week loss if needed is a good target. (6) Reduce Blood Sugar. Limit foods and liquids with "added sugars." (Added sugars include sucrose, fructose, glucose, maltose, dextrose, high fructose corn syrup, corn syrup, concentrated fruit juice and honey). (7) Stop Smoking. If you smoke, quitting smoking is one of the best things that you can do for your health. Smoking increases your risk of heart attack, stroke, and peripheral vascular disease, which is a build-up of plaque in your arteries. Please discard all the cigarettes and lighters in your house. Have a plan for what you will do when you have the urge to smoke. Direct and second- hand smoke shortens your life as well as the lives of your family, friends and others around you. For your health and the health of those around you, please consider quitting! Proper Bending Body Mechanics: Maintain a wide stance with one foot slightly in front of the other. Keep your back straight. Bend utilizing the strength in your hips and knees. Do not bend at the waist. Maintain the lifted object at your waist-level close to your body. Avoid lifting weight that causes immediately pain or pain anywhere in the body afterwards. Smoking/Nicotine If there was ever one thing that you could do to increase your overall health, decrease your risk of cardiovascular problems by about 39% the second you make the choice, it is to STOP SMOKING. Your body's most instant gratification is the second you stop smoking. We have all heard the studies, read the articles but it is true, smoking is extremely bad for your overall health, and moreover it is detrimental to your bone health. Nicotine, IN ANY FORM, kills bone cells, prevents your body from healing fractures, and significantly prolongs healing after surgery. In spine surgery specifically, it increases your risk of not healing your bones to create a fusion and increases your risk of having a revision surgery due to this up to 60%. I know it is hard. I know it feels impossible. But there are ways. Take control of your life. We are here to help you through it. And when you are ready, ask us and we can direct you to help if you desire. Use the START Plan to Quit Smoking (please visit the Helpguide.org website listed below for more information): S = Set a quit date. Choose a date within the next 2 weeks, so you have enough time to prepare without losing your motivation to quit. If you mainly smoke at work, quit on the weekend, so you have a few days to adjust to the change. T = Tell family, friends, and co-workers that you plan to quit. Let your friends and family in on your plan to quit smoking and tell them you need their support and encouragement to stop. Look for a quit ana who wants to stop smoking as well. You can help each other get through the rough times. A = Anticipate and plan for the challenges you'll face while quitting. Most people who begin smoking again do so within the first 3 months. You can help yourself make it through by preparing ahead for common challenges, such as nicotine withdrawal and cigarette cravings. R = Remove cigarettes and other tobacco products from your home, car, and work. Throw away all your cigarettes (no emergency pack!), lighters, ashtrays, and matches. Wash your clothes and freshen up anything that smells like smoke. Shampoo your car, clean your drapes and carpet, and steam your furniture. T = Talk to your doctor about getting help to quit. Your doctor can prescribe medication to help with withdrawal and suggest other alternatives. If you can't see a doctor, you can get many products over the counter at your local pharmacy or grocery store, including the nicotine patch, nicotine lozenges, and nicotine gum. Resources for Quitting Smoking: <https://www.[place].gov/documents/[facility]/Quit_Tobacco_Resources_for_patients_313 480_7.pdf> Supplementation: Take recommended dosages of Vitamin D and Calcium to help fortify your bones and help them to heal. See your health maintenance packet for dosages and recommended levels. DVT/VTE prophylaxis: You will be given compression stockings from the hospital. Wear these daily for the first two weeks after surgery. You may take them off at night. You may be prescribed a medication to help thin your blood. Take this as directed. If you are not prescribed this medication, early and frequent ambulation has been shown to be the best prophylaxis to deep vein thrombosis and sequelae related to this event. Patient is going to [facility] as tolerated with restrictions per orthopedics Follow-up with orthopedics outpatient Follow-up with oncology outpatient Follow-up with primary care provider on discharge Continue medications as prescribed Continue Decadron per oncology Continue antibiotics until finished Continue with indwelling Lr catheter and possible trial voiding once more ambulatory and may require outpatient urology follow-up Discharge Disposition: TRANSFER TO SNF/ECF
[2022-02-09 16:25] LABS: Band Neutrophils % 3 %; Eosinophils # (M) 3.62 k/uL (0-0.7); Lymphocytes # (M) 1.81 k/uL (1.0-4.8); Monocytes # (M) 0.72 k/uL (0-1.0); Neutrophils % (M) 80 %; Nucleated Red Blood Cells 0 /100 WBC (0-0); Total Cells Counted 100
[2022-02-09 16:35] LABS: Glucose,Whole Blood 170 mg/dL (75-99)
[2022-02-09 20:09] LABS: Glucose,Whole Blood 173 mg/dL (75-99)
--- NOTE | 2022-02-09 20:39 | P.PN ---
Subjective Progress Note Date: 02/09/22 Principal diagnosis: Cord compression Large BM, improved symptoms. Awaiting Rehab for discharge, patient is willing to participate and follow with Palliaitive. He is up in a chair and feeling better anxious to get back to controlling disease Objective - Vital Signs Vital signs: Vital Signs Temp 97.9 F 02/09/22 12:00 Pulse 101 H 02/09/22 12:00 Resp 16 02/09/22 12:00 BP 124/71 02/09/22 12:00 Pulse Ox 99 02/09/22 12:00 FiO2 Intake & Output 02/08/22 02/09/22 02/09/22 18:59 06:59 18:59 Intake Total 560 270 Output Total 1250 900 Balance -690 -900 270 Weight 86.6 kg Intake: IV 20 10 Invasive Line 5 20 Invasive Line 6 10 Oral 540 260 Output: Urine 1250 900 Other: Voiding Method Indwelling Catheter Indwelling Catheter Indwelling Catheter - Exam - Constitutional General appearance: cooperative, mild distress, thin - EENT Eyes: anicteric sclerae, EOMI ENT: hearing grossly normal, normal oropharynx - Neck Neck: lymphadenopathy (rt neck 2.5cm hard, fixed anterior cervical LN, surrounding edema) - Respiratory Respiratory: bilateral: CTA, diminished - Cardiovascular Rhythm: regular Heart sounds: normal: S1, S2 Abnormal Heart Sounds: no systolic murmur, no diastolic murmur, no rub, no S3 Gallop, no S4 Gallop, no click, no other leg Peripheral Edema: bilateral: None - Gastrointestinal General gastrointestinal: bowel sounds, - Genitourinary lr draining clear yellow urine - Integumentary Integumentary: normal - Neurologic BLE no motor movement. Great toe proprioception intact, pt able to discriminate soft touch of the skin. Neurologic: CNII-XII intact (grossly) - Musculoskeletal Gen. musculoskeletal aches. Patient needed 2 person assist to lean forward to listen to his lungs - Psychiatric Psychiatric: A&O x's 3, appropriate affect, intact judgment & insight Able to move Bilateral LE and sensation improved, primarily midline less in distal lower extremities - Labs CBC & Chem 7: 02/09/22 13:23 02/09/22 13:23 Labs: Abnormal Lab Results - Last 24 Hours (Table) 02/08/22 02/08/22 02/08/22 Range/Units 11:46 16:11 20:48 POC Glucose (mg/dL) 122 H 209 H 236 H (75-99) mg/dL 02/09/22 02/09/22 Range/Units 05:42 11:39 POC Glucose (mg/dL) 211 H 143 H (75-99) mg/dL Assessment and Plan Plan: Comments: CT CTL spine report reviewed Chest x-ray: report reviewed Assessment and Plan (1) Bilateral leg weakness secondary to Cord Compression Current Visit: Yes Status: Acute Priority: High Code(s): R29.898 - OTH SYMPTOMS AND SIGNS INVOLVING THE MUSCULOSKELETAL SYSTEM SNOMED Code(s): 1 421379 Status Post Surgical Intervention with Dr. Courtney - T1-6 decompressive laminectomy with T3 stabilizing kyphoplasty (2) NSCLC metastatic to bone Current Visit: Yes Status: Acute Priority: High Code(s): C34.90 - MALIGNANT NEOPLASM OF UNSP PART OF UNSP BRONCHUS OR LUNG; C79.51 - SECONDARY MALIGNANT NEOPLASM OF BONE SNOMED Code(s): 447477663 (3) Leukocytosis Current Visit: Yes Status: Acute Priority: Medium Code(s): D72.829 - ELEVATED WHITE BLOOD CELL COUNT, UNSPECIFIED SNOMED Code(s): 934663799 Plan: per Surgery await 2 weeks before radiation resume MRI of the brain for initial staging today Continue Dexamethasone, PPI, Pain control, bowel regimen Daily CBC PT/OT after cleared by surgery Orthopedic Spine Surgeon has performed T2-6 decompressive laminectomy with removal of tumor and T3 kyphoplasty and biopsy, path positive for non-small cell pulmonary adenocarcinoma. Discussed case with Radiation Oncology who has plans for radiation to the spine, 2 weeks postop per Orthopedic Spine Surgeon. Dexamethasone is being tapered by Ortho Spine. Pending their recommendation as to when to transition to oral and consider taper post op. PPI prophylaxis of steroid-induced gastritis ordered. MRI of the brain and c-spine, no parenchymal brain mets. Pain managed at this time adjusting when necessary Medications for prevention of narcotic-induced constipation ordered. Leukocytosis: Likely reactive in addition steroids infectious work-up neg, Monitor Recheck CBC and CMP today Plan is Rehab for patient as he must increase strength in order to be able to continue on treatment for cancer, he understands this and is willing to go IPR. The patient and discussed with case management and have picked facilities and he will follow-up after completion of rehab for resumption of treatment for cancer, until then it will remain on hold.
[2022-02-10] MEDS: SODIUM CHLORIDE 0.9% 1,000 ML IV SCH
[2022-02-10] MEDS: DEXAMETHASONE SOD PHOSPHATE 4 MG/ML 1 ML VIAL IVP SCH ×3 (05:29→18:20)
[2022-02-10] MEDS: ACETAMINOPHEN TAB 325 MG TAB PO PRN (05:39)
[2022-02-10 05:49] LABS: Glucose,Whole Blood 188 mg/dL (75-99)
[2022-02-10 06:20] LABS: Glucose,Whole Blood 149 mg/dL (75-99)
[2022-02-10] MEDS: INSULIN ASPART (NovoLOG) 100 UNIT/ML VIAL SQ SCH ×4 (06:41→20:22)
[2022-02-10] MEDS: IPRATROPIUM-ALBUTEROL 3 ML NEB INHALATION SCH ×3 (08:37→20:37)
[2022-02-10] MEDS: PANTOPRAZOLE 40 MG/10 ML VIAL IVP SCH ×2 (10:25→20:23)
[2022-02-10] MEDS: NAPROXEN 250 MG TAB PO SCH ×3 (10:26→20:23)
[2022-02-10] MEDS: ENOXAPARIN 40 MG/0.4 ML SYRINGE SQ SCH (10:26)
[2022-02-10] MEDS: SENNOSIDES-DOCUSATE SODIUM 1 EACH TAB PO SCH ×2 (10:27→20:24)
[2022-02-10] MEDS: TAMSULOSIN 0.4 MG CAP.ER.24H PO SCH (10:27)
[2022-02-10 11:43] LABS: Glucose,Whole Blood 192 mg/dL (75-99)
--- NOTE | 2022-02-10 14:49 | P.PN ---
Subjective Progress Note Date: 02/10/22 This is a 61-year-old patient who follows with Dr. Elias Huizar. Patient 2 weeks ago was diagnosed with metastatic lung cancer with metastatic disease to the bones. Under care of Dr. Mercedes. Patient was supposed to follow for radiation treatment and further workup. For 6 weeks patient is having some trouble getting up because of back pain. Also prescription pain in the chest and back. Appetite is okay. Has lost about 35 pounds the last few weeks. Yesterday patient not able to walk at all not make urine. Presented to the ER. Lr catheter was placed. In addition oncologist was consulted. On January 15 patient underwent a PET scan that showed abnormal thoracic adenopathy with diffuse osseous metastatic disease and spinal canal invasion lower thoracic spine level noted. Also involvement of bilateral ribs. Started him and entire spine. Lung biopsy has previously shown malignant non-small cell carcinoma cells having features of metastatic pulmonary adenocarcinoma. Per bronchoscopy by Dr. Topete on December 28. Patient denies any fever and chills. A bit tired and rundown. January 26: Patient received radiation treatment. Getting breathing treatments. Stated this afternoon she was seen by Dr. Courtney. MRI head showed spinal cord compression. He discussed with the family and will proceed for surgery. Compression between T2-T6. On the spinal cord January 27: Patient underwent surgery today. Formal report not available. Has a C- spine collar. Hemovac. at the bedside. Tired. January 28: Laying in bed. Cervical collar. Hemovac. Some movement of her lower extremity. Lr catheter. Unable to control his bowel movement today. January 29: Awaiting MRI today. Survive to call her with Hemovac in place. Some pain in the neck. Able to move some his lower extremity. January 30: Patient had brain MRI. No obvious metastatic disease reported. Cervical spine MRI noted. Patient is awaiting his chest brace. Able to move his legs a bit. Underwent nasopharyngeal laryngoscopy by Dr. Petit yesterday evening. No vocal cord paresis or paralysis. Large amount of inflammation and laryngitis including a false vocal cord. Discussed with the patient and at the bedside. Pain control. Hemovac in place. Does not like hospital food. Daughter will be bringing in some food. January 31: Up in a chair. Has a chest brace. Oral intake fair. Lr catheter. Patient not to get radiation treatment at least for [address] Bauman consulted. Movement of the legs better. 11/18. February 01: Reclining in bed. Hemovac has been discontinued. Cervical collar. O ral intake fair. Pain at the operative site. Not felt to be candidate for [facility] rehab. February 02: Reclining in bed. Able to lift his legs off the bed. 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 Currently no rehab place available. Dose of dexamethasone cutback. On IV cefazolin per orthopedic. February 03: Admitting his brace. Sitting on edge of the bed. Oral intake good. No BM for 3 days. We'll give a laxative. Other medications to continue. February 04: No BM today again. Given a soapsuds enema. No response. Abdominal x- rays ordered. No nausea or vomiting. No abdominal pain. 02/05/2022 Patient is seen in follow-up this morning with multiple medical consultations following. Patient continues with elevated WBC and hematology/onc following. Patient also continues with abdominal distention and feeling of fullness and general surgery consulted for constipation. CT abdomen ordered and pending. Patient is continued on laxatives and bowel regimen and has attempted soapsud enema x 2 with no relief. Social work and case management following and patient is awaiting accepting facility for continued weakness. Patient denies chest pain or shortness of breath. Patient is afebrile. Reports abdominal discomfort. Patient is continued on IV steroids decadron and tapering per ortho as patient is status post decompression laminectomy with soft collar noted. 02/06/2022 Patient is seen today and feeling better and able to get up and shower. Multiple medical consultations following. General surgery ordered bowel regimen and patient was able to have a bowel movement and feeling better. Patient to continue current bowel regimen and continue working with physical therapy daily. Case management following and working on accepting ec for continued strength and mobility prior to starting cancer treatment. No radiation for 2 weeks per ortho and is also continued on IV cefazolin and will continue. Patient is afebrile and denies chest pain or shortness of breath. Patient is tolerating diet. 02/07/2022 Patient is seen in follow-up this morning with multiple medical consultations following including oncology and orthopedics. Patient is status post T1 to T6 decompression laminectomy with orthopedics following and continued on pain management. Patient also with metastatic lung cancer and being followed by oncology and arranging for outpatient follow-up. Radiation oncology also evaluated the patient and will continue to hold radiation therapy 2-3 weeks postop per orthopedics. Case management also following and arranging for ECF and family along with patient are willing to proceed with ECF to build up strength and mobility with continued PT/OT therapy services. Patient and family are agreeable and aware about being unable to initiate oncology therapy while in rehab. Patient also evaluated by general surgery for constipation and is maintained on lactulose twice a day and will increase to lactulose 3 times a day as patient is reporting feeling of constipation and has not had a bowel movement now in 2 days. Patient also continues with indwelling Lr catheter for urinary retention and recommended continue. Patient denies chest pain or shortness of breath. Patient is afebrile. WBC trending down. 02/08/2022 Patient is seen this morning currently having a bowel movement and will continue with lactulose 3 times a day as needed. Multiple medical consultations follo wing the patient also continues with indwelling Lr catheter for retention and will initiate Flomax and continue to monitor. Possible component of metastatic disease or chronic constipation from narcotic use. Case management following along with orthopedics and oncology and plan is for patient to go to ECF once insurance authorization is obtained. Patient is afebrile denies any chest pain or shortness of breath. 02/10/2022 Patient is being closely monitored and no acute distress. Patient continues to await for insurance authorization to go to ECF. Patient remains afebrile and denies chest pain or shortness of breath. Patient continued on bowel regimen and having bowel movements. Physical examination: GENERAL:, 61 year old male, sitting up in bed, comfortable, well developed, well nourished EYES: Pupils equal. Conjunctiva normal. HEENT: soft collar noted NECK: JVD not raised; masses not palpable. HEART: First and second heart sounds are normal; no edema. LUNGS: Respiratory rate normal; decreased breath sounds. ABDOMEN: Soft, nontender, bowel sounds noted, no masses palpable. Lr catheter PSYCH: Alert and oriented x3; mood and affect normal MUSCULOSKELETAL:No Clubbing/cyanosis;muscles-grossly intact NEUROLOGICAL: Cranial nerves grossly intact; no facial asymmetry, able to lift his legs off the bed. 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 by Dr. Courtney - January 27. -Acute urinary retention from metastatic disease to the spine. continue lr catheter -metastatic adenocarcinoma of the lung/non-small cell. -Normocytic anemia secondary to malignancy -COPD in a previous smoker -Hyponatremia, likely hypoosmolar -Bone pain. From metastatic disease -Severe leukocytosis likely leukemoid reaction from underlying malignancy and steroids -Acute medical debility from metastatic disease -Acute severe constipation secondary to decreased mobility and narcotics -full code Plan: Recommend to continue with current regimen and follow with multiple medical consultations. Wean steroids per oncology and orthopedics. Prescriptions provided for discharge for the steroids. Patient is continued on enemas and bowel regimen and reports to having bowel movement today. Will continue lactulose to 3 times a day and make it as needed and monitor closely. Continue current regimen. PT/OT daily and case management following and has been accepted to [facility] for continued rehab. Patient is agreeable to withhold cancer treatment while in rehab and will follow with ortho and oncology once discharged from [facility]. Awaiting insurance authorization at this time. Due to multiple complex medical issues, prognosis is guarded. The impression and plan of care has been dictated by Drea Ruiz, Nurse Practitioner as directed. Dr. Cam MD I have performed a history and examination and MDM of this patient, discussed the same with the dictator, and agree with the dictator's assessment and plan as written ,documented as a scribe. Based on total visit time, I have performed more than 50% of the visit. Objective - Vital Signs Vital signs: Vital Signs Temp 97.2 F L 02/10/22 08:00 Pulse 76 02/10/22 12:01 Resp 18 02/10/22 08:00 BP 110/65 02/10/22 08:00 Pulse Ox 96 02/10/22 08:40 FiO2 Intake & Output 02/09/22 02/10/22 02/10/22 18:59 06:59 18:59 Intake Total 1140 860 Output Total 464 842 4973 Balance 390 -150 -615 Weight 86.6 kg Intake: IV 20 Invasive Line 6 20 Oral 1120 860 Output: Urine 840 404 9429 Other: Voiding Method Indwelling Catheter Indwelling Catheter Indwelling Catheter - Labs CBC & Chem 7: 02/09/22 13:23 02/09/22 13:23 Labs: Abnormal Lab Results - Last 24 Hours (Table) 02/09/22 02/09/22 02/09/22 Range/Units 13:23 13:23 16:34 WBC 36.2 H (3.8-10.6) k/uL RBC 3.43 L (4.30-5.90) m/uL Hgb 9.1 L (13.0-17.5) gm/dL Hct 30.5 L (39.0-53.0) % MCHC 29.7 L (31.0-37.0) g/dL RDW 16.5 H (11.5-15.5) % Neutrophils # (Manual) 30.00 H (1.3-7.7) k/uL Eosinophils # (Manual) 3.62 H (0-0.7) k/uL Carbon Dioxide 32 H (22-30) mmol/L Glucose 170 H (74-99) mg/dL POC Glucose (mg/dL) 170 H (75-99) mg/dL AST 13 L (17-59) U/L Total Protein 4.9 L (6.3-8.2) g/dL Albumin 2.6 L (3.5-5.0) g/dL 02/09/22 02/10/22 02/10/22 Range/Units 20:07 05:47 06:14 WBC (3.8-10.6) k/uL RBC (4.30-5.90) m/uL Hgb (13.0-17.5) gm/dL Hct (39.0-53.0) % MCHC (31.0-37.0) g/dL RDW (11.5-15.5) % Neutrophils # (Manual) (1.3-7.7) k/uL Eosinophils # (Manual) (0-0.7) k/uL Carbon Dioxide (22-30) mmol/L Glucose (74-99) mg/dL POC Glucose (mg/dL) 173 H 188 H 149 H (75-99) mg/dL AST (17-59) U/L Total Protein (6.3-8.2) g/dL Albumin (3.5-5.0) g/dL 02/10/22 Range/Units 11:42 WBC (3.8-10.6) k/uL RBC (4.30-5.90) m/uL Hgb (13.0-17.5) gm/dL Hct (39.0-53.0) % MCHC (31.0-37.0) g/dL RDW (11.5-15.5) % Neutrophils # (Manual) (1.3-7.7) k/uL Eosinophils # (Manual) (0-0.7) k/uL Carbon Dioxide (22-30) mmol/L Glucose (74-99) mg/dL POC Glucose (mg/dL) 192 H (75-99) mg/dL AST (17-59) U/L Total Protein (6.3-8.2) g/dL Albumin (3.5-5.0) g/dL
[2022-02-10 16:24] LABS: Glucose,Whole Blood 177 mg/dL (75-99)
--- NOTE | 2022-02-10 18:37 | P.PN ---
Subjective Progress Note Date: 02/10/22 CHIEF COMPLAINT: Constipation HISTORY OF PRESENT ILLNESS: The patient is a 61 year old male diagnosed me tastatic lung cancer chronic constipation and leukocytosis. He is having moderate and daily bowel movements. No reports of abdominal pain. Lr catheter present per orthopedics team. REVIEW OF ORGAN SYSTEMS: No fevers or chills. No chest pain. No nausea and vomiting. Has back brace. PHYSICAL EXAM: VITALS: Reviewed CONSTITUTIONAL: Well developed and in no acute distress. EYES: Conjuctivae without sclera icterus. Extraocular movements grossly intact. HEAD, EARS, NOSE, THROAT: Moist buccal mucosa. Head is atraumatic, normocephalic. Hears conversational speech. No nasal drainage. RESPIRATORY: Non-labored respirations and equal bilateral excursions. No gross wheezes. CARDIOVASCULAR: Palpable 2+ radial pulses. ABDOMEN: No peritonitis. Nondistended. MUSCULOSKELETAL: No clubbing cyanosis. SKIN: Warm and well perfused with good skin turgor. NEUROLOGIC: Cranial nerves II through XII grossly intact. No focal or lateralizing signs. PSYCH: Appropriate affect. Alert and oriented to person, place and time. : Has lr catheter, urine clear CLINCAL LABS: Reviewed. Blood sugar glucose 149-177. ASSESSMENT: 1. Chronic constipation. 2. Metastatic lung cancer 3. Leukocytosis PLAN: 1. Continue diet as tolerated. 2. Stable for discharge from surgical standpoint when medically cleared Objective - Vital Signs Vital signs: Vital Signs Temp 97.4 F L 02/10/22 15:00 Pulse 84 02/10/22 15:00 Resp 18 02/10/22 15:00 BP 115/56 02/10/22 15:00 Pulse Ox 95 02/10/22 15:00 FiO2 Intake & Output 02/09/22 02/10/22 02/10/22 18:59 06:59 18:59 Intake Total 1140 1960 Output Total 835 800 1821 Balance 390 -150 485 Weight 86.6 kg Intake: IV 20 Invasive Line 6 20 Oral 1120 1960 Output: Urine 281 035 8361 Other: Voiding Method Indwelling Catheter Indwelling Catheter Indwelling Catheter - Labs CBC & Chem 7: 02/09/22 13:23 02/09/22 13:23 Labs: Abnormal Lab Results - Last 24 Hours (Table) 02/09/22 02/10/22 02/10/22 Range/Units 20:07 05:47 06:14 POC Glucose (mg/dL) 173 H 188 H 149 H (75-99) mg/dL 02/10/22 02/10/22 Range/Units 11:42 16:21 POC Glucose (mg/dL) 192 H 177 H (75-99) mg/dL
[2022-02-10 19:51] LABS: Glucose,Whole Blood 137 mg/dL (75-99)
[2022-02-10] MEDS: hydrOXYzine HCL 25 MG TAB PO PRN (20:24)
[2022-02-11] MEDS: DEXAMETHASONE SOD PHOSPHATE 4 MG/ML 1 ML VIAL IVP SCH ×5 (00:26→23:59)
[2022-02-11 05:40] LABS: Glucose,Whole Blood 134 mg/dL (75-99)
[2022-02-11] MEDS: INSULIN ASPART (NovoLOG) 100 UNIT/ML VIAL SQ SCH ×4 (06:13→21:05)
[2022-02-11] MEDS: TAMSULOSIN 0.4 MG CAP.ER.24H PO SCH (09:02)
[2022-02-11] MEDS: SENNOSIDES-DOCUSATE SODIUM 1 EACH TAB PO SCH ×2 (09:02→21:06)
[2022-02-11] MEDS: ENOXAPARIN 40 MG/0.4 ML SYRINGE SQ SCH (09:03)
[2022-02-11] MEDS: PANTOPRAZOLE 40 MG/10 ML VIAL IVP SCH ×2 (09:03→21:05)
[2022-02-11] MEDS: NAPROXEN 250 MG TAB PO SCH ×3 (09:03→21:06)
[2022-02-11] MEDS: IPRATROPIUM-ALBUTEROL 3 ML NEB INHALATION SCH ×3 (09:05→20:59)
[2022-02-11] MEDS: hydrOXYzine HCL 25 MG TAB PO PRN (09:27)
--- NOTE | 2022-02-11 09:30 | P.PN ---
Subjective Progress Note Date: 02/11/22 Principal diagnosis: Metastatic lung cancer, bilateral lower extremity weakness, urinary retention, status post T1 to T6 decompression laminectomy Patient seen and examined at bedside. Patient is doing well states his pain is controlled. He is able to move bilateral lower extremities in bed, patient states he has been working with physical therapy and has ambulated a few steps in the room with walker. He is improving daily with activity. Cervical collar in place. Incision is well approximated. He is anticipating discharge today to [facility]. Denies any needs at this time. Objective - Vital Signs Vital signs: Vital Signs Temp 98.1 F 02/11/22 04:00 Pulse 76 02/11/22 09:15 Resp 18 02/11/22 04:00 BP 116/70 02/11/22 04:00 Pulse Ox 96 02/11/22 04:00 FiO2 Intake & Output 02/10/22 02/11/22 02/11/22 18:59 06:59 18:59 Intake Total 1960 Output Total 1475 1900 Balance 485 -1900 Intake: Oral 1959 Output: Urine 1475 1900 Other: Voiding Method Indwelling Catheter Indwelling Catheter - Exam Physical Examination General: The patient is awake and alert, in no acute distress Skin: Skin is warm and dry with no obvious rashes or lesions. Hairy patches absent, no dorsal skin dimples, no cafe au lait spots, surgical incision to posterior cervical, radha removed 02/08/27. Eye: Pupils are equal, round and reactive to light, extra-ocular movements are intact; there is normal conjunctiva bilaterally. Neck: The neck is supple, there is no tenderness and ROM intact, soft collar present. Cardiovascular: There is a regular rate and rhythm. No murmur, rub or gallop is appreciated. Respiratory: Lungs are clear to auscultation, respirations are non-labored, breath sounds are equal. Gastrointestinal: Soft, non-distended, non-tender abdomen . Back: There is no tenderness to palpation in the midline, paralumbar, parathoracic or buttocks region. There is no obvious deformity. TLSO brace is present. . Musculoskeletal: ROM limited secondary to pain and stiffness from surgical procedure. Shoulder abduction 5/5, elbow flexors 5/5, wrist dorsiflexors 5/5. finger abductor 5/5, communications systems engineer 5/5, hip flexor 4/5, knee flexor 4/5, ankle dorsiflexor 4/5, ankle plantarflexion 4/5 and extensor hallucis 4/5. Patient is unable to stand without assistance. Neurological: CN 2-12 intact. There are no obvious motor or sensory deficits. Movement and coordination equal and intact. Sensory exam to light touch intact C5-T1 and intact from L2-S1. Reflexes 2/4 in bilateral upper and lower extremities. Negative Hoffmans, babinski, and clonus signs. Psychiatric: Cooperative, appropriate mood & affect, normal judgment. - Labs CBC & Chem 7: 02/09/22 13:23 02/09/22 13:23 Labs: Abnormal Lab Results - Last 24 Hours (Table) 02/10/22 02/10/22 02/10/22 Range/Units 11:42 16:21 19:50 POC Glucose (mg/dL) 192 H 177 H 137 H (75-99) mg/dL 02/11/22 Range/Units 05:36 POC Glucose (mg/dL) 134 H (75-99) mg/dL Assessment and Plan Assessment: Post Op Day 15: T1-6 decompressive laminectomy with T3 stabilizing kyphoplasty Complex medical patient Plan: Plan: -Appreciate senior talent management consultant and team management. -Activity: Ambulate QID, OOB all meals, up and about, limit lifting bending twisting to less than 5 lbs. Use walker or cane if needed for stability. -Daily PT/OT, increase ambulation strength and balance. -Brace when up and about, not needed in bed or chair -Pt may utilize walker to propel himself around. -Pain control: Adequate at this time -Meds: reviewed -GI ppx: senna, Miralax -Maintain Salmon Catheter -DVT PPX: Heparin -Encourage IS 10x/hr -Dispo: Anticipate discharge [facility] today. -Hold radiation 2-3 weeks post op *I reviewed and discussed this case with my attending Dr. Courtney, whom has reviewed this chart and films and is in agreement with assessment and plan of care as outlined above. I have personally seen and examined the patient, performed the documentation and the assessment and plan as written. Number of minutes spent on the visit: 20m.
[2022-02-11 11:49] LABS: Glucose,Whole Blood 158 mg/dL (75-99)
[2022-02-11 13:25] LABS: Anisocytosis Slight; HCT 32.5 % (39.0-53.0); HGB 9.5 gm/dL (13.0-17.5); Hypochromasia Marked; MCH 26.1 pg (25.0-35.0); MCHC 29.3 g/dL (31.0-37.0); Platelet Count 217 k/uL (150-450); RBC 3.66 m/uL (4.30-5.90); RDW 16.6 % (11.5-15.5); WBC 36.4 k/uL (3.8-10.6)
[2022-02-11 14:08] LABS: Band Neutrophils % 3 %; Eosinophils # (M) 6.55 k/uL (0-0.7); Lymphocytes # (M) 0.73 k/uL (1.0-4.8); Monocytes # (M) 0.73 k/uL (0-1.0); Myelocytes # (M) 0.36 k/uL (0); Myelocytes % 1 %; Neutrophils % (M) 76 %; Nucleated Red Blood Cells 0 /100 WBC (0-0); Total Cells Counted 200
[2022-02-11] MEDS: ACETAMINOPHEN TAB 325 MG TAB PO PRN (14:33)
--- NOTE | 2022-02-11 15:24 | P.PN ---
Subjective Progress Note Date: 02/11/22 This is a 61-year-old patient who follows with Dr. Elias Huizar. Patient 2 weeks ago was diagnosed with metastatic lung cancer with metastatic disease to the bones. Under care of Dr. Mercedes. Patient was supposed to follow for radiation treatment and further workup. For 6 weeks patient is having some trouble getting up because of back pain. Also prescription pain in the chest and back. Appetite is okay. Has lost about 35 pounds the last few weeks. Yesterday patient not able to walk at all not make urine. Presented to the ER. Lr catheter was placed. In addition oncologist was consulted. On January 15 patient underwent a PET scan that showed abnormal thoracic adenopathy with diffuse osseous metastatic disease and spinal canal invasion lower thoracic spine level noted. Also involvement of bilateral ribs. Started him and entire spine. Lung biopsy has previously shown malignant non-small cell carcinoma cells having features of metastatic pulmonary adenocarcinoma. Per bronchoscopy by Dr. Topete on December 28. Patient denies any fever and chills. A bit tired and rundown. January 26: Patient received radiation treatment. Getting breathing treatments. Stated this afternoon she was seen by Dr. Courtney. MRI head showed spinal cord compression. He discussed with the family and will proceed for surgery. Compression between T2-T6. On the spinal cord January 27: Patient underwent surgery today. Formal report not available. Has a C- spine collar. Hemovac. at the bedside. Tired. January 28: Laying in bed. Cervical collar. Hemovac. Some movement of her lower extremity. Lr catheter. Unable to control his bowel movement today. January 29: Awaiting MRI today. Survive to call her with Hemovac in place. Some pain in the neck. Able to move some his lower extremity. January 30: Patient had brain MRI. No obvious metastatic disease reported. Cervical spine MRI noted. Patient is awaiting his chest brace. Able to move his legs a bit. Underwent nasopharyngeal laryngoscopy by Dr. Petit yesterday evening. No vocal cord paresis or paralysis. Large amount of inflammation and laryngitis including a false vocal cord. Discussed with the patient and at the bedside. Pain control. Hemovac in place. Does not like hospital food. Daughter will be bringing in some food. January 31: Up in a chair. Has a chest brace. Oral intake fair. Lr catheter. Patient not to get radiation treatment at least for [address] Bauman consulted. Movement of the legs better. 11/18. February 01: Reclining in bed. Hemovac has been discontinued. Cervical collar. O ral intake fair. Pain at the operative site. Not felt to be candidate for [facility] rehab. February 02: Reclining in bed. Able to lift his legs off the bed. Prior sample case porter. Currently no rehab place available. Dose of dexamethasone cutback. On IV cefazolin per orthopedic. February 03: Admitting his brace. Sitting on edge of the bed. Oral intake good. No BM for 3 days. We'll give a laxative. Other medications to continue. February 04: No BM today again. Given a soapsuds enema. No response. Abdominal x- rays ordered. No nausea or vomiting. No abdominal pain. 02/05/2022 Patient is seen in follow-up this morning with multiple medical consultations following. Patient continues with elevated WBC and hematology/onc following. Patient also continues with abdominal distention and feeling of fullness and general surgery consulted for constipation. CT abdomen ordered and pending. Patient is continued on laxatives and bowel regimen and has attempted soapsud enema x 2 with no relief. Social work and case management following and patient is awaiting accepting facility for continued weakness. Patient denies chest pain or shortness of breath. Patient is afebrile. Reports abdominal discomfort. Patient is continued on IV steroids decadron and tapering per ortho as patient is status post decompression laminectomy with soft collar noted. 02/06/2022 Patient is seen today and feeling better and able to get up and shower. Multiple medical consultations following. General surgery ordered bowel regimen and patient was able to have a bowel movement and feeling better. Patient to continue current bowel regimen and continue working with physical therapy daily. Case management following and working on accepting ec for continued strength and mobility prior to starting cancer treatment. No radiation for 2 weeks per ortho and is also continued on IV cefazolin and will continue. Patient is afebrile and denies chest pain or shortness of breath. Patient is tolerating diet. 02/07/2022 Patient is seen in follow-up this morning with multiple medical consultations following including oncology and orthopedics. Patient is status post T1 to T6 decompression laminectomy with orthopedics following and continued on pain management. Patient also with metastatic lung cancer and being followed by oncology and arranging for outpatient follow-up. Radiation oncology also evaluated the patient and will continue to hold radiation therapy 2-3 weeks postop per orthopedics. Case management also following and arranging for ECF and family along with patient are willing to proceed with ECF to build up strength and mobility with continued PT/OT therapy services. Patient and family are agreeable and aware about being unable to initiate oncology therapy while in rehab. Patient also evaluated by general surgery for constipation and is maintained on lactulose twice a day and will increase to lactulose 3 times a day as patient is reporting feeling of constipation and has not had a bowel movement now in 2 days. Patient also continues with indwelling Lr catheter for urinary retention and recommended continue. Patient denies chest pain or shortness of breath. Patient is afebrile. WBC trending down. 02/08/2022 Patient is seen this morning currently having a bowel movement and will continue with lactulose 3 times a day as needed. Multiple medical consultations kenyattao wing the patient also continues with indwelling Lr catheter for retention and will initiate Flomax and continue to monitor. Possible component of metastatic disease or chronic constipation from narcotic use. Case management following along with orthopedics and oncology and plan is for patient to go to ECF once insurance authorization is obtained. Patient is afebrile denies any chest pain or shortness of breath. 02/10/2022 Patient is being closely monitored and no acute distress. Patient continues to await for insurance authorization to go to ECF. Patient remains afebrile and denies chest pain or shortness of breath. Patient continued on bowel regimen and having bowel movements. 02/11/2022 Patient is seen in follow up today with no acute overnight issues noted. Orthopedics following and patient is awaiting insurance authorization to go to ECF for PT/OT therapy. Patient is afebrile and denies any chest pain or shortness of breath. WBC remains elevated but is trending down. Physical examination: GENERAL:, 61 year old male, sitting up in bed, comfortable, well developed, well nourished EYES: Pupils equal. Conjunctiva normal. HEENT: soft collar noted NECK: JVD not raised; masses not palpable. HEART: First and second heart sounds are normal; no edema. LUNGS: Respiratory rate normal; decreased breath sounds. ABDOMEN: Soft, nontender, bowel sounds noted, no masses palpable. 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 by Dr. Courtney - January 27. -Acute urinary retention from metastatic disease to the spine. continue lr catheter -metastatic adenocarcinoma of the lung/non-small cell. -Normocytic anemia secondary to malignancy -COPD in a previous smoker -Hyponatremia, likely hypoosmolar -Bone pain. From metastatic disease -Severe leukocytosis likely leukemoid reaction from underlying malignancy and steroids -Acute medical debility from metastatic disease -Acute severe constipation secondary to decreased mobility and narcotics -full code Plan: Recommend to continue with current regimen and follow with multiple medical consultations. Wean steroids per oncology and orthopedics. Prescriptions provi ded for discharge for the steroids. Patient is continued on bowel regimen and reports to having bowel movement with some difficulty. Will continue lactulose to 3 times a day and monitor closely. Continue current regimen. PT/OT daily and case management following and has been accepted to [facility] for continued rehab. Patient is agreeable to withhold cancer treatment while in rehab and will follow with ortho and oncology once discharged from [facility]. Awaiting insurance authorization at this time. Due to multiple complex medical issues, prognosis is guarded. The impression and plan of care has been dictated by Drea Ruiz, Nurse Practitioner as directed. Dr. Cam MD I have performed a history and examination and MDM of this patient, discussed the same with the dictator, and agree with the dictator's assessment and plan as written ,documented as a scribe. Based on total visit time, I have performed more than 50% of the visit. Objective - Vital Signs Vital signs: Vital Signs Temp 98.1 F 02/11/22 04:00 Pulse 76 02/11/22 09:15 Resp 18 02/11/22 04:00 BP 116/70 02/11/22 04:00 Pulse Ox 96 02/11/22 04:00 FiO2 Intake & Output 05/28/22 05/29/22 05/29/22 18:59 06:59 18:59 Intake Total 1959 Output Total 1475 1900 Balance 485 -1900 Intake: Oral 1959 Output: Urine 147 1900 Other: Voiding Method Indwelling Catheter Indwelling Catheter - Labs CBC & Chem 7: 02/11/22 13:08 02/09/22 13:23 Labs: Abnormal Lab Results - Last 24 Hours (Table) 02/10/22 02/10/22 02/10/22 Range/Units 11:42 16:21 19:50 POC Glucose (mg/dL) 192 H 177 H 137 H (75-99) mg/dL 02/11/22 Range/Units 05:36 POC Glucose (mg/dL) 134 H (75-99) mg/dL
[2022-02-11 16:47] LABS: Glucose,Whole Blood 178 mg/dL (75-99)
--- NOTE | 2022-02-11 17:06 | P.PN ---
Subjective Progress Note Date: 02/11/22 CHIEF COMPLAINT: Constipation HISTORY OF PRESENT ILLNESS: The patient is a 61 year old male diagnosed me tastatic lung cancer chronic constipation and leukocytosis. He reports his last bowel movement was 2 days ago. He denies active abdominal pain. He is sitting with family friends. He is taking milk of magnesia as needed. REVIEW OF ORGAN SYSTEMS: No fevers or chills. No chest pain. No nausea and vomiting. Has back brace. PHYSICAL EXAM: VITALS: Reviewed CONSTITUTIONAL: Well developed and in no acute distress. EYES: Conjuctivae without sclera icterus. Extraocular movements grossly intact . HEAD, EARS, NOSE, THROAT: Moist buccal mucosa. Head is atraumatic, normocephalic. Hears conversational speech. No nasal drainage. RESPIRATORY: Non-labored respirations and equal bilateral excursions. No gross wheezes. CARDIOVASCULAR: Palpable 2+ radial pulses. ABDOMEN: No peritonitis. Nondistended. MUSCULOSKELETAL: No clubbing cyanosis. Has back brace. SKIN: Warm and well perfused with good skin turgor. NEUROLOGIC: Cranial nerves II through XII grossly intact. No focal or lateralizing signs. PSYCH: Appropriate affect. Alert and oriented to person, place and time. : Has lr catheter, urine clear CLINCAL LABS: Reviewed. WBC 36.4, leukocytosis ASSESSMENT: 1. Chronic constipation. 2. Metastatic lung cancer 3. Leukocytosis PLAN: 1. Continue milk of magnesia 2500 mg twice a day including lactulose 30 mg twice a day Objective - Vital Signs Vital signs: Vital Signs Temp 98.0 F 02/11/22 08:00 Pulse 76 02/11/22 15:26 Resp 18 02/11/22 08:00 BP 119/73 02/11/22 08:00 Pulse Ox 98 02/11/22 08:00 FiO2 Intake & Output 02/10/22 02/11/22 02/11/22 18:59 06:59 18:59 Intake Total 1959 Output Total 1475 1900 Balance 485 -1900 Intake: Oral 1959 Output: Urine 1475 1900 Other: Voiding Method Indwelling Catheter Indwelling Catheter Indwelling Catheter - Labs CBC & Chem 7: 02/11/22 13:08 02/09/22 13:23 Labs: Abnormal Lab Results - Last 24 Hours (Table) 02/10/22 02/11/22 02/11/22 Range/Units 19:50 05:36 11:48 WBC (3.8-10.6) k/uL RBC (4.30-5.90) m/uL Hgb (13.0-17.5) gm/dL Hct (39.0-53.0) % MCHC (31.0-37.0) g/dL RDW (11.5-15.5) % Neutrophils # (Manual) (1.3-7.7) k/uL Lymphocytes # (Manual) (1.0-4.8) k/uL Eosinophils # (Manual) (0-0.7) k/uL Myelocytes # (Manual) (0) k/uL POC Glucose (mg/dL) 137 H 134 H 158 H (75-99) mg/dL 02/11/22 02/11/22 Range/Units 13:08 16:46 WBC 36.4 H (3.8-10.6) k/uL RBC 3.66 L (4.30-5.90) m/uL Hgb 9.5 L (13.0-17.5) gm/dL Hct 32.5 L (39.0-53.0) % MCHC 29.3 L (31.0-37.0) g/dL RDW 16.6 H (11.5-15.5) % Neutrophils # (Manual) 28.70 H (1.3-7.7) k/uL Lymphocytes # (Manual) 0.73 L (1.0-4.8) k/uL Eosinophils # (Manual) 6.55 H (0-0.7) k/uL Myelocytes # (Manual) 0.36 H (0) k/uL POC Glucose (mg/dL) 178 H (75-99) mg/dL
[2022-02-11] MEDS: SODIUM CHLORIDE 0.9% 1,000 ML IV SCH (18:17)
[2022-02-11 20:23] LABS: Glucose,Whole Blood 134 mg/dL (75-99)
[2022-02-12 06:20] LABS: Glucose,Whole Blood 177 mg/dL (75-99)
[2022-02-12] MEDS: INSULIN ASPART (NovoLOG) 100 UNIT/ML VIAL SQ SCH ×4 (06:31→21:07)
[2022-02-12] MEDS: DEXAMETHASONE SOD PHOSPHATE 4 MG/ML 1 ML VIAL IVP SCH ×4 (06:31→23:36)
[2022-02-12] MEDS: CALCIUM CARBONATE 500 MG CHEWABLE PO PRN (06:34)
[2022-02-12] MEDS: IPRATROPIUM-ALBUTEROL 3 ML NEB INHALATION SCH ×3 (08:13→19:56)
[2022-02-12] MEDS: SODIUM CHLORIDE 0.9% 1,000 ML IV SCH ×2 (08:29→23:37)
[2022-02-12] MEDS: PANTOPRAZOLE 40 MG/10 ML VIAL IVP SCH ×2 (08:36→21:08)
[2022-02-12] MEDS: ENOXAPARIN 40 MG/0.4 ML SYRINGE SQ SCH (08:36)
[2022-02-12] MEDS: SENNOSIDES-DOCUSATE SODIUM 1 EACH TAB PO SCH ×2 (08:36→21:08)
[2022-02-12] MEDS: TAMSULOSIN 0.4 MG CAP.ER.24H PO SCH (08:37)
[2022-02-12] MEDS: NAPROXEN 250 MG TAB PO SCH ×3 (08:37→21:08)
--- NOTE | 2022-02-12 11:44 | P.PN ---
Subjective Progress Note Date: 02/12/22 Pt s/e doing well. No issues overnight. Having intermittent constipation at this time. Moving his legs OK. Lr still in place. Objective - Vital Signs Vital signs: Vital Signs Temp 98.2 F 02/12/22 08:50 Pulse 96 02/12/22 08:50 Resp 18 02/12/22 08:50 BP 111/61 02/12/22 08:50 Pulse Ox 91 L 02/12/22 08:50 FiO2 Intake & Output 02/11/22 02/12/22 02/12/22 18:59 06:59 18:59 Intake Total 10 Output Total 1300 1600 Balance -1300 -1600 10 Intake: IV 10 Invasive Line 6 10 Output: Urine 1300 1600 Other: Voiding Method Indwelling Catheter Indwelling Catheter Indwelling Catheter - Exam Exam repeat. No significant changes at this time. Patient is alert and oriented 3 appears well-nourished well-hydrated is in no acute distress. They do not appear septic. On exam the patient has no tenderness to palpation of her thoracic or lumbar spine. There is no edema or ballottement sign. Lower extremities with 4/5 strength in all major muscle groups. Weakness in bilateral lower services continue to improve with greater strides Upper extremities show 5/5 strength in all major muscle groups. Patient still demonstrates essentially full strength in bilateral upper extremities however he does have some deconditioning still present 2/4DTR all UE and LE b/l Patient shows a negative Homans, Boston's, negative Babinski's negative clonus bilaterally. negative straight leg raise bilaterally. No tensioning signs. Cranial nerves II through XII are grossly intact. There is FROM that is painless of the b/l UE and LE in all major joints w/o pain. They are intact to light touch sensation in L2 to S1 nerve distribution. Patient has palpable dorsalis pedis was posterior tibial pulses. Compartments are soft and compressible. showing better sensation in lower extremities to light touch as well as pain. - Labs CBC & Chem 7: 02/11/22 13:08 02/09/22 13:23 Labs: Abnormal Lab Results - Last 24 Hours (Table) 02/11/22 02/11/22 02/11/22 Range/Units 11:48 13:08 16:46 WBC 36.4 H (3.8-10.6) k/uL RBC 3.66 L (4.30-5.90) m/uL Hgb 9.5 L (13.0-17.5) gm/dL Hct 32.5 L (39.0-53.0) % MCHC 29.3 L (31.0-37.0) g/dL RDW 16.6 H (11.5-15.5) % Neutrophils # (Manual) 28.70 H (1.3-7.7) k/uL Lymphocytes # (Manual) 0.73 L (1.0-4.8) k/uL Eosinophils # (Manual) 6.55 H (0-0.7) k/uL Myelocytes # (Manual) 0.36 H (0) k/uL POC Glucose (mg/dL) 158 H 178 H (75-99) mg/dL 02/11/22 02/12/22 Range/Units 20:08 06:05 WBC (3.8-10.6) k/uL RBC (4.30-5.90) m/uL Hgb (13.0-17.5) gm/dL Hct (39.0-53.0) % MCHC (31.0-37.0) g/dL RDW (11.5-15.5) % Neutrophils # (Manual) (1.3-7.7) k/uL Lymphocytes # (Manual) (1.0-4.8) k/uL Eosinophils # (Manual) (0-0.7) k/uL Myelocytes # (Manual) (0) k/uL POC Glucose (mg/dL) 134 H 177 H (75-99) mg/dL Assessment and Plan Assessment: 61-year-old male with stage IV metastatic lung adenocarcinoma Acute lower extremity weakness with urinary retention, likely thoracic myelopathy s/p T1-6 decompressive laminectomy with T3 stabilizing kyphoplasty Complex medical patient Plan: -Appreciate Team and consulting services -Okay for up and about with TICKETING CLERK brace amputee and assist as needed -incentive spirometer 10 times per hour -Antonella removed today at bedside -Pain control PRN, ORALS, no more IV meds. -GI ppx cont with lr -DVT ppx, Cont with heparin vs lovenox to go to rehab -Cont with ABX post op -TEds, SCDs -Advised pt to continue with in bed exercises as much as possible since PT/OT not as aggressive as needed. -continue regular diet -Cont PT/OT. OOB 4-5x/day. OOB all meals. TICKETING CLERK when out of bed. -SHOWER daily -Stable for rehab per spine service -follow-up in office in 3 weeks
[2022-02-12 11:45] LABS: Glucose,Whole Blood 159 mg/dL (75-99)
[2022-02-12] MEDS: CYCLOBENZAPRINE 5 MG TAB PO PRN (11:55)
[2022-02-12] MEDS: ACETAMINOPHEN TAB 325 MG TAB PO PRN (11:55)
[2022-02-12 16:46] LABS: Glucose,Whole Blood 222 mg/dL (75-99)
[2022-02-12] MEDS: LACTULOSE 20 GM/30 ML CUP PO SCH ×2 (17:05→21:09)
[2022-02-12 20:45] LABS: Glucose,Whole Blood 268 mg/dL (75-99)
--- NOTE | 2022-02-13 03:59 | P.PN ---
Subjective Progress Note Date: 02/12/22 This is a 61-year-old patient who follows with Dr. Elias Huizar. Patient 2 weeks ago was diagnosed with metastatic lung cancer with metastatic disease to the bones. Under care of Dr. Mercedes. Patient was supposed to follow for radiation treatment and further workup. For 6 weeks patient is having some trouble getting up because of back pain. Also prescription pain in the chest and back. Appetite is okay. Has lost about 35 pounds the last few weeks. Yesterday patient not able to walk at all not make urine. Presented to the ER. Lr catheter was placed. In addition oncologist was consulted. On January 15 patient underwent a PET scan that showed abnormal thoracic adenopathy with diffuse osseous metastatic disease and spinal canal invasion lower thoracic spine level noted. Also involvement of bilateral ribs. Started him and entire spine. Lung biopsy has previously shown malignant non-small cell carcinoma cells having features of metastatic pulmonary adenocarcinoma. Per bronchoscopy by Dr. Topete on December 28. Patient denies any fever and chills. A bit tired and rundown. January 26: Patient received radiation treatment. Getting breathing treatments. Stated this afternoon she was seen by Dr. Courtney. MRI head showed spinal cord compression. He discussed with the family and will proceed for surgery. Compression between T2-T6. On the spinal cord January 27: Patient underwent surgery today. Formal report not available. Has a C- spine collar. Hemovac. at the bedside. Tired. January 28: Laying in bed. Cervical collar. Hemovac. Some movement of her lower extremity. Lr catheter. Unable to control his bowel movement today. January 29: Awaiting MRI today. Survive to call her with Hemovac in place. Some pain in the neck. Able to move some his lower extremity. January 30: Patient had brain MRI. No obvious metastatic disease reported. Cervical spine MRI noted. Patient is awaiting his chest brace. Able to move his legs a bit. Underwent nasopharyngeal laryngoscopy by Dr. Petit yesterday evening. No vocal cord paresis or paralysis. Large amount of inflammation and laryngitis including a false vocal cord. Discussed with the patient and at the bedside. Pain control. Hemovac in place. Does not like hospital food. Daughter will be bringing in some food. January 31: Up in a chair. Has a chest brace. Oral intake fair. Lr catheter. Patient not to get radiation treatment at least for [address] Bauman consulted. Movement of the legs better. 11/18. February 01: Reclining in bed. Hemovac has been discontinued. Cervical collar. O ral intake fair. Pain at the operative site. Not felt to be candidate for [facility] rehab. February 02: Reclining in bed. Able to lift his legs off the bed. 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 Currently no rehab place available. Dose of dexamethasone cutback. On IV cefazolin per orthopedic. February 03: Admitting his brace. Sitting on edge of the bed. Oral intake good. No BM for 3 days. We'll give a laxative. Other medications to continue. February 04: No BM today again. Given a soapsuds enema. No response. Abdominal x- rays ordered. No nausea or vomiting. No abdominal pain. 02/05/2022 Patient is seen in follow-up this morning with multiple medical consultations following. Patient continues with elevated WBC and hematology/onc following. Patient also continues with abdominal distention and feeling of fullness and general surgery consulted for constipation. CT abdomen ordered and pending. Patient is continued on laxatives and bowel regimen and has attempted soapsud enema x 2 with no relief. Social work and case management following and patient is awaiting accepting facility for continued weakness. Patient denies chest pain or shortness of breath. Patient is afebrile. Reports abdominal discomfort. Patient is continued on IV steroids decadron and tapering per ortho as patient is status post decompression laminectomy with soft collar noted. 02/06/2022 Patient is seen today and feeling better and able to get up and shower. Multiple medical consultations following. General surgery ordered bowel regimen and patient was able to have a bowel movement and feeling better. Patient to continue current bowel regimen and continue working with physical therapy daily. Case management following and working on accepting ec for continued strength and mobility prior to starting cancer treatment. No radiation for 2 weeks per ortho and is also continued on IV cefazolin and will continue. Patient is afebrile and denies chest pain or shortness of breath. Patient is tolerating diet. 02/07/2022 Patient is seen in follow-up this morning with multiple medical consultations following including oncology and orthopedics. Patient is status post T1 to T6 decompression laminectomy with orthopedics following and continued on pain management. Patient also with metastatic lung cancer and being followed by oncology and arranging for outpatient follow-up. Radiation oncology also evaluated the patient and will continue to hold radiation therapy 2-3 weeks postop per orthopedics. Case management also following and arranging for ECF and family along with patient are willing to proceed with ECF to build up strength and mobility with continued PT/OT therapy services. Patient and family are agreeable and aware about being unable to initiate oncology therapy while in rehab. Patient also evaluated by general surgery for constipation and is maintained on lactulose twice a day and will increase to lactulose 3 times a day as patient is reporting feeling of constipation and has not had a bowel movement now in 2 days. Patient also continues with indwelling Lr catheter for urinary retention and recommended continue. Patient denies chest pain or shortness of breath. Patient is afebrile. WBC trending down. 02/08/2022 Patient is seen this morning currently having a bowel movement and will continue with lactulose 3 times a day as needed. Multiple medical consultations kenyattao the patient also continues with indwelling Lr catheter for retention and will initiate Flomax and continue to monitor. Possible component of metastatic disease or chronic constipation from narcotic use. Case management following along with orthopedics and oncology and plan is for patient to go to ECF once insurance authorization is obtained. Patient is afebrile denies any chest pain or shortness of breath. 02/10/2022 Patient is being closely monitored and no acute distress. Patient continues to await for insurance authorization to go to ECF. Patient remains afebrile and denies chest pain or shortness of breath. Patient continued on bowel regimen and having bowel movements. 02/11/2022 Patient is seen in follow up today with no acute overnight issues noted. Orthopedics following and patient is awaiting insurance authorization to go to ECF for PT/OT therapy. Patient is afebrile and denies any chest pain or shortness of breath. WBC remains elevated but is trending down. 02/12/2022 Patient is seen this morning with ortho and oncology following. Plan is in place for ECF to build strength and mobility status post decompression laminectomy. Awaiting insurance authorization for [facility]. Case management following. Patient is afebrile and denies chest pain or shortness of breath. Patient reporting some difficulty with bowel movement and will make lactulose s cheduled for bowel movements and hold if having loose stools. Possible discharge in 24 hours. Physical examination: GENERAL:, 61 year old male, sitting up in bed, comfortable, well developed, well nourished EYES: Pupils equal. Conjunctiva normal. HEENT: soft collar noted NECK: JVD not raised; masses not palpable. HEART: First and second heart sounds are normal; no edema. LUNGS: Respiratory rate normal; decreased breath sounds. ABDOMEN: Soft, nontender, bowel sounds noted, no masses palpable. 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 by Dr. Courtney - January 27. -Acute urinary retention from metastatic disease to the spine. continue lr catheter -metastatic adenocarcinoma of the lung/non-small cell. -Normocytic anemia secondary to malignancy -COPD in a previous smoker -Hyponatremia, likely hypoosmolar -Bone pain. From metastatic disease -Severe leukocytosis likely leukemoid reaction from underlying malignancy and steroids -Acute medical debility from metastatic disease -Acute severe constipation secondary to decreased mobility and narcotics -full code Plan: Recommend to continue with current regimen and follow with multiple medical consultations. Wean steroids per oncology and orthopedics. Prescriptions provid ed for discharge for the steroids. Patient is continued on bowel regimen and reports to having bowel movement with some difficulty. Will continue lactulose to 3 times a day and make is scheduled and monitor closely. Continue current regimen. PT/OT daily and case management following and has been accepted to [facility] for continued rehab. Patient is agreeable to withhold cancer treatment while in rehab and will follow with ortho and oncology once discharged from [facility]. Awaiting insurance authorization at this time. Due to multiple complex medical issues, prognosis is guarded. Possible discharge in 24 hours. The impression and plan of care has been dictated by Drea Ruiz, Nurse Practitioner as directed. Dr. Josesito MD I have performed a history and examination and MDM of this patient, discussed the same with the dictator, and agree with the dictator's assessment and plan as written ,documented as a scribe. Based on total visit time, I have performed more than 50% of the visit. Objective - Vital Signs Vital signs: Vital Signs Temp 98.2 F 02/12/22 08:50 Pulse 96 02/12/22 08:50 Resp 18 02/12/22 08:50 BP 111/61 02/12/22 08:50 Pulse Ox 91 L 02/12/22 08:50 FiO2 Intake & Output 02/11/22 02/12/22 02/12/22 18:59 06:59 18:59 Intake Total 10 Output Total 1300 1600 Balance -1300 -1600 10 Intake: IV 10 Invasive Line 6 10 Output: Urine 1300 1600 Other: Voiding Method Indwelling Catheter Indwelling Catheter Indwelling Catheter - Labs CBC & Chem 7: 02/11/22 13:08 02/09/22 13:23 Labs: Abnormal Lab Results - Last 24 Hours (Table) 02/11/22 02/11/22 02/11/22 Range/Units 11:48 13:08 16:46 WBC 36.4 H (3.8-10.6) k/uL RBC 3.66 L (4.30-5.90) m/uL Hgb 9.5 L (13.0-17.5) gm/dL Hct 32.5 L (39.0-53.0) % MCHC 29.3 L (31.0-37.0) g/dL RDW 16.6 H (11.5-15.5) % Neutrophils # (Manual) 28.70 H (1.3-7.7) k/uL Lymphocytes # (Manual) 0.73 L (1.0-4.8) k/uL Eosinophils # (Manual) 6.55 H (0-0.7) k/uL Myelocytes # (Manual) 0.36 H (0) k/uL POC Glucose (mg/dL) 158 H 178 H (75-99) mg/dL 02/11/22 02/12/22 Range/Units 20:08 06:05 WBC (3.8-10.6) k/uL RBC (4.30-5.90) m/uL Hgb (13.0-17.5) gm/dL Hct (39.0-53.0) % MCHC (31.0-37.0) g/dL RDW (11.5-15.5) % Neutrophils # (Manual) (1.3-7.7) k/uL Lymphocytes # (Manual) (1.0-4.8) k/uL Eosinophils # (Manual) (0-0.7) k/uL Myelocytes # (Manual) (0) k/uL POC Glucose (mg/dL) 134 H 177 H (75-99) mg/dL
--- NOTE | 2022-02-13 05:56 | P.PN ---
Subjective Progress Note Date: 02/12/22 CHIEF COMPLAINT: Constipation HISTORY OF PRESENT ILLNESS: The patient is a 61 year old male diagnosed me tastatic lung cancer chronic constipation and leukocytosis. He has not had a bowel movement in 3 days. He is concerned for developing abdominal pain with constipation again. He is laying in bed. REVIEW OF ORGAN SYSTEMS: No fevers or chills. No chest pain. No nausea and vomiting. PHYSICAL EXAM: VITALS: Reviewed CONSTITUTIONAL: Well developed and in no acute distress. EYES: Conjuctivae without sclera icterus. Extraocular movements grossly intact. HEAD, EARS, NOSE, THROAT: Moist buccal mucosa. Head is atraumatic, normocephalic. Hears conversational speech. No nasal drainage. RESPIRATORY: Non-labored respirations and equal bilateral excursions. No gross wheezes. CARDIOVASCULAR: Palpable 2+ radial pulses. ABDOMEN: No peritonitis. Nondistended. MUSCULOSKELETAL: No clubbing cyanosis. SKIN: Warm and well perfused with good skin turgor. NEUROLOGIC: Cranial nerves II through XII grossly intact. No focal or lateralizing signs. PSYCH: Appropriate affect. Alert and oriented to person, place and time. : Has lr catheter, urine clear CLINCAL LABS: Reviewed. BSG 159 to 222 ASSESSMENT: 1. Chronic constipation. 2. Metastatic lung cancer 3. Leukocytosis PLAN: 1. Will re-start scheduled milk of magnesia 2500 mg twice a day including lactulose 30 mg twice a day Objective - Vital Signs Vital signs: Vital Signs Temp 97.9 F 02/12/22 20:18 Pulse 80 02/13/22 04:07 Resp 16 02/13/22 04:07 BP 113/76 02/13/22 04:07 Pulse Ox 93 L 02/13/22 04:07 FiO2 Intake & Output 02/12/22 02/12/22 02/13/22 06:59 18:59 06:59 Intake Total 1290 Output Total 1600 1900 870 Balance -1599 -610 -870 Intake: IV 10 Invasive Line 6 10 Oral 1280 Output: Urine 1600 1900 870 Other: Voiding Method Indwelling Catheter Indwelling Catheter Indwelling Catheter # Bowel Movements 1 - Labs CBC & Chem 7: 02/11/22 13:08 02/09/22 13:23 Labs: Abnormal Lab Results - Last 24 Hours (Table) 02/12/22 02/12/2202/12/22 Range/Units 06:05 11:43 16:45 POC Glucose (mg/dL) 177 H 159 H 222 H (75-99) mg/dL 02/12/22 Range/Units 20:43 POC Glucose (mg/dL) 268 H (75-99) mg/dL
[2022-02-13 06:16] LABS: Glucose,Whole Blood 118 mg/dL (75-99)
[2022-02-13] MEDS: INSULIN ASPART (NovoLOG) 100 UNIT/ML VIAL SQ SCH ×3 (06:18→16:51)
[2022-02-13] MEDS: DEXAMETHASONE SOD PHOSPHATE 4 MG/ML 1 ML VIAL IVP SCH ×3 (06:21→16:51)
--- NOTE | 2022-02-13 08:25 | P.PN ---
Subjective Progress Note Date: 02/13/22 Principal diagnosis: Metastatic lung cancer, bilateral lower extremity weakness, urinary retention, status post T1 to T6 decompression laminectomy Patient seen and examined at bedside. Patient is doing well states his pain is controlled. He is able to move bilateral lower extremities in bed. He is improving daily with activity. Patient states he is passing gas, no BM yet. Fol ey cath maintained and patent. Cervical collar in place. Incision is well approximated. He is anticipating discharge today to [facility], awaiting insurance auth. Denies any needs at this time. Objective - Vital Signs Vital signs: Vital Signs Temp 97.9 F 02/12/22 20:18 Pulse 80 02/13/22 04:07 Resp 16 02/13/22 04:07 BP 113/76 02/13/22 04:07 Pulse Ox 93 L 02/13/22 04:07 FiO2 Intake & Output 02/12/22 02/13/22 02/13/22 18:59 06:59 18:59 Intake Total 1290 Output Total 1900 870 Balance -610 -870 Intake: IV 10 Invasive Line 6 10 Oral 1280 Output: Urine 1900 870 Other: Voiding Method Indwelling Catheter Indwelling Catheter # Bowel Movements 1 - Exam Physical Examination General: The patient is awake and alert, in no acute distress Skin: Skin is warm and dry with no obvious rashes or lesions. Hairy patches absent, no dorsal skin dimples, no cafe au lait spots, surgical incision to posterior cervical, radha removed 02/08/27. Eye: Pupils are equal, round and reactive to light, extra-ocular movements are intact; there is normal conjunctiva bilaterally. Neck: The neck is supple, there is no tenderness and ROM intact, soft collar present. Cardiovascular: There is a regular rate and rhythm. No murmur, rub or gallop is appreciated. Respiratory: Lungs are clear to auscultation, respirations are non-labored, breath sounds are equal. Gastrointestinal: Soft, non-distended, non-tender abdomen . Back: There is no tenderness to palpation in the midline, paralumbar, parathoracic or buttocks region. There is no obvious deformity. TLSO brace is present. . Musculoskeletal: ROM limited secondary to pain and stiffness from surgical procedure. Shoulder abduction 5/5, elbow flexors 5/5, wrist dorsiflexors 5/5. finger abductor 5/5, professional bondsman 5/5, hip flexor 4/5, knee flexor 4/5, ankle dorsiflexor 4/5, ankle plantarflexion 4/5 and extensor hallucis 4/5. Patient is unable to stand without assistance. Neurological: CN 2-12 intact. There are no obvious motor or sensory deficits. Movement and coordination equal and intact. Sensory exam to light touch intact C5-T1 and intact from L2-S1. Reflexes 2/4 in bilateral upper and lower extremities. Negative Hoffmans, babinski, and clonus signs. Psychiatric: Cooperative, appropriate mood & affect, normal judgment. - Labs CBC & Chem 7: 02/11/22 13:08 02/09/22 13:23 Labs: Abnormal Lab Results - Last 24 Hours (Table) 02/12/22 02/12/22 02/12/22 Range/Units 11:43 16:45 20:43 POC Glucose (mg/dL) 159 H 222 H 268 H (75-99) mg/dL 02/13/22 Range/Units 06:14 POC Glucose (mg/dL) 118 H (75-99) mg/dL Assessment and Plan Assessment: Post Op Day 17: T1-6 decompressive laminectomy with T3 stabilizing kyphoplasty Complex medical patient Plan: Plan: -Appreciate universal branch consultant and team management. -Activity: Ambulate QID, OOB all meals, up and about, limit lifting bending twisting to less than 5 lbs. Use walker or cane if needed for stability. -Daily PT/OT, increase ambulation strength and balance. -Brace when up and about, not needed in bed or chair -Pt may utilize walker to propel himself around. -Pain control: Adequate at this time -Meds: reviewed -GI ppx: senna, Miralax -Maintain Salmon Catheter -DVT PPX: Heparin -Encourage IS 10x/hr -Dispo: Anticipate discharge [facility] today. -Hold radiation 2-3 weeks post op *I reviewed and discussed this case with my attending Dr. Courtney, whom has reviewed this chart and films and is in agreement with assessment and plan of care as outlined above. I have personally seen and examined the patient, performed the documentation and the assessment and plan as written. Number of minutes spent on the visit: 20m.
[2022-02-13] MEDS: IPRATROPIUM-ALBUTEROL 3 ML NEB INHALATION SCH ×2 (08:52→12:17)
[2022-02-13] MEDS ORDERED: MAGNESIUM HYDROXIDE 2,400 MG/10 ML CUP PO SCH (09:00)
[2022-02-13] MEDS: LACTULOSE 20 GM/30 ML CUP PO SCH ×2 (09:35→16:18)
[2022-02-13] MEDS: TAMSULOSIN 0.4 MG CAP.ER.24H PO SCH (09:36)
[2022-02-13] MEDS: PANTOPRAZOLE 40 MG/10 ML VIAL IVP SCH (09:36)
[2022-02-13] MEDS: SENNOSIDES-DOCUSATE SODIUM 1 EACH TAB PO SCH (09:36)
[2022-02-13] MEDS: NAPROXEN 250 MG TAB PO SCH ×2 (09:36→16:25)
[2022-02-13] MEDS: ENOXAPARIN 40 MG/0.4 ML SYRINGE SQ SCH (09:36)
[2022-02-13] MEDS: CYCLOBENZAPRINE 5 MG TAB PO PRN ×2 (09:44→15:32)
[2022-02-13] MEDS: ACETAMINOPHEN TAB 325 MG TAB PO PRN (09:44)
--- NOTE | 2022-02-13 11:13 | P.PN ---
Subjective Progress Note Date: 02/13/22 Principal diagnosis: Spinal cord compression This is a 61-year-old patient with a pmh of [employer], gout, and anxiety. He was recently diagnosed with metastatic lung cancer with metastatic disease to the bones. Under care of Dr. Mercedes. Patient was supposed to follow for radiation treatment and further workup. For 6 weeks patient is having some trouble getting up because of back pain. He presented to the on 01/24/22 with complaints of weakness, not being able to walk andnot able to urinate. A lr catheter was placed. In addition oncologist was consulted. On January 15 patient underwent a PET scan that showed abnormal thoracic adenopathy with diffuse osseous metastatic disease and spinal canal invasion lower thoracic spine level noted. Also involvement of bilateral ribs and entire spine. Lung biopsy has previously shown malignant non-small cell carcinoma cells having features of metastatic pulmonary adenocarcinoma. Per bronchoscopy by Dr. Topete on December 28. Patient denied any fever and chills. January 26: Patient received radiation treatment. Getting breathing treatments. Stated this afternoon she was seen by Dr. Courtney. MRI head showed spinal cord compression. He discussed with the family and will proceed for surgery. Compression between T2-T6. On the spinal cord January 27: Patient underwent surgery today. Formal report not available. Has a C- spine collar. Hemovac in place. January 28: Cervical collar and Hemovac in place. Some movement of his lower extremity. Lr catheter. Unable to control his bowel movement today. January 29: Awaiting MRI today. Some pain in the neck. Able to move some his lower extremity. January 30: Patient had brain MRI. No obvious metastatic disease reported. Cervical spine MRI noted. Patient is awaiting his chest brace. Able to move his legs a bit. Underwent nasopharyngeal laryngoscopy by Dr. Petit y evening. No vocal cord paresis or paralysis. Large amount of inflammation and laryngitis including a false vocal cord. Hemovac in place. January 31: Up in a chair. Has a chest brace. Patient not to get radiation treatment at for 2-3 weeks. PT/OT. Movement of the legs better. February 01: Hemovac has been discontinued. Cervical collar. Oral intake fair. Pain at the operative site. Not felt to be candidate for [facility] rehab. February 02: Pt able to lift his legs off the bed. No rehab place available. Dose of dexamethasone cutback. On IV cefazolin per orthopedic. February 03: No BM for 3 days. We'll give a laxative. February 04: No BM today again. Given a soapsuds enema. No response. Abdominal x- rays ordered. No nausea or vomiting. No abdominal pain. February 05: Patient continues with elevated WBC and hematology/onc following. Patient also continues with abdominal distention and feeling of fullness and general surgery consulted for constipation. CT abdomen ordered and pending. Patient is continued on laxatives and bowel regimen and has attempted soapsud enema x 2 with no relief. Social work and case management following and patient is awaiting accepting facility for continued weakness. Patient is continued on IV steroids decadron and tapering per ortho as patient is status post decompression laminectomy with soft collar noted. February 06: Patient able to get up and shower. General surgery ordered bowel regimen and patient was able to have a bowel movement and feeling better. Patient to continue current bowel regimen and continue working with PT/OT daily. Case management following and working on accepting ECF for rehab prior to starting cancer treatment. No radiation for 2-3 weeks per ortho and is also continued on IV cefazolin and will continue. February 07: The patient was resting in bed and appeared comfortable. He states his pain is 3/10 to his right shoulder and back. He states he is getting adequate pain relief from current regimen. IV pain medications discontinued in anticipation of patient going to rehab. Encourage patient to take PO pain medications. The patient states he is shocked at how quickly the paralysis came on from his time of diagnosis. He states his goals are prolonged survival, to maximize his mobility and function to regain his independence. He is motivated and would like to get up and move more. He does not qualify for IP rehab, as he is not yet able to tolerate therapy at least 3 hours a day. However, he is willing to go to an ECF for rehab. He would also like to continue with treatment for his cancer. February 08: The patient states he did not sleep well last night. He was constipated and his abdomen was very uncomfortable. He was able to have a large BM this morning and feels better. Patient states his pain is well controlled with his current regimen. He is afraid to take narcotics because of the constipation. He was up walking using a walker with PT yesterday and stated he thinks he is moving better. He is motivated to get to rehab and regain his strength. His is coming into the hospital today to discuss rehab facilities with the onsite case manager. Patient is agreeable to outpatient Palliative Care. February 09: The patient is resting in bed and appears comfortable. He states he sat in the chair for most of the day yesterday. It is hard for him to sit still, he is normally very active. He is looking forward to rehab Awaiting insurance authorization and available bed for rehab. He plans to continue with radiation once he is done with rehab. He would like to have outpatient palliative care. Objective - Vital Signs Vital signs: Vital Signs Temp 98.0 F 02/13/22 09:49 Pulse 104 H 02/13/22 09:49 Resp 18 02/13/22 09:49 BP 92/63 02/13/22 09:49 Pulse Ox 90 L 02/13/22 09:49 FiO2 21 02/13/22 08:52 Intake & Output 02/12/22 02/13/22 02/13/22 18:59 06:59 18:59 Intake Total 1290 130 Output Total 1900 870 Balance -610 -870 130 Intake: IV 10 10 Invasive Line 6 10 10 Oral 1280 120 Output: Urine 1900 870 Other: Voiding Method Indwelling Catheter Indwelling Catheter Indwelling Catheter # Bowel Movements 1 - Exam General: Patient awake alert and oriented x 3. No acute distress. HEENT: Head is atraumatic, normocephalic Neck is supple. Sclerae are clear. Pupils equal, round and reactive to light bilaterally. c-collar in place CV: Heart regular in rate and rhythm positive S1 and S2. No S3. No S4. No clicks, rubs or murmurs. No JVD. Peripheral pulses equal. 2/4 Lungs: Diminished bilateral bases. No wheezes rales or rhonchi. Respirations even and nonlabored. No intercostal retractions. SPO2 93% on RA Abdomen/GI: Soft. Bowel sounds present in all 4 quadrants. Bowel sounds normoactive. LBM 5/ : Lr catheter draining clear yellow urine Musculoskeletal/ Extremities: + weakness to b/l lower extremities No tenderness on muscular exam. No ecchymosis. Vascular: Radial pulses equal. 2/4. Skin: No rash. Neurologic: Awake, alert and oriented times 3. Psychiatric: Appropriate mood and affect. - Labs CBC & Chem 7: 02/11/22 13:08 02/09/22 13:23 Labs: Abnormal Lab Results - Last 24 Hours (Table) 02/12/22 02/12/22 02/12/22 Range/Units 11:43 16:45 20:43 POC Glucose (mg/dL) 159 H 222 H 268 H (75-99) mg/dL 02/13/22 Range/Units 06:14 POC Glucose (mg/dL) 118 H (75-99) mg/dL Assessment and Plan Assessment: Symptoms * Pain - 0/10 Continue Tylenol, Naproxen, steroids, and Flexeril. * Fatigue - Good energy level, motivated to get up and moving * SOB - No, continue Duoneb, currently on RA * Insomnia - No * N/V - No, continue Zofran prn * Anxiety - Yes, continue Atarax * Depression - No * Confusion - No * Agitation - No * Hallucinations - No * Appetite/weight loss - Decreased appetite, 30 lb weight loss in past 4 months * Dysphagia - No * Constipation - Yes, LBM 5/30 (per patiient - very small amount), Continue MOM, Senokot-S, and Lactulose, Add Dulcolax supp prn * Incontinence - Lr catheter, Continue Flomax * Itch - No Plan: Summary/Goals - The patient is anxiously awaiting rehab. He states that he is not getting up as much as he would like here and needs a change of scenery. Still awaiting insurance authorization for rehab. He plans to continue with radiation once he is done with rehab. He would like to have outpatient palliative care. Advanced Directives - none, information provided Code Status - The patient would like to remain a full code Thank you for this consult Sandi Banuelos [facility]- Palliative Care [facility] [id number] Email: [email or web address] Time with Patient: Less than 30
[2022-02-13 12:05] LABS: Glucose,Whole Blood 151 mg/dL (75-99)
--- NOTE | 2022-02-13 12:46 | P.PN ---
Subjective Progress Note Date: 02/13/22 CHIEF COMPLAINT: Constipation HISTORY OF PRESENT ILLNESS: The patient is a 61 year old male recently diagnosed metastatic lung cancer with chronic constipation. General surgery was consulted for chronic constipation. Patient reports that he is starting to have more abdominal fullness again and some lower abdominal discomfort. Denies any nausea or vomiting. He reports a large amount of flatus. He did have a smear of stool noted yesterday. Patient restarted on the lactulose and milk of magnesia s cheduled. Afebrile PHYSICAL EXAM: VITAL SIGNS: Reviewed GENERAL: Well-developed in no acute distress. HEENT: No sclera icterus. Extraocular movements grossly intact. Moist buccal mucosa. Head is atraumatic, normocephalic. Hears conversational speech. No nasal drainage. NECK: Supple without lymphadenopathy. CHEST: Non-labored respirations and equal bilateral excursions. CARDIOVASCULAR: Palpable 2+ radial pulses. ABDOMEN: Soft. Nondistended. Nontender. MUSCULOSKELETAL: No clubbing or cyanosis. NEUROLOGIC: No focal or lateralizing signs. Cranial nerves II through XII grossly intact. PSYCH: Appropriate affect. Alert and oriented to person, place and time. SKIN: Well perfused. Good skin turgor. ASSESSMENT: 1. Constipation due to decreased mobility and narcotics 2. Metastatic lung cancer 3. Leukocytosis PLAN: -Continue a good bowel regimen with lactulose and milk of magnesia -Continue stool softeners -Continue high-fiber diet -Continue supportive care Physician Performance Consultant note has been reviewed by physician. Signing provider agrees with the documented findings, assessment, and plan of care. Objective - Vital Signs Vital signs: Vital Signs Temp 98.2 F 02/13/22 11:05 Pulse 78 02/13/22 12:27 Resp 16 02/13/22 12:27 BP 106/63 02/13/22 11:05 Pulse Ox 91 L 02/13/22 11:05 FiO2 21 02/13/22 08:52 Intake & Output 02/12/22 02/13/22 02/13/22 18:59 06:59 18:59 Intake Total 1290 130 Output Total 1900 870 850 Balance -231 -977 -193 Intake: IV 10 10 Invasive Line 6 10 10 Oral 1280 120 Output: Urine 1900 870 850 Uretheral ([place]) 850 Other: Voiding Method Indwelling Catheter Indwelling Catheter Indwelling Catheter # Bowel Movements 1 - Labs CBC & Chem 7: 02/11/22 13:08 02/09/22 13:23 Labs: Abnormal Lab Results - Last 24 Hours (Table) 02/12/22 02/12/22 02/13/22 Range/Units 16:45 20:43 06:14 POC Glucose (mg/dL) 222 H 268 H 118 H (75-99) mg/dL 02/13/22 Range/Units 12:03 POC Glucose (mg/dL) 151 H (75-99) mg/dL
--- NOTE | 2022-02-13 13:58 | P.DS ---
Providers Date of admission: 01/24/22 21:14 Expected date of discharge: 02/13/22 Attending physician: Archie Sanders Consults: 01/24/22 21:34 Consult Physician Routine Consulting Provider: Tang Topete Consult Reason/Comments: Lumg mass with metastatic lesions to the spine Do you want consulting provider notified?: Yes, Notify in am Consult Physician Routine Consulting Provider: Bola Coleman Consult Reason/Comments: Lung mass with metastatic lesions to the spine Do you want consulting provider notified?: Yes, Notify in am 01/24/22 22:01 Consult Physician Routine Consulting Provider: Fidencio Fisher Consult Reason/Comments: Lung mass with metastases to the spine Do you want consulting provider notified?: Yes, Notify in am 01/25/22 15:07 Consult Physician Urgent Consulting Provider: Jason Courtney Consult Reason/Comments: symptomatic cord compression, eval if candidate for surgery or send out Do you want consulting provider notified?: Already Contacted 01/29/22 15:31 Consult Physician Urgent Consulting Provider: Darron Luna Consult Reason/Comments: rapsy voice, post surgery, feels like swelling Do you want consulting provider notified?: Yes 01/31/22 11:19 Consult Physician Routine Consulting Provider: Julien Bauman Consult Reason/Comments: eval for ipr Do you want consulting provider notified?: Yes 02/04/22 14:25 Consult Physician Urgent Consulting Provider: Johana Carty Consult Reason/Comments: severe constipation- no response to enema Do you want consulting provider notified?: Yes 02/07/22 08:58 Consult to Palliative Care Routine Consulting Provider: Sandi Banuelos Consult Reason/Comments: pain control, new dx of Ca Do you want consulting provider notified?: Yes Primary care physician: Elias Huizar MD Hospital Course: Chief Complaint: Leg weakness This is a 61-year-old patient who follows with Dr. Elias Huizar. Patient 2 weeks ago was diagnosed with metastatic lung cancer with metastatic disease to the bones. Under care of Dr. Mercedes. Patient was supposed to follow for radiation treatment and further workup. For 6 weeks patient is having some trouble getting up because of back pain. Also prescription pain in the chest and back. Appetite is okay. Has lost about 35 pounds the last few weeks. Yesterday patient not able to walk at all not make urine. Presented to the ER. Salmon catheter was placed. In addition oncologist was consulted. On January 15 patient underwent a PET scan that showed abnormal thoracic adenopathy with diffuse osseous metastatic disease and spinal canal invasion lower thoracic spine level noted. Also involvement of bilateral ribs. Started him and entire spine. Lung biopsy has previously shown malignant non-small cell carcinoma cells having features of metastatic pulmonary adenocarcinoma. Per bronchoscopy by Dr. Topete on December 28. Patient denies any fever and chills. A bit tired and rundown. On January 26 patient did receive radiation treatment. MRI head showed spinal cord compression. Compression between T2-T6. On the spinal cord. January 27 patient underwent surgery by Dr. Courtney. C-spines collar was placed. Had a Hemovac that was eventually removed. Patient leg movements did improve. MRI of the brain did not show any metastatic disease. Also received a chest brace. Patient been requiring laxatives for constipation. February 13: Patient with a weight further radiation treatment after inpatient therapies done. Patient been accepted at rehab. Discussed with the patient and at the bedside. On year medical molasses enema ordered. Oral intake fair. Pain control. Patient to continue with Salmon catheter. Radiation can be resumed after rehab therapy. Discussion and discharge planning more than 35 minutes Past medical history to include: Recently diagnosed metastatic lung cancer with metastases to several bones. Possibly adenocarcinoma non-small cell type. COPD. Recent guarded and uses steroid injections. Anxiety. Social history: Patient smoked for about 16 years stopped about 23 years ago. 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 . Was drinking about 6-10 beers a night for many years up to 4 months ago. Family history: Lung cancer Physical examination: VITAL SIGNS: 98.2, 86, 18, 106/63, 91% room air GENERAL:, Reclining in bed, comfortable EYES: Pupils equal. Conjunctiva normal. HEENT: C-collar NECK: JVD not raised; masses not palpable. HEART: First and second heart sounds are normal; no edema. LUNGS:[ Respiratory rate normal; decreased breath sounds. ABDOMEN: Soft, nontender, liver spleen not palpable, no masses palpable. Salmon catheter PSYCH: Alert and oriented x3; mood and affect normal MUSCULOSKELETAL:No Clubbing/cyanosis;muscles-grossly intact NEUROLOGICAL: [Cranial nerves grossly intact; no facial asymmetry, able to lift his legs off the bed. Power 4/5 INVESTIGATIONS, reviewed in the clinical context: February 11: White count 36.4 hemoglobin 9.5. Potassium 3.8 creatinine 0.73 Brain MRi: No metastatic disease 2-D echocardiogram: EF 60-65%. Moderate concentric LVH. White count 51 hemoglobin 12.1 platelets 376 potassium 3.7 creatinine 0.77 TSH 3.2 Admission labs: White count [age]-year-old woman 13.2 platelets 390 sodium 131 potassium 3.8 creatinine 0.8 Albumin 3.2 UA negative for nitrite and leukoesterase COVID 19/influenza type A/influenza type B: Not detected UA noted Computed tomography scan; thoracic lumbar spine with contrast: Extensive osteomyelitis changes in the spine. EKG tracing personally reviewed by me-no sinus rhythm. Nonspecific T-wave changes Chest x-ray film personally reviewed by me-large tumor involvement of the lung space especially in the right Assessment and plan: -Acute paraparesis from metastatic disease to the thoracolumbar spine with compression of spinal cord.: Slow to respond Radiation treatment initially given-currently hold radiation treatment for 2-3 weeks after surgery... decompression surgery: include T2-6 decompressive laminectomy and T3 kyphoplasty. by Dr. Courtney - January 27. PTOT. -Acute urinary retention from metastatic disease to the spine. . PTOT. Salmon catheter - metastatic adenocarcinoma of the lung/non-small cell. Oncologist: Dr. Mercedes. Follow-up -Normocytic anemia secondary to malignancy Follow H&H -COPD in a previous smoker DuoNeb 3 times a day -Hyponatremia, likely hypoosmolar Increase forward intake -Bone pain. From metastatic disease Steroids. Naproxen. -Severe leukocytosis likely leukemoid reaction from underlying malignancy and steroids -Acute medical debility from metastatic disease PTOT. Gradually improving -Acute severe constipation secondary to decreased mobility and narcotics: Continue with laxatives Disposition: Inpatient rehab at [facility] Patient Condition at Discharge: Stable Plan - Discharge Summary Discharge Rx Participant: Yes New Discharge Prescriptions: New Ipratropium-Albuterol Nebulize [Duoneb 0.5 mg-3 mg/3 ml Soln] 3 ml INHALATION RT-TID ml Cyclobenzaprine [Flexeril] 5 mg PO TID PRN tab PRN Reason: Muscle Spasm bisacodyL [Dulcolax] 10 mg RECTAL DAILY PRN suppositor PRN Reason: Constipation Tamsulosin [Flomax] 0.4 mg PO PC-BRKFST cap Magnesium Hydroxide [Milk of Magnesia Concentrate] 2,400 mg PO BID PRN ml PRN Reason: Constipation Acetaminophen Tab [Tylenol] 650 mg PO Q6HR PRN tab PRN Reason: Mild Pain Or Fever > 100.5 Naproxen [Naprosyn] 250 mg PO TID tab Sennosides-Docusate Sodium [Senokot-S] 2 each PO BID tab cefaDROXiL [Duricef] 500 mg PO Q12HR #20 cap oxyCODONE HCL [OxyIR] 5 - 10 mg PO Q6HR PRN #42 tab PRN Reason: Pain Dexamethasone [Decadron] 4 mg PO BID #60 tablet Omeprazole [PriLOSEC] 40 mg PO DAILY 30 Days cap Lactulose [Cephulac] 30 gm PO TID PRN ml PRN Reason: Constipation INSULIN ASPART (NovoLOG) [NovoLOG (formulary)] 0 unit SQ ACHS each Calcium Carbonate [Tums] 500 mg PO QID PRN tab PRN Reason: Heartburn Continue hydrOXYzine HCL 25 mg PO TID PRN PRN Reason: Anxiety Discontinued HYDROcodone/APAP 7.5-325MG [[place] 7.5-325] 2 tab PO Q4H PRN PRN Reason: Pain Discharge Medication List hydrOXYzine HCL 25 mg PO TID PRN 12/26/21 [History] Cyclobenzaprine [Flexeril] 5 mg PO TID PRN tab 02/02/22 [Rx] Dexamethasone [Decadron] 4 mg PO BID #60 tablet 02/02/22 [Rx] Ipratropium-Albuterol Nebulize [Duoneb 0.5 mg-3 mg/3 ml Soln] 3 ml INHALATION RT-TID ml 02/02/22 [Rx] Naproxen [Naprosyn] 250 mg PO TID tab 02/02/22 [Rx] Omeprazole [PriLOSEC] 40 mg PO DAILY 30 Days cap 02/02/22 [Rx] Sennosides-Docusate Sodium [Senokot-S] 2 each PO BID tab 02/02/22 [Rx] cefaDROXiL [Duricef] 500 mg PO Q12HR #20 cap 02/02/22 [Rx] oxyCODONE HCL [OxyIR] 5 - 10 mg PO Q6HR PRN #42 tab 02/02/22 [Rx] Acetaminophen Tab [Tylenol] 650 mg PO Q6HR PRN tab 02/09/22 [Rx] Calcium Carbonate [Tums] 500 mg PO QID PRN tab 02/09/22 [Rx] INSULIN ASPART (NovoLOG) [NovoLOG (formulary)] 0 unit SQ ACHS each 02/09/22 [Rx] Lactulose [Cephulac] 30 gm PO TID PRN ml 02/09/22 [Rx] Magnesium Hydroxide [Milk of Magnesia Concentrate] 2,400 mg PO BID PRN ml 02/09/22 [Rx] Tamsulosin [Flomax] 0.4 mg PO PC-BRKFST cap 02/09/22 [Rx] bisacodyL [Dulcolax] 10 mg RECTAL DAILY PRN suppositor 02/09/22 [Rx] Follow up Appointment(s)/Referral(s): Elias Huizar MD [Primary Care Provider] - 1-2 days Sanjiv Yarbrough MD [STAFF PHYSICIAN] - 1 Week Jason Courtney DO [Doctor of Osteopathic Medicine] - 10 Days Arnol Caba MD [STAFF PHYSICIAN] - 03/01/22 10:45 am (This appt is at the [address], [address], [facility] [address]. [phone]) Ambulatory/Diagnostic Orders: Complete Blood Count w/diff [LAB.AMB] Time Frame: 3 Days, Location: None Selected Activity/Diet/Wound Care/Special Instructions: Spine Discharge and Recovery Instructions MUST BE IN COMMUNICATION ASSISTANT BRACE WHEN UP AND AMBULATING SOFT C COLLAR WHEN RESTING IN CHAIR OR BED All medication refills should be obtained through your primary care doctor or your clinic spine surgeon. Please discuss prescription refills at your follow up appointment. Do not call the hospital for medication refills. Dressing: Leave your dressing in place for a total of 5 days post operatively. Then you may remove your dressing and leave open to air. Keep the area clean and if not able to keep area clean, then cover with sterile gauze and tape. Showering: You may shower 3 days after your procedure allowing soap and water to run over incision. Do not scrub. Do not soak. Blot dry. 3 phase, 3-week plan POST OP WEEKS 1-3 1. Lifting/carrying/pushing/pulling limited to less than 5 pounds. 2. Do not sit for longer than 15 minutes at one time. Get up and walk around. Prolonged sitting is NOT advised. If you lay down, see if you can tolerate laying down on you front (belly side) 3. Walk for periods of 15 minutes = 1 mile but no longer; do it multiple times times each day. 4. Ice your low back after activity. POST OP WEEKS 3-6 1. Lifting limited to less than 20 pounds. 2. Do not sit for longer than 30 minutes at a time. Frequently change positions. Use a sit-to stand workstation or take frequent breaks from sitting if you have returned to work. 3. Walk for 30 minutes each day. If possible, do these three or more times a day POST OP WEEKS 6+ At your 6-week appointment we will give you a physical therapy referral to focus on a core stabilization and strengthening program. You should also work on leg & buttock strengthening, hamstring & quadriceps stretching, and continue a low impact aerobic activity program such as swimming, walking, or riding a stationary bicycle. During the initial 6 weeks after your surgery, you are at the highest risk of re-injuring your spine. You should generally avoid BLTs (bending, lifting and twisting combination motions) and follow the above guidelines to reduce the chance of reinjury. You can anticipate post op appointments in our office at approximately 3 weeks and 6 weeks after your surgery. INCISION CARE: If your incision is not draining you do NOT need to cover it with a dressing. Keep your incision clean, dry and intact. In most cases, we apply skin glue, radha or sutures to the incision at the time of surgery. This will be like a crust or have the appearance of a scab and will fall off in time on its own. The stitches or radha need to be removed at 3 weeks post op appointment. You may begin to shower 3 days after surgery (this allows the glue to hammer well). However, please avoid scrubbing the incision site or peeling off any of the skin glue. This will ensure optimal healing of your incision. Also, during this time avoid soaking the incision area in water - this includes swimming pools, hot tubs or baths. No ointments, lotions or oils on the incision until your surgeon allows. Leave radha, sutures or glue in place. Neurological dysfunction that comes on suddenly can also be a sign of a stroke. Below some common symptoms of a stroke are listed: B - balance difficulty such as sudden onset walking or leaning to one side - NEW E - eye problem such as sudden double vision or trouble seeing on one side - NEW F - Facial weakness or numbness on one side - NEW A - Arm or leg weakness or numbness on one side - NEW S - Slurred speech or difficulty with word finding - NEW T - Time is BRAIN! Call 911 as soon as you recognize these symptoms Diet: Consume a regular diet rich in vegetables and lean protein such as chicken or fish. You should consume in a ratio of approximately 20% fats|40% carbohydrates|40%protein. Vegetables, sweet potatoes, brown rice or quinoa are examples of good carbohydrates. Chips, white bread, cookies and sweets/sugar are examples of bad carbohydrates. Limit your bad carbs, go wild with good carbs. "Life's Simple 7" Guidelines as per [place] [employer] These will help you reclaim your life after surgery and proof technician helper in your recovery, keeping in mind your restrictions. (1) Get Active. Physical activity can help people lose weight, control high blood pressure and cholesterol, feel emotionally better, and sleep better. (2) Control Cholesterol. Avoid a diet high in saturated fat, trans fat, & cholesterol. Limit whole milk & cream, ice cream, butter, egg yolks, processed meats (like sausage and hot dogs), and fatty meats. Choose healthy foods that are low in saturated fat, trans fat and cholesterol which include: Fruits and vegetables, fiber rich grain products (like whole grain pasta and brown rice), lean meat such as chicken, fish, nuts, seeds, and legumes. (3) Eat Better. Eat small portions. Shop at the grocery with a list and do not stray from it. Tips for a healthy diet include: Limit sodium intake to less than 1500mg daily, avoid prepackaged, processed, and fast foods, choose a diet rich in fruits, vegetables, and whole grain, high fiber foods, and limit saturated & cholesterol in your diet. (4) Manage Blood Pressure. If you have high blood pressure, you should have a cuff at home so that you can check your blood pressure regularly. Be sure you have a good cuff. An arm one is generally better than a wrist one. Bring the cuff to a doctor's appointment to validate that the measurements that your cuff are taking are accurate. Take your blood pressure twice daily when you are sitting down and relaxing. Record the numbers in a log and bring this log with you to your doctors' appointments. (5) Lose Weight if your BMI is above 25. A healthy BMI is between 19-25. To calculate Your BMI, you may use a Standard BMI Calculator on the NIH BMI website: <www.nhlbi.nih.gov/guidelines/obesity/BMI/bmicalc.htm>. Weigh oneself daily. If you are overweight, set a goal to lose weight. A pound a week loss if needed is a good target. (6) Reduce Blood Sugar. Limit foods and liquids with "added sugars." (Added sugars include sucrose, fructose, glucose, maltose, dextrose, high fructose corn syrup, corn syrup, concentrated fruit juice and honey). (7) Stop Smoking. If you smoke, quitting smoking is one of the best things that you can do for your health. Smoking increases your risk of heart attack, stroke, and peripheral vascular disease, which is a build-up of plaque in your arteries. Please discard all the cigarettes and lighters in your house. Have a plan for what you will do when you have the urge to smoke. Direct and second- hand smoke shortens your life as well as the lives of your family, friends and others around you. For your health and the health of those around you, please consider quitting! Proper Bending Body Mechanics: Maintain a wide stance with one foot slightly in front of the other. Keep your back straight. Bend utilizing the strength in your hips and knees. Do not bend at the waist. Maintain the lifted object at your waist-level close to your body. Avoid lifting weight that causes immediately pain or pain anywhere in the body afterwards. Smoking/Nicotine If there was ever one thing that you could do to increase your overall health, decrease your risk of cardiovascular problems by about 39% the second you make the choice, it is to STOP SMOKING. Your body's most instant gratification is the second you stop smoking. We have all heard the studies, read the articles but it is true, smoking is extremely bad for your overall health, and moreover it is detrimental to your bone health. Nicotine, IN ANY FORM, kills bone cells, prevents your body from healing fractures, and significantly prolongs healing after surgery. In spine surgery specifically, it increases your risk of not healing your bones to create a fusion and increases your risk of having a revision surgery due to this up to 60%. I know it is hard. I know it feels impossible. But there are ways. Take control of your life. We are here to help you through it. And when you are ready, ask us and we can direct you to help if you desire. Use the START Plan to Quit Smoking (please visit the Helpguide.org website listed below for more information): S = Set a quit date. Choose a date within the next 2 weeks, so you have enough time to prepare without losing your motivation to quit. If you mainly smoke at work, quit on the weekend, so you have a few days to adjust to the change. T = Tell family, friends, and co-workers that you plan to quit. Let your friends and family in on your plan to quit smoking and tell them you need their support and encouragement to stop. Look for a quit ana who wants to stop smoking as well. You can help each other get through the rough times. A = Anticipate and plan for the challenges you'll face while quitting. Most people who begin smoking again do so within the first 3 months. You can help yourself make it through by preparing ahead for common challenges, such as nicotine withdrawal and cigarette cravings. R = Remove cigarettes and other tobacco products from your home, car, and work. Throw away all your cigarettes (no emergency pack!), lighters, ashtrays, and matches. Wash your clothes and freshen up anything that smells like smoke. Shampoo your car, clean your drapes and carpet, and steam your furniture. T = Talk to your doctor about getting help to quit. Your doctor can prescribe medication to help with withdrawal and suggest other alternatives. If you can't see a doctor, you can get many products over the counter at your local pharmacy or grocery store, including the nicotine patch, nicotine lozenges, and nicotine gum. Resources for Quitting Smoking: <https://www.[place].gov/documents/[facility]/Quit_Tobacco_Resources_for_patients_313 480_7.pdf> Supplementation: Take recommended dosages of Vitamin D and Calcium to help fortify your bones and help them to heal. See your health maintenance packet for dosages and recommended levels. DVT/VTE prophylaxis: You will be given compression stockings from the hospital. Wear these daily for the first two weeks after surgery. You may take them off at night. You may be prescribed a medication to help thin your blood. Take this as directed. If you are not prescribed this medication, early and frequent ambulation has been shown to be the best prophylaxis to deep vein thrombosis and sequelae related to this event. Patient is going to [place] Activity as tolerated with restrictions per orthopedics Follow-up with orthopedics outpatient Follow-up with oncology outpatient Follow-up with primary care provider on discharge Continue medications as prescribed Continue Decadron per oncology Continue antibiotics until finished Continue with indwelling Salmon catheter and possible trial voiding once more ambulatory and may require outpatient urology follow-up Discharge Disposition: TRANSFER TO SNF/ECF
[2022-02-13 16:37] LABS: Glucose,Whole Blood 343 mg/dL (75-99)
[2022-02-13 17:22] VITALS: BP 108/71; PULSE 86; RESP 18; TEMP 97.8
== END 2022-02-13 17:36 | DRG 478 ==
LOC: EC 17:58 → 3SCARD 21:14
PROVIDERS: ADMIT Hospitalist; ATTEND Hospitalist
PROC: DP0C2ZZ Beam Radiation of Other Bone using Photons >10 MeV (ICD-10-PCS; 2022-01-25)
PROC: 0PS43ZZ Reposition Thoracic Vertebra, Percutaneous Approach (ICD-10-PCS; principal; 2022-01-27 08:00)
PROC: 00NX0ZZ Release Thoracic Spinal Cord, Open Approach (ICD-10-PCS; principal; 2022-01-27 08:00)
PROC: 0PB40ZX Excision of Thoracic Vertebra, Open Approach, Diagnostic (ICD-10-PCS; principal; 2022-01-27 08:00)
PROC: 0PU43JZ Supplement Thoracic Vertebra with Synthetic Substitute, Percutaneous Approach (ICD-10-PCS; principal; 2022-01-27 08:00)
PROC: 00CU0ZZ Extirpation of Matter from Spinal Canal, Open Approach (ICD-10-PCS; principal; 2022-01-27 08:00)
PROC: 4A1104G Monitoring of Peripheral Nervous Electrical Activity, Intraoperative, Open Approach (ICD-10-PCS; principal; 2022-01-27 08:00)
PROC: 0CJS8ZZ Inspection of Larynx, Via Natural or Artificial Opening Endoscopic (ICD-10-PCS; 2022-01-29)
DX: C79.51 Secondary malignant neoplasm of bone (principal); C34.11 Malignant neoplasm of upper lobe, right bronchus or lung; G95.89 Other specified diseases of spinal cord; G82.20 Paraplegia, unspecified; E87.1 Hypo-osmolality and hyponatremia; G95.29 Other cord compression; J44.1 Chronic obstructive pulmonary disease with (acute) exacerbation; J96.10 Chronic respiratory failure, unspecified whether with hypoxia or hypercapnia; K92.1 Melena; M48.04 Spinal stenosis, thoracic region; Z51.5 Encounter for palliative care; Z20.822 Contact with and (suspected) exposure to COVID-19; G89.3 Neoplasm related pain (acute) (chronic); D63.0 Anemia in neoplastic disease; D72.823 Leukemoid reaction; K59.03 Drug induced constipation; T40.605A Adverse effect of unspecified narcotics, initial encounter; J04.0 Acute laryngitis; R33.8 Other retention of urine; F41.1 Generalized anxiety disorder; M10.9 Gout, unspecified; M62.838 Other muscle spasm; R26.2 Difficulty in walking, not elsewhere classified; R53.81 Other malaise; H91.90 Unspecified hearing loss, unspecified ear; Z87.19 Personal history of other diseases of the digestive system; Z87.81 Personal history of (healed) traumatic fracture; Z87.891 Personal history of nicotine dependence; Z87.39 Personal history of other diseases of the musculoskeletal system and connective tissue; Z98.890 Other specified postprocedural states; Z71.3 Dietary counseling and surveillance; Z80.1 Family history of malignant neoplasm of trachea, bronchus and lung
CPT/HCPCS: 36415; 70553; 71045; 72070; 72126; 72129; 72132; 72156; 72157; 72158; 74019; 74177; 77280; 77290; 77307; 77332; 77334; 77387; 77412; 80048; 80053; 81001; 82085; 82306; 82550; 83605; 83735; 84145; 84439; 84443; 84484; 85025; 85027; 85610; 85730; 86850; 86870; 86880; 86900; 86901; 86902; 87040; 87502; 87635; 88307; 88311; 88341; 88342; 93005; 93306; 94640; 94760; 96361; 96374; 99285